=== PATIENT | male | born 1945 | race Caucasian/White ===

== ENCOUNTER → 2020-06-13 16:12 | Outpatient (BNVA) | payer OTHER, SELFPAY | PROVIDERS: PCP Family Medicine; Visit Provider Surgery | DX: Z20.828 Contact with and (suspected) exposure to other viral communicable diseases (principal) | CPT/HCPCS: 87635 ==

== ENCOUNTER 2020-06-19 07:41 | Day surgery (SDC) | payer OTHER, SELFPAY ==
[2020-06-13 14:05] VITALS: BMI 35.4
[2020-06-19 08:08] VITALS: BP 141/72; PULSE 69; RESP 18; TEMP 36.4; O2SAT 97
[2020-06-19] MEDS: sodium chloride 0.9% 1,000 ML 30 ML IV (08:15)
[2020-06-19 08:19] LABS: Glucose Point of Care 187 mg/dL (70-110)
--- NOTE | 2020-06-19 08:26 | ANES.PREANE2 ---
Pre-Anesthetic Assessment Pre-Anesthetic Assessment: Height/Weight: Height 1.75 m Weight 108.862 kg Temp Pulse Resp BP Pulse Ox 97.6 F 69 18 141/72 97 06/19/20 08:08 06/19/20 08:08 06/19/20 08:08 06/19/20 08:08 06/19/20 08:08 Proposed Procedure: Operation Date: 06/19/20 08:30 Proposed Procedures p Colonoscopy 45911 k92.1(Not Applicable) - Bossman Wilkins MD Familial anesthetic complications: None Was Beta Fredis taken within 24 hours: N/A Last intake: Intake Last Liquid Date 06/18/20 Last Liquid Time 12:00 Last Solid Date 06/17/20 Social: Social History: No alcohol and No tobacco Exam: Pre-Anes Outpt Exam: alert, oriented x 3, clear to auscultation bilaterally and regular rate & rhythm Airway: Cervical ROM: WNL MP: 2 Dentition: Other (missing teeth) CV/HEM: CV/HEM: HTN Comments: EKG w/ first degree AV block and RBBB Saw Dr. Campuzano in April for syncopal episodes, has not had any recent episodes- Holter monitor showed NSR w/ a 4 beat run of V tach Achieves > 4 METS, walks a mile a day, denies chest pain or dyspnea on exertion Metabolic: Metabolic: DM Anesthetic Plan: ASA status: 3 Anesthesia: MAC Risk of > 500 ml blood loss (7ml/kg in children): No Meds/Allergies Current Medications: Current Medications Generic Name Dose Route Start Last Admin Trade Name Freq PRN Reason Stop Dose Admin Sodium Chloride 1,000 mls @ 30 ml s/hr 06/19/20 08:00 06/19/20 08:15 Sodium Chloride 0.9% IV 06/20/20 07:59 30 mls/hr .Q24H SHEILA Administration PFSH Anesthesia PFSH: Medical History Bifascicular block Diabetes mellitus Hyperlipidemia Surgical History H/O circumcision H/O colonoscopy History of appendectomy Family History Other CAD (coronary artery disease) Diabetes Hyperlipidemia Hypertension Stroke Denies family history of Anesthesia complication Bleeding disorder Social History Smoking and tobacco status: former smoker Alcohol intake: never Lives independently: Yes Marital status: / Current occupational status: retired History of recent travel: No Data Anesthesia Other Labs: Laboratory Results - last 48 hr 06/19/20 08:13 POC Glucose 187 Cardiac Studies: No Data to Display
--- NOTE | 2020-06-19 09:12 | W.PM.OPSUD ---
Surgery/Procedure H&P Update DATE OF PROCEDURE: June 19, 2020 DATE H&P PERFORMED: 05/29/20 H&P UPDATE INFORMATION: I have reviewed H&P completed within last 30 days, I have examined patient prior to procedure and No changes to prior documentation PLANNED PROCEDURE: Operation Date: 06/19/20 08:30 Proposed Procedures p Colonoscopy 44760 k92.1(Not Applicable) - Bossman Wilkins MD
[2020-06-19 09:44] VITALS: BP 141/80; PULSE 58; RESP 16; TEMP 36.3; O2SAT 98
[2020-06-19 09:52] VITALS: BP 135/76; PULSE 60; RESP 16; O2SAT 99
--- NOTE | 2020-06-19 10:33 | ANE.PACU2 ---
Inpatient post-anesthesia follow up: Airway intact: Yes Vital signs: Temperature 97.4 F Pulse Rate 60 Respiratory Rate 16 Blood Pressure 135/76 Pulse Oximetry 99 Oxygen Delivery Me thod Room Air Oxygen Flow Rate 2 Fraction of Inspir ed Oxygen Hydration adequate: Yes Nausea and vomiting: No Pain level: 3 Mental status: Baseline
== END 2020-06-19 10:15 | disposition home or self-care (01) ==
PROVIDERS: PCP Family Medicine; Visit Provider Surgery
PROC: 0DJD8ZZ Inspection of Lower Intestinal Tract, Via Natural or Artificial Opening Endoscopic (ICD-10-PCS; CPT 45378; principal; 2020-06-19 08:30)
DX: K92.1 Melena (principal); D12.4 Benign neoplasm of descending colon; K57.30 Diverticulosis of large intestine without perforation or abscess without bleeding; K64.8 Other hemorrhoids; I10 Essential (primary) hypertension; I44.0 Atrioventricular block, first degree; E11.9 Type 2 diabetes mellitus without complications; E78.5 Hyperlipidemia, unspecified
CPT/HCPCS: 12345; 36416; 45378; 82962; 88305; J7030

== ENCOUNTER 2020-09-12 16:59 | Emergency (ER) | payer OTHER, SELFPAY ==
[2020-09-12 17:09] VITALS: BP 160/89; PULSE 74; RESP 16; TEMP 36.8; O2SAT 95; BMI 31.4
--- NOTE | 2020-09-12 18:20 | ECG_ITS ---
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1945 Requested By: Abhilash Hall Order Number: [id number] Reading MD: FANI GARCIA Measurements Intervals [place] Rate: 74 P: 67 PA: 226 QRS: -53 QRSD: 154 T: 56 QT: 448 QTc: 499 Interpretive Statements SINUS RHYTHM WITH FIRST DEGREE AV BLOCK RIGHT BUNDLE BRANCH BLOCK [120+ ms QRS DURATION, UPRIGHT V1, 40+ ms S IN I/aVL/V4/V5/V6] LEFT ANTERIOR FASCICULAR BLOCK [QRS AXIS <= -45, QR IN I, RS IN II] LEFT VENTRICULAR HYPERTROPHY AND ST-T CHANGE [VOLTAGE CRITERIA PLUS ST/T ABNORMALITY] No previous ECG available for comparison Electronically Signed On 09-12-2020 20:07:15 SCREEN PRINT OPERATOR by FANI GARCIA [id number]
--- NOTE | 2020-09-12 18:20 | XR_ITS ---
WS: [id number] Exam: XR chest 1V portable [id number] Date/Time of Exam: 09/12/2020 7:10 PM Reason For Exam: cp No priors. The lungs are clear and fully expanded. Unremarkable cardiomediastinal structures for technique. No p leural effusions. Calcified granulomas noted bilaterally. XR/XR chest 1V portable [id number] IMPRESSION: 1. No acute cardiopulmonary finding.
--- NOTE | 2020-09-12 19:11 | ED_ITS ---
HPI - Syncope General: Chief Complaint: Syncope Stated Complaint: Passing Out/Shakes, Sent from [place] Time Seen by Provider: 09/12/20 18:46 Source: patient Mode of arrival: ambulatory Limitations: no limitations History of Present Illness: HPI narrative: 75-year-old male states he had 2 syncopal events today of the last 1 being at 5 PM. He denies any chest pain or shortness of breath before or after the event. He states that this has been going on for months and almost a year. He states he has been seeing his tax advisor. He denies any differences today. Associated symptoms: Deny abdominal pain, fever(s), headache(s) or nausea Review of Systems Const: Denies: fever(s), chills, body aches or change in appetite Eyes: Denies: blurry vision or eye discomfort ENMT: Denies: throat pain or dental pain Card: Reports: syncope Resp: Denies: dyspnea GI: Denies: abdominal pain, nausea, vomiting or diarrhea : Denies: dysuria Musc: Denies: neck pain or back pain Skin/Breast: Denies: rash Neuro: Denies: headache(s) Psych: Denies: depression Ken/Lymph: Denies: easy bruising All/Imm: Denies: urticaria PFSH ED PFSH: Medical History Bifascicular block Diabetes mellitus Hyperlipidemia Surgical History H/O circumcision H/O colonoscopy History of appendectomy Status post colonoscopy with polypectomy (06/19/20) Family History Other CAD (coronary artery disease) Diabetes Hyperlipidemia Hypertension Stroke Denies family history of Anesthesia complication Bleeding disorder Social History Smoking and tobacco status: former smoker Alcohol intake: never Lives independently: Yes Marital status: / Current occupational status: retired History of recent travel: No Physical Exam Const: COMMON NORMALS: no acute distress, patient oriented x3 and healthy appearing HENMT: COMMON NORMALS: normocephalic and atraumatic HEAD & SCALP: normocephalic and atraumatic Eye: COMMON NORMALS: Equal, round and reactive pupils present and EOMs intact bilaterally PUPIL: Yes Equal, round and reactive pupils present Neck/C-Spine: COMMON NORMALS: full ROM and supple Chest: COMMONS NORMALS: normal inspection of the chest and normal palpation of entire chest wall Resp: COMMON NORMALS: normal respiratory effort, No retractions, No use of accessory muscles and clear to auscultation bilaterally AUSCULTATION: clear to auscultation bilaterally Cardio: COMMON NORMALS: regular rate, regular rhythm and No murmurs present (Cardio) RATE: regular rate RHYTHM: regular rhythm GI: COMMON NORMALS: Normal to inspection, nondistended, normoactive bowel sounds present, Soft to palpation, non-tender and no masses PALPATION: Yes Soft to palpation Extremity: COMMON NORMALS: normal to inspection and full ROM Neuro: COMMON NORMALS: patient oriented x3, moves all extremities and no focal motor deficits Psych: COMMON NORMALS: mental status grossly normal, Normal thought process present and cooperative THOUGHT PROCESS: Normal thought process present Skin: COMMON NORMALS: no rashes or lesions noted and no wounds GENERAL SKIN EXAM: no rashes or lesions noted Course Vital Signs: Vital signs: Vital Signs Temperature 98.2 F 09/12/20 17:09 Pulse Rate 62 09/12/20 21:00 Respiratory Rate 16 09/12/20 17:09 Blood Pressure 153/87 09/12/20 21:00 Pulse Oximetry 96 09/12/20 21:00 MDM - Syncope MDM Narrative: Medical decision making narrative: Patient presents here with syncopal events that have been going on for months. Patient's been well- appearing here and has had no syncope. Patient's EKG and troponins here are negative. We will get him appoint with his tax advisor. He is to follow-up in 3 to 5 days and return to ER if worsening. Lab Data: Labs: Lab Results 09/12/20 09/12/20 09/12/20 Range/Units 19:20 19:20 19:20 WBC 8.7 (4.0-10.0) 10^3/ uL RBC 4.22 (4.1-5.3) 10^6/u L Hgb 14.5 (11.7-16.6) g/dL Hct 42.3 (42.0-52.0) % MCV 100.2 H (80-94) fL MCH 34.4 H (28.0-34.0) pg MCHC 34.3 (30.0-36.0) g/dL RDW 13.0 (12.1-15.1) % Plt Count 188 (130-400) 10^3/c mm MPV 9.9 (7.4-10.4) fL Neut % (Auto) 55.8 % Lymph % (Auto) 34.6 % Thayer % (Auto) 7.5 % Eos % (Auto) 1.2 % Baso % (Auto) 0.3 % Neut # (Auto) 4.84 (1.8-7.7) 10^3/u L Lymph # (Auto) 3.0 (0.8-4.8) 10^3/u L Thayer # (Auto) 0.7 (0.2-0.9) 10^3/u L Eos # (Auto) 0.1 (0.0-0.8) 10^3/u L Baso # (Auto) 0.0 (0.0-0.1) 10^3/u L Nucleated RBC % (a uto) 0 % Nucleated RBCs # 0.0 /100WBC Sodium 137 (136-145) mmol/L Potassium 4.4 (3.5-5.1) mmol/L Chloride 104 (98-107) mmol/L Carbon Dioxide 22 (22-29) mmol/L Anion Gap 15.4 (5-19) BUN 19 (8-23) mg/dL Creatinine 1.1 (0.7-1.2) mg/dL GFR Calculation Not Reportable Glucose 228 H (65-115) mg/dL Calculated Osmolal ity 293 (285-295) mOsm/k g Calcium 9.0 (8.5-10.5) mg/dL Total Bilirubin 0.2 (0.15-1.2) mg/dL AST 52 H (0-40) U/L ALT 87 H (0-41) U/L Alkaline Phosphata se 77 (40-130) IU/L Troponin T Baselin e 18 H (0-15) ng/L Troponin T 120 Min [place] (0-15) ng/L Delta Troponin T (0-10) ABS# Total Protein 7.1 (6.6-8.7) g/dL Albumin 4.2 (3.5-5.2) g/dL Globulin 2.9 (1.3-4.6) g/dL 09/12/20 Range/Units 20:22 WBC (4.0-10.0) 10^3/ uL RBC (4.1-5.3) 10^6/u L Hgb (11.7-16.6) g/dL Hct (42.0-52.0) % MCV (80-94) fL MCH (28.0-34.0) pg MCHC (30.0-36.0) g/dL RDW (12.1-15.1) % Plt Count (130-400) 10^3/c mm MPV (7.4-10.4) fL Neut % (Auto) % Lymph % (Auto) % Thayer % (Auto) % Eos % (Auto) % Baso % (Auto) % Neut # (Auto) (1.8-7.7) 10^3/u L Lymph # (Auto) (0.8-4.8) 10^3/u L Thayer # (Auto) (0.2-0.9) 10^3/u L Eos # (Auto) (0.0-0.8) 10^3/u L Baso # (Auto) (0.0-0.1) 10^3/u L Nucleated RBC % (a uto) % Nucleated RBCs # /100WBC Sodium (136-145) mmol/L Potassium (3.5-5.1) mmol/L Chloride (98-107) mmol/L Carbon Dioxide (22-29) mmol/L Anion Gap (5-19) BUN (8-23) mg/dL Creatinine (0.7-1.2) mg/dL GFR Calculation Glucose (65-115) mg/dL Calculated Osmolal ity (285-295) mOsm/k g Calcium (8.5-10.5) mg/dL Total Bilirubin (0.15-1.2) mg/dL AST (0-40) U/L ALT (0-41) U/L Alkaline Phosphata se (40-130) IU/L Troponin T Baselin e (0-15) ng/L Troponin T 120 Min [place] 17.58 H (0-15) ng/L Delta Troponin T -0.42 L (0-10) ABS# Total Protein (6.6-8.7) g/dL Albumin (3.5-5.2) g/dL Globulin (1.3-4.6) g/dL EKG Data^: EKG 1: Attestation: I personally reviewed and interpreted this EKG as follows: EKG interpretation date: 09/12/20 EKG interpretation time: 17:08 Interpretation: nsr hr [address] or t wave abnormalities qrs 154 qtc 475 Discharge Plan Discharge Patient Disposition: Home Clinical Impression: Syncope Qualifiers: Syncope type: unspecified Qualified Code(s): R55 - Syncope and collapse Condition: Stable Prescriptions: No Action amlodipine 5 mg tablet 5 mg PO DAILY RF: 0 atorvastatin 20 mg tablet 10 mg PO DAILY RF: 0 glipizide 5 mg tablet 2.5 mg PO DAILY RF: 0 lisinopril 40 mg tablet 20 mg PO DAILY RF: 0 metformin 1,000 mg tablet 500 mg PO BID RF: 0 omega-3 fatty acids [Fish Oil Concentrate] 1,000 mg capsule 1,000 mg PO DAILY RF: 0 cholecalciferol (vitamin D3) 1 tab PO DAILY RF: 0 aspirin 325 mg tablet 325 mg PO Q6H PRN (Reason: Pain) RF: 0 tamsulosin 0.4 mg Capsule 0.4 mg PO DAILY RF: 0 Discharge Orders: Discharge ED (Routine); Ordered 09/12/20 Ordered By: Abhilash Hall Referrals: Antione López [Primary Care Provider] - 1-3 days Discharge Diet: Advance as tolerated Discharge Activity: Resume usual activity Patient Instructions: Syncope (ED) Coding Level of Care Code ED Cadd Instructor for Chg Fwd Exam Comprehensive
[2020-09-12 19:28] VITALS: BP 163/80; PULSE 59; O2SAT 95
[2020-09-12 19:42] LABS: Basophils % 0.3 %; Eosinophils # 0.1 10^3/uL (0.0-0.8); Eosinophils % 1.2 %; Hematocrit 42.3 % (42.0-52.0); Hemoglobin 14.5 g/dL (11.7-16.6); Lymphocytes % 34.6 %; Mean Corpuscular HGB Conc 34.3 g/dL (30.0-36.0); Mean Corpuscular Hemoglobin 34.4 pg (28.0-34.0); Mean Corpuscular Volume 100.2 fL (80-94); Mean Platelet Volume 9.9 fL (7.4-10.4); Monocytes # 0.7 10^3/uL (0.2-0.9); Monocytes % 7.5 %; Neutrophils # 4.84 10^3/uL (1.8-7.7); Neutrophils % 55.8 %; Nucleated Red Blood Cells % 0 %; Platelet Count 188 10^3/cmm (130-400); Red Blood Count 4.22 10^6/uL (4.1-5.3); White Blood Count 8.7 10^3/uL (4.0-10.0)
[2020-09-12 20:00] VITALS: BP 149/81; PULSE 60; O2SAT 95
[2020-09-12 20:15] LABS: Alanine Aminotransferase 87 U/L (0-41); Albumin Level 4.2 g/dL (3.5-5.2); Alkaline Phosphatase 77 IU/L (40-130); Anion Gap 15.4 (5-19); Aspartate Amino Transferase 52 U/L (0-40); Blood Urea Nitrogen 19 mg/dL (8-23); Carbon Dioxide 22 mmol/L (22-29); Chloride 104 mmol/L (98-107); Globulin 2.9 g/dL (1.3-4.6); Glucose 228 mg/dL (65-115); Osmolality Calculated 293 mOsm/kg (285-295); Potassium 4.4 mmol/L (3.5-5.1); Sodium 137 mmol/L (136-145); Total Bilirubin 0.2 mg/dL (0.15-1.2); Total Protein 7.1 g/dL (6.6-8.7)
[2020-09-12 20:16] LABS: Troponin(5th) Baseline 18 ng/L (0-15)
--- NOTE | 2020-09-12 20:20 | ECG_ITS ---
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 Measurements Intervals [place] Rate: 59 P: 56 MI: 233 QRS: -53 QRSD: 144 T: -14 QT: 424 QTc: 420 Interpretive Statements SINUS BRADYCARDIA WITH FIRST DEGREE AV BLOCK RIGHT BUNDLE BRANCH BLOCK [120+ ms QRS DURATION, UPRIGHT V1, 40+ ms S IN I/aVL/V4/V5/V6] LEFT ANTERIOR FASCICULAR BLOCK [QRS AXIS <= -45, QR IN I, RS IN II] VOLTAGE CRITERIA FOR LVH [MEETS CRITERIA IN ONE OF: R(aVL), S(V1), R(V5), R(V5/V6)+S(V1)] POSSIBLE SEPTAL MYOCARDIAL INFARCTION , PROBABLY OLD [30 ms Q WAVE IN V1/V2] Compared to ECG 09/12/2020 17:08:11 Myocardial infarct finding now present Sinus rhythm no longer present ST (T wave) deviation no longer present Electronically Signed On 09-13-2020 20:09:53 TALENT SOURCER by Malik Alvarez M.D. [id number]
--- NOTE | 2020-09-12 20:34 | PC.NURSE ---
EKG done at 2230 and shown to ER doctor
[2020-09-12 20:55] LABS: Troponin 5 2HR 17.58 ng/L (0-15)
[2020-09-12 21:00] VITALS: BP 153/87; PULSE 62; O2SAT 96
[2020-09-12 21:13] LABS: Troponin 5 2HR Delta -0.42 ABS# (0-10)
[2020-09-12 21:34] VITALS: BP 153/87; PULSE 62; RESP 20; O2SAT 97
--- NOTE | 2020-09-13 14:38 | DCPLANNER ---
implementation project manager had message to schedule a follow up appointment for patient with [facility]. implementation project manager called [facility], spoke with Janee, gave clinic patients information. A follow up appointment was scheduled for Saturday, September 26, 2020 at 2:[address] Campuzano. implementation project manager called patient and gave patient the appointment information. Patient has [employer] insurance, pillowcase folder e mailed patients information to October with [facility], so that the authorization process could be started.
--- NOTE | 2020-10-10 07:57 | DCPLANNER ---
Patient had a follow up appointment scheduled with [facility] - patient did attend appointment with Dr. Campuzano.
== END 2020-09-12 21:34 | disposition home or self-care (01) ==
PROVIDERS: Emergency Provider Emergency Medicine; PCP Family Medicine
DX: R55 Syncope and collapse (principal); Z79.82 Long term (current) use of aspirin; Z79.84 Long term (current) use of oral hypoglycemic drugs; E11.9 Type 2 diabetes mellitus without complications; E78.5 Hyperlipidemia, unspecified; Z87.891 Personal history of nicotine dependence
CPT/HCPCS: 36415; 71045; 80053; 84484; 85025; 93005; 99283

== ENCOUNTER 2020-10-05 11:50 | Outpatient (CLI) | payer OTHER, SELFPAY ==
--- NOTE | 2020-10-05 12:06 | USCV_ITS ---
Jeremiah Lance Age: 75 Gender: M : 1945 Exam Date: 10/05/2020 12:25 Ordering Phys: Yolanda Yi MD Technologist: KOFI [place] [facility] [place]: Recurrent syncope BP: 135 / 70 HR: 61 Rhythm: Sinus Technical Quality: Adequate MEASUREMENTS (Male / Female) Normal Values 2D ECHO LV Diastolic Diameter PLAX 4.8 cm 4.2 - 5.9 / 3.9 - 5.3 cm LV Systolic Diameter PLAX 3.4 cm IVS Diastolic Thickness 1.4 cm 0.6 - 1.0 / 0.6 - 0.9 cm IVS Systolic Thickness 1.7 cm LVPW Diastolic Thickness 1.1 cm 0.6 - 1.0 / 0.6 - 0.9 cm LVPW Systolic Thickness 2.0 cm LVOT Diameter 2.0 cm LV Ejection Fraction 2D Teich 58.4 % LV Ejection Fraction MOD 2C 67.8 % LV Ejection Fraction 2C AL 70.1 % LA Diameter 3.6 cm LA Width 4.0 cm LA Height 4.8 cm RA Width 3.4 cm RA Height 4.6 cm Aorta at Sinotubular Diameter 2.5 cm M-MODE LV Diastolic Diameter MM 5.1 cm 4.2 - 5.9 / 3.9 - 5.3 cm LV Systolic Diameter MM 3.3 cm LV Ejection Fraction MM Teich 66.3 % IVS Diastolic Thickness MM 1.4 cm 0.6 - 1.0 / 0.6 - 0.9 cm IVS Systolic Thickness MM 1.9 cm LVPW Diastolic Thickness MM 1.1 cm 0.6 - 1.0 / 0.6 - 0.9 cm LVPW Systolic Thickness MM 1.3 cm Aortic Annulus Diameter 3.1 cm LA Ao Ratio MM 1.3 MV E Point Septal Separation 0.6 cm DOPPLER AV Peak Velocity 205.0 cm/s LVOT Peak Velocity 150.0 cm/s AV Area Cont Eq vti 2.3 cm squared AV Area Cont Eq pk 2.4 cm squared MV Area PHT 5.0 cm squared Mitral E to A Ratio 0.9 MV E' Velocity 42.5 cm/s Mitral E to MV E' Ratio 9.3 Mitral E to LV E' Lateral Ratio 8.1 Mitral E to LV E' Septal Ratio 11.1 TR Peak Velocity 316.0 cm/s TR Peak Gradient 39.9 mmHg TV Peak E Velocity 74.0 cm/s Right Atrial Pressure 3.0 mmHg Pulmonary Artery Systolic Pressu 42.9 mmHg PV Peak Velocity 130.0 cm/s RV Acceleration Time 0.1 s RV Ejection Time 0.3 s RV AcT/ET 0.4 FINDINGS Left Ventricle Normal left ventricular size, systolic function and wall thickness, with no diagnostic regional wall motion abnormalities. Left ventricular ejection fraction is estimated at 55 %. Normal diastolic function. Right Ventricle Normal right ventricular size and systolic function. Right Atrium Normal right atrial size. Left Atrium Mildly increased left atrial size. Mitral Valve Moderately thickened mitral valve. No mitral valve stenosis. Trace mitral valve regurgitation. Aortic Valve Thickened trileaflt aortic valve more pronounced in non coronary and left coronary cusps. No aortic valve stenosis. At least moderate aortic valve regurgitation. Tricuspid Valve Structurally normal tricuspid valve. Trace tricuspid valve regurgitation. Pulmonic Valve Structurally normal pulmonic valve. No pulmonary valve stenosis. Trace pulmonary valve regurgitation. Pericardium No pericardial effusion. Aorta Normal size aortic root and proximal ascending aorta. CONCLUSIONS 1. This is a technically difficult study with poor apical windows. 2. Normal left ventricular size, systolic function and wall thickness, with no diagnostic regional wall motion abnormalities. Left ventricular ejection fraction is estimated at 55 %. Normal diastolic function. 3. Thickened trileaflt aortic valve more pronounced in non coronary and left coronary cusps. At least moderate aortic valve regurgitation. 4. Mildly increased left atrial size. 5. SALONI may be considered for better assessment of aortic valve. Monique Campuzano MD (Electronically Signed) Final Date: 06 October 2020 11:05 S
== END 2020-10-05 11:51 | disposition home or self-care (01) ==
LOC: US 11:53
PROVIDERS: PCP Family Medicine; Visit Provider Family Medicine
DX: R55 Syncope and collapse (principal); I35.1 Nonrheumatic aortic (valve) insufficiency
CPT/HCPCS: 93306

== ENCOUNTER 2020-10-16 08:09 | Outpatient (CLI) | payer OTHER, SELFPAY ==
--- NOTE | 2020-10-16 08:17 | USCV_ITS ---
Jeremiah Lance Age: 75 Gender: M : 1945 Exam Date: 10/16/2020 08:34 Ordering Phys: Yolanda Yi MD Technologist: MARKO Exam Location[place] [facility] [place] Indication: SYNCOPE Risk Factors: Previous Vascular Surgery: Right Brachial BP: / Left Brachial BP: / Right Left Velocity (cm/s) Spectral Plaque Velocity (cm/s) Spectral Plaque Syst/Diast Broadening Syst/Diast Broadening 146.60/15.40 Prox CCA 102.80/ 19.20 83.80/ 19.80 Mid CCA 69.50 / 17.60 81.60/ 15.40 Distal CCA 57.30 / 15.40 58.10/ 14.50 Prox ICA 39.20 / 13.10 73.40/ 24.70 Mid ICA 76.70 / 22.20 95.90/ 29.80 Distal ICA 88.30 / 24.00 160.00 ECA 125.90 1.15 ICA/CCA 1.27 Antegrade Vertebral Antegrade 37.60/ 6.00 cm/s 55.90/ 12.50 cm/s Tri Subclavian Tri 109.4 97.10 0 FINDINGS Comparison: none available. No significant elevation of systolic or diastolic velocities. Waveforms are normal. Minimal bilateral, plaque with no elevation of velocity. Antegrade vertebral arteries. CONCLUSIONS Bilateral ICA stenosis less than 50%. Mild carotid atherosclerosis. Dr. Oxana Raza DO (Electronically Signed) Final Date: 16 October 2020 14:18 S
== END 2020-10-16 08:10 | disposition home or self-care (01) ==
LOC: US 08:09
PROVIDERS: PCP Family Medicine; Visit Provider Family Medicine
DX: R55 Syncope and collapse (principal); I65.23 Occlusion and stenosis of bilateral carotid arteries
CPT/HCPCS: 93880

== ENCOUNTER 2020-11-02 08:08 | Outpatient (CLI) | payer OTHER, SELFPAY ==
[2020-11-02 08:29] VITALS: BMI 31.8
--- NOTE | 2020-11-02 08:30 | ECG_ITS ---
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 Interpretive Statements NAME OF STUDY: LEXISCAN SESTAMIBI STRESS TEST INDICATION: Syncope, CAD PROCEDURE: At the baseline, the blood pressure was 140/68 mmHg with a heart rate of 64 beats per minute. The electrocardiogram showed normal sinus rhythm, left anterior fascicular block. Right bundle branch block. Voltage criteria for LVH. The Lexiscan was infused over a period of 20 seconds. A total of 0.4 milligrams of Lexiscan was infused. The stress phase was continued for a total of 5 minutes. Heart rate at the end of the stress phase was 79 bpm with a blood pressure of 120/67 mmHg. The EKG at the peak infusion revealed sinus rhythm with no significant ST-T wave changes. Sestamibi was injected 20 seconds after the Lexiscan infusion. Blood pressure at the end of the recovery phase was 114/63 mmHg with a heart rate of 76 beats per minute. CONCLUSION: 1. No significant EKG changes with the LexiScan infusion. 2. No LexiScan induced chest pain or cardiac arrhythmia. 3. Normal blood pressure and heart rate response. 4. Sestamibi/sestamibi perfusion scan pending; see separate report. Electronically Signed On 11-07-2020 13:29:05 CDT by Monique Campuzano M.D. [id number]
--- NOTE | 2020-11-02 08:30 | NMCV_ITS ---
NM pascual perf SPECT r/s* [id number] Jeremiah Lance Age: 75 Gender: M : 1945 Exam Date: 11/02/2020 08:30 Ordering Phys: Monique Campuzano MD ([email or web address]) Technologist: MARI Alvarado Exam Location: [facility] Indications: SYNCOPE STRESS TEST Please see [facility] for [facility] IMAGE PROTOCOL Rest/Stress 1 Lexiscan Day Radiopharmaceutical Dose (mCi) Administration Site Administered by Rest: Tc-99m 10.9 IV MARI Shea Sestamibi Stress:Tc-99m 33.0 IV MARI Shea Sestamibi Rest: 02-Nov-2020 60 Discovery 630 Stress: 02-Nov-2020 30 Discovery 630 0.4mg Lexiscan. Images obtained in supine and prone position. SPECT RESULTS Technical Quality: Excellent Raw Data Analysis: Normal Image Corrections: No attenuation or motion correction applied Summed Stress Score: 7 Summed Rest Score: 9 Summed Difference Score: 0 PERFUSION FINDINGS Small size perfusion abnormality of moderate severity of mid inferolateral, mid to apical inferior, apical lateral and apical marroquin on rest images with improved tracer uptake in inferior wall on stress images. FUNCTIONAL RESULTS (calculated via Gated SPECT) Stress Image LV EF (%): 62 Stress EDV (mL):155 TID: 0.95 Stress ESV (mL):59 FUNCTIONAL FINDINGS: The left ventricle is normal in size. Transient Ischemia Dilatation of 0.95. There is normal left ventricular systolic function. The left ventricular ejection fraction is normal with a value of 62%. There is normal left ventricular wall thickening with no regional wall motion abnormality. IMPRESSIONS 1. Small size fixed perfusion abnormality of moderate severity of mid inferolateral and apical lateral marroquin may represent attenuation artifact or old myocardial infarction in circumflex/left anterior descending artery territory. 2. Small paradoxical perfusion abnormality in mid to apical inferior marroquin likely represents attenuation artifact. 3. Overall left ventricular systolic function is normal without regional wall motion abnormalities. 4. The left ventricular ejection fraction is normal with a value of 62%. 5. No coronary ischemia based on the study. Monique Campuzano MD (Electronically Signed) Final Date: 08 November 2020 17:12 S
[2020-11-02] MEDS: regadenoson 0.4 Mg/5 ml Syringe IVP (09:50)
[2020-11-02 10:00] VITALS: BP 139/64; PULSE 77
== END 2020-11-02 08:09 | disposition home or self-care (01) ==
LOC: CDL 08:10
PROVIDERS: PCP Family Medicine; Visit Provider Internal Medicine Cardiovascular Disease
DX: R55 Syncope and collapse (principal)
CPT/HCPCS: 78452; 93017; A9500; J2785

== ENCOUNTER → 2020-12-14 09:25 | Outpatient (BNVA) | payer OTHER, SELFPAY | PROVIDERS: PCP Family Medicine; Visit Provider Internal Medicine Cardiovascular Disease | DX: R94.39 Abnormal result of other cardiovascular function study (principal); Z20.822 Contact with and (suspected) exposure to COVID-19 | CPT/HCPCS: 80048; 85025; 85610; 87635 ==

== ENCOUNTER 2020-12-20 14:58 | Observation (INO) | payer OTHER, SELFPAY ==
[2020-12-20] VITALS (9 sets, daily range): BP systolic 110–169; BP diastolic 63–79; PULSE 49–56; RESP 16–20; TEMP 36.6–36.9; O2SAT 93–98; BMI 31.2
--- NOTE | 2020-12-20 09:00 | XACV_ITS ---
Ht: 180 cm Wt: 102 kg BSA: 2.28 m2 Gender: Male : 1945 Exam Priority: Routine Procedure(s): Procedure Description: Diagnostic procedure Procedure Description: Left Heart Catheterization Diagnostic Cath Status: Elective Diagnostic Findings * Left Main has no disease. * Circumflex has no disease. * Proximal Left Anterior Descending: obstructive 60% stenosis, YESSY: 3 flow. * Proximal Right Coronary Artery to Mid Right Coronary Artery: minimal 30% stenosis, YESSY: 3 flow. * Coronary angiography shows right dominance. Conclusions 1. There is obstructive coronary artery disease with two vessel disease. Recommendations * Continue current medical management and risk factor modification. Clinical Evaluation EBL: 5mL-10mL Procedural Details Procedure Consent Obtained. Admit Source: Out Patient. Pre-Procedure Time Out. Identified patient by full name and date of as verbalized by the patient/guarantor. Does the consent match the physician's order: Yes. Accurate & Complete Informed Consent: Yes. Inpatient/Outpatient History & Physical on Chart: Yes. If H&P is completed, is and addenduem needed: Yes; If yes, is the addendum complete: N/A. Visualize and Verify Site with Patient/Guarantor: N/A. Relevant Radiology Images available: N/A. Pre-op teaching completed and patient verbalized understanding. The risks, benefits, and alternatives of sedation and/or procedure were discussed by physician. The patient agrees to continue. Procedure started. Correct patient, site and procedure confirmed by cath team. PERRLA. Strong, equal hand teacher adult education bilaterally. Lungs clear x 5 lobes. IV Site on Arrival: 20 gauge in the left wrist. Oxygen started at 2liters/min via nasal canula. bilateral groins was prepped with chloroprep then draped in the usual sterile fashion. right radial was prepped with chloroprep then draped in the usual sterile fashion. Physician notified. Baseline sample Acquired. HR: 55 BPM. Physician arrived. Physician scrubbed in. Immediate Pre-Procedure Time Out. Correct Patient: Yes; Correct Procedure: Yes; Correct Site: Yes; Correct Patient Position: Yes; Correct Supplies: Yes; Dried Flammable Prep: Yes; Blood Products Available: NA;. Lidocaine 1% infiltrated to the right radial. Arterial access obtained. A 5 nicaraguan TIG catheter in over wire. Multiple views taken of left coronary artery. Catheter redirected to the RCA. Multiple views taken of right coronary artery. Catheter out. A 5 nicaraguan Angled Pig catheter in over wire. Catheter out. wire out. [facility] Clinical Fraility Score: 4: Vulnerable. Group Therapy Counselor Indications: New Onset Angina/ abnormal stress test. Chest Pain Symptom Assessment: Atypical Angina. Cardiovascular Instability: No,. TR band placed. Hemostasis obtained. Post Procedure: Pulses reassessed and unchanged. PERRLA. Strong, equal hand teacher adult education bilaterally. No VTE prophylaxis required. Medication's Wasted: Lidocaine 1% = 16 mL. Medication's Wasted: Nitro = 49.8 mg. Medication's Wasted: Heparin = 1000 units. Medication's Wasted: Other = fentanyl 50 mg. Total IV fluids: 50 mL. Contrast type used: Omnipaque 300 mgI/mL, 500 mL bottle. Contrast Material : Omnipaque 70 ml. Vital chart was stopped. Post-op diagnosis: non obstructive CAD. Complications: none. Estimated blood loss: 5mL-10mL. A TR Band was successful obtaining hemostatsis at the Right Radial artery insertion site. Procedure completed. Patient transferred by wheelchair to 1st floor. Access Site Site: Right Radial artery Sheath Size: 6 Fr Hemostasis Method: TR Band Hemostasis Success: Successful Procedure Medications Start: 1:06 PM Stop: 1:06 PM Medication: Versed Amount: 1 mg Route: I.V. Start: 1:06 PM Stop: 1:06 PM Medication: Fentanyl Amount: 50 mcg Route: I.V. Start: 1:18 PM Stop: 1:18 PM Medication: Versed Amount: 1 mg Route: I.V. Start: 1:21 PM Stop: 1:21 PM Medication: Nitrogylcerin Amount: 200 mcg Route: I.A. Start: 1:24 PM Stop: 1:24 PM Medication: Heparin Amount: 5000 units Route: I.V. I, the attending physician, have reviewed and verified all procedure medications. Yes, all medications given per verbal order History/Risk Factors Dyslipidemia: Yes Tobacco Use: Former Report Signatures Finalized by Merlyn Linda MD on 12/23/2020 09:43 AM
[2020-12-20] MEDS: diphenhydrAMINE 50 mg Capsule PO (10:27)
--- NOTE | 2020-12-20 11:15 | SUR.PREOP ---
PREOP NOTE THE PATIENT, HIS SPOUSE, AND DAUGHTER WERE NOTIFIED OF THE DELAY IN HIS PROCEDURE D/T STEMI. THEY ALL VERBALIZED THEIR UNDERSTANDING.
--- NOTE | 2020-12-20 13:07 | P.HPUD_ITS ---
Surgery/Procedure H&P Update DATE OF PROCEDURE: December 20, 2020 DATE H&P PERFORMED: 11/26/20 H&P UPDATE INFORMATION: I have reviewed H&P completed within last 30 days, I have examined patient prior to procedure and No changes to prior documentation PREOP DIAGNOSIS: Abnormal stress test, worsening of shortness of breath and anginal-like sym PLANNED PROCEDURE: Operation Date: 12/20/20 10:00 Proposed Procedures p left Cardiac Catheterization 33404 r94.39(Left) - Merlyn Linda MD PATIENT REASSESSED PRIOR TO SEDATION, WITH NO CHANGE NOTED: Yes PHYSICAL EXAM: alert, oriented x 3 and clear to auscultation bilaterally AIRWAY EVAL/ANESTHESIA PLAN: ASA II and Risks, benefits & alternatives of sed ation and/or procedure discussed
--- NOTE | 2020-12-20 14:17 | PC.NURSE ---
Report Called Report called to Maurice SALEEM at this time, all questions answered. Pt to ICU 5 as OF. Family updated.
--- NOTE | 2020-12-20 15:48 | PC.NURSE ---
Removed a total of 13cc from pt TR band. cath site dry clean and intact. Dressing placed over site. pt instructed not to lift with affected arm for 24 hours.
== END 2020-12-20 16:59 | disposition home or self-care (01) ==
LOC: ICU 15:12
PROVIDERS: Admitting Provider Internal Medicine Cardiovascular Disease; PCP Family Medicine; Visit Provider Internal Medicine Cardiovascular Disease
DX: I25.10 Atherosclerotic heart disease of native coronary artery without angina pectoris (principal); R94.39 Abnormal result of other cardiovascular function study; E78.5 Hyperlipidemia, unspecified; Z87.891 Personal history of nicotine dependence; Z82.49 Family history of ischemic heart disease and other diseases of the circulatory system; Z79.82 Long term (current) use of aspirin; E11.9 Type 2 diabetes mellitus without complications; Z79.84 Long term (current) use of oral hypoglycemic drugs
CPT/HCPCS: 36415; 93454; C1769; C1887; C1894; G0378; J1644; J2250; J3010; J3490; J7030; Q0163; Q9967

== ENCOUNTER 2021-06-07 11:24 | Outpatient (CLI) | payer OTHER, SELFPAY ==
--- NOTE | 2021-06-07 | CT_ITS ---
WS: [id number] Exam: CT abdomen pelvis wo/w [id number] Date/Time of Exam: 06/07/2021 11:40 AM Reason For Exam: ELEVATED LIVER ENZYMES DLP: 1181.[address] scans at [facility] use at least one of these dose optimization techniques: automated e xposure control; mA and/or kV adjustment per patient size (includes targeted exams where dose is matc hed to clinical indication); or iterative reconstruction. Lower lung zones are clear. Hepatic steatosis noted. No calcified stones in the gallbladder. The stom ach, spleen and pancreas appear normal. The abdominal aorta is not dilated. The portal vein and IVC a re patent. Normal adrenal glands. The kidneys are unremarkable. No free air. No lymphadenopathy. Smal l bowel loops are normal in caliber. Minimal sigmoid diverticulosis. No sign of acute diverticulitis. Intact urinary bladder. No mass or adenopathy in the pelvis. No sign of acute appendix. No significa nt abdominal wall defect. No destructive bone lesions are seen. Moderate spinal canal stenosis at L3- 4. CT/CT abdomen pelvis wo/w [id number] IMPRESSION: 1. No mass, lymphadenopathy or acute finding. 2. Hepatic steatosis. Minimal sigmoid diverticulosis.
[2021-06-07] MEDS: iohexol 350 mg/mL 100 mL Btl IV (15:42)
[2021-06-07] MEDS: iohexol 300 mg/mL 50 mL Btl PO (15:43)
== END 2021-06-07 11:25 | disposition home or self-care (01) ==
PROVIDERS: PCP Family Medicine; Visit Provider Family Medicine
DX: R74.8 Abnormal levels of other serum enzymes (principal); K76.0 Fatty (change of) liver, not elsewhere classified; K57.30 Diverticulosis of large intestine without perforation or abscess without bleeding
CPT/HCPCS: 74178; Q9967

== ENCOUNTER 2021-08-07 09:53 | Outpatient (CLI) | payer OTHER, SELFPAY ==
--- NOTE | 2021-08-07 | CT_ITS ---
WS: [id number] CT HEAD TECHNIQUE: Noncontrast and contrast-enhanced CT of the head. CLINICAL INFORMATION: SYNCOPE COMPARISON: None. DLP: 2524.[address] scans at [facility] use at least one of these dose optimization techniques: automated e xposure control; mA and/or kV adjustment per patient size (includes targeted exams where dose is matc hed to clinical indication); or iterative reconstruction. FINDINGS: No evidence of intracranial hemorrhage or mass effect. Ventricular system and basal cisterns are kessler nt. Mild small vessel changes. Mild parenchymal volume loss. Normal hay-white differentiation. Normal posterior fossa. No abnormal intracranial enhancement. Mastoid air cells well aerated. Mild mu cosal thickening in the paranasal sinuses. IMPRESSION 1. No evidence of intracranial hemorrhage or mass effect. 2. Mild small vessel changes with mild parenchymal volume loss. 3. No abnormal intracranial enhancement.
[2021-08-07 11:02] LABS: Blood Urea Nitrogen 17 mg/dL (8-23)
[2021-08-07] MEDS: iohexol 300 mg/mL 100 mL Btl IV (13:56)
== END 2021-08-07 09:54 | disposition home or self-care (01) ==
PROVIDERS: PCP Family Medicine; Visit Provider Family Medicine
DX: R55 Syncope and collapse (principal)
CPT/HCPCS: 70470; 82565; 84520; Q9967

== ENCOUNTER 2021-09-19 03:06 | Inpatient (IN) | payer OTHER, MEDICARE, SELFPAY ==
[2021-09-19] VITALS (15 sets, daily range): BP systolic 94–166; BP diastolic 53–78; PULSE 78–116; RESP 17–24; TEMP 36.5–36.7; O2SAT 87–97
--- NOTE | 2021-09-19 03:07 | XRR_ITS ---
PROCEDURE INFORMATION: Exam: XR Chest Exam date and time: 09/19/2021 3:07 AM Age: 76 years old Clinical indication: Cough and fever; Patient HX: Cough with fever. Tested positive for covid two weeks ago. TECHNIQUE: Imaging protocol: XR of the chest. Views: 1 view. COMPARISON: CR XR chest 1V portable [id number] 09/12/2020 7:04 PM FINDINGS: Lungs: No definite CHF/pulmonary edema. Moderate scattered opacities throughout much of the right lung, with relative sparing of the upper lung. Mild left lung opacities, mainly in the lower lungs. The appearance is suspicious for pneumonia, please correlate clinically. Several calcified granulomata again seen in the right mid and lower lung. Pleural spaces: No visible pneumothorax. No definite pleural fluid. Heart/Mediastinum: Heart size is within normal limits. Bones/joints: No significant acute finding. XR/XR chest 1V portable [id number] IMPRESSION: 1. Bilateral lung opacities, greater on the right, suspicious for pneumonia. See additional details above. 2. Other findings discussed above.
--- NOTE | 2021-09-19 03:19 | ECG_ITS ---
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 Measurements Intervals [place] Rate: 98 P: 68 VT: 198 QRS: -62 QRSD: 149 T: 90 QT: 400 QTc: 511 Interpretive Statements SINUS RHYTHM RIGHT BUNDLE BRANCH BLOCK [120+ ms QRS DURATION, UPRIGHT V1, 40+ ms S IN I/aVL/V4/V5/V6] LEFT ANTERIOR FASCICULAR BLOCK [QRS AXIS <= -45, QR IN I, RS IN II] LEFT VENTRICULAR HYPERTROPHY AND ST-T CHANGE [VOLTAGE CRITERIA PLUS ST/T ABNORMALITY] POSSIBLE SEPTAL MYOCARDIAL INFARCTION , OF INDETERMINATE AGE [30 ms Q WAVE IN V1/V2] Compared to ECG 09/12/2020 20:29:04 ST (T wave) deviation now present Sinus bradycardia no longer present First degree AV block no longer present Myocardial infarct finding still present Electronically Signed On 09-19-2021 17:44:40 [employer]ODU[employer] TEACH[employer] by Malik Alvarez M.D. [email or web address]
--- NOTE | 2021-09-19 03:23 | ED_ITS ---
HPI - URI/Sore Throat General: Chief Complaint: COVID symptoms Stated Complaint: Covid Symptoms Time Seen by Provider: 09/19/21 03:10 Source: patient Mode of arrival: ambulatory Limitations: no limitations History of Present Illness: 76-year-old male states that he tested positive for Covid at the [place] last week he states has been having cough congestion some weakness over the last 7 days he states he had much worsening cough shortness of breath overnight his pulse ox here is in the 80s on room air he has to be on 3 L here he has a significant cough with wheezing he is a former smoker no history of lung disease denies any chest pain. Associated symptoms: Reports chills; Deny abdominal pain, chest pain, diarrhea, headache(s), nausea or vomiting Review of Systems Const: Reports: chills Eyes: Denies: blurry vision or eye discomfort ENMT: Denies: throat pain or dental pain Card: Denies: chest pain Resp: Reports: dyspnea, non-productive cough and wheezing GI: Denies: abdominal pain, nausea, vomiting or diarrhea : Denies: dysuria Musc: Denies: neck pain or back pain Skin/Breast: Denies: rash Neuro: Denies: headache(s) Psych: Denies: depression Ken/Lymph: Denies: easy bruising All/Imm: Denies: urticaria PFSH ED PFSH: Medical History Bifascicular block Diabetes mellitus Hyperlipidemia Surgical History H/O circumcision H/O colonoscopy History of appendectomy Status post colonoscopy with polypectomy (06/19/20) Family History Mother CAD (coronary artery disease) [place] 89 Stroke Brother CAD (coronary artery disease), Onset Age: 60 Cancer Diabetes Lung disease Sister Diabetes Other Hyperlipidemia Hypertension Denies family history of Clotting disorder Dementia Chronic kidney disease (CKD) Suicide Anesthesia complication Bleeding disorder Social History Smoking and tobacco status: former smoker Alcohol intake: never Lives independently: Yes Marital status: / Current occupational status: retired History of recent travel: No Physical Exam Const: COMMON NORMALS: patient oriented x3 and healthy appearing GENERAL APPEARANCE: in distress HENMT: COMMON NORMALS: normocephalic and atraumatic HEAD & SCALP: normocephalic and atraumatic Eye: COMMON NORMALS: Equal, round and reactive pupils present and EOMs intact bilaterally PUPIL: Yes Equal, round and reactive pupils present Neck/C-Spine: COMMON NORMALS: full ROM and supple Chest: COMMONS NORMALS: normal inspection of the chest and normal palpation of entire chest wall Resp: COMMON NORMALS: No retractions and No use of accessory muscles EFFORT & INSPECTION: Yes tachypneic AUSCULTATION: wheezes Cardio: COMMON NORMALS: regular rate, regular rhythm and No murmurs present (Cardio) RATE: regular rate RHYTHM: regular rhythm GI: COMMON NORMALS: Normal to inspection, nondistended, normoactive bowel sounds present, Soft to palpation, non-tender and no masses PALPATION: Yes Soft to palpation Extremity: COMMON NORMALS: normal to inspection and full ROM Neuro: COMMON NORMALS: patient oriented x3, moves all extremities and no focal motor deficits Psych: COMMON NORMALS: mental status grossly normal, Normal thought process present and cooperative THOUGHT PROCESS: Normal thought process present Skin: COMMON NORMALS: no rashes or lesions noted and no wounds GENERAL SKIN EXAM: no rashes or lesions noted Course Vital Signs: Vital signs: Vital Signs Temperature 98.1 F 09/19/21 03:17 Pulse Rate 89 09/19/21 04:20 Respiratory Rate 18 09/19/21 04:20 Blood Pressure 114/69 09/19/21 03:17 Pulse Oximetry 94 09/19/21 04:20 MDM - URI/Sore Throat Medical Decision Making Patient presents here with Covid pneumonia he is requiring 3 L of oxygen with increasing dyspnea with exertion spoke to hospitalist and will admit at this time. Lab Data : 09/19/21 03:55 09/19/21 03:55 Radiology Impressions Chest X-Ray 09/19/21 03:07 IMPRESSION: 1. Bilateral lung opacities, greater on the right, suspicious for pneumonia. See additional details above. 2. Other findings discussed above. Laboratory Results WBC 10.0 10^3/uL (4.0-10.0) 09/19/21 03:55 RBC 4.14 10^6/uL (4.1-5.3) 09/19/21 03:55 Hgb 13.8 g/dL (11.7-16.6) 09/19/21 03:55 Hct 41.4 % (42.0-52.0) L 09/19/21 03:55 MCV 100.0 fl (80-94) H 09/19/21 03:55 MCH 33.3 pg (28.0-34.0) 09/19/21 03:55 MCHC 33.3 g/dL (30.0-36.0) 09/19/21 03:55 RDW 12.7 % (12.1-15.1) 09/19/21 03:55 Plt Count 204 10^3/cmm (130-400) 09/19/21 03:55 MPV 9.9 fL (7.4-10.4) 09/19/21 03:55 Neut % (Auto) 71.3 % 09/19/21 03:55 Lymph % (Auto) 18.5 % 09/19/21 03:55 [place] % (Auto) 8.1 % 09/19/21 03:55 Eos % (Auto) 1.0 % 09/19/21 03:55 Baso % (Auto) 0.2 % 09/19/21 03:55 Neut # (Auto) 7.11 10^3/uL (1.8-7.7) 09/19/21 03:55 Lymph # (Auto) 1.8 10^3/uL (0.8-4.8) 09/19/21 03:55 [place] # (Auto) 0.8 10^3/uL (0.2-0.9) 09/19/21 03:55 Eos # (Auto) 0.1 10^3/uL (0.0-0.8) 09/19/21 03:55 Baso # (Auto) 0.0 10^3/uL (0.0-0.1) 09/19/21 03:55 Nucleated RBC % (auto) 0 % 09/19/21 03:55 Nucleated RBCs # 0.0 /100WBC 09/19/21 03:55 Specimen Type Arterial 09/19/21 03:27 Sample Site Radial, right 09/19/21 03:27 ABG pH 7.41 (7.35-7.45) 09/19/21 03:27 ABG pCO2 33.6 mmHg (35-45) L 09/19/21 03:27 ABG pO2 75.3 mmHg (80.0-100.0) L 09/19/21 03:27 ABG HCO3 21.3 mmol/L (22-26) L 09/19/21 03:27 ABG Base Excess -2.5 mmol/L (-2.0-2.0) L 09/19/21 03:27 Sacha Test Pos 09/19/21 03:27 Hematocrit 44.6 % (42-52) 09/19/21 03:27 O2 Delivery Device Nc 09/19/21 03:27 O2 Liters/Min 3.0 % 09/19/21 03:27 Analytics Lead ID [place] 09/19/21 03:27 Sodium 138 mmol/L (136-145) 09/19/21 03:55 Potassium 3.6 mmol/L (3.5-5.1) 09/19/21 03:55 Chloride 102 mmol/L (98-107) 09/19/21 03:55 Carbon Dioxide 20 mmol/L (22-29) L 09/19/21 03:55 Anion Gap 19.6 (5-19) H 09/19/21 03:55 BUN 16 mg/dL (8-23) 09/19/21 03:55 Creatinine 1.0 mg/dL (0.7-1.2) 09/19/21 03:55 GFR Calculation Not Reportable 09/19/21 03:55 Glucose 202 mg/dL (65-115) H 09/19/21 03:55 Calculated Osmolality 293 mOsm/kg (285-295) 09/19/21 03:55 Calcium 8.6 mg/dL (8.5-10.5) 09/19/21 03:55 Total Bilirubin 0.3 mg/dL (0.15-1.2) 09/19/21 03:55 AST 32 U/L (0-40) 09/19/21 03:55 ALT 40 U/L (0-41) 09/19/21 03:55 Alkaline Phosphatase 71 IU/L (40-130) 09/19/21 03:55 C-Reactive Protein 10.3 mg/L (0.0-4.9) H 09/19/21 03:55 NT-Pro-B Natriuret Pep 682 pg/mL (0-450) H 09/19/21 03:55 Total Protein 6.7 g/dL (6.6-8.7) 09/19/21 03:55 Albumin 3.7 g/dL (3.5-5.2) 09/19/21 03:55 Globulin 3.0 g/dL (1.3-4.6) 09/19/21 03:55 EKG Data EKG 1: I personally reviewed and interpreted this EKG as follows: EKG interpretation date: 09/19/21 EKG interpretation time: 03:30 Interpretation: nsr hr [address] or t wave abnormalities qrs 149 qtc 455 Discharge Plan Discharge Patient Disposition: Admitted As Inpatient Clinical Impression: Acute respiratory failure with hypoxemia, COVID-19 Condition: Stable Coding Level of Care Code ED Retirement Sales Consultant for Chg Fwd Exam Comprehensive
[2021-09-19 03:41] LABS: ABG PCO2 33.6 mmHg (35-45); ABG PH Result 7.41 (7.35-7.45); Arterial Blood Gas Hematocrit 44.6 % (42-52); Base Excess ABG -2.5 mmol/L (-2.0-2.0); Blood Gas Allen Test Pos; Blood Gas Operator Identificat JB; Blood Gas Sample Site Radial, right; Blood Gas Sample Type Arterial; HCO3 ABG 21.3 mmol/L (22-26); Oxygen Device NC; PO2 ABG 75.3 mmHg (80.0-100.0)
[2021-09-19] MEDS: dexamethasone 4 mg/mL INJ 6 MG IVP (03:42)
[2021-09-19 04:01] LABS: Basophils % 0.2 %; Eosinophils # 0.1 10^3/uL (0.0-0.8); Hematocrit 41.4 % (42.0-52.0); Hemoglobin 13.8 g/dL (11.7-16.6); Lymphocytes # 1.8 10^3/uL (0.8-4.8); Lymphocytes % 18.5 %; Mean Corpuscular HGB Conc 33.3 g/dL (30.0-36.0); Mean Corpuscular Hemoglobin 33.3 pg (28.0-34.0); Mean Platelet Volume 9.9 fL (7.4-10.4); Monocytes # 0.8 10^3/uL (0.2-0.9); Monocytes % 8.1 %; Neutrophils # 7.11 10^3/uL (1.8-7.7); Neutrophils % 71.3 %; Nucleated Red Blood Cells % 0 %; Platelet Count 204 10^3/cmm (130-400); Red Blood Count 4.14 10^6/uL (4.1-5.3); Red Cell Distribution Width 12.7 % (12.1-15.1)
[2021-09-19] MEDS: ipratropium-albuterol 3 mL Neb INHALATION (04:10)
[2021-09-19 04:32] LABS: Alanine Aminotransferase 40 U/L (0-41); Albumin Level 3.7 g/dL (3.5-5.2); Alkaline Phosphatase 71 IU/L (40-130); Anion Gap 19.6 (5-19); Aspartate Amino Transferase 32 U/L (0-40); Blood Urea Nitrogen 16 mg/dL (8-23); C Reactive Protein 10.3 mg/L (0.0-4.9); Calcium 8.6 mg/dL (8.5-10.5); Carbon Dioxide 20 mmol/L (22-29); Chloride 102 mmol/L (98-107); Glucose 202 mg/dL (65-115); NT Pro B Type Natriuretic Pept 682 pg/mL (0-450); Osmolality Calculated 293 mOsm/kg (285-295); Potassium 3.6 mmol/L (3.5-5.1); Sodium 138 mmol/L (136-145); Total Bilirubin 0.3 mg/dL (0.15-1.2); Total Protein 6.7 g/dL (6.6-8.7)
[2021-09-19 04:54] LABS: Influenza A by IFA Negative (Negative); Influenza B by IFA Negative (Negative)
--- NOTE | 2021-09-19 05:06 | P.HP_ITS ---
Providers/Chief Complaint Primary Care Provider: Yolanda Yi MD Chief Complaint: Covid Symptoms History of Present Illness The patient is a 76-year-old male who present to [facility] 3 day history of dyspnea. He states that this only occurs at night however he denies this only occurring at night when in a lying position, i.e. he denies orthopnea. The patient must opt to onset of fever, nausea, vomiting, cough which is nonproductive, wheeze. He denies rigors, abdominal pain, diarrhea, myalgia, chest pain, light headedness, dizziness. He denies peripheral edema, dysgeusia, a no dyspnea, headache. Patient tested positive for covert 19 2 weeks prior to hospitalization. He presents for further evaluation Review of Systems General: Reports: 10 or more systems reviewed and unremarkable except in HPI and below Medications/Allergies Home Medications Medication Instructions Recorded Confirmed Last Taken Type amlodipine 5 mg tablet 5 mg PO DAILY 05/14/20 01/03/21 12/18/20 08:00 History aspirin 325 mg tablet 325 mg PO Q6H PRN tab 05/14/20 01/03/21 12/18/20 08:00 History cholecalciferol (vitamin D3) 1 tab PO DAILY 05/14/20 01/03/21 12/18/20 08:00 History glipizide 5 mg tablet 2.5 mg PO DAILY 05/14/20 01/03/21 12/18/20 08:00 History lisinopril 40 mg tablet 20 mg PO DAILY tab 05/14/20 01/03/21 12/18/20 08:00 History metformin 1,000 mg tablet 500 mg PO BID tab 05/14/20 01/03/21 12/18/20 08:00 History omega-3 fatty acids 1,000 mg 1,000 mg PO DAILY 05/14/20 01/03/21 12/18/20 08:00 History capsule (Fish Oil Concentrate) Allergies Allergy/AdvReac Type Severity Reaction Status Date / Time No Known Allergies Allergy Verified 07/17/21 09:18 PFSH Acute PFSH: Medical History Bifascicular block Diabetes mellitus Hyperlipidemia Surgical History H/O circumcision H/O colonoscopy History of appendectomy Status post colonoscopy with polypectomy (06/19/20) Family History Mother CAD (coronary artery disease) [place] 89 Stroke Brother CAD (coronary artery disease), Onset Age: 60 Cancer Diabetes Lung disease Sister Diabetes Other Hyperlipidemia Hypertension Denies family history of Clotting disorder Dementia Chronic kidney disease (CKD) Suicide Anesthesia complication Bleeding disorder Social History Smoking and tobacco status: former smoker Alcohol intake: never Lives independently: Yes Marital status: / Current occupational status: retired History of recent travel: No Vitals/I&O/Wt Last Vital Signs Temp 98.1 F 09/19/21 03:17 Pulse 89 09/19/21 04:20 Resp 18 09/19/21 04:20 BP 114/69 09/19/21 03:17 Pulse Ox 94 09/19/21 04:20 Physical Exam Const: COMMON NORMALS: no acute distress, average body habitus, patient oriented x3, no limitations, healthy appearing, alert and well nourished HENMT: COMMON NORMALS: normocephalic, atraumatic, hearing grossly normal bilaterally, external ears normal, EAC's normal, TM's normal bilaterally, Normal external nose present, Normal nasal mucous membranes and turbinates present, moist oral mucous membranes, oropharynx normal, dentition normal and gingiva normal FACE & SINUS: normal facial exam NOSE: Normal external nose present EXTERNAL EAR: Yes external ears normal Eye: COMMON NORMALS: Equal, round and reactive pupils present GENERAL EYE: appearance normal, both eyes and all related structures Neck/C-Spine: COMMON NORMALS: full ROM Chest: COMMONS NORMALS: normal inspection of the chest, normal palpation of entire chest wall, normal inspection of the breasts and normal palpation of the breasts Resp: COMMON NORMALS: normal respiratory effort, No retractions, No use of accessory muscles, clear to auscultation bilaterally and percussion normal Cardio: COMMON NORMALS: no JVD, regular rate, regular rhythm, S1 normal heart sound present, S2 normal heart sound present, No gallops present (Cardio), No clicks present (Cardio), No murmurs present (Cardio), No rub (Cardio) and Peripheral pulses 2+ throughout GI: COMMON NORMALS: Normal to inspection, nondistended, normoactive bowel sounds present, Soft to palpation, non-tender, No hepatosplenomegaly present, no masses and no bruits INSPECTION: Yes normal to inspection AUSCULTATION: Yes normoactive bowel sounds : COMMON NORMALS: Yes no CVA tenderness, Yes normal external exam, Yes Testes normal, Yes scrotum normal, Yes no scrotal swelling and Yes No hernias present Back/Pelvis: THORACIC SPINE/UPPER BACK: Yes normal to inspection LUMBAR SPINE/LOWER BACK: Yes normal to inspection Extremity: COMMON NORMALS: normal to inspection, full ROM, capillary refill normal, no joint enlargement, no clubbing, cyanosis or edema, no calf tenderness and no pedal edema Neuro: COMMON NORMALS: patient oriented x3, CN's II-XII intact bilaterally, moves all extremities, no focal motor deficits, no sensory deficits noted, deep tendon reflexes 2+ bilaterally and gait normal CRANIAL NERVES: Yes CN normal except as noted SPEECH: speech normal MOTOR EXAM: 5/5 motor strength present throughout DEEP TENDON REFLEXES: Right triceps reflex intensity grade: 2+, Left triceps reflex intensity grade: 2+, Rt Biceps (C5, C6): 2+, Left biceps reflex intensity grade: 2+, Right brachioradialis reflex intensity grade: 2+, Left brachioradialis reflex intensity grade: 2+, Right patellar reflex intensity grade: 2+, Left patellar reflex intensity grade: 2+, Right ankle reflex intensity grade: 2+ and Left ankle reflex intensity grade: 2+ PUPIL EXAM: Normal pupillary reactivity/response: bilateral, Dilated: bilateral, Pinpoint: bilateral, Mid position: bilateral, Sluggish: bilateral and Fixed/non- reactive: bilateral Psych: COMMON NORMALS: mental status grossly normal, Normal thought process present, cooperative, normal affect, speech normal, activity/motor behavior normal, denies hallucinations, denies homicidal ideation and denies suicidal ideation Skin: COMMON NORMALS: no rashes or lesions noted, no wounds, turgor normal, no jaundice, no petechiae and no mottling GENERAL SKIN EXAM: no rashes or lesions noted Data : 09/19/21 03:55 09/19/21 03:55 A&P Assessment and plan (1) Acute respiratory failure with hypoxemia: Status: Acute Plan Pneumonia. Query of bacterial versus covert 19. Report of radiographic study does not appear to be consistent with covert 19. Blood culture ?2 pending. Influenza pending. Covert 19 testing pending. Azithromycin 500 mg IV daily plus Rocephin 1 g IV daily plus DEXA Methasone 6 Mill grams by mouth daily plus Proventil HFA: 90 my grams per spray: 2 puffs every 4 hours while awake. If we see no improvement within 24-40 hours we may consider initiation of REM Dem severe however I do not believe it is clinically indicated at this time. Coven isolation precautions Moderate aortic regurgitation Diverticulosis Hepatic steatosis Macrocytosis. Currently pending: TSH, free T4, B12, folate Coronary artery disease Diabetes. Will check fasting glucose every before meals and at bedtime and provide insulin sliding scale plus glipizide 2.5 Mill grams by mouth daily plus Metformin 500 Mill grams by mouth twice a day Hyperlipidemia Hypertension. Norvasc 5 Mill grams by mouth daily plus lisinopril 20 Mill grams by mouth daily GI Proflex is. Protonix 40 Mill grams by mouth daily DVT Proflex is. Lovenox 40 mg subcutaneous leak twice a day Attestations Medical Necessity Statement*: The patient's hospitalization is necessary as documented by this H&P. Anticipated hospital stay greater than 40 hours Coding Level of Care Code Acute Pesticide Control Inspector for Velma Villegas Diagnoses Acute respiratory failure with hypoxemia J96.01
[2021-09-19 05:56] LABS: Folate Level 15.4 ng/mL (4.5-32.2); Thyroid Stimulating Hormone 2.38 uIU/mL (0.27-4.20); Vitamin B12 456 pg/mL (232-1245)
[2021-09-19 06:18] LABS: Glucose Point of Care 188 mg/dL (70-110)
[2021-09-19] MEDS: enoxaparin 40 mg/0.4 mL Syringe SUBCUT ×2 (06:20→17:26)
[2021-09-19 06:21] LABS: Free T4 Free Thyroxine 0.95 ng/dL (0.82-1.77)
[2021-09-19] MEDS: insulin lispro 100 unit/1 mL SUBCUT ×4 (06:21→21:41)
[2021-09-19 06:23] LABS: Lactic Sepsis W/Reflex 2.3 mmol/L (0.5-2.2)
[2021-09-19] MEDS: albuterol 8 gm MDI 2 PUFF INHALATION ×4 (07:45→19:30)
[2021-09-19 07:50] LABS: Reflex Lactate Order REFLEX LACTIC ORDERD
[2021-09-19] MEDS: cefTRIAXone 1,000 MG in sodium chloride 0.9% (plus) 50 ML 100 MG IV (10:00)
[2021-09-19] MEDS: metformin 500 mg Tablet PO (10:01)
[2021-09-19] MEDS: pantoprazole DR 40 mg Tablet PO (10:01)
[2021-09-19] MEDS: amlodipine 5 mg Tablet PO (10:01)
--- NOTE | 2021-09-19 10:33 | PC.NURSE ---
Pt on continuous cardiac, BP, and SpO2 monitoring.
[2021-09-19 12:08] LABS: Adenovirus Not Detected (NOT DETECT); Chlamydia Pneumoniae Not Detected (NOT DETECT); Coronavirus 229E,HKU1,NL63,OC4 Not Detected (NOT DETECT); Human Metapneumovirus Not Detected (NOT DETECT); Human Rhinovirus/Enterovirus Not Detected (NOT DETECT); Influenza A Not Detected (NOT DETECT); Influenza A H1 Not Detected (NOT DETECT); Influenza A H1-2009 Not Detected (NOT DETECT); Influenza A H3 Not Detected (NOT DETECT); Influenza B Not Detected (NOT DETECT); Mycoplasma Pneumoniae Not Detected (NOT DETECT); Parainfluenza Virus Type 1 Not Detected (NOT DETECT); Parainfluenza Virus Type 2 Not Detected (NOT DETECT); Parainfluenza Virus Type 3 Not Detected (NOT DETECT); Parainfluenza Virus Type 4 Not Detected (NOT DETECT); Respiratory Syncytial Virus A Not Detected (NOT DETECT); Respiratory Syncytial Virus B Not Detected (NOT DETECT); SARS-COV-2 Detected (NOT DETECT)
[2021-09-19] MEDS: azithromycin 500 MG in sodium chloride 0.9% 250 ML 250 MG IV (12:20)
[2021-09-19 12:24] LABS: Glucose Point of Care 234 mg/dL (70-110)
--- NOTE | 2021-09-19 17:15 | P.PN_ITS ---
Subjective Subjective: Coughing quite a bit this morning. Headache. No nausea vomiting or diarrhea. Vitals/I&O/Wt Last Vital Signs Temp 97.8 F 09/19/21 14:56 Pulse 88 09/19/21 15:16 Resp 18 09/19/21 15:16 BP 133/69 09/19/21 14:56 Pulse Ox 96 09/19/21 15:16 09/19/21 09/19/21 09/19/21 06:59 14:59 22:59 Intake Total 300 / 300 Output Total 200 / 200 Balance -200 / -200 300 / 300 Physical Exam Const: COMMON NORMALS: no acute distress and patient oriented x3 HENMT: COMMON NORMALS: oropharynx normal Neck/C-Spine: COMMON NORMALS: no JVD Resp: COMMON NORMALS: normal respiratory effort and clear to auscultation bilaterally AUSCULTATION: clear to auscultation bilaterally OTHER: Coughing spells Cardio: COMMON NORMALS: no JVD, regular rhythm, S1 normal heart sound present, S2 normal heart sound present and No murmurs present (Cardio) RHYTHM: regular rhythm HEART SOUNDS: S1 normal heart sound present and S2 normal heart sound present GI: COMMON NORMALS: Normal to inspection, nondistended, normoactive bowel sounds present, Soft to palpation and non-tender PALPATION: Yes Soft to palpation Extremity: COMMON NORMALS: no joint enlargement and no pedal edema Neuro: COMMON NORMALS: patient oriented x3 and moves all extremities Skin: COMMON NORMALS: no rashes or lesions noted GENERAL SKIN EXAM: no rashes or lesions noted Data : 09/19/21 03:55 09/19/21 03:55 Micro: Microbiology 09/19/21 05:54 Blood Culture - Preliminary Blood SPECIMEN COLLECTED 09/19/21 05:54 Blood Culture - Preliminary Blood SPECIMEN COLLECTED A&P Assessment and plan (1) Acute respiratory failure with hypoxemia: Requiring up to 5 L oxygen by nasal cannula today, coughing. COVID-19 requested, positive. Continue Decadron. Add remdesivir. Added antitussives. Inhaler changed to as needed due to lactic acidosis. Oxygen support, wean down as tolerating. Lovenox VT prophylaxis. Severe COVID-19. Status: Acute (2) Lactic acidosis: Stop Metformin. Change albuterol to as needed. History of hepatic steatosis although no known cirrhosis. Status: Acute Plan Moderate aortic regurgitation Diverticulosis Hepatic steatosis Macrocytosis. Normal TSH, free T4, B12, folate Coronary artery disease Diabetes. Will check fasting glucose every before meals and at bedtime and provide insulin sliding scale plus glipizide 2.5 Metformin stopped. Depending on how reliable oral intake is may need to stop glipizide. Hyperlipidemia Hypertension. Norvasc 5 Mill grams by mouth daily plus lisinopril 20 Mill grams by mouth daily GI Proflex is. Protonix 40 Mill grams by mouth daily DVT Proflex is. Lovenox 40 mg subcutaneous leak twice a day Attestations Medical Necessity Statement*: Continue admission for assessment of management of hypoxic respite failure secondary to severe COVID-19. Coding Level of Care Code Acute Right Of Way Cutter for Velma Villegas Diagnoses Acute respiratory failure with hypoxemia J96.01 Lactic acidosis E87.2
[2021-09-19 17:20] LABS: Glucose Point of Care 185 mg/dL (70-110)
[2021-09-19] MEDS: guaiFENesin-codeine UDC 10 mL PO (17:26)
[2021-09-19] MEDS: remdesivir 200 MG in sodium chloride 0.9% (100 ml) 60 ML 100 MG IV (17:57)
--- NOTE | 2021-09-19 18:52 | PC.NURSE ---
report to Janice Trivedi LPN
[2021-09-19 20:59] LABS: Glucose Point of Care 204 mg/dL (70-110)
[2021-09-20] VITALS (32 sets, daily range): BP systolic 96–156; BP diastolic 57–89; PULSE 67–114; RESP 12–42; TEMP 36.6–36.9; O2SAT 88–98
--- NOTE | 2021-09-20 | USCV_ITS ---
Transthoracic Echo Jeremiah Lance Age: 76 Gender: M : 1945 Exam Date: 09/20/2021 02:50 Ordering Phys: Monique Campuzano MD ([email or web address]) Technologist: [email or web address] Exam Location: [facility] [place] Indication: Chest Pain BP: 136 / 75 HR: 89 Rhythm: Sinus Technical Quality: Adequate MEASUREMENTS (Male / Female) Normal Values 2D ECHO LV Diastolic Diameter PLAX 5.3 cm 4.2 - 5.9 / 3.9 - 5.3 cm LV Systolic Diameter PLAX 3.6 cm IVS Diastolic Thickness 0.9 cm 0.6 - 1.0 / 0.6 - 0.9 cm IVS Systolic Thickness 1.4 cm LVPW Diastolic Thickness 1.4 cm 0.6 - 1.0 / 0.6 - 0.9 cm LVPW Systolic Thickness 1.5 cm LVOT Diameter 1.8 cm LV Ejection Fraction 2D Teich 61.0 % LA Diameter 3.5 cm LA Width 4.9 cm LA Height 5.0 cm RA Width 3.9 cm RA Height 3.9 cm Aorta at Sinotubular Diameter 2.1 cm M-MODE Aortic Annulus Diameter 2.0 cm LA Ao Ratio MM 1.9 DOPPLER AV Peak Velocity 192.5 cm/s LVOT Peak Velocity 125.0 cm/s AV Area Cont Eq vti 1.8 cm squared AV Area Cont Eq pk 1.7 cm squared MV Peak Velocity 102.0 cm/s MV Area PHT 4.3 cm squared Mitral E to A Ratio 0.9 MV E' Velocity 47.0 cm/s Mitral E to MV E' Ratio 11.8 Mitral E to LV E' Lateral Ratio 11.2 Mitral E to LV E' Septal Ratio 12.7 TR Peak Velocity 87.0 cm/s TR Peak Gradient 3.0 mmHg TR Mean Velocity 63.4 cm/s TR Mean Gradient 2.5 mmHg TR Velocity Time Integral 17.9 cm Right Atrial Pressure 8.0 mmHg Pulmonary Artery Systolic Pressu 11.0 mmHg PV Peak Velocity 129.0 cm/s RV Acceleration Time 0.1 s RV Ejection Time 0.3 s RV AcT/ET 0.4 FINDINGS Left Ventricle Normal left ventricular size, systolic function and wall thickness. Left ventricular ejection fraction is estimated at 55 %. Although no diagnostic regional wall motion abnormality could be identified, this possibility cannot be completely excluded based on the study. Right Ventricle Normal right ventricular size and systolic function. Right ventricular systolic pressure 11 mmHg. Right Atrium Normal right atrial size. Left Atrium Mildly increased left atrial size. Mitral Valve Mildly thickened mitral valve. No mitral valve stenosis. No mitral valve regurgitation. Aortic Valve Aortic valve not well visualized. Mildly thickened and calcified probably trileaflet aortic valve. No aortic valve stenosis. At least moderate aortic valve regurgitation. Tricuspid Valve Structurally normal tricuspid valve. No tricuspid valve stenosis. Trace tricuspid valve regurgitation. Pulmonic Valve Pulmonic valve not well visualized. Pericardium No pericardial effusion. Echo free space anterior to the right ventricle likely represents a fat pad. Aorta Normal size aortic root and proximal ascending aorta. CONCLUSIONS 1. This is a technically difficult study. 2. Normal left ventricular size, systolic function and wall thickness. Left ventricular ejection fraction is estimated at 55 %. Although no diagnostic regional wall motion abnormality could be identified, this possibility cannot be completely excluded based on the study. 2. Normal right ventricular size and systolic function. 4. At least moderate aortic valve regurgitation. 5. When compared to previous echocardiogram dated 10/05/2020, there may not have been any significant change. Monique Campuzano MD (Electronically Signed) Final Date: 20 September 2021 12:24 S
[2021-09-20 01:35] LABS: Glucose Point of Care 200 mg/dL (70-110)
[2021-09-20] MEDS: aspirin 81 mg Chew Tablet 324 MG PO (01:40)
[2021-09-20] MEDS: atorvastatin 40 mg Tablet 80 MG PO (01:41)
[2021-09-20] MEDS: enoxaparin 100 mg/mL Syringe 90 MG SUBCUT (01:44)
[2021-09-20 01:47] LABS: Basophils # 0.1 10^3/uL (0.0-0.1); Basophils % 0.2 %; Hematocrit 45.2 % (42.0-52.0); Hemoglobin 14.5 g/dL (11.7-16.6); Lymphocytes # 9.3 10^3/uL (0.8-4.8); Lymphocytes % 32.7 %; Mean Corpuscular HGB Conc 32.1 g/dL (30.0-36.0); Mean Corpuscular Hemoglobin 33.7 pg (28.0-34.0); Mean Corpuscular Volume 105.1 fl (80-94); Mean Platelet Volume 10.4 fL (7.4-10.4); Monocytes # 2.1 10^3/uL (0.2-0.9); Monocytes % 7.5 %; Neutrophils % 58.9 %; Nucleated Red Blood Cells % 0 %; Platelet Count 246 10^3/cmm (130-400); Red Cell Distribution Width 13.2 % (12.1-15.1); White Blood Count 28.5 10^3/uL (4.0-10.0)
--- NOTE | 2021-09-20 01:48 | XRR_ITS ---
PROCEDURE INFORMATION: Exam: XR Chest Exam date and time: 09/20/2021 1:48 AM Age: 76 years old Clinical indication: Shortness of breath and tachypnea; Patient HX: Resp distress. Covid + TECHNIQUE: Imaging protocol: XR of the chest. Views: 1 view. COMPARISON: CR (CHEST, ) 09/19/2021 3:33 AM FINDINGS: Lungs: Compared with yesterday's examination, there is slightly improved aeration in the right upper hemithorax but worsening infiltrates within the left mid and lower hemithorax. Pleural spaces: Unremarkable. No pleural effusion. No pneumothorax. Heart/Mediastinum: Unremarkable. No cardiomegaly. Bones/joints: Unremarkable. XR/XR chest 1V portable [id number] IMPRESSION: There are patchy bilateral interstitial opacities present, slightly improved in the right upper lobe but worsening in the left lower lobe, findings compatible with a bilateral interstitial pneumonia.
[2021-09-20] MEDS: nitroglycerin 1 gm/inch oint Pkt 1 INCH TOPICAL ×4 (01:55→20:43)
[2021-09-20 02:12] LABS: C Reactive Protein 26.6 mg/L (0.0-4.9); D Dimer 1.56 ug/mIFEU (0-0.59)
[2021-09-20 02:12] LABS: ABG PCO2 38.8 mmHg (35-45); ABG PH Result 7.27 (7.35-7.45); Alveolar-Arterial Oxygen Gradi 0.5 mmHg (5-10); Arterial Blood Gas Hematocrit 42.4 % (42-52); Base Excess ABG -8.5 mmol/L (-2.0-2.0); Blood Gas Allen Test Pos; Blood Gas Operator Identificat JB; Blood Gas Sample Site Brachial, right; Blood Gas Sample Type Arterial; Carboxyhemoglobin 0.5 %THgb (0.4-20.1); HCO3 ABG 17.8 mmol/L (22-26); HGB O2 Sat 95.1 % (95-100); Ionized Calcium Level - ABG 1.2 mmol/L (1.1-1.4); Methemoglobin 1.1 % (0.4-1.5); Oxygen Device NRB; Oxygen Saturation ABG 96.7; PO2 ABG 97.6 mmHg (80.0-100.0); Potassium Level - ABG 3.6 mmol/L (3.5-5.0); Total Hemoglobin 13.8 g/dL (14-18)
[2021-09-20 02:13] LABS: Alanine Aminotransferase 61 U/L (0-41); Albumin Level 4.1 g/dL (3.5-5.2); Alkaline Phosphatase 72 IU/L (40-130); Anion Gap 24.3 (5-19); Aspartate Amino Transferase 58 U/L (0-40); Blood Urea Nitrogen 23 mg/dL (8-23); Calcium 8.6 mg/dL (8.5-10.5); Carbon Dioxide 16 mmol/L (22-29); Chloride 102 mmol/L (98-107); Globulin 2.8 g/dL (1.3-4.6); Glucose 223 mg/dL (65-115); Magnesium 2.2 mg/dL (1.7-2.3); Osmolality Calculated 297 mOsm/kg (285-295); Potassium 4.3 mmol/L (3.5-5.1); Sodium 138 mmol/L (136-145); Total Bilirubin 0.3 mg/dL (0.15-1.2); Total Protein 6.9 g/dL (6.6-8.7)
[2021-09-20 02:23] LABS: Lactate (Lactic Acid level) 7.3 mmol/L (0.5-2.2); Troponin T (5th) Once 126 ng/L (0-15)
[2021-09-20 02:26] LABS: Slide Review Slide Review Perform
--- NOTE | 2021-09-20 02:30 | PC.NURSE ---
Cardiac Event This nurse responded to patient call light at 0105, patient was resting in bed clutching his chest and stated he was having chest and jaw pain /. Patient stated to nurse he felt like his gums were going to explode. Nurse took vitals BP 133/82, HR 95, O2 93% on 3L NC. Nurse did EKG and sent pictures of EKG to Dr. Garcia the night time hospitalist at 0110. While nurses were in the room patient briefly lost consciousness for about 7 seconds and would not respond to nurses. Patient woke back up and stated he passes out at home like this often after chest pain. Patient complained of nausea and vomited. Patient was put on telemetry. Immediately after placing patient on telemetry patient began agonal breathing and then went asystole on the monitor for several seconds. Patient was placed on 15L Non rebreather. Doctor was called again and asked to come assess patient. Dr. Garcia responded to the room and gave verbal orders for STAT CXR, head CT w/o contrast, Troponin series, 324 mg ASA PO NOW, 40mg of lipitor PO, and 95mg of Lovenox, and transfer to ICU room 5. Report given to Ananya ICU charge at the bedside during transport. This nurse called and gave a patient update to Mr. Lance's daughter Kassie Boyd.
[2021-09-20] MEDS: guaiFENesin-codeine UDC 10 mL PO (02:35)
--- NOTE | 2021-09-20 02:44 | ECG_ITS ---
[facility] Test Date: 2021-09-20 Pat Name: Jeremiah Lance Department: Room: [facility]05 Gender: Male Bilingual Spanish Inbound Sales: : 1945 Requested By: Raad Garcia Order Number: [id number] Vania MD: Monique Campuzano M.D. Measurements Intervals [place] Rate: 89 P: [place]: QRS: -64 QRSD: 126 T: 241 QT: 368 QTc: 449 Interpretive Statements SINUS RHYTHM WITH FIRST DEGREE AV BLOCK LEFT AXIS DEVIATION [QRS AXIS < -30] RIGHT BUNDLE BRANCH BLOCK LEFT VENTRICULAR HYPERTROPHY AND ST-T CHANGE MARKED ST DEPRESSION, CONSIDER SUBENDOCARDIAL INJURY Compared to ECG 09/19/2021 03:30:25 Left-axis deviation now present Sinus rhythm no longer present Left anterior fascicular block no longer present Myocardial infarct finding no longer present ST (T wave) deviation still present Electronically Signed On 09-21-2021 8:37:05 WATER SUPERVISOR by Monique Campuzano M.D. [email or web address]/store/[id number] f
--- NOTE | 2021-09-20 02:47 | CTR_ITS ---
PROCEDURE INFORMATION: Exam: CT Chest With Contrast; Diagnostic Exam date and time: 09/20/2021 2:47 AM Age: 76 years old Clinical indication: Abnormal findings; Abnormal lab test; Elevated wbc; Fever; Abnormal diagnostic tests; Abnormal ekg; Shortness of breath; Prior surgery; Surgery type: Appy; Patient HX: SOB with hypoxia. Covid +. Leukocytosis with sepsis. ; Additional info: Leukocytsosi, CT c/a/p c iv contrast: Stat TECHNIQUE: Imaging protocol: Diagnostic computed tomography of the chest with contrast. Radiation optimization: All CT scans at this facility use at least one of these dose optimization techniques: automated exposure control; mA and/or kV adjustment per patient size (includes targeted exams where dose is matched to clinical indication); or iterative reconstruction. Contrast material: OMNI 300; Contrast volume: 95 ml; Contrast route: INTRAVENOUS (IV); COMPARISON: CR XR chest 1V portable [id number] 09/20/2021 1:41 AM RADIATION DOSE METRICS: Total DLP (mGy-cm): 1634.08 FINDINGS: Lungs: Prominent calcifications are seen in the right upper lobe anteriorly adjacent to the minor fissure, the largest measuring 13.5 x 18.5 mm. There patchy irregular ground-glass opacity seen within the hemithoraces bilaterally, findings suggesting a patchy bilateral interstitial pneumonia. Pleural spaces: There are small bilateral pleural effusions. Heart: Calcifications are seen in the coronary arteries. Aorta: Unremarkable. No aortic aneurysm. Lymph nodes: There are bilateral calcified hilar lymph nodes. Bones/joints: Unremarkable. No acute fracture. Soft tissues: Unremarkable. pattern. (Reference: Ari) 2. Evidence of prior granulomatous exposure 3. Small bilateral pleural effusions REFERENCES: Ari Trivedi et al., Radiological Society of [place] Expert Consensus Statement on Reporting Chest CT Findings Related to COVID-19. Endorsed by the Society of Thoracic Radiology, the [place] [employer], and RSNA. Published October 12, 2019. PROCEDURE INFORMATION: Exam: CT Abdomen And Pelvis With Contrast Exam date and time: 09/20/2021 2:47 AM Age: 76 years old Clinical indication: Abnormal findings; Abnormal lab test; Elevated wbc; Fever; Abnormal diagnostic tests; Abnormal ekg; Shortness of breath; Prior surgery; Surgery type: Appy; Patient HX: SOB with hypoxia. Covid +. Leukocytosis with sepsis. ; Additional info: Leukocytsosi, CT c/a/p c iv contrast: Stat TECHNIQUE: Imaging protocol: Computed tomography of the abdomen and pelvis with contrast. Radiation optimization: All CT scans at this facility use at least one of these dose optimization techniques: automated exposure control; mA and/or kV adjustment per patient size (includes targeted exams where dose is matched to clinical indication); or iterative reconstruction. Contrast material: OMNI 300; Contrast volume: 95 ml; Contrast route: INTRAVENOUS (IV); COMPARISON: CR XR chest 1V portable [id number] 09/20/2021 1:41 AM RADIATION DOSE METRICS: Total DLP (mGy-cm): 1634.08 FINDINGS: Tubes, catheters and devices: Tucker catheter is present. Liver: There is hypoattenuation of the hepatic parenchyma compatible with fatty infiltration. Gallbladder and bile ducts: Normal. No calcified stones. No ductal dilation. Pancreas: Normal. No ductal dilation. Spleen: Calcifications are seen in the spleen compatible with calcified granulomas. Adrenal glands: Normal. No mass. Kidneys and ureters: Normal. No hydronephrosis. Stomach and bowel: Diverticula are seen on the descending and sigmoid colon. There are no inflammatory changes seen to suggest diverticulitis. Appendix: Status post appendectomy. Intraperitoneal space: Unremarkable. No free air. No significant fluid collection. Vasculature: Unremarkable. No abdominal aortic aneurysm. Lymph nodes: Unremarkable. No enlarged lymph nodes. Urinary bladder: The bladder appears decompressed. Reproductive: Unremarkable as visualized. Bones/joints: Unremarkable. No acute fracture. Soft tissues: Unremarkable. CT/CT chest abd pel w con* IMPRESSION: 1. Patchy irregular ground-glass opacity seen in the hemithoraces bilaterally compatible with a bilateral interstitial pneumonia. Commonly reported imaging features of COVID-19 pneumonia are present. Other processes such as influenza pneumonia and organizing pneumonia, as can be seen with drug toxicity and connective tissue disease, can cause a similar imaging IMPRESSION: 1. Fatty infiltration of the liver 2. Diverticulosis of the descending and sigmoid colon
[2021-09-20 03:02] LABS: Ketone (Acetest) Serum Negative (Negative)
[2021-09-20] MEDS: FUROsemide 10 mg/mL SDV 2mL 20 MG IVP (03:08)
[2021-09-20 03:27] LABS: INR 0.95 (0.8-1.2)
[2021-09-20 03:36] LABS: Add Urine Culture? No; Bacteria Urine TRACE /hpf; Bilirubin Urine Neg (Negative); Blood Urine Neg (Negative); Glucose Urine UA Trace (Normal); Hyaline Casts Urine 0-4 /lpf; Ketones Urine 1+ (Negative); Leukocyte Esterase Urine Negative (Negative); Mucus Urine 1+ /hpf; Nitrate Urine Negative (Negative); Protein Urine Neg (Negative); RBC Urine 0-4 /hpf (0-2); Specific Gravity, Urine 1.025 (1.005-1.030); Squamous Epithelial Cell Urine 0-4 /hpf (0-5); Urine Appearance Clear (CLEAR); Urine Color Yellow (Yellow); Urobilinogen Urine Norm (Negative); WBC Urine 0-4 /hpf (0-5); pH Urine 5 (5-7)
--- NOTE | 2021-09-20 03:53 | ECG_ITS ---
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 Measurements Intervals [place] Rate: 76 P: 54 IA: 202 QRS: -55 QRSD: 162 T: 57 QT: 453 QTc: 512 Interpretive Statements SINUS RHYTHM RIGHT BUNDLE BRANCH BLOCK LEFT ANTERIOR FASCICULAR BLOCK LEFT VENTRICULAR HYPERTROPHY AND ST-T CHANGE POSSIBLE SEPTAL MYOCARDIAL INFARCTION , PROBABLY OLD Compared to ECG 09/20/2021 01:10:56 Left anterior fascicular block now present Myocardial infarct finding now present Left-axis deviation no longer present ST (T wave) deviation still present Electronically Signed On 09-21-2021 9:04:21 DECKHAND CRAB BOAT by Monique Campuzano M.D. [id number]
[2021-09-20] MEDS: iohexol 300 mg/mL 100 mL Btl IV (05:03)
--- NOTE | 2021-09-20 07:16 | PC.NURSE ---
0130 Arrhythmia seen on monitor, went to patient's bedside on med/surg. Vital signs and blood sugar obtained. Dr. Garcia at bedside. Orders received. Plan to transfer patient to ICU. 0420 Clarified orders for Lovenox and CT scan with Dr. Garcia. Orders for Lovenox 1mg/kg SQ Q12H. Orders to take patient to CT with IV contrast. 0505 Reported patient's c/o pain in his gums to Dr. Garcia. Patient states that this is the sensation he has before he passes out. Vitals stable. Orders to continue to monitor.
--- NOTE | 2021-09-20 07:33 | P.CONIM_ITS ---
Providers/Reason For Consult Consulting Physician/Specialty*: Dr. Campuzano, cardiology Reason for Consult*: Syncopal episodes, asystole, dyspnea on exertion with elevated troponin Attending Physician: Tj Sherwood Primary Care Provider: Yolanda Yi MD History of Present Illness History of Present Illness Jeremiah Lance Jr is a 76 year old male with PMHx of nonobstructive coronary artery disease (proximal LAD 60% stenosis, proximal to mid RCA 30% stenosis: [facility] 12/2020 ), DM-2, hyperlipidemia, bifascicular block and complains of exertional dizziness and episodes of syncope. He presented to the hospital with 3 days history of dyspnea, cough and intermittent jaw pain. He was found to be COVID- 19 PCR positive after admission. EKG on admission showed sinus rhythm with right bundle branch block. Left anterior fascicular block. Left ventricular hypertrophy. Overnight patient states he started coughing that made him short of breath followed by some chest discomfort and pain in his gums. After that he had a syncopal episodes for several seconds. After, he regained consciousness he appeared diaphoretic and complained of shortness of breath. Telemetry was reviewed that showed ~9 second pause followed by another pause approximately 15 seconds long followed by another extremely long pause that lasted ~ 1 minute 50 seconds. EKG after that showed sinus rhythm with first-degree AV block with left anterior fascicular block. Right bundle branch block. Left ventricle hypertrophy. Diffuse ST depression in lead II, 3, aVF V3 to V6. And ST elevation in aVR. Diffuse ST depression improve an EKG performed 3 hours later. Baseline troponin T 01 26 that increased to 570 and 1400 today. Patient currently is in sinus rhythm with no pauses. Patient tells me he had 2 episodes of chest discomfort last night after having a bout of cough and shortness of breath. No episode of chest discomfort today. He is currently on 8 L of high flow nasal cannula. , Review of Systems General: Reports: 10 or more systems reviewed and unremarkable except in HPI and below Medications/Allergies Home Medications Medication Instructions Recorded Confirmed Last Taken Type aspirin 325 mg tablet 325 mg PO Q6H PRN tab 05/14/20 09/19/21 12/18/20 08:00 History cholecalciferol (vitamin D3) 2 cap PO BID 05/14/20 09/19/21 12/18/20 08:00 History lisinopril 40 mg tablet 40 mg PO DAILY tab 05/14/20 09/19/21 08/20/21 History not taken for month metformin 1,000 mg tablet 1,000 mg PO BID tab 05/14/20 09/19/21 12/18/20 08:00 History omega-3 fatty acids 1,000 mg 2,000 mg PO BID 05/14/20 09/19/21 12/18/20 08:00 History capsule (Fish Oil Concentrate) Orthomune Capsules 1 cap PO BID 09/19/21 09/19/21 Unknown History amlodipine 10 mg tablet 10 mg PO DAILY 09/19/21 09/19/21 Unknown History ascorbic acid (vitamin C) 500 mg 500 mg PO BID 09/19/21 09/19/21 Unknown History tablet (Vitamin C) atorvastatin 80 mg tablet 80 mg PO QPM 09/19/21 09/19/21 Unknown History citalopram 40 mg tablet (Celexa) 20 mg PO QAM 09/19/21 09/19/21 08/20/21 History not taken a month finasteride 5 mg tablet 5 mg PO BEDTIME 09/19/21 09/19/21 08/20/21 History not taken for month glipizide 10 mg tablet 20 mg PO BID 09/19/21 09/19/21 Unknown History tamsulosin 0.4 mg capsule (Flomax) 0.4 mg PO BEDTIME 09/19/21 09/19/21 08/20/21 History not taken for month zinc 50 mg tablet 50 mg PO BID 09/19/21 09/19/21 Unknown History Allergies Allergy/AdvReac Type Severity Reaction Status Date / Time procaine [From Novocain] Allergy Unknown Verified 09/19/21 09:29 Current Medications Generic Name Dose Route Start Last Admin Trade Name Freq PRN Reason Stop Dose Admin Albuterol Sulfate 2 puff 09/19/21 17:17 09/19/21 19:30 Albuterol 8 Gm Mdi INHALATION 2 puff Q4H.RESPIRATORY PRN Administration SHORTNESS OF BREATH Amlodipine Besylate 5 mg 09/19/21 09:00 09/19/21 10:01 Amlodipine 5 Mg Tablet PO 5 mg DAILY SHEILA Administration Dexamethasone 6 mg 09/19/21 13:15 09/19/21 17:17 Dexamethasone 10 Mg/Ml Inj PO Not Given Q24H SHEILA Guaifenesin/Codeine Phosphate 10 ml 09/19/21 11:05 09/20/21 02:35 Guaifenesin-Codeine Udc 10 Ml PO 10 ml Q4H PRN Administration COUGH Azithromycin 500 mg/ Sodium 250 mls @ 250 mls/hr 09/19/21 09:00 09/19/21 14:14 Chloride IV Infused DAILY SHEILA Infusion Protocol Ceftriaxone Sodium 1,000 mg/ 50 mls @ 100 mls/hr 09/19/21 09:00 09/19/21 14:14 Sodium Chloride IV Infused DAILY SHEILA Infusion Protocol Insulin Human Lispro 0 unit 09/19/21 07:00 09/19/21 21:41 Insulin Lispro 100 Unit/1 Ml SUBCUT 4 unit AC&BEDTIME SHEILA Administration Protocol Lisinopril 20 mg 09/19/21 09:00 09/19/21 10:13 Lisinopril 20 Mg Tablet PO Not Given DAILY SHEILA Non-Formulary Medication 2.5 mg 09/19/21 09:00 09/19/21 14:14 Glipizide PO Not Given DAILY SHEILA Pantoprazole Sodium 40 mg 09/19/21 09:00 09/19/21 10:[address] 40 Mg Tablet PO 40 mg DAILY SHEILA Administration PFSH Acute PFSH: Medical History Bifascicular block Diabetes mellitus Hyperlipidemia Surgical History H/O circumcision H/O colonoscopy History of appendectomy Status post colonoscopy with polypectomy (06/19/20) Family History Mother CAD (coronary artery disease) [place] 89 Stroke Brother CAD (coronary artery disease), Onset Age: 60 Cancer Diabetes Lung disease Sister Diabetes Other Hyperlipidemia Hypertension Denies family history of Clotting disorder Dementia Chronic kidney disease (CKD) Suicide Anesthesia complication Bleeding disorder Social History Smoking and tobacco status: former smoker Alcohol intake: never Lives independently: Yes Marital status: / Current occupational status: retired History of recent travel: No Vitals/I&O/Wt Last Vital Signs Temp 97.9 F 03/04/22 02:00 Pulse 103 H 09/20/21 05:15 Resp 25 H 09/20/21 05:15 BP 132/80 09/20/21 05:15 Pulse Ox 95 09/20/21 05:15 09/19/21 09/20/21 09/20/21 22:59 06:59 14:59 Output Total 200 / 200 1250 / 1450 Balance -200 / 100 -1250 / -1150 Weight last 48 hrs Weight 208 lb Physical Exam Narrative: GENERAL: Sitting propped up in bed in no acute distress HEENT: No pallor or icterus. NECK: No JVD, appreciated CARDIOVASCULAR SYSTEM: S1-S2 regular. No murmur or gallops. RESPIRATORY SYSTEM: Coarse bilateral breath sounds EXTREMITIES: No cyanosis or No edema]. No signs of chronic venous insufficiency. 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 No focal neurological deficits. Urinary Catheter Management: Tucker: Cath Placed During This Visit: yes Urinary Catheter Date of Insertion: 09/20/21 Urinary Catheter Time of Insertion: 02:00 Data : 09/20/21 01:34 09/20/21 13:46 Micro: Microbiology 09/19/21 05:54 Blood Culture - Preliminary Blood NEGATIVE TO DATE 09/19/21 05:54 Blood Culture - Preliminary Blood NEGATIVE TO DATE 09/20/21 05:06 Blood Culture - Preliminary Blood SPECIMEN COLLECTED 09/20/21 05:06 Blood Culture - Preliminary Blood SPECIMEN COLLECTED Other data: Event monitor 30-day event monitor 18 July 2021 CONCLUSIONS: 1) Baseline heart rhythm was normal sinus rhythm 2) No atrial fibrillation noted. No significant pauses 3) Supraventricular ectopic beats were <1% of total beats and ventricular ectopic beats were <1% of total beats 4)Patient triggered events were not associated with any arrythmias 12/20/20 [facility] ? * Left Main has no disease. ? * Circumflex has no disease. ? * Proximal Left Anterior Descending: obstructive? 60% stenosis, YESSY: 3 flow. ? * Proximal Right Coronary Artery to Mid Right Coronary Artery: minimal? 30% stenosis, YESSY: 3 flow. ? * Coronary angiography shows right dominance. Conclusions ? 1. There is obstructive? coronary artery disease with two vessel disease. Recommendations ? * Continue current medical management and risk factor modification. 11/02/20 LEXISCAN ?1. Small size fixed perfusion abnormality of moderate severity of mid ?inferolateral and apical lateral marroquin may represent attenuation artifact or ?old myocardial infarction in circumflex/left anterior descending artery ?territory. ?2. Small paradoxical perfusion abnormality in mid to apical inferior marroquin ?likely represents attenuation artifact. ?3. Overall left ventricular systolic function is normal without regional wall ?motion abnormalities. ?4. The left ventricular ejection fraction is normal with a value of 62%. ?5.? No coronary ischemia based on the study. 1. No significant EKG changes with the LexiScan infusion. 2. No LexiScan induced chest pain or cardiac arrhythmia. 3. Normal blood pressure and heart rate response. 10/16/20 CAROTID US ?Bilateral ICA stenosis less than 50%. ?Mild carotid atherosclerosis. ECHO 10/05/20 ? 1. This is a technically difficult study with poor apical ?windows. ?2. Normal left ventricular size, systolic function and wall ?thickness, with no diagnostic regional wall motion ?abnormalities. Left ventricular ejection fraction is estimated ?at 55 %. Normal diastolic function. ?3. Thickened trileaflt aortic valve more pronounced in non ?coronary and left coronary cusps.? At least moderate aortic ?valve regurgitation. ?4. Mildly increased left atrial size. ?5. SALONI may be considered for better assessment of aortic valve. A&P Assessment and plan (1) Sinus pause: On reviewing the telemetry strips it seems like third-degree AV block initially with no escape beats, followed by sinus pause and intermittent wide escape beats (? Junctional versus ventricular). -No recurrent episodes. At this point patient has severe COVID-19 pneumonia. I had a long discussion with patient and his daughter. Patient's CODE STATUS was reversed from DNR/DNI to full code. I think at this moment it is prudent to place a temporary venous pacemaker and based on his clinical progression decision for permanent pacemaker can be made. -Case was discussed with Dr. Sheikh as well. Status: Acute (2) NSTEMI (non-ST elevated myocardial infarction): NSTEMI type I versus type II -Likely type II as patient's oxygen demand increased drastically at that time. -Patient remains chest pain-free today. -EKG changes noted after patient had a long pause which have since resolved. Status: Acute (3) Acute respiratory failure with hypoxemia: Status: Acute (4) COVID-19: Status: Acute Plan Nonobstructive coronary artery disease Moderate aortic valve regurgitation Diabetes Hyperlipidemia Hypertension History of bifascicular block History of recurrent syncope and dizzy spells Thank you for allowing me to participate in patient's care. Please feel free to call with questions or concerns Consult Attestations Time Spent in Patient Care: 45 Coding Level of Care Code New Pt Acute Technical Service Engineer for Chg Fwd Patient Type New History Comprehensive Exam Comprehensive Medical Decision Making High Complexity Diagnoses Sinus pause I45.5 NSTEMI (non-ST elevated myocardial infarction) I21.4 Acute respiratory failure with hypoxemia J96.01 COVID-19 U07.1
[2021-09-20] MEDS: albuterol 8 gm MDI 2 PUFF INHALATION ×3 (07:45→20:42)
[2021-09-20] MEDS: pantoprazole DR 40 mg Tablet PO (08:08)
[2021-09-20] MEDS: amlodipine 5 mg Tablet PO (08:08)
[2021-09-20] MEDS: azithromycin 500 MG in sodium chloride 0.9% 250 ML 250 MG IV (08:09)
[2021-09-20] MEDS: aspirin 325 mg Tablet PO (08:12)
[2021-09-20 08:38] LABS: Glucose Point of Care 177 mg/dL (70-110)
[2021-09-20 08:58] LABS: Troponin T (5th) Once 570 ng/L (0-15)
[2021-09-20] MEDS: cefTRIAXone 1,000 MG in sodium chloride 0.9% (plus) 50 ML 100 MG IV (09:09)
[2021-09-20] MEDS: insulin lispro 100 unit/1 mL SUBCUT ×4 (09:10→20:45)
--- NOTE | 2021-09-20 10:03 | PC.CHAP ---
Pastoral Care Encounter/Spiritual Assessment Type of Contact [] Declined bench assembler battery visit [] Patient/Family/Request visit [] Outpatient visit [] Follow-up visit [] Physician referral [] Code/Alert [x] Routine visit [] Staff referral [] Actively dying [] Patient sleeping [] Family support [] [] Out of room [] Palliative care [] [] Receiving care in room [] Pre-surgical visit [] Trauma [] Long length of stay [x] ICU visit [] Other: Relational/Emotional Strength [] Patient feels connected with others/family/visitors/staff [] Distress [] Loneliness/isolation [] Abandonment Spirituality of Patient [] Person of Vera [] Attends Catholic of their Vera [] Believes in Prayer [] Reads Bible or Mormonism materials [] There are Spiritual issues to be addressed Filament Maker Interventions [x] Prayer [] Active listening [] Non-anxious presence [] Spiritual/emotional support [] Crisis/trauma care [] Spiritual counseling [] Bereavement support [] Provided bereavement packet [] Provided Bible/devotional materials [] Provided toy/stuffed animal, coloring book to patient or family member [] Provided Communion [] Anointing/[place] [] Salvation [x] Completed spiritual assessment [] Other: Impact on Illness or Injury [] Angry [] Fearful [] Anxious [] Often cries [] Exhaustion [] Unable to work [] Unable to attend protestant [] Unable to walk/stand [] Unable to read [] Unable to drive [] Unable to eat/drink [] Unable to sleep [] Unable to be with family [] Patient intubated [] Other: Summary Time spent with patient
--- NOTE | 2021-09-20 10:44 | PC.NURSE ---
Family (Kassie and Adelaida) called and given update on patient. Daughter, Kassie, asked to visit and asked about potential transfer to [facility] if patient needed a pacemaker. Dr. Sherwood notified of request. No visitation at this time. Will ask social media director about transfer and if family will have to pay for transport. Kassie called and notified. Nurse offered to set up Face Time video with patient. Daughter to call back after taking a shower. No further questions.
[2021-09-20 11:46] LABS: Glucose Point of Care 190 mg/dL (70-110)
--- NOTE | 2021-09-20 12:14 | PC.NURSE ---
Dr. Campuzano called and gave t.o. to draw Troponin at 1400
--- NOTE | 2021-09-20 13:03 | P.PN_ITS ---
Subjective Subjective: Episode of unresponsiveness overnight, with episodes of pauses, bradycardia/PEA, one of the bradycardia/PEA episodes as long as 2 minutes. He reports history of problems with pauses in the past, however, previously was not found needing a pacemaker. Denies chest pain or pressure. Otherwise bothered some by Tucker catheter, he feels he needs to shift his pelvis around to make the catheter drain. Cough is doing better, still intermittent cough, but not quite as bad as yesterday. Allergy to procaine reports passing out at the dentist office. Vitals/I&O/Wt Last Vital Signs Temp 97.9 F 09/20/21 02:00 Pulse 82 09/20/21 10:00 Resp 26 H 09/20/21 10:00 BP 98/68 09/20/21 10:00 Pulse Ox 90 09/20/21 10:00 09/19/21 09/20/21 09/20/21 22:59 06:59 14:59 Intake Total 320 / 320 Output Total 200 / 200 1250 / 1450 Balance -200 / 100 -1250 / -1150 320 / 320 Weight last 48 hrs Weight 94.347 kg Physical Exam Const: COMMON NORMALS: no acute distress and patient oriented x3 OTHER: Pleasant, conversant. Intermittent cough. HENMT: COMMON NORMALS: oropharynx normal Neck/C-Spine: COMMON NORMALS: no JVD Resp: COMMON NORMALS: normal respiratory effort and clear to auscultation bilaterally AUSCULTATION: clear to auscultation bilaterally Cardio: COMMON NORMALS: no JVD, regular rhythm, S1 normal heart sound present, S2 normal heart sound present and No murmurs present (Cardio) RHYTHM: regular rhythm HEART SOUNDS: S1 normal heart sound present and S2 normal heart sound present GI: COMMON NORMALS: Normal to inspection, nondistended, normoactive bowel sounds present, Soft to palpation and non-tender PALPATION: Yes Soft to palpation Extremity: COMMON NORMALS: no joint enlargement and no pedal edema Neuro: COMMON NORMALS: patient oriented x3 and moves all extremities Skin: COMMON NORMALS: no rashes or lesions noted GENERAL SKIN EXAM: no rashes or lesions noted Urinary Catheter Management: Tucker: Cath Placed During This Visit: yes Urinary Catheter Date of Insertion: 09/20/21 Urinary Catheter Time of Insertion: 02:00 Data : 09/20/21 01:34 09/20/21 01:34 Micro: Microbiology 09/19/21 05:54 Blood Culture - Preliminary Blood NEGATIVE TO DATE 09/19/21 05:54 Blood Culture - Preliminary Blood NEGATIVE TO DATE 09/20/21 05:06 Blood Culture - Preliminary Blood SPECIMEN COLLECTED 09/20/21 05:06 Blood Culture - Preliminary Blood SPECIMEN COLLECTED A&P Assessment and plan (1) PEA (Pulseless electrical activity): Bradycardia/pauses/PEA with pacemaker change noted on monitor last night. One episode as long as 2 minutes which appears to be PEA with bradycardia, possible ineffectual contractions. Reports some history of issues with pauses in the past, although was not found to need a pacemaker. Patient also have NSTEMI, unclear if this is ischemia triggered. Possibly. Unclear if hypoxemia beneficial trigger as around that time he also transitions from 3 to 15 L. Electrolytes are okay. Check TSH. Has been more hypoxic secondary to COVID-19. Additionally stop amlodipine. Avoid calcium channel blockers. Discussed with him to avoid possible contribution stop remdesivir given rare cases have seen it causing bradycardia, cardiac arrest is listed as a potential adverse effect. He would be okay with temporary and/or permanent pacemaker if needed. TTE pending. Pending cardiology evaluation. Status: Acute (2) NSTEMI (non-ST elevated myocardial infarction): Unclear if type I or type II HI. He is chest pain-free. Appears to also have had a rapid decline oxygenation around the same time. Could be demand ischemia. TTE ordered and pending. He was started on anticoagulation. Continue. Continue aspirin, statin. Avoid rika blockers. Status: Acute (3) Acute respiratory failure with hypoxemia: Worsening hypoxia overnight, currently on 15 L nasal cannula. Saturation 90%. Severe COVID-19. Continue Decadron. Stop remdesivir as a precaution given above. Not a candidate for baricitinib given increased risk of MACE. Consider Actemra, although CRP not particularly elevated at 26.6. Follow-up. Requiring up to 5 L oxygen by nasal cannula today, coughing. COVID-19 requested, positive. Continue Decadron. Add remdesivir. Added antitussives. Inhaler changed to as needed due to lactic acidosis. Oxygen support, wean down as tolerating. Lovenox VT prophylaxis. Severe COVID-19. Status: Acute (4) Lactic acidosis: Possibly secondary to hypoxia. Follow-up chemistry, lactic acid. Contrast CT chest abdomen pelvis with groundglass opacities secondary to COVID- 19 in the chest, for infiltration of the liver, diverticulosis of the descending and sigmoid colon. No evidence of other acute process. Vasculature listed unremarkable, no abdominal aortic aneurysm. Leukocytosis, otherwise does not appear to be in septic shock. UA not suggestive of infection. Empirically on ceftriaxone azithromycin, although no focal infiltrate to suggest superimposed bacterial infection. Dry cough. Stopped Metformin. Changed albuterol to as needed. History of hepatic steatosis although no known cirrhosis. Likely reduced liver clearance of lactate. Status: Acute Plan Moderate aortic regurgitation Diverticulosis Hepatic steatosis Macrocytosis. Normal TSH, free T4, B12, folate Coronary artery disease Diabetes. Will check fasting glucose every before meals and at bedtime and provide insulin sliding scale plus glipizide 2.5 Metformin stopped. Depending on how reliable oral intake is may need to stop glipizide. Hyperlipidemia Hypertension. Stop calcium renal george. GI Proflex is. Protonix 40 Mill grams by mouth daily DVT Proflex is. Currently on therapeutic anticoagulation with NSTEMI Attestations Medical Necessity Statement*: Continue admission for assessment management of hypoxic respite failure with severe COVID-19, NSTEMI, episodes of bradycardia/pause/PEA. Coding Level of Care Code Acute Sales And Marketing Director for Velma Villegas Diagnoses Acute respiratory failure with hypoxemia J96.01 Lactic acidosis E87.2 PEA (Pulseless electrical activity) I46.9 NSTEMI (non-ST elevated myocardial infarction) I21.4
--- NOTE | 2021-09-20 13:16 | ECG_ITS ---
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 Measurements Intervals [place] Rate: 77 P: 47 [place]: 204 QRS: -50 QRSD: 130 T: -18 QT: 409 QTc: 464 Interpretive Statements SINUS RHYTHM RIGHT BUNDLE BRANCH BLOCK LEFT ANTERIOR FASCICULAR BLOCK [QRS AXIS <= -45, QR IN I, RS IN II] POSSIBLE LEFT VENTRICULAR HYPERTROPHY [VOLTAGE CRITERIA PLUS LAE OR QRS WIDENING] POSSIBLE ANTERIOR MYOCARDIAL INFARCTION , OF INDETERMINATE AGE [30 ms Q WAVE IN V3/V4, OR R < 0.2 mV IN V4] Compared to ECG 09/20/2021 04:09:35 ST (T wave) deviation no longer present Myocardial infarct finding still present Electronically Signed On 09-21-2021 8:32:40 RESIDENTIAL AIDE by Monique Campuzano M.D. [id number]
[2021-09-20] MEDS: enoxaparin 100 mg/mL Syringe 95 MG SUBCUT (13:43)
[2021-09-20] MEDS: dexamethasone 10 mg/mL INJ 6 MG PO (13:43)
[2021-09-20 13:55] LABS: Thyroid Stimulating Hormone 1.04 uIU/mL (0.27-4.20)
[2021-09-20 14:27] LABS: Lactate (Lactic Acid level) 1.5 mmol/L (0.5-2.2)
[2021-09-20 14:28] LABS: Troponin T (5th) Once 1400 ng/L (0-15)
[2021-09-20 14:29] LABS: Alanine Aminotransferase 96 U/L (0-41); Albumin Level 3.5 g/dL (3.5-5.2); Alkaline Phosphatase 62 IU/L (40-130); Anion Gap 15.9 (5-19); Aspartate Amino Transferase 165 U/L (0-40); Blood Urea Nitrogen 22 mg/dL (8-23); Carbon Dioxide 22 mmol/L (22-29); Chloride 104 mmol/L (98-107); Globulin 3.1 g/dL (1.3-4.6); Glucose 191 mg/dL (65-115); Osmolality Calculated 294 mOsm/kg (285-295); Potassium 3.9 mmol/L (3.5-5.1); Sodium 138 mmol/L (136-145); Total Bilirubin 0.5 mg/dL (0.15-1.2); Total Protein 6.6 g/dL (6.6-8.7)
--- NOTE | 2021-09-20 14:54 | PC.NURSE ---
Full Code Patient agrees to be Full code for temporary pacemaker, witnessed by myself and Dr. Campuzano. Family (Kassie) outside room on phone.
--- NOTE | 2021-09-20 15:41 | W.PM.OPSUD ---
Surgery/Procedure H&P Update DATE OF PROCEDURE: September 20, 2021 DATE H&P PERFORMED: 09/20/21 H&P UPDATE INFORMATION: I have reviewed H&P completed within last 30 days, I have examined patient prior to procedure and No changes to prior documentation PREOP DIAGNOSIS: Syncope/ sinus pause with no escape rhythm PRIMARY INDICATION FOR PROCEDURE: Syncope/ sinus pause with no escape rhythm PLANNED PROCEDURE: Temporary transvenous pacemaker placement PATIENT REASSESSED PRIOR TO SEDATION, WITH NO CHANGE NOTED: Yes PHYSICAL EXAM: alert, oriented x 3, clear to auscultation bilaterally and regular rate & rhythm AIRWAY EVAL/ANESTHESIA PLAN: normal airway, ASA III, Monitored Anesthesia, Local Anesthesia, Risks, benefits & alternatives of sedation and/or procedure discussed and Patient agrees to continue as planned
--- NOTE | 2021-09-20 15:45 | PC.NURSE ---
Patient to medical laboratory assistant via bed accompanied by medical laboratory assistant team at 1540. Family, Kassie, at bedside. Patient AAOX4 VSS.
--- NOTE | 2021-09-20 15:49 | USCV_ITS ---
Jeremiah Lance Age: 76 Gender: M : 1945 Exam Date: 09/20/2021 16:30 Ordering Phys: Monique Campuzano MD ([email or web address]) Technologist: Annmarie Henley Exam Location: [facility] Indication: SYNCOPE BP: 110 / 62 HR: 73 Rhythm: Sinus Technical Quality: Technically difficult study MEASUREMENTS (Male / Female) Normal Values 2D ECHO LV Diastolic Diameter PLAX 5.3 cm 4.2 - 5.9 / 3.9 - 5.3 cm LV Systolic Diameter PLAX 3.6 cm LV Chamber Size 4.0 cm IVS Diastolic Thickness 1.1 cm 0.6 - 1.0 / 0.6 - 0.9 cm IVS Systolic Thickness 1.5 cm LVPW Diastolic Thickness 1.2 cm 0.6 - 1.0 / 0.6 - 0.9 cm LVPW Systolic Thickness 1.3 cm RV Chamber Size 2.1 cm LVOT Diameter 2.0 cm LV Ejection Fraction 2D Teich 57.9 % LV Ejection Fraction MOD 2C 70.8 % LV Ejection Fraction 2C AL 70.1 % LA Diameter 4.0 cm LA Width 3.4 cm LA Height 4.2 cm RA Width 3.6 cm RA Height 4.5 cm Aorta at Sinotubular Diameter 3.4 cm M-MODE Aortic Annulus Diameter 3.4 cm LA Ao Ratio MM 1.3 MV E Point Septal Separation 1.1 cm FINDINGS Left Ventricle Normal left ventricular cavity size. Moderately decreased left ventricular systolic function. Left ventricular ejection fraction is estimated at 40 %. There seems to be hypokinesis of mid anteroseptal, mid anterior, apical septal, apical lateral and apical marroquin. Right Ventricle Normal right ventricular size and systolic function. Right Atrium Normal right atrial size. Left Atrium Mildly increased left atrial size. Mitral Valve Mitral valve not well visualized. Aortic Valve Mildly thickened trileaflet aortic valve. Tricuspid Valve Structurally normal tricuspid valve. Pulmonic Valve Structurally normal pulmonic valve. Pericardium No pericardial effusion. Aorta Normal-sized aortic root. CONCLUSIONS 1. This is a limited echocardiogram. Optison was used per protocol. 2. Normal left ventricular cavity size. Moderately decreased left ventricular systolic function. Left ventricular ejection fraction is estimated at 40 %. There seems to be hypokinesis of mid anteroseptal, mid anterior, apical septal, apical lateral and apical marroquin. Monique Campuzano MD (Electronically Signed) Final Date: 21 September 2021 15:33 S
--- NOTE | 2021-09-20 16:15 | PM.MISC ---
Miscellaneous Note Purpose of Documentation: Brief interventional cardiology procedure note Note: Successful placement of temporary pacemaker. Demand pacing with heart rate of 50bpm
[2021-09-20] MEDS: perflutren protein-a microsphr 0.22 mg/mL SDV 3 mL IV (17:02)
--- NOTE | 2021-09-20 17:07 | PC.NURSE ---
Back to room at 1622, VSS, AAOx4, temporary pacemaker to right groin with dressing c/d/i,
[2021-09-20 17:34] LABS: Glucose Point of Care 210 mg/dL (70-110)
[2021-09-20] MEDS: atorvastatin 40 mg Tablet PO (20:43)
[2021-09-20 20:47] LABS: Glucose Point of Care 340 mg/dL (70-110)
[2021-09-20 20:59] LABS: Troponin T (5th) Once 1412 ng/L (0-15)
[2021-09-21] VITALS (23 sets, daily range): BP systolic 91–133; BP diastolic 54–83; PULSE 58–87; RESP 12–26; TEMP 36.6–37; O2SAT 91–96
[2021-09-21] MEDS: enoxaparin 100 mg/mL Syringe 95 MG SUBCUT ×2 (02:06→14:00)
[2021-09-21] MEDS: nitroglycerin 1 gm/inch oint Pkt 1 INCH TOPICAL ×2 (02:06→08:46)
[2021-09-21 03:04] LABS: Basophils % 0.1 %; Hematocrit 35.9 % (42.0-52.0); Hemoglobin 11.8 g/dL (11.7-16.6); Lymphocytes # 1.5 10^3/uL (0.8-4.8); Mean Corpuscular HGB Conc 32.9 g/dL (30.0-36.0); Mean Corpuscular Hemoglobin 33.4 pg (28.0-34.0); Mean Corpuscular Volume 101.7 fl (80-94); Mean Platelet Volume 10.5 fL (7.4-10.4); Monocytes # 0.7 10^3/uL (0.2-0.9); Monocytes % 5.9 %; Neutrophils # 8.98 10^3/uL (1.8-7.7); Neutrophils % 80.5 %; Nucleated Red Blood Cells % 0 %; Platelet Count 186 10^3/cmm (130-400); Red Blood Count 3.53 10^6/uL (4.1-5.3); Red Cell Distribution Width 13.5 % (12.1-15.1); White Blood Count 11.2 10^3/uL (4.0-10.0)
[2021-09-21 03:26] LABS: Alanine Aminotransferase 77 U/L (0-41); Albumin Level 3.6 g/dL (3.5-5.2); Alkaline Phosphatase 58 IU/L (40-130); Anion Gap 13.1 (5-19); Aspartate Amino Transferase 97 U/L (0-40); Blood Urea Nitrogen 27 mg/dL (8-23); C Reactive Protein 99.5 mg/L (0.0-4.9); Carbon Dioxide 25 mmol/L (22-29); Chloride 103 mmol/L (98-107); Globulin 2.8 g/dL (1.3-4.6); Glucose 220 mg/dL (65-115); Osmolality Calculated 296 mOsm/kg (285-295); Potassium 4.1 mmol/L (3.5-5.1); Sodium 137 mmol/L (136-145); Total Bilirubin 0.5 mg/dL (0.15-1.2); Total Protein 6.4 g/dL (6.6-8.7)
[2021-09-21 03:49] LABS: D Dimer 0.69 ug/mIFEU (0-0.59)
--- NOTE | 2021-09-21 06:55 | PC.NURSE ---
Report received. Pace maker set at 50 bpm, mV 3 and sensitivity at 1. Pacemaker site clean, dry and intact. Pt reminded to keep leg straight. Pt stayed i his own intrinsic rate throughout pm shift, PM did not 'fire'.
[2021-09-21 08:20] LABS: Glucose Point of Care 187 mg/dL (70-110)
[2021-09-21] MEDS: aspirin 325 mg Tablet PO (08:45)
[2021-09-21] MEDS: pantoprazole DR 40 mg Tablet PO (08:45)
[2021-09-21] MEDS: insulin lispro 100 unit/1 mL SUBCUT ×4 (08:45→20:00)
[2021-09-21] MEDS: azithromycin 500 MG in sodium chloride 0.9% 250 ML 250 MG IV (08:46)
[2021-09-21] MEDS: albuterol 8 gm MDI 2 PUFF INHALATION ×3 (09:16→19:57)
[2021-09-21] MEDS: guaiFENesin-codeine UDC 10 mL PO (09:54)
[2021-09-21] MEDS: cefTRIAXone 1,000 MG in sodium chloride 0.9% (plus) 50 ML 100 MG IV (09:54)
--- NOTE | 2021-09-21 11:37 | PC.NURSE ---
IS and flutter valve use. Pt is an active participant in his care, he has been observed several times this am using the IS and flutter valve on his own accord.
--- NOTE | 2021-09-21 11:40 | PC.NURSE ---
Nitro paste removed from left chest as directed from Dr Campuzano.
[2021-09-21 12:19] LABS: Glucose Point of Care 172 mg/dL (70-110)
[2021-09-21] MEDS: dexamethasone 10 mg/mL INJ 6 MG PO (12:33)
[2021-09-21] MEDS: ALPRAZolam 0.5 mg Tablet 0.25 MG PO (14:01)
[2021-09-21] MEDS: isosorbide mononitrate ER 30 mg Tablet 15 MG PO (14:48)
--- NOTE | 2021-09-21 15:37 | PM.PN ---
Subjective Subjective: No episodes overnight. -He had TVP implanted yesterday. One episodes of jaw/gum pain today with SOB. Medications: Reviewed: Yes Medication Review Details: Current Medications Acetaminophen (Acetaminophen 325 Mg Tablet) 650 mg PO Q6H PRN PRN Reason: Mild/Mod Pain Or Temp >/= 101 Albuterol Sulfate (Albuterol 8 Gm Mdi) 2 puff INHALATION Q4H.RESPIRATORY PRN PRN Reason: SHORTNESS OF BREATH Last Admin: 09/21/21 14:12 Dose: 2 puff Documented by: Alprazolam (Alprazolam 0.5 Mg Tablet) 0.25 mg PO TID PRN PRN Reason: ANXIETY Last Admin: 09/21/21 14:01 Dose: 0.25 mg Documented by: Aspirin (Aspirin 325 Mg Tablet) 325 mg PO DAILY SHEILA Last Admin: 09/21/21 08:45 Dose: 325 mg Documented by: Atorvastatin Calcium (Atorvastatin 40 Mg Tablet) 40 mg PO BEDTIME SHEILA Last Admin: 09/20/21 20:43 Dose: 40 mg Documented by: Atropine Sulfate (Atropine 1 Mg/Ml Sdv 1 Ml) 0.5 mg IVP PRN PRN PRN Reason: Symptomatic bradycardia Dexamethasone (Dexamethasone 10 Mg/Ml Inj) 6 mg PO Q24H SHEILA Last Admin: 09/21/21 12:33 Dose: 6 mg Documented by: Dextrose (Dextrose 50% Syringe 50 Ml) 25 ml IVP ONCE PRN; Protocol PRN Reason: hypoglycemia protocol Dextrose (Dextrose 50% Syringe 50 Ml) 50 ml IVP PRN PRN; Protocol PRN Reason: hypoglycemia protocol Enoxaparin Sodium (Enoxaparin 100 Mg/Ml Syringe) 95 mg SUBCUT Q12H SHEILA Last Admin: 09/21/21 14:00 Dose: 95 mg Documented by: Glucagon (Glucagon 1 Mg/Ml Inj 1 Ml) 1 mg IM ONCE PRN; Protocol PRN Reason: Adult Acute Hypoglycemia Prot. Guaifenesin/Codeine Phosphate (Guaifenesin-Codeine Udc 10 Ml) 10 ml PO Q4H PRN PRN Reason: COUGH Last Admin: 09/21/21 09:54 Dose: 10 ml Documented by: Azithromycin 500 mg/ Sodium (Chloride) 250 mls @ 250 mls/hr IV DAILY SHEILA; Protocol Last Infusion: 09/21/21 10:35 Dose: Infused Documented by: Ceftriaxone Sodium 1,000 mg/ (Sodium Chloride) 50 mls @ 100 mls/hr IV DAILY [facility]; Protocol Last Infusion: 09/21/21 10:54 Dose: Infused Documented by: Dextrose (D5w) 500 mls @ 100 mls/hr IV ONCE PRN; Protocol PRN Reason: Adult Acute Hypoglycemia Prot Insulin Human Lispro (Insulin Lispro 100 Unit/1 Ml) 0 unit SUBCUT AC&BEDTIME [facility]; Protocol Last Admin: 09/21/21 12:32 Dose: 3 unit Documented by: Isosorbide Mononitrate (Isosorbide Mononitrate Er 30 Mg Tablet) 15 mg PO DAILY [facility] Last Admin: 09/21/21 14:48 Dose: 15 mg Documented by: Lisinopril (Lisinopril 20 Mg Tablet) 20 mg PO DAILY [facility] Last Admin: 09/20/21 08:38 Dose: Not Given Documented by: Nitroglycerin (Nitroglycerin 0.4 Mg Sublingual Tablet) 0.4 mg SUBLINGUAL Q5M PRN PRN Reason: CHEST PAIN Ondansetron HCl (Ondansetron 2 Mg/Ml Sdv 2 Ml) 4 mg IVP Q8H PRN PRN Reason: vomiting, or N/V if npo Pantoprazole Sodium (Pantoprazole Dr 40 Mg Tablet) 40 mg PO DAILY [facility] Last Admin: 09/21/21 08:45 Dose: 40 mg Documented by: Temazepam (Temazepam 15 Mg Capsule) 15 mg PO BEDTIME PRN PRN Reason: INSOMNIA Vitals/I&O/Wt Last Vital Signs Temp 98.4 F 09/21/21 04:00 Pulse 81 09/21/21 14:20 Resp 21 H 09/21/21 14:13 BP 98/54 09/21/21 04:00 Pulse Ox 96 09/21/21 14:13 09/21/21 09/21/21 09/21/21 06:59 14:59 22:59 Intake Total 300 / 300 Output Total 300 / 1325 Balance -300 / -565 300 / 300 Weight last 48 hrs Weight 220 lb 11.2 oz Weight 208 lb Physical Exam Narrative: GENERAL: Sitting propped up in bed in no acute distress HEENT: ? No pallor or icterus. NECK: No JVD, appreciated CARDIOVASCULAR SYSTEM: S1-S2 regular.? No murmur or gallops. RESPIRATORY SYSTEM: Coarse bilateral breath sounds EXTREMITIES: No cyanosis or No edema.? No signs of chronic venous insufficiency. CHIEF OF STAFF DOCTOR: Patient is alert oriented ?3.? No focal neurological deficits.? Urinary Catheter Management: Tucker: Cath Placed During This Visit: yes, but has since been removed by the nurse Reason for Continuing Indwelling Catheter: Decision to DC Catheter Urinary Catheter Date of Insertion: 09/20/21 Urinary Catheter Time of Insertion: 02:00 Date Urinary Catheter Removed: 09/20/21 Time Urinary Catheter Discontinued: 14:15 Data : 09/21/21 02:30 09/21/21 02:30 Micro: Microbiology 09/20/21 05:06 Blood Culture - Preliminary Blood NEGATIVE TO DATE 09/20/21 05:06 Blood Culture - Preliminary Blood NEGATIVE TO DATE A&P Assessment and plan (1) Sinus pause: On reviewing the telemetry strips it seems like third-degree AV block initially with no escape beats, followed by sinus pause and intermittent wide escape beats (? Junctional versus ventricular). -No recurrent episodes. At this point patient has severe COVID-19 pneumonia. I had a long discussion with patient and his daughter. Patient's CODE STATUS was reversed from DNR/DNI to full code. I think at this moment it is prudent to place a temporary venous pacemaker and based on his clinical progression decision for permanent pacemaker can be made. -Case was discussed with Dr. Sheikh as well. Status: Acute (2) NSTEMI (non-ST elevated myocardial infarction): NSTEMI -EKG changes noted after patient had a long pause which have since resolved. -Troponin >1400 and EKG with LVEF~40%. There seems to be hypokinesis of??mid anteroseptal, mid anterior, apical septal, apical lateral and apical marroquin. -Given prior 60% lesion in px LAD, will recommend [facility]. -This was discussed with patient, his daughter and they are agreeable with plan. -I also realized his COVID-19 PNA diagnosis was made on 09/02/21. [facility] as [facility] had [facility] at that time. Status: Acute (3) Acute respiratory failure with hypoxemia: Status: Acute (4) COVID-19: Status: Acute Plan h/o Nonobstructive coronary artery disease Moderate aortic valve regurgitation Diabetes Hyperlipidemia Hypertension History of bifascicular block History of recurrent syncope and dizzy spells Thank you for allowing me to participate in patient's care. Please feel free to call with questions or concerns Attestations Medical Necessity Statement*: needs hospital stay for COVID-19 PNA and NSTEMI. 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
--- NOTE | 2021-09-21 16:09 | ECG_ITS ---
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 Measurements Intervals [place] Rate: 70 P: 43 ID: [id number] QRS: -57 QRSD: 122 T: -35 QT: 413 QTc: 447 Interpretive Statements SINUS RHYTHM LEFT AXIS DEVIATION [QRS AXIS < -30] RIGHT BUNDLE BRANCH BLOCK [120+ ms QRS DURATION, UPRIGHT V1, 40+ ms S IN I/aVL/V4/V5/V6] VOLTAGE CRITERIA FOR LVH [MEETS CRITERIA IN ONE OF: R(aVL), S(V1), R(V5), R(V5/V6)+S(V1)] ST DEPRESSION, CONSIDER SUBENDOCARDIAL INJURY [0.1+ mV ST DEPRESSION] Compared to ECG 09/20/2021 13:43:15 Left-axis deviation now present ST (T wave) deviation now present Left anterior fascicular block no longer present Myocardial infarct finding no longer present Electronically Signed On 09-22-2021 12:19:29 CUT OFF SAW TENDER METAL by Monique Campuzano M.D. [email or web address]
[2021-09-21 18:04] LABS: Glucose Point of Care 399 mg/dL (70-110)
--- NOTE | 2021-09-21 19:00 | P.PN_ITS ---
Vitals/I&O/Wt Last Vital Signs Temp 98 F 09/21/21 14:00 Pulse 66 09/21/21 16:00 Resp 19 H 09/21/21 16:00 BP 133/83 09/21/21 16:00 Pulse Ox 93 09/21/21 16:00 09/21/21 09/21/21 09/21/21 06:59 14:59 22:59 Intake Total 600 / 600 Output Total 300 / 1325 350 / 350 Balance -300 / -565 250 / 250 Weight last 48 hrs Weight 100.108 kg Weight 94.347 kg Physical Exam Const: COMMON NORMALS: no acute distress and patient oriented x3 OTHER: Pleasant, conversant. Intermittent cough. HENMT: COMMON NORMALS: oropharynx normal Neck/C-Spine: COMMON NORMALS: no JVD Resp: COMMON NORMALS: normal respiratory effort and clear to auscultation bilaterally AUSCULTATION: clear to auscultation bilaterally Cardio: COMMON NORMALS: no JVD, regular rhythm, S1 normal heart sound present, S2 normal heart sound present and No murmurs present (Cardio) RHYTHM: regular rhythm HEART SOUNDS: S1 normal heart sound present and S2 normal heart sound present GI: COMMON NORMALS: Normal to inspection, nondistended, normoactive bowel sounds present, Soft to palpation and non-tender PALPATION: Yes Soft to palpation Extremity: COMMON NORMALS: no joint enlargement and no pedal edema Neuro: COMMON NORMALS: patient oriented x3 and moves all extremities Skin: COMMON NORMALS: no rashes or lesions noted GENERAL SKIN EXAM: no rashes or lesions noted Urinary Catheter Management: Tucker: Cath Placed During This Visit: yes, but has since been removed by the nurse Reason for Continuing Indwelling Catheter: Decision to DC Catheter Urinary Catheter Date of Insertion: 09/20/21 Urinary Catheter Time of Insertion: 02:00 Date Urinary Catheter Removed: 09/20/21 Time Urinary Catheter Discontinued: 14:15 Data : 09/21/21 02:30 09/21/21 02:30 Micro: Microbiology 09/20/21 05:06 Blood Culture - Preliminary Blood NEGATIVE TO DATE 09/20/21 05:06 Blood Culture - Preliminary Blood NEGATIVE TO DATE A&P Assessment and plan (1) Third degree atrioventricular block: Status post temporary pacemaker after third-degree AV block episodes on muskrat trapper of 09/20. Appreciate cardiology recommendations. Optimize underlying conditions pending additional assessment/decision regarding need for permanent pacemaker. Status: Acute (2) NSTEMI (non-ST elevated myocardial infarction): Continue treatment for possible type I NSTEMI. Limited echo with moderately decreased left ventricular systolic function. Ejection fraction estimated 40%. Appears to have hypokinesis of mid anteroseptal, mid anterior, apical septal, apical lateral and apical marroquin. Continue anticoagulation. Continue aspirin, statin. Imdur. Avoid rika blockers. Status: Acute (3) Acute respiratory failure with hypoxemia: Gradually improving. Weaning down on oxygen. Currently down to 5 L nasal cannula. Continue Decadron for COVID-19. Empiric ceftriaxone and azithromycin. Antitussives. He is on Lovenox as above. Severe COVID-19. Status: Acute (4) Lactic acidosis: Possibly secondary to hypoxia. Metabolic acidosis appears resolved. Bicarb up to 25, anion gap closed. Contrast CT chest abdomen pelvis with groundglass opacities secondary to COVID- 19 in the chest, for infiltration of the liver, diverticulosis of the descending and sigmoid colon. No evidence of other acute process. Vasculature listed unremarkable, no abdominal aortic aneurysm. Leukocytosis, otherwise does not appear to be in septic shock. UA not suggestive of infection. Empirically on ceftriaxone azithromycin, although no focal infiltrate to suggest superimposed bacterial infection. Dry cough. Stopped Metformin. Changed albuterol to as needed. History of hepatic steatosis although no known cirrhosis. Likely reduced liver clearance of lactate. Status: Acute Plan Moderate aortic regurgitation Diverticulosis Hepatic steatosis Macrocytosis. Normal TSH, free T4, B12, folate Coronary artery disease Diabetes. Will check fasting glucose every before meals and at bedtime and provide insulin sliding scale plus glipizide 2.5 Metformin stopped. Depending on how reliable oral intake is may need to stop glipizide. Hyperlipidemia Hypertension. Stop calcium channel george. GI Proflex is. Protonix 40 Mill grams by mouth daily DVT Proflex is. Currently on therapeutic anticoagulation with NSTEMI Attestations Medical Necessity Statement*: Continue admission for assessment management of hypoxic respiratory failure, severe COVID-19, NSTEMI, third-degree heart block. Coding Level of Care Code Acute Porcelain Technician for [facility] Diagnoses NSTEMI (non-ST elevated myocardial infarction) I21.4 Acute respiratory failure with hypoxemia J96.01 Lactic acidosis E87.2 Third degree atrioventricular block I44.2
--- NOTE | 2021-09-21 19:15 | PC.NURSE ---
Shift Note Pt pleasant and A & O x 4 throughout shift. He remains on bed rest. He has needed an occasional reminder to not bend right leg and keep it straight. He remained in sinus rhythm. The pacemaker did not fire through out the shift. No changes in settings. Site intact, no hematoma and no bleeding. Dressing intact. Pt has been observed throughout this shift frequently using his IS and flutter valve without prompting from staff. Medication changes: Nitro paste stopped and Imdur started. He has had adequate urine output and a Bm this shift , See I & O flowsheet. Frequent safety and comfort rounds continue. Orders and/or nursing care completed as indicated. Patient monitored for response to intervention and treatment(s). Education provided includes Pacemaker, Xanax, Imdur and plan of care. Patient and/or warehouse representative verbalizes understanding of medications, plan of care and progress. Will continue to monitor.
[2021-09-21] MEDS: atorvastatin 40 mg Tablet PO (20:00)
[2021-09-22] VITALS (28 sets, daily range): BP systolic 100–148; BP diastolic 52–94; PULSE 54–108; RESP 13–23; TEMP 36.3–37.2; O2SAT 91–100
[2021-09-22] MEDS: enoxaparin 100 mg/mL Syringe 95 MG SUBCUT (01:54)
[2021-09-22] MEDS: guaiFENesin-codeine UDC 10 mL PO (01:54)
[2021-09-22 06:12] LABS: Hemoglobin 11.3 g/dL (11.7-16.6); Lymphocytes # 1.3 10^3/uL (0.8-4.8); Lymphocytes % 12.8 %; Mean Corpuscular HGB Conc 33.2 g/dL (30.0-36.0); Mean Corpuscular Hemoglobin 33.8 pg (28.0-34.0); Mean Corpuscular Volume 101.8 fl (80-94); Mean Platelet Volume 11.1 fL (7.4-10.4); Monocytes # 0.7 10^3/uL (0.2-0.9); Monocytes % 6.5 %; Neutrophils # 8.22 10^3/uL (1.8-7.7); Nucleated Red Blood Cells % 0 %; Platelet Count 181 10^3/cmm (130-400); Red Blood Count 3.34 10^6/uL (4.1-5.3); Red Cell Distribution Width 13.3 % (12.1-15.1); White Blood Count 10.3 10^3/uL (4.0-10.0)
[2021-09-22 06:41] LABS: Glucose Point of Care 331 mg/dL (70-110)
[2021-09-22 06:47] LABS: Alanine Aminotransferase 52 U/L (0-41); Albumin Level 3.5 g/dL (3.5-5.2); Alkaline Phosphatase 63 IU/L (40-130); Aspartate Amino Transferase 37 U/L (0-40); Blood Urea Nitrogen 26 mg/dL (8-23); Calcium 7.9 mg/dL (8.5-10.5); Carbon Dioxide 24 mmol/L (22-29); Chloride 103 mmol/L (98-107); Globulin 2.7 g/dL (1.3-4.6); Glucose 191 mg/dL (65-115); Osmolality Calculated 294 mOsm/kg (285-295); Sodium 137 mmol/L (136-145); Total Bilirubin 0.4 mg/dL (0.15-1.2); Total Protein 6.2 g/dL (6.6-8.7)
--- NOTE | 2021-09-22 06:50 | PC.NURSE ---
Report received. Pacemaker intact, dressing intact. Rate set at 52, mA 3 and sensitivity 1. Pacemaker fired off and on for at least 2 hours on Pm shift. Pt is now in sinus rhythm. He is only on 2lpm/NC. Plan is to go to production laborer this am.
[2021-09-22] MEDS: sodium chloride 0.9% 1,000 ML 50 ML IV (07:17)
--- NOTE | 2021-09-22 07:41 | XACV_ITS ---
Exam Room: 1 Ht: 185 cm Wt: 94 kg BSA: 2.22 m2 Gender: Male : 1945 Any Known Allergies: Other Exam Priority: Routine Procedure(s): Procedure Description: Diagnostic procedure Procedure Description: Miscellaneous Procedure Description: IABP Insertion Procedure Description: Coronary Angiography Diagnostic Cath Status: Urgent Diagnostic Findings * 76-year-old gentleman admitted with cough, jaw pain, progressively worsening shortness of breath and recent diagnosis of COVID-19 pneumonia. During hospitalization, he had syncopal episode with CHB and long sinus pauses and underwent temporary pacemaker placement. EKG showed sinus rhythm with first-degree AV block with left anterior fascicular block. Right bundle branch block. Left ventricular hypertrophy. ST elevation in aVR and diffuse ST depression in inferior and anterolateral leads were noted after the pause. Fifth generation troponin T peaked at >1400. Left heart catheterization was performed. * Angiography shows a right coronary dominant system. * Coronary angiography shows severe 99% proximal stenosis in the left main artery, severe 80% proximal stenosis in the left anterior descending artery, mild to moderate disease in the proximal circumflex artery and mild 20% stenosis in mid RCA and mild 40% stenosis in the distal right coronary artery. * Case was just discussed and images were reviewed with Dr. Sheikh and Dr. Torres. After discussion with patient and family, decision was made to proceed with urgent CABG after intra-aortic balloon pump placement. Recommendations * Continue IABP for 24-72 hours. Interventional RX Recommendation: CABG Diagnostic RX Recommendation: CABG Pressures Phase:Rest AO : 85 / 64 ( 70 ) @ 9:29:00 AM Clinical Evaluation EBL: 5mL-10mL Procedural Details Pre-Procedure Time Out. Identified patient by full name and date of as verbalized by the patient/guarantor. Does the consent match the physician's order: Yes. Accurate & Complete Informed Consent: Yes. Inpatient/Outpatient History & Physical on Chart: Yes. If H&P is completed, is and addenduem needed: No. Visualize and Verify Site with Patient/Guarantor: N/A. Relevant Radiology Images available: Yes. Pre-op teaching completed and patient verbalized understanding. Procedure started. [facility] Clinical Fraility Score: 4: Vulnerable. Sleep Manager Indications: ACS > 24 hours. Chest Pain Symptom Assessment: Atypical Angina. Cardiovascular Instability: No. Correct patient, site and procedure confirmed by cath team. Current diagnosis: NSTEMI. PERRLA. Strong, equal hand curriculum assistant bilaterally. Lungs clear x 5 lobes. IV Site on Arrival: 20 gauge in the left anticubital. IV Site on Arrival: 18 gauge in the left wrist. IV Fluids: 0.9% NaCl at KVO. 250 mL infused prior to cork slabs sawyer. Pre Procedural Pulses: bilateral radial was 3+. Oxygen started at 2liters/min via nasal canula. left groin was prepped with chloroprep then draped in the usual sterile fashion. right radial was prepped with chloroprep then draped in the usual sterile fashion. Physician notified. Baseline sample Acquired. HR: 85 BPM. Patient's family unavailable. Equipment: 6F - Radial. Cardiac Cath Pack. ACIST Manifold Kit Model BT 2000. Heparinized Saline (2 units/mL), [address] Campuzano performing procedure with Dr. Sheikh in room. Physician arrived. Physician scrubbed in. Immediate Pre-Procedure Time Out. Correct Patient: Yes; Correct Procedure: Yes; Correct Site: Yes; Correct Patient Position: Yes; Correct Supplies: Yes; Dried Flammable Prep: Yes Blood Products Available: N/A;. Lidocaine 1% infiltrated to the right radial. Arterial access obtained. A 5 greenlandic TIG catheter in over wire. Current Diagnosis : NSTEMI. Cine of the left main performed. Catheter redirected to the RCA. Multiple views taken of right coronary artery. Dr. Sheikh scrubbed in to assist. Clarified with the cut press operator that Dr. Torres is survey questionnaire designer today. Catheter removed over the standard wire. A 5 greenlandic JL3.5 catheter in over wire. Hemodynamic formulas in Rest were re-calculated based on hemoglobin value from 09/21/2021 5:20:00 AM. Multiple views taken of left coronary artery. Catheter removed over the standard wire. Dr. Campuzano and Dr. Sheikh Scrubbed out. Dr. Campuzano called to inform Dr. Torres of CABG consult. Dr. Torres here. Structurer called to notify the CVOR team. Dr. Campuzano updated the daughter, Opal, in the Radiology waiting chasidy. She and the patient wish to procede with IABP insertion and emergent CABG. Dr. Sheikh scrubbed in. Lidocaine 1% infiltrated to the left groin. Arterial access obtained with micropuncture set. Sheath upsized to a 7 Fr. Blood drawn from the right radial sheath and sent to lab for pre-op CABG per Dr. Torres orders. T & C bracelet placed on the patient. Daughter, Opal in to speak with the patient. 7fr, 34cc IABP inserted. Frequency 1:1. Dr. Sheikh scrubbed out. Awaiting CVOR team. Left femoral and right radial Sheath(s) sutured into position with 2-0 silk and sterile 4x4's and Op-site applied over the site. No oozing or signs and symptoms of hematoma noted. Arterial sheath flushed and connected to tranducer and pressure bag with heparinized saline. Post Procedure: Pulses reassessed and unchanged. PERRLA. Strong, equal hand curriculum assistant bilaterally. No VTE prophylaxis required. Post-op diagnosis: Severe left main stenosis, S/P IABP insertion with CABG consult. Complications: none. Estimated blood loss: 5mL-10mL. Responsiveness - Normal response to verbal stimuli; alert and oriented, PERRLA. Airway - Unaffected, no intervention required; spontaneous ventilation. Circulation: W/N/L, pulses unchanged. Nausea/Vomiting: No. A Suture was successful obtaining hemostatsis at the Left Femoral artery insertion site. A Suture was successful obtaining hemostatsis at the Right Radial artery insertion site. Total IV fluids: 100 mL. Medication's Wasted: Nitro = 49.8 mg. Medication's Wasted: Heparin = 3000 units. Patient transferred by bed to OR with CVOR team. Procedure completed. Vital chart was stopped. Access Site Site: Right Radial artery Sheath Size: 6 Fr Hemostasis Method: Suture Hemostasis Success: Successful Site: Left Femoral artery Sheath Size: 6 Fr Hemostasis Method: Suture Hemostasis Success: Successful Procedure Medications Start: 9:13 AM Stop: 9:13 AM Medication: Versed Amount: 1 mg Route: I.V. Start: 9:13 AM Stop: 9:13 AM Medication: Fentanyl Amount: 25 mcg Route: I.V. Start: 9:13 AM Stop: 9:13 AM Medication: Nitrogylcerin Amount: 200 mcg Route: I.A. Start: 9:23 AM Stop: 9:23 AM Medication: Versed Amount: 1 mg Route: I.V. Start: 9:23 AM Stop: 9:23 AM Medication: Fentanyl Amount: 25 mcg Route: I.V. Start: 9:49 AM Stop: 9:49 AM Medication: Lasix (furosemide) Amount: 20 mg Route: I.V. Start: 9:53 AM Stop: 9:53 AM Medication: Nitrogylcerin Amount: 10 mcg/min Route: I.VLinn lyn I, the attending physician, have reviewed and verified all procedure medications. Yes, all medications given per verbal order History/Risk Factors Hypertension: No Dyslipidemia: Yes Peripheral Arterial Disease (PAD): No Myocardial Infarction (UT): No Obesity: Yes Renal Disease: No Tobacco Use: Former Prior Interventions PCI: No CABG: No Valve Surgery: No Report Signatures Finalized by Monique Campuzano MD on 09/25/2021 07:01 PM
[2021-09-22 07:46] LABS: Glucose Point of Care 172 mg/dL (70-110)
--- NOTE | 2021-09-22 08:18 | W.PM.OPSUD ---
Surgery/Procedure H&P Update DATE OF PROCEDURE: September 22, 2021 DATE H&P PERFORMED: 09/20/21 PREOP DIAGNOSIS: NSTEMI PLANNED PROCEDURE: Operation Date: 09/22/21 10:00 Proposed Procedures p Cardiac Catheterization(Right) - Monique Campuzano MD PATIENT REASSESSED PRIOR TO SEDATION, WITH NO CHANGE NOTED: Yes PHYSICAL EXAM: alert, oriented x 3, clear to auscultation bilaterally and regular rate & rhythm AIRWAY EVAL/ANESTHESIA PLAN: see other exam findings (Airway 3), ASA III, Risks, benefits & alternatives of sedation and/or procedure discussed and Patient agrees to continue as planned
[2021-09-22] MEDS: insulin lispro 100 unit/1 mL SUBCUT (08:33)
[2021-09-22] MEDS: cefTRIAXone 1,000 MG in sodium chloride 0.9% (plus) 50 ML 100 MG IV (08:34)
[2021-09-22] MEDS: azithromycin 500 MG in sodium chloride 0.9% 250 ML 250 MG IV (08:37)
[2021-09-22] MEDS: diphenhydrAMINE 50 mg Capsule PO (08:42)
[2021-09-22] MEDS: aspirin 325 mg Tablet PO (08:42)
[2021-09-22] MEDS: isosorbide mononitrate ER 30 mg Tablet 15 MG PO (08:42)
[2021-09-22] MEDS: pantoprazole DR 40 mg Tablet PO (08:43)
--- NOTE | 2021-09-22 09:00 | PC.NURSE ---
Pt to collaborative teacher.
[2021-09-22 09:31] LABS: Troponin T (5th) Once 679 ng/L (0-15)
--- NOTE | 2021-09-22 10:41 | PM.CONSULT ---
Providers/Reason For Consult Consulting Physician/Specialty*: Dr. Torres/cardiothoracic surgery Reason for Consult*: Critical left main stenosis Requesting Physician: Dr. Campuzano Attending Physician: Tj Sherwood Primary Care Provider: Yolanda Yi MD History of Present Illness History of Present Illness Jeremiah Lance Jr is a 76 year old male whom I have been consulted urgently by Dr. Campuzano. Patient is currently on the catheterization table after undergoing left heart catheterization this morning which reveals critical left main stenosis of 90 to 95% as well as a 90% proximal LAD stenosis. He has reduced ejection fraction of 35 to 40% and has active Covid pneumonia. He is on supplemental oxygen though he is not intubated. He presented on September 19 with complaints of dyspnea, cough, and intermittent jaw pain. He had an episode of dizziness and syncope following a coughing episode. He was found upon admission to have substantial elevated enzymes consistent with non-ST elevated myocardial infarction. He had bifascicular block on EKG. He has a documented pauses of up to 9 seconds on EKG and therefore underwent placement of a temporary pacemaker the right femoral vein approach on September [address] Sheikh. He is currently on the catheterization table with sinus rhythm with a pacemaker in position with occasional capture. I have reviewed the left heart catheterization with Dr. Campuzano and Dr. Sheikh. Family has been made aware of this critical situation. Both Casi and his family wish to proceed with considerations for urgent CABG. This will be a high risk procedure related to numerous comorbidities. His most recent chest x-ray reveals bilateral peripheral infiltrates consistent with classic radiographic findings of Covid pneumonia which has been determined to be positive by testing. I have recommended an introverted balloon pump be placed preoperatively related to his critical left main coronary artery stenosis. Review of Systems Narrative: Review of systems is related to what is described in the H&P as this cannot be obtained preoperatively due to the critical nature of the situation and the expeditious attempt to proceed with urgent coronary artery bypass grafting. Medications/Allergies Home Medications Medication Instructions Recorded Confirmed Last Taken Type aspirin 325 mg tablet 325 mg PO Q6H PRN tab 05/14/20 09/19/21 12/18/20 08:00 History cholecalciferol (vitamin D3) 2 cap PO BID 05/14/20 09/19/21 12/18/20 08:00 History lisinopril 40 mg tablet 40 mg PO DAILY tab 05/14/20 09/19/21 08/20/21 History not taken for month metformin 1,000 mg tablet 1,000 mg PO BID tab 05/14/20 09/19/21 12/18/20 08:00 History omega-3 fatty acids 1,000 mg 2,000 mg PO BID 05/14/20 09/19/21 12/18/20 08:00 History capsule (Fish Oil Concentrate) Orthomune Capsules 1 cap PO BID 09/19/21 09/19/21 Unknown History amlodipine 10 mg tablet 10 mg PO DAILY 09/19/21 09/19/21 Unknown History ascorbic acid (vitamin C) 500 mg 500 mg PO BID 09/19/21 09/19/21 Unknown History tablet (Vitamin C) atorvastatin 80 mg tablet 80 mg PO QPM 09/19/21 09/19/21 Unknown History citalopram 40 mg tablet (Celexa) 20 mg PO QAM 09/19/21 09/19/21 08/20/21 History not taken a month finasteride 5 mg tablet 5 mg PO BEDTIME 09/19/21 09/19/21 08/20/21 History not taken for month glipizide 10 mg tablet 20 mg PO BID 09/19/21 09/19/21 Unknown History tamsulosin 0.4 mg capsule (Flomax) 0.4 mg PO BEDTIME 09/19/21 09/19/21 08/20/21 History not taken for month zinc 50 mg tablet 50 mg PO BID 09/19/21 09/19/21 Unknown History Allergies Allergy/AdvReac Type Severity Reaction Status Date / Time procaine [From Novocain] Allergy Unknown Verified 09/19/21 09:29 Current Medications Generic Name Dose Route Start Last Admin Trade Name Freq PRN Reason Stop Dose Admin Albuterol Sulfate 2 puff 09/19/21 17:17 09/21/21 19:57 Albuterol 8 Gm Mdi INHALATION 2 puff Q4H.RESPIRATORY PRN Administration SHORTNESS OF BREATH Alprazolam 0.25 mg 09/20/21 16:13 09/21/21 14:01 Alprazolam 0.5 Mg Tablet PO 0.25 mg TID PRN Administration ANXIETY Aspirin 325 mg 09/20/21 09:00 09/22/21 08:42 Aspirin 325 Mg Tablet PO 325 mg DAILY SHEILA Administration Atorvastatin Calcium 40 mg 09/20/21 21:00 09/21/21 20:00 Atorvastatin 40 Mg Tablet PO 40 mg BEDTIME SHEILA Administration Dexamethasone 6 mg 09/19/21 13:15 09/21/21 12:33 Dexamethasone 10 Mg/Ml Inj PO 6 mg Q24H SHEILA Administration Enoxaparin Sodium 95 mg 09/20/21 14:00 09/22/21 01:54 Enoxaparin 100 Mg/Ml Syringe SUBCUT 95 mg Q12H SHEILA Administration Guaifenesin/Codeine Phosphate 10 ml 09/19/21 11:05 09/22/21 01:54 Guaifenesin-Codeine Udc 10 Ml PO 10 ml Q4H PRN Administration COUGH Azithromycin 500 mg/ Sodium 250 mls @ 250 mls/hr 09/19/21 09:00 09/22/21 08:37 Chloride IV 250 mls/hr DAILY SHEILA Administration Protocol Ceftriaxone Sodium 1,000 mg/ 50 mls @ 100 mls/hr 09/19/21 09:00 09/22/21 08:34 Sodium Chloride IV 100 mls/hr DAILY SHEILA Administration Protocol Sodium Chloride 1,000 mls @ 50 mls/hr 09/22/21 08:00 09/22/21 07:17 Sodium Chloride 0.9% IV 09/23/21 03:59 50 mls/hr .Q20H ONE Administration Insulin Human Lispro 0 unit 09/19/21 07:00 09/22/21 08:33 Insulin Lispro 100 Unit/1 Ml SUBCUT 3 unit AC&BEDTIME SHEILA Administration Protocol Isosorbide Mononitrate 15 mg 09/21/21 14:31 09/22/21 08:42 Isosorbide Mononitrate Er 30 Mg Tablet PO 15 mg DAILY SHEILA Administration Lisinopril 20 mg 09/19/21 09:00 09/20/21 08:38 Lisinopril 20 Mg Tablet PO Not Given DAILY SHEILA Pantoprazole Sodium 40 mg 09/19/21 09:00 09/22/21 08:[address] 40 Mg Tablet PO 40 mg DAILY SHEILA Administration PFSH Acute PFSH: Medical History Bifascicular block Diabetes mellitus Hyperlipidemia Surgical History H/O circumcision H/O colonoscopy History of appendectomy Status post colonoscopy with polypectomy (06/19/20) Family History Mother CAD (coronary artery disease) [place] [id number] Stroke Brother CAD (coronary artery disease), Onset Age: 60 Cancer Diabetes Lung disease Sister Diabetes Other Hyperlipidemia Hypertension Denies family history of Clotting disorder Dementia Chronic kidney disease (CKD) Suicide Anesthesia complication Bleeding disorder Social History Smoking and tobacco status: former smoker Alcohol intake: never Lives independently: Yes Marital status: / Current occupational status: retired History of recent travel: No Vitals/I&O/Wt Last Vital Signs Temp 97.6 F 09/22/21 07:00 Pulse 54 L 09/22/21 07:00 Resp 18 09/22/21 07:00 BP 124/68 09/22/21 07:00 Pulse Ox 91 09/22/21 07:00 09/21/21 09/22/21 09/22/21 22:59 06:59 14:59 Intake Total 400 / 1000 Output Total 850 / 1200 450 / 1650 Balance -450 / -200 -450 / -650 Weight last 48 hrs Weight 217 lb Weight 220 lb 11.2 oz Physical Exam Chest: COMMONS NORMALS: normal inspection of the chest and normal palpation of entire chest wall Resp: AUSCULTATION: crackles (Bases bilaterally) and wheezes Cardio: HEART SOUNDS: Murmur heart sound present diastolic Location: base GI: COMMON NORMALS: Soft to palpation AUSCULTATION: Yes Hypoactive bowel sounds present PALPATION: Yes Soft to palpation Extremity: OTHER: 1+ pretibial edema Urinary Catheter Management: Tucker: Cath Placed During This Visit: yes, but has since been removed by the nurse Reason for Continuing Indwelling Catheter: Decision to DC Catheter Urinary Catheter Date of Insertion: 09/20/21 Urinary Catheter Time of Insertion: 02:00 Date Urinary Catheter Removed: 09/20/21 Time Urinary Catheter Discontinued: 14:15 Data : 09/22/21 05:20 09/22/21 05:20 Micro: Microbiology 09/20/21 05:06 Blood Culture - Preliminary Blood NEGATIVE TO DATE 09/20/21 05:06 Blood Culture - Preliminary Blood NEGATIVE TO DATE A&P Assessment and plan (1) Left main coronary artery disease: This is a very difficult situation given this elderly gentleman with critical left main stenosis and high-grade proximal LAD stenosis, recent myocardial infarction, active Covid pneumonia, heart block requiring temporary pacing. I have counseled with his family very frankly. I have also spoken with Mr. Lance. Details and risks of CABG were carefully and frankly reviewed with family. Risks discussed include the possibility of , stroke, heart attack, major bleeding possibly requiring the need to reopen chest, infection, pneumonia, organ failure, failure to benefit, early closure of the bypass grafts, inability to complete the procedure, prolonged hospitalization, blood clots to lungs or other organs, need for further interventions, continued pain after surgery, need for future surgery, and possible long-term bleeding risk secondary to medication requirements. All questions were answered. Patient and family stated understanding. I recommended intra-aortic balloon pump be placed preoperatively. I performed preoperative calculations related to his comorbidities. Acute perioperative mortality risk is 11%. Renal failure risk is 3%. Stroke risk is 3%. Prolonged ventilation risk is greater than 40%. Deep sternal wound infection risk is 0.2%. Preoperative risk is 8%. Morbidity/mortality risk is 52%. Increase length of stay risk is 21%. All will need to go exceedingly well for successful eventual outcome. I have been very claudio with the family as to the high risk nature of our situation. Status: Acute Consult Attestations Medical Necessity Statement: Critical left main coronary artery stenosis Time Spent in Patient Care: Greater than 35 minutes Coding Level of Care Code New Pt Acute Office Auditor for Velma Villegas Patient Type New History Detailed Exam Detailed Medical Decision Making High Complexity Diagnoses Left main coronary artery disease I25.10 Time Spent (min) 40
--- NOTE | 2021-09-22 10:52 | ANES.PREANE2 ---
Pre-Anesthetic Assessment Height/Weight: Height 1.8 m Weight 98.43 kg Temp Pulse Resp BP Pulse Ox 97.6 F 54 L 18 124/68 91 09/22/21 07:00 09/22/21 07:00 09/22/21 07:00 09/22/21 07:00 09/22/21 07:00 Preop Diagnosis: NSTEMI Operation Date: 09/22/21 10:00 Proposed Procedures p Cardiac Catheterization(Right) - Jerome Sheikh M.D Operation Date: 09/22/21 11:00 Proposed Procedures p CABG(Not Applicable) - Antione Torres MD Familial anesthetic complications: None Was Beta Fredis taken within 24 hours: N/A Was Clonidine taken within 24 hours: N/A Social No alcohol and No tobacco Exam clear to auscultation bilaterally 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 in 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 golf 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 Airway Submandibular: within normal limits Cervical ROM: within normal limits Mallampati: Class II Pulmonary Acute respiratory failure CV/HEM Anemia, Arrythmia, Coronary Artery Disease, Hypertension and Myocardial Infarction IABP, temp pacer, L main CAD Metabolic Diabetes Mellitus and Hyperlipidemia Anesthetic Plan ASA status: 4E Anesthesia: General (Discussed with daughter) Other: A.line, CVL/PAC, SALONI Risk of > 500 ml blood loss (7ml/kg in children): Yes, adequate IV access and fluids planned Medications/Allergies Home Medications Medication Instructions Recorded Confirmed Last Taken Type aspirin 325 mg tablet 325 mg PO Q6H PRN tab 05/14/20 09/19/21 12/18/20 08:00 History cholecalciferol (vitamin D3) 2 cap PO BID 05/14/20 09/19/21 12/18/20 08:00 History lisinopril 40 mg tablet 40 mg PO DAILY tab 05/14/20 09/19/21 08/20/21 History not taken for month metformin 1,000 mg tablet 1,000 mg PO BID tab 05/14/20 09/19/21 12/18/20 08:00 History omega-3 fatty acids 1,000 mg 2,000 mg PO BID 05/14/20 09/19/21 12/18/20 08:00 History capsule (Fish Oil Concentrate) Orthomune Capsules 1 cap PO BID 09/19/21 09/19/21 Unknown History amlodipine 10 mg tablet 10 mg PO DAILY 09/19/21 09/19/21 Unknown History ascorbic acid (vitamin C) 500 mg 500 mg PO BID 09/19/21 09/19/21 Unknown History tablet (Vitamin C) atorvastatin 80 mg tablet 80 mg PO QPM 09/19/21 09/19/21 Unknown History citalopram 40 mg tablet (Celexa) 20 mg PO QAM 09/19/21 09/19/21 08/20/21 History not taken a month finasteride 5 mg tablet 5 mg PO BEDTIME 09/19/21 09/19/21 08/20/21 History not taken for month glipizide 10 mg tablet 20 mg PO BID 09/19/21 09/19/21 Unknown History tamsulosin 0.4 mg capsule (Flomax) 0.4 mg PO BEDTIME 09/19/21 09/19/21 08/20/21 History not taken for month zinc 50 mg tablet 50 mg PO BID 09/19/21 09/19/21 Unknown History Allergies Allergy/AdvReac Type Severity Reaction Status Date / Time procaine [From Novocain] Allergy Unknown Verified 09/19/21 09:29 Current Medications Generic Name Dose Route Start Last Admin Trade Name Freq PRN Reason Stop Dose Admin Albuterol Sulfate 2 puff 09/19/21 17:17 09/21/21 19:57 Albuterol 8 Gm Mdi INHALATION 2 puff Q4H.RESPIRATORY PRN Administration SHORTNESS OF BREATH Alprazolam 0.25 mg 09/20/21 16:13 09/21/21 14:01 Alprazolam 0.5 Mg Tablet PO 0.25 mg TID PRN Administration ANXIETY Aspirin 325 mg 09/20/21 09:00 09/22/21 08:42 Aspirin 325 Mg Tablet PO 325 mg DAILY SHEILA Administration Atorvastatin Calcium 40 mg 09/20/21 21:00 09/21/21 20:00 Atorvastatin 40 Mg Tablet PO 40 mg BEDTIME SHEILA Administration Dexamethasone 6 mg 09/19/21 13:15 09/21/21 12:33 Dexamethasone 10 Mg/Ml Inj PO 6 mg Q24H SHEILA Administration Enoxaparin Sodium 95 mg 09/20/21 14:00 09/22/21 01:54 Enoxaparin 100 Mg/Ml Syringe SUBCUT 95 mg Q12H SHEILA Administration Guaifenesin/Codeine Phosphate 10 ml 09/19/21 11:05 09/22/21 01:54 Guaifenesin-Codeine Udc 10 Ml PO 10 ml Q4H PRN Administration COUGH Azithromycin 500 mg/ Sodium 250 mls @ 250 mls/hr 09/19/21 09:00 09/22/21 08:37 Chloride IV 250 mls/hr DAILY SHEILA Administration Protocol Ceftriaxone Sodium 1,000 mg/ 50 mls @ 100 mls/hr 09/19/21 09:00 09/22/21 08:34 Sodium Chloride IV 100 mls/hr DAILY SHEILA Administration Protocol Sodium Chloride 1,000 mls @ 50 mls/hr 09/22/21 08:00 09/22/21 07:17 Sodium Chloride 0.9% IV 09/23/21 03:59 50 mls/hr .Q20H ONE Administration Insulin Human Lispro 0 unit 09/19/21 07:00 09/22/21 08:33 Insulin Lispro 100 Unit/1 Ml SUBCUT 3 unit AC&BEDTIME SHEILA Administration Protocol Isosorbide Mononitrate 15 mg 09/21/21 14:31 09/22/21 08:42 Isosorbide Mononitrate Er 30 Mg Tablet PO 15 mg DAILY SHEILA Administration Lisinopril 20 mg 09/19/21 09:00 09/20/21 08:38 Lisinopril 20 Mg Tablet PO Not Given DAILY SHEILA Pantoprazole Sodium 40 mg 09/19/21 09:00 09/22/21 08:[address] 40 Mg Tablet PO 40 mg DAILY SHEILA Administration PFSH Anesthesia Medical History Bifascicular block Diabetes mellitus Hyperlipidemia Surgical History H/O circumcision H/O colonoscopy History of appendectomy Status post colonoscopy with polypectomy (06/19/20) Family History Mother CAD (coronary artery disease) [place] 89 Stroke Brother CAD (coronary artery disease), Onset Age: 60 Cancer Diabetes Lung disease Sister Diabetes Other Hyperlipidemia Hypertension Denies family history of Clotting disorder Dementia Chronic kidney disease (CKD) Suicide Anesthesia complication Bleeding disorder Social History Smoking and tobacco status: former smoker Alcohol intake: never Lives independently: Yes Marital status: / Current occupational status: retired History of recent travel: No Data Anesthesia : 09/22/21 05:20 09/22/21 05:20 Short CBC 09/21/21 09/22/21 Range/Units 02:30 05:20 WBC 11.2 H 10.3 H (4.0-10.0) 10^3/uL Hgb 11.8 11.3 L (11.7-16.6) g/dL Hct 35.9 L 34.0 L (42.0-52.0) % MCV 101.7 H 101.8 H (80-94) fl Plt Count 186 181 (130-400) 10^3/cmm Neut % (Auto) 80.5 80.0 % Neut # (Auto) 8.98 H 8.22 H (1.8-7.7) 10^3/uL BMP 09/20/21 09/21/21 09/22/21 13:46 02:30 05:20 Sodium 138 137 137 Potassium 3.9 4.1 4.0 Chloride 104 103 103 Carbon Dioxide 22 25 24 BUN 22 27 H 26 H Creatinine 0.8 0.9 0.8 Glucose 191 H 220 H 191 H Calcium 8.0 L 8.0 L 7.9 L Cardiac Enzymes 09/20/21 09/20/21 09/22/21 Range/Units 13:46 19:59 05:20 Troponin T Gen 5 ng/L 1400 H* 1412 H* 679 H* (0-15) ng/L Liver Function 09/20/21 09/21/21 09/22/21 Range/Units 13:46 02:30 05:20 Total Bilirubin 0.5 0.5 0.4 (0.15-1.2) mg/dL AST 165 H 97 H 37 (0-40) U/L ALT 96 H 77 H 52 H (0-41) U/L Alkaline Phosphatase 62 58 63 (40-130) IU/L Albumin 3.5 3.6 3.5 (3.5-5.2) g/dL Blood Bank 09/22/21 10:05 Blood Type A Positive Rho(D) Type Positive Coags 09/21/21 09/21/21 02:30 02:30 D-Dimer 0.69 H C-Reactive Protein 99.5 H Microbiology 09/20/21 05:06 Blood Culture - Preliminary Blood NEGATIVE TO DATE 09/20/21 05:06 Blood Culture - Preliminary Blood NEGATIVE TO DATE Cardiac Studies: Echocardiogram 09/20/21 Echocardiogram Ultrasound 10/05/20 Sestamibi Stress Test (Cardiology) 11/02/20 Cardiac Event Monitor 07/18/21
[2021-09-22] MEDS: cefUROXime 1,500 MG in sodium chloride 0.9% (plus) 50 ML 100 MG IV (11:30)
[2021-09-22] MEDS: heparin, porcine 1,000 unit/mL INJ 10 mL 1750 UNIT IRRIGATION (12:48)
[2021-09-22] MEDS: sodium bicarbonate 1 mEq/mL SDV 50mL 0.7 MEQ IRRIGATION (14:46)
--- NOTE | 2021-09-22 16:23 | PC.SOCIAL ---
IMM UPDATED IMM dated and initialed and copy given to family
--- NOTE | 2021-09-22 18:34 | P.PN_ITS ---
Subjective Subjective: I did not get to see him today as he went from coronary angiogram early this morning directly into urgent CABG. Vitals/I&O/Wt Last Vital Signs Temp 97.4 F L 09/22/21 08:00 Pulse 68 09/22/21 09:00 Resp 14 09/22/21 09:00 BP 128/70 09/22/21 09:00 Pulse Ox 94 09/22/21 09:00 09/22/21 09/22/21 09/22/21 06:59 14:59 22:59 Intake Total 350 / 350 0 / 350 Output Total 450 / 1650 200 / 200 Balance -450 / -650 150 / 150 0 / 150 Weight last 48 hrs Weight 98.43 kg Weight 100.108 kg Physical Exam Urinary Catheter Management: Tucker: Cath Placed During This Visit: no Data : 09/22/21 05:20 09/22/21 05:20 A&P Assessment and plan (1) Left main coronary artery disease: Underwent coronary angiography earlier this morning as part of work-up of NSTEMI, with noted critical left main and high-grade proximal LAD stenosis. IABP was placed. Cardiothoracic surgery was urgently consulted. After discussion with family with regards to precarious nests of the situation, complicated by the COVID-19 pneumonia he has been recovering from as well, the family after discussion were agreeable to proceed with urgent CABG where he went directly from [employer]. He is due to be returning back to ICU a little bit later this evening. I did not get a chance to see him. Status: Acute (2) Third degree atrioventricular block: Status post temporary pacemaker after third-degree AV block episodes on corrosion control fitter of 09/20. With occasional pacing. Appreciate cardiology recommendations. Optimize underlying conditions pending additional assessment/decision regarding need for permanent pacemaker. Status: Acute (3) NSTEMI (non-ST elevated myocardial infarction): Critical stenosis of left main and high-grade proximal LAD stenosis noted on coronary angiogram 09/22. IABP placed. Urgent cardiothoracic consultation, proceeded to CABG. Limited echo with moderately decreased left ventricular systolic function. Ejection fraction estimated 40%. Appears to have hypokinesis of mid anteroseptal, mid anterior, apical septal, apical lateral and apical marroquin. Status: Acute (4) Acute respiratory failure with hypoxemia: Gradually improving. Decreasing oxygen requirement. Was down to 2 L by nasal cannula. Currently down to 5 L nasal cannula. So far has been treated with Decadron. 5 days will be tomorrow, discontinue if continues to do well. Empiric ceftriaxone and azithromycin. Antitussives. He is on Lovenox as above. Severe COVID-19. Status: Acute (5) Lactic acidosis: Possibly secondary to hypoxia. Metabolic acidosis appears resolved. Bicarb up to 25, anion gap closed. Contrast CT chest abdomen pelvis with groundglass opacities secondary to COVID- 19 in the chest, for infiltration of the liver, diverticulosis of the descending and sigmoid colon. No evidence of other acute process. Vasculature listed unremarkable, no abdominal aortic aneurysm. Leukocytosis, otherwise does not appear to be in septic shock. UA not suggestive of infection. Empirically on ceftriaxone azithromycin, although no focal infiltrate to suggest superimposed bacterial infection. Dry cough. Stopped Metformin. Changed albuterol to as needed. History of hepatic steatosis although no known cirrhosis. Likely reduced liver clearance of lactate. Status: Acute Plan Moderate aortic regurgitation Diverticulosis Hepatic steatosis Macrocytosis. Normal TSH, free T4, B12, folate Coronary artery disease Diabetes. Will check fasting glucose every before meals and at bedtime and provide insulin sliding scale plus glipizide 2.5 Metformin stopped. Depending on how reliable oral intake is may need to stop glipizide. Hyperlipidemia Hypertension. Stopped calcium channel george. GI Proflex is. Protonix 40 Mill grams by mouth daily DVT Proflex is. Currently on therapeutic anticoagulation with NSTEMI Attestations Medical Necessity Statement*: Continue admission for management following CABG with critical left main and high-grade LAD stenosis. Third-degree AV block. CO VID-19. Coding Level of Care Code Acute Cfo Controller for [facility] Diagnoses Third degree atrioventricular block I44.2 NSTEMI (non-ST elevated myocardial infarction) I21.4 Acute respiratory failure with hypoxemia J96.01 Lactic acidosis E87.2 Left main coronary artery disease I25.10
--- NOTE | 2021-09-22 19:00 | P.OP_ITS ---
Operative Report Date of procedure: September 22, 2021 Pre-op diagnosis: Preop Diagnosis NSTEMI, focal left main coronary artery stenosis Post-op diagnosis: same Procedure done: 1. Coronary artery bypass grafting x2 (1 artery and 1 vein) utilizing in situ left internal mammary artery to left anterior descending artery and reverse saphenous vein graft from the aorta to the obtuse marginal branch of the circumflex artery. 2. Endoscopic saphenous vein harvesting of the right greater saphenous vein Surgeon: Antione Torres Estimated blood loss (mL): 720 Estimated blood loss: 720 cc of cell salvage blood which was processed and retransfused Complications: None Brief History: Patient is a 76-year-old gentleman admitted on September 19 presenting with chest pain, jaw pain, shortness of breath and progressive dyspnea. Patient ruled in for non-STEMI but had documented sinus pauses up to 9 seconds so therefore temporary pacemaker was placed to the right femoral vein. Left heart catheterization was performed earlier today by Dr. Campuzano. The study revealed critical left main coronary artery stenosis of 90 to 95% along with high-grade lesion of the LAD of at least 80 to 90%. Previous echocardiogram and also revealed moderate aortic insufficiency. Due to the critical nature of the lesions, he was referred to consider for urgent surgical revascularization. Family was carefully counseled as to the acuity of the situation and the high risk for complications related to his presentation also including Covid pneumonia with bilateral infiltrates. Patient and family stated understanding and wished to proceed for surgery. Procedure: Details and risks of the surgery were carefully and frankly explained to the patient and the family. Particular risks of this surgery carefully reviewed with them included the possibility of , stroke, heart attack, major bleeding, infection, pneumonia, pain, organ failure, failure to benefit, early closure of the bypass grafts, prolonged hospital stay and subsequent need for further procedures. Increased risks for complications secondary to Covid pneumonia, critical left main stenosis, depressed ejection fraction, diabetes mellitus, and third-degree heart block requiring temporary pacing were carefully reviewed. Patient and family understand these increased risks. All questions were answered and appropriate consents were reviewed and signed. Preoperative education for the patient and the family included both written and video materials. The patient and the family wished to proceed with plans for attempted surgical revascularization for severe coronary artery disease including critical left main stenosis. PROCEDURE: Preoperative evaluation was obtained from our Anesthesia colleagues and adequate IVs were confirmed. The patient was then taken to the Operating Room Suite where general anesthesia was induced. Appropriate invasive monitoring lines were placed, including large bore peripheral IVs, central line, [place]-Porfirio catheter, Tucker catheter and associated monitoring leads. After careful positioning on the Operating Room table, the patient was subsequently sterilely prepped and draped. The patient then received low-dose Heparin prior to vein harvest. Saphenous vein was harvested by endoscopic technique from the right. Branches were secured with ligature and clips and the vein was extracted from the tunnel without tension. It was then flushed with a Heparin and albumin solution and prepared for grafting. Vein harvest sites were irrigated, platelet poor plasma infused into the tunnel and port sites closed with 3-0 and 4-0 Vicryl Plus suture. Simultaneously with vein harvesting, a median sternotomy was created utilizing a #10 scalpel blade with hemostasis controlled with cautery. After reaching the sternal table, the sternum was divided with a reciprocating saw. Bleeding was controlled with cautery and judicious use of bone wax. Following this, the left chest wall was elevated with a Rultract retractor. The left internal mammary artery was dissected free with branches being secured with clips and cautery. The distal end was left intact. After harvesting of the mammary artery, a left pleural chest tube was then placed. With a moderate effusion recovered, I then elected to place a chest tube on the right side, and also recovered a moderate amount of pleural fluid. The left chest wall was then lowered and moistened antibiotic-soaked laparotomy pads were placed in the wound, followed by an Ankeney retractor. The sternum was then and the pericardium opened and secured with stay sutures. After inspection, 2-0 pledgeted Ethibond sutures were placed at cannulation sites, at which time the patient was fully heparinized. Following this, the left internal mammary artery was taken down from its distal attachment, flushed with Papaverine solution, prepared for grafting and brisk flow confirmed. A soft bulldog was applied distally. Next, the heart was ca nnulated with a 22-Barbadian aortic cannula, two-stage venous cannula and aortic root vent. The patient was subsequently placed on cardiopulmonary bypass and cooled systemically to 34 degrees. We also placed an LV vent through the right superior pulmonary vein. Aortic cross-clamp was then carefully placed and 4 degree Celsius cold blood cardioplegia was administered through the aortic root in antegrade fashion. Prompt diastolic arrest was obtained. Left ventricular decompression was confirmed. The heart was cooled systemically with iced saline with an insulation pad in place to protect the phrenic nerve. Throughout the cross-clamp period, at 20-30 minute intervals, antegrade blood cardioplegia was administered to maintain asystole. We then inspected the cardiac surface and coronary anatomy. Distal portion of the prominent OMB branch of the circumflex artery was isolated along the lateral posterior wall. This vessel was opened up in 1.5 mm in size. Vein was anastomosed distally with running 7-0 Prolene suture approximately 2 a 4 mm aortotomy with 5-0 Prolene suture. With the rewarming phase of bypass continuing, the left internal mammary artery was brought through a left anterior pericardial window into the field. The LAD was opened up in its mid one-third and was approximately 2 mm in size. The LAZCANO was then anastomosed to the LAD with a running 7-0 Prolene suture. It should be noted that all distal coronary anastomoses were performed over the appropriate size coronary shunt which was removed prior to securing the distal suture line. Following this, aortic cross-clamp was released and de-airing maneuvers were performed through the aortic root vent, as well as being confirmed by transesophageal echocardiography. Dobutamine at 3 mcg per kilogram per minute was administered with good chronotropic and inotropic affect. The heart did not return to spontaneous sinus rhythm and and did not require cardioversion though AV pacing was required. After adequate recovery from the cross-clamp period and confirmation of cardiac stability, the patient was weaned from bypass without difficulty with balloon pump being reinstituted at 1-1 full augmentation. Venous cannula was removed. Heparin was reversed with Protamine and confirmed by measurement of activated clotting time. The heart was then decannulated and cannulation sites were oversewn as required. Pacing wires were placed and brought through the skin and secured. Radiopaque marker was placed on the vein graft at the level of aorta. Two mediastinal drains were placed and connected to Pleur-evac suction. The wound was carefully irrigated and hemostasis was confirmed. Ankeney retractor was removed and sponge and needle count was correct. The sternum was then reapproximated very carefully with interrupted #7 stainless steel wire with Surgicel strips used beneath the sternal table. Fascia was closed with #1 Vicryl suture with the next layers being closed with 2-0 and 3-0 suture. The skin was reapproximated carefully in a subcuticular manner. Sterile dressings were applied, followed by a vacuum-assisted dressing. The patient was carefully removed from the operating room table and transferred to the Intensive Care Unit. The family was then counseled as to the details of the procedure. Dr. Campuzano was notified of our operative findings and procedure details.
--- NOTE | 2021-09-22 19:25 | ANE.PACU2 ---
Inpatient post-anesthesia follow up: Airway intact: Yes Vital signs: Temperature 97.4 F Pulse Rate 68 Respiratory Rate 14 Blood Pressure 128/70 Pulse Oximetry 94 Oxygen Delivery Me thod Nasal Cannula Oxygen Flow Rate 2 Fraction of Inspir ed Oxygen Hydration adequate: Yes Nausea and vomiting: No Pain level: 3 Mental status: Altered Additional Comments: Sedated and intubated to ICU, stable on abraham, levo, --prop
--- NOTE | 2021-09-22 19:27 | ECG_ITS ---
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 Measurements Intervals [place] Rate: 104 P: 55 NV: 176 QRS: -60 QRSD: 127 T: 104 QT: 388 QTc: 511 Interpretive Statements SINUS TACHYCARDIA RIGHT BUNDLE BRANCH BLOCK [120+ ms QRS DURATION, UPRIGHT V1, 40+ ms S IN I/aVL/V4/V5/V6] LEFT ANTERIOR FASCICULAR BLOCK [QRS AXIS <= -45, QR IN I, RS IN II] LEFT VENTRICULAR HYPERTROPHY AND ST-T CHANGE [VOLTAGE CRITERIA PLUS ST/T ABNORMALITY] POSSIBLE SEPTAL MYOCARDIAL INFARCTION , OF INDETERMINATE AGE [30 ms Q WAVE IN V1/V2] Compared to ECG 09/21/2021 17:16:02 Left anterior fascicular block now present Myocardial infarct finding now present Sinus rhythm no longer present Left-axis deviation no longer present ST (T wave) deviation still present Electronically Signed On 09-23-2021 16:21:59 UNIVERSAL GRINDER SET UP OPERATOR by Monique Campuzano M.D. [id number]
--- NOTE | 2021-09-22 19:30 | PC.NURSE ---
Received patient from [facility] via bed with OR team, anesthesia, and senior software engineer analytics at bedside. Received report and accepted care of patient. V/S stable at current a time. Placed on Vent per RT. Levophed infusing at 4mcg/min, dobutamine infusing at 3mcg/kg/min and neosynephrine infusing at 30mcg/min upon arrival. Propofol infusing at 25mcg/kg/min for sedation. IABP to left groin at 1:1 and 100% augmentation with EKG trigger. Left groin IABP insertion site unremarkable. Chest tubes x 4 place to suction, no air leaks noted.
[2021-09-22 19:39] LABS: Basophils % 0.1 %; Hematocrit 32.5 % (42.0-52.0); Hemoglobin 10.9 g/dL (11.7-16.6); Lymphocytes % 4.6 %; Mean Corpuscular HGB Conc 33.5 g/dL (30.0-36.0); Mean Corpuscular Hemoglobin 34.1 pg (28.0-34.0); Mean Corpuscular Volume 101.6 fl (80-94); Mean Platelet Volume 10.8 fL (7.4-10.4); Monocytes # 2.2 10^3/uL (0.2-0.9); Monocytes % 9.8 %; Neutrophils # 18.53 10^3/uL (1.8-7.7); Nucleated Red Blood Cells % 0 %; Platelet Count 124 10^3/cmm (130-400); Red Cell Distribution Width 14.7 % (12.1-15.1); White Blood Count 22.1 10^3/uL (4.0-10.0)
[2021-09-22] MEDS: albumin 12.5 GM/250 ML VIAL IV (19:39)
[2021-09-22] MEDS: sodium chloride 0.9% 1,000 ML 75 ML IV (19:40)
[2021-09-22] MEDS: insulin regular-human 250 UNIT in sodium chloride 0.9% 250 ML IV (19:44)
[2021-09-22 19:55] LABS: INR 1.27 (0.8-1.2)
[2021-09-22 20:05] LABS: Blood Urea Nitrogen 19 mg/dL (8-23); Carbon Dioxide 21 mmol/L (22-29); Chloride 107 mmol/L (98-107); Glucose 248 mg/dL (65-115); Magnesium 2.5 mg/dL (1.7-2.3); Osmolality Calculated 299 mOsm/kg (285-295); Sodium 139 mmol/L (136-145)
[2021-09-22 20:07] LABS: Anion Gap 15.8 (5-19); Potassium 4.8 mmol/L (3.5-5.1)
[2021-09-22] MEDS: aspirin 81 mg Chew Tablet PO (20:37)
[2021-09-22] MEDS: fentaNYL 50 mcg/mL INJ 2mL IVP (20:38)
--- NOTE | 2021-09-22 20:40 | PC.NURSE ---
Amiodarone IV not given per Dr. Shea order, states should be prn.
--- NOTE | 2021-09-22 22:30 | PC.NURSE ---
2145 - Weaned IABP to 1:[address] Torres request. Augmentation remains at 60%.
[2021-09-22 22:45] LABS: Basophils % 0.1 %; Hematocrit 30.7 % (42.0-52.0); Lymphocytes # 0.8 10^3/uL (0.8-4.8); Lymphocytes % 4.7 %; Mean Corpuscular HGB Conc 32.6 g/dL (30.0-36.0); Mean Corpuscular Hemoglobin 33.2 pg (28.0-34.0); Mean Platelet Volume 11.3 fL (7.4-10.4); Monocytes # 1.2 10^3/uL (0.2-0.9); Monocytes % 6.9 %; Neutrophils # 14.78 10^3/uL (1.8-7.7); Neutrophils % 86.9 %; Nucleated Red Blood Cells % 0 %; Platelet Count 115 10^3/cmm (130-400); Red Blood Count 3.01 10^6/uL (4.1-5.3)
[2021-09-22 23:03] LABS: Anion Gap 14.4 (5-19); Blood Urea Nitrogen 20 mg/dL (8-23); Calcium 8.3 mg/dL (8.5-10.5); Carbon Dioxide 21 mmol/L (22-29); Chloride 108 mmol/L (98-107); Glucose 241 mg/dL (65-115); Magnesium 2.3 mg/dL (1.7-2.3); Osmolality Calculated 299 mOsm/kg (285-295); Potassium 4.4 mmol/L (3.5-5.1); Sodium 139 mmol/L (136-145)
[2021-09-23] VITALS (89 sets, daily range): BP systolic 84–134; BP diastolic 48–70; PULSE 66–89; RESP 14–28; TEMP 36.7–37.8; O2SAT 90–100
--- NOTE | 2021-09-23 00:03 | XRR_ITS ---
PROCEDURE INFORMATION: Exam: XR Chest Exam date and time: 09/23/2021 12:03 AM Age: 76 years old Clinical indication: Other: Post op cabg; Prior surgery; Surgery date: Post-operative (0-2 days); Additional info: Done in or post op TECHNIQUE: Imaging protocol: XR of the chest. Views: 1 view. COMPARISON: CT chest abd pel w con* 09/20/2021 4:54 AM FINDINGS: Tubes, catheters and devices: A [place]-Porfirio catheter is placed via the right internal jugular vein with its tip at the level of the right main pulmonary artery. A nasogastric tube is present with its tip at least in the proximal stomach. A left thoracostomy tube is placed with its tip in the left upper hemithorax medially. A right thoracostomy tube is placed with its tip in the right pericardiac phrenic angle posteriorly. There are 2 mediastinal drain tubes present. An endotracheal tube is placed with its tip 6.6 cm from the karena. Lungs: There is a partially calcified granuloma seen in the right mid hemithorax. There is prominence and indistinctness of the pulmonary vasculature and patchy opacities present bilaterally, findings suggesting pulmonary edema. Pleural spaces: Unremarkable. No pleural effusion. No pneumothorax. Heart/Mediastinum: Unremarkable. No cardiomegaly. Bones/joints: Unremarkable. XR/XR chest 1V portable [id number] IMPRESSION: 1. There is stable position of life support tubing. 2. Prominence and indistinctness of the pulmonary vasculature with bilateral patchy opacities in the hemithoraces, findings suggesting pulmonary edema.
[2021-09-23] MEDS: propofol 1,000 MG/100 ML INJ 14.77 MG IV ×2 (00:33→07:20)
[2021-09-23] MEDS: fentaNYL 50 mcg/mL INJ 2mL IVP ×4 (00:58→16:17)
[2021-09-23] MEDS: albumin 12.5 GM/250 ML VIAL IV (01:19)
[2021-09-23 03:31] LABS: Basophils % 0.1 %; Hematocrit 25.8 % (42.0-52.0); Hemoglobin 8.5 g/dL (11.7-16.6); Lymphocytes # 1.2 10^3/uL (0.8-4.8); Lymphocytes % 12.3 %; Mean Corpuscular HGB Conc 32.9 g/dL (30.0-36.0); Mean Corpuscular Hemoglobin 33.5 pg (28.0-34.0); Mean Corpuscular Volume 101.6 fl (80-94); Mean Platelet Volume 11.7 fL (7.4-10.4); Monocytes # 0.7 10^3/uL (0.2-0.9); Monocytes % 7.5 %; Neutrophils # 7.75 10^3/uL (1.8-7.7); Neutrophils % 79.4 %; Nucleated Red Blood Cells % 0 %; Platelet Count 94 10^3/cmm (130-400); Red Blood Count 2.54 10^6/uL (4.1-5.3); Red Cell Distribution Width 15.2 % (12.1-15.1); White Blood Count 9.8 10^3/uL (4.0-10.0)
[2021-09-23 04:02] LABS: Anion Gap 14.1 (5-19); Blood Urea Nitrogen 18 mg/dL (8-23); Calcium 7.1 mg/dL (8.5-10.5); Carbon Dioxide 22 mmol/L (22-29); Chloride 110 mmol/L (98-107); Glucose 151 mg/dL (65-115); Glucose Fasting 151 mg/dL (74-106); Magnesium 2.1 mg/dL (1.7-2.3); Osmolality Calculated 299 mOsm/kg (285-295); Potassium 4.1 mmol/L (3.5-5.1); Sodium 142 mmol/L (136-145)
[2021-09-23 04:04] LABS: ABG PCO2 28.6 mmHg (35-45); ABG PH Result 7.55 (7.35-7.45); Arterial Blood Gas Hematocrit 28.3 % (42-52); Base Excess ABG 3.1 mmol/L (-2.0-2.0); Blood Gas Allen Test Pos; Blood Gas Operator Identificat JB; Blood Gas Sample Site Not specified; Blood Gas Sample Type Arterial; Carboxyhemoglobin 0.7 %THgb (0.4-20.1); HCO3 ABG 25.1 mmol/L (22-26); HGB O2 Sat 98.2 % (95-100); Ionized Calcium Level - ABG 1.2 mmol/L (1.1-1.4); Oxygen Device VENT; Potassium Level - ABG 3.8 mmol/L (3.5-5.0); Total Hemoglobin 9.2 g/dL (14-18)
[2021-09-23 04:26] LABS: Glucose Point of Care 115 mg/dL (70-110)
[2021-09-23 04:26] LABS: Glucose Point of Care 164 mg/dL (70-110)
[2021-09-23 04:26] LABS: Glucose Point of Care 216 mg/dL (70-110)
[2021-09-23 04:26] LABS: Glucose Point of Care 201 mg/dL (70-110)
[2021-09-23 04:26] LABS: Glucose Point of Care 201 mg/dL (70-110)
[2021-09-23 04:26] LABS: Glucose Point of Care 223 mg/dL (70-110)
[2021-09-23 04:26] LABS: Glucose Point of Care 235 mg/dL (70-110)
[2021-09-23 04:26] LABS: Glucose Point of Care 241 mg/dL (70-110)
[2021-09-23 04:26] LABS: Glucose Point of Care 247 mg/dL (70-110)
[2021-09-23 04:26] LABS: Glucose Point of Care 139 mg/dL (70-110)
--- NOTE | 2021-09-23 06:00 | XRR_ITS ---
PROCEDURE INFORMATION: Exam: XR Chest Exam date and time: 09/23/2021 6:00 AM Age: 76 years old Clinical indication: Dyspnea; Prior surgery; Surgery date: Post-operative (0-2 days); Additional info: Postop day #1 status post emergency cabg TECHNIQUE: Imaging protocol: XR of the chest. Views: 1 view. COMPARISON: CR XR chest 1V portable [id number] 09/22/2021 6:37 PM FINDINGS: Tubes, catheters and devices: There is stable position of life support tubing. Lungs: There is mild indistinctness of the pulmonary vasculature and bilateral predominately perihilar hazy linear opacities present, findings suggesting pulmonary edema. There is improvement in aeration in the right upper hemithorax however compared with yesterday's examination. Pleural spaces: Left hemidiaphragm is partially obscured possibly secondary to a small left pleural effusion. Heart/Mediastinum: Unremarkable. No cardiomegaly. Bones/joints: Unremarkable. XR/XR chest 1V portable [id number] IMPRESSION: 1. Stable position of life support tubing. 2. There may be a small left pleural effusion present. 3. Indistinctness of the pulmonary vasculature and predominately perihilar hazy linear opacities present, findings suggesting pulmonary edema. There is improvement in aeration in the right upper hemithorax compared with yesterday's examination.
--- NOTE | 2021-09-23 06:00 | ECG_ITS ---
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 Measurements Intervals [place] Rate: 67 P: 52 PA: 198 QRS: -55 QRSD: 131 T: -46 QT: 473 QTc: 500 Interpretive Statements SINUS RHYTHM RIGHT BUNDLE BRANCH BLOCK LEFT ANTERIOR FASCICULAR BLOCK VOLTAGE CRITERIA FOR LVH POSSIBLE SEPTAL MYOCARDIAL INFARCTION , PROBABLY OLD MODERATE T-WAVE ABNORMALITY, CONSIDER LATERAL ISCHEMIA MODERATE T-WAVE ABNORMALITY, CONSIDER INFERIOR ISCHEMIA Compared to ECG 09/22/2021 20:26:56 T-wave abnormality now present Possible ischemia now present Sinus tachycardia no longer present Myocardial infarct finding still present Electronically Signed On 09-23-2021 16:19:26 ELASTIC ATTACHER CHAINSTITCH by Monique Campuzano M.D. [email or web address] [email or web address]/store/[id number]
[2021-09-23 06:17] LABS: Glucose Point of Care 103 mg/dL (70-110)
--- NOTE | 2021-09-23 07:04 | PC.NURSE ---
Right femoral transvenous pacemaker discontinued per Dr. Torres. Right femoral introducer discontinued and pressure held x 10 minutes, dressing applied, no bleeding or hematoma noted. Left femoral IABP discontinued per Dr. Torres, pressure currently being held per Dr. Torres.
--- NOTE | 2021-09-23 07:15 | PM.PN ---
Subjective Subjective: Postop day #1 status post urgent CABG x2. Hemodynamically stable overnight. Did receive 1 unit packed RBCs as his hematocrit drifted toward 25. Intake and output is just over 1 L. Hemodynamics appear to be a bit more stable when his PA systolic pressure is around 40. Chest tube output 469 cc. No arrhythmias. He has not required pacing. Augmentation of balloon pump has been decreased. Only requiring 35% FiO2 at present. Remains sedated. Received aspirin 3 hours postop. X-ray continues to reveal patchy infiltrates though there is some clearing on the right hemithorax. Vitals/I&O/Wt Last Vital Signs Temp 98.2 F 09/23/21 06:03 Pulse 79 09/23/21 07:00 Resp 14 09/23/21 06:15 BP 113/54 09/23/21 07:00 Pulse Ox 94 09/23/21 07:00 09/22/21 09/23/21 09/23/21 22:59 06:59 14:59 Intake Total 3270.349 / 3620.349 772.812 / 4393.161 Output Total 2239 / 2439 775 / 3214 Balance 1031.349 / 1181.349 -2.188 / 1179.161 Weight last 48 hrs Weight 218 lb 3.2 oz Weight 217 lb Physical Exam Chest: OTHER: Chest wall is stable. Support drains are in position. Resp: OTHER: Basilar crackles. Cardio: OTHER: Regular rate and rhythm with some mediastinal tube noise. GI: OTHER: Abdomen is soft with hypoactive bowel sounds. Orogastric tube is in position. Extremity: NARRATIVE EXTREMITY EXAM: 1+ edema. Urinary Catheter Management: Tucker: Cath Placed During This Visit: yes, but has since been removed by the nurse Reason for Continuing Indwelling Catheter: Decision to DC Catheter Urinary Catheter Date of Insertion: 09/20/21 Urinary Catheter Time of Insertion: 02:00 Date Urinary Catheter Removed: 09/20/21 Time Urinary Catheter Discontinued: 14:15 Data : 09/23/21 02:30 09/23/21 02:30 A&P Assessment and plan (1) Status post aorto-coronary artery bypass graft: Status: Acute Plan Plan: Right femoral vein transvenous pacemaker and sheath have been removed. Left femoral arterial balloon pump has been removed. Plan: I would leave supine for the next 4 hours then may raise head of bed, emerged from sedation, and continue ventilator weaning protocols. Aspirin today. Lipitor today. CBC, BMP, chest x-ray in a.m. Attestations Medical Necessity Statement*: Postop day #1 status post urgent CABG due to critical left main stenosis. Coding Level of Care Code Acute Superintendent Production for Radhag Fwd Diagnoses Status post aorto-coronary artery bypass graft Z95.1
[2021-09-23 07:29] LABS: Glucose Point of Care 87 mg/dL (70-110)
[2021-09-23 07:29] LABS: Glucose Point of Care 98 mg/dL (70-110)
[2021-09-23 07:50] LABS: Hemoglobin 10.2 g/dL (11.7-16.6); Lymphocytes # 1.5 10^3/uL (0.8-4.8); Lymphocytes % 15.7 %; Mean Corpuscular Hemoglobin 33.1 pg (28.0-34.0); Mean Corpuscular Volume 97.4 fl (80-94); Mean Platelet Volume 11.4 fL (7.4-10.4); Monocytes # 1.1 10^3/uL (0.2-0.9); Monocytes % 11.2 %; Neutrophils # 6.74 10^3/uL (1.8-7.7); Neutrophils % 72.1 %; Nucleated Red Blood Cells % 0 %; Platelet Count 88 10^3/cmm (130-400); Red Blood Count 3.08 10^6/uL (4.1-5.3); White Blood Count 9.4 10^3/uL (4.0-10.0)
[2021-09-23 08:07] LABS: INR 1.23 (0.8-1.2)
[2021-09-23 08:08] LABS: Partial Thromboplastin Time 33.6 SECONDS (23.9-36.7)
[2021-09-23 08:12] LABS: Alanine Aminotransferase 31 U/L (0-41); Alkaline Phosphatase 37 IU/L (40-130); Anion Gap 13.1 (5-19); Aspartate Amino Transferase 46 U/L (0-40); Blood Urea Nitrogen 18 mg/dL (8-23); Calcium 7.8 mg/dL (8.5-10.5); Carbon Dioxide 22 mmol/L (22-29); Chloride 110 mmol/L (98-107); Globulin 1.7 g/dL (1.3-4.6); Glucose 96 mg/dL (65-115); Osmolality Calculated 294 mOsm/kg (285-295); Potassium 4.1 mmol/L (3.5-5.1); Sodium 141 mmol/L (136-145); Total Bilirubin 0.6 mg/dL (0.15-1.2); Total Protein 4.7 g/dL (6.6-8.7)
[2021-09-23] MEDS: sodium chloride 0.9% 1,000 ML 75 ML IV ×2 (08:20→23:16)
[2021-09-23] MEDS: midazolam 1 mg/mL INJ 2 mL IVP (08:37)
--- NOTE | 2021-09-23 09:23 | PM.PROC ---
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 We then advanced a transvenous pacemaker under fluoroscopy guidance to the RV. We confirmed appropriate placement with asynchronous pacing initially and constant capture was obtained. Demand pacing was set up with backup rate of 50 bpm, sensitivity of 1 mV and output of 3 mA. Sheath and pacemaker were sutured in place. Patient left the Electronic Die Maker in stable condition Coding Level of Care Code Acute Testing Coordinator for Velma Villegas
--- NOTE | 2021-09-23 09:52 | PM.OP ---
Operative Report Date of procedure: September 23, 2021 Pre-op diagnosis: Preop Diagnosis NSTEMI Preop Diagnosis NSTEMI, focal left main coronary artery stenosis Procedure done: Intra-aortic balloon pump removal Specimens removed/disposition: Intra-aortic balloon pump removed intact along with arterial sheath Surgeon: Antione Torres Estimated blood loss (mL): 50 Estimated blood loss: 50 cc Brief History: Patient is a 76-year-old gentleman who underwent left heart catheterization yesterday was determined to have a critical left main coronary artery stenosis of greater than 90% along with high-grade lesion of the LAD. He originally presented with Covid pneumonia as well as a non-STEMI. In preparation for urgent CABG, intra-aortic balloon pump was placed yesterday by Dr. Sheikh. Patient underwent CABG x2 yesterday. He has had uneventful and hemodynamically stable parameters overnight. Balloon pump has been placed to 1 to 3, 50% augmentation with no change in hemodynamics. I therefore have recommended balloon pump be removed. Procedure: Retention sutures were removed from the left femoral region. Entire area was prepped and draped utilizing Betadine and dressings. Wound pump was turned off. Pressure line was cut and active suction with syringe was placed on the pressure line. Wound pump and sheath were removed as 1 unit, intact, with direct pressure being held distally in an attempt to prevent distal embolization. Active bleeding was allowed from the balloon pump insertion site and then direct pressure was held for 30 minutes with a pressure dressing then applied. Mr. Lance tolerated procedure well and remained hemodynamically stable after removal. He will remain in the supine position for the next 5 hours prior to elevation of the head of the bed as ventilator weaning continues.
[2021-09-23] MEDS: aspirin 81 mg EC Tablet PO (10:02)
[2021-09-23] MEDS: pantoprazole 40 mg SDV IVP (10:02)
[2021-09-23] MEDS: chlorhexidine gluconate 0.12% Btl 473 mL 15 ML MUCOUS MEM ×2 (10:02→18:28)
--- NOTE | 2021-09-23 11:03 | PC.OT ---
OT NOTE: OT EVALUATION HELD THIS A.M. DUE TO PATIENT CURRENTLY INTUBATED
--- NOTE | 2021-09-23 11:13 | PC.CHAP ---
Pastoral Care Encounter/Spiritual Assessment Type of Contact [] Declined cattle trader visit [] Patient/Family/Request visit [] Outpatient visit [] Follow-up visit [] Physician referral [] Code/Alert [x] Routine visit [] Staff referral [] Actively dying [] Patient sleeping [] Family support [] [] Out of room [] Palliative care [] [x] Receiving care in room [] Pre-surgical visit [] Trauma [] Long length of stay [x] ICU visit [x] Other: vent Relational/Emotional Strength [] Patient feels connected with others/family/visitors/staff [] Distress [] Loneliness/isolation [] Abandonment Spirituality of Patient [] Person of Vera [] Attends Mormonism of their Vera [] Believes in Prayer [] Reads Bible or Episcopalian materials [] There are Spiritual issues to be addressed Marble Polisher Hand Interventions [x] Prayer [] Active listening [] Non-anxious presence [] Spiritual/emotional support [] Crisis/trauma care [] Spiritual counseling [] Bereavement support [] Provided bereavement packet [] Provided Bible/devotional materials [] Provided toy/stuffed animal, coloring book to patient or family member [] Provided Communion [] Anointing/[place] [] Salvation [x] Completed spiritual assessment [] Other: Impact on Illness or Injury [] Angry [] Fearful [] Anxious [] Often cries [] Exhaustion [] Unable to work [] Unable to attend mosque [] Unable to walk/stand [] Unable to read [] Unable to drive [] Unable to eat/drink [] Unable to sleep [] Unable to be with family [] Patient intubated [] Other: Summary Time spent with patient
[2021-09-23] MEDS: oxyCODONE-APAP 5-325 mg Tablet PO ×3 (11:20→23:16)
--- NOTE | 2021-09-23 11:25 | P.PN_ITS ---
Subjective Subjective: Intra-aortic balloon pump this morning Pacemaker was placed yesterday This morning I am not seeing any paced rhythm Hemodynamically stable Off vasopressors Mediastinum pleural output noted Minimal vent settings Plan to extubate later today as per Dr. Torres's recommendation Vitals/I&O/Wt Last Vital Signs Temp 98.2 F 09/23/21 06:03 Pulse 80 09/23/21 09:00 Resp 14 09/23/21 11:20 BP 104/60 09/23/21 09:00 Pulse Ox 96 09/23/21 11:20 09/22/21 09/23/21 09/23/21 22:59 06:59 14:59 Intake Total 3270.349 / 3620.349 772.812 / 4393.161 1207.619 / 1207.619 Output Total 2239 / 2439 775 / 3214 215 / 215 Balance 1031.349 / 1181.349 -2.188 / 1179.161 992.619 / 992.619 Weight last 48 hrs Weight 98.974 kg Weight 98.43 kg Physical Exam Narrative: Patient is intubated and sedated Intra-aortic balloon pump removed No signs of vascular compromise of lower extremities Patient looks euvolemic For chest tube in place Wound VAC in place Output noted No signs of air leak Bilateral assisted breath sounds Neuro exam limited Abdomen soft, does not look distended Urinary Catheter Management: Tucker: Cath Placed During This Visit: yes, but has since been removed by the nurse Reason for Continuing Indwelling Catheter: Decision to DC Catheter Urinary Catheter Date of Insertion: 09/20/21 Urinary Catheter Time of Insertion: 02:00 Date Urinary Catheter Removed: 09/20/21 Time Urinary Catheter Discontinued: 14:15 Data : 09/23/21 07:12 09/23/21 07:12 A&P Assessment and plan (1) Status post aorto-coronary artery bypass graft: Status: Acute (2) Left main coronary artery disease: Status: Acute (3) Third degree atrioventricular block: Status: Acute (4) PEA (Pulseless electrical activity): Status: Acute (5) Acute respiratory failure with hypoxemia: Status: Acute Plan NSTEMI: Left main coronary artery disease angiogram 09/22 Status post CABG x2, urgent, critical stenosis of left main coronary and severe stenosis of LAD, Postop day 1 Postoperative anemia status post 1 unit PRBC, albumin Intra-aortic balloon pump removed on 09/23 Hemodynamically stable Output from wound VAC, mediastinal pleural chest tube noted Plan for extubation today, minimal vent settings, sedation vacation, We will touch base with cardiology and cardiothoracic surgery before addition of medication or any significant intervention Third-degree heart block status post temporary pacemaker 09/20 currently heart rate is in 80s We will touch base with cardiology Respiratory failure: Patient is intubated & sedated COVID-19: Patient was on 2 L before intubation for the CABG Currently empiric antibiotic coverage with ceftriaxone and azithromycin Finished 5 days of Decadron Positive fluid balance will give Lasix secondary to pulmonary edema evident on the chest x-ray Diabetes related fatty liver Moderate aortic regurgitation GI prophylaxis DVT prophylaxis on board Diverticulosis Secondary to lactic acidosis avoid Metformin Attestations Medical Necessity Statement*: Continue ICU management Time Spent in Patient Care: 20min Coding Level of Care Code Acute Process Supervisor for Velma Villegas Diagnoses Status post aorto-coronary artery bypass graft Z95.1 Left main coronary artery disease I25.10 Third degree atrioventricular block I44.2 PEA (Pulseless electrical activity) I46.9 Acute respiratory failure with hypoxemia J96.01
[2021-09-23 11:32] LABS: ABG PCO2 43.2 mmHg (35-45); ABG PH Result 7.35 (7.35-7.45); Arterial Blood Gas Hematocrit 35.2 % (42-52); Base Excess ABG -1.8 mmol/L (-2.0-2.0); Blood Gas Sample Type Arterial; Carboxyhemoglobin 0.6 %THgb (0.4-20.1); HCO3 ABG 23.8 mmol/L (22-26); HGB O2 Sat 98.8 % (95-100); Ionized Calcium Level - ABG 1.2 mmol/L (1.1-1.4); Methemoglobin 0.6 % (0.4-1.5); Oxygen Saturation ABG > 100.0; Total Hemoglobin 11.5 g/dL (14-18)
[2021-09-23 11:33] LABS: ABG PCO2 51.1 mmHg (35-45); ABG PH Result 7.25 (7.35-7.45); Arterial Blood Gas Hematocrit 34.2 % (42-52); Blood Gas Sample Site Not specified; Blood Gas Sample Type Arterial; Carboxyhemoglobin 0.8 %THgb (0.4-20.1); HCO3 ABG 22.4 mmol/L (22-26); HGB O2 Sat 97.8 % (95-100); Ionized Calcium Level - ABG 1.2 mmol/L (1.1-1.4); Methemoglobin 0.9 % (0.4-1.5); Oxygen Saturation ABG 99.5; Potassium Level - ABG 4.3 mmol/L (3.5-5.0); Total Hemoglobin 11.2 g/dL (14-18)
[2021-09-23 11:33] LABS: Blood Gas Sample Site Not specified
[2021-09-23 11:34] LABS: ABG PCO2 44.9 mmHg (35-45); ABG PH Result 7.35 (7.35-7.45); Arterial Blood Gas Hematocrit 23.6 % (42-52); Base Excess ABG -1.2 mmol/L (-2.0-2.0); Blood Gas Sample Site Not specified; Blood Gas Sample Type Arterial; Carboxyhemoglobin 0.9 %THgb (0.4-20.1); HCO3 ABG 24.5 mmol/L (22-26); HGB O2 Sat 98.3 % (95-100); Methemoglobin 1.1 % (0.4-1.5); Oxygen Saturation ABG > 100.0; Potassium Level - ABG 5.6 mmol/L (3.5-5.0); Total Hemoglobin 7.7 g/dL (14-18)
[2021-09-23 11:35] LABS: ABG PH Result 7.31 (7.35-7.45); Alveolar-Arterial Oxygen Gradi 5.6 mmHg (5-10); Base Excess ABG -1.9 mmol/L (-2.0-2.0); Blood Gas Sample Site Not specified; Blood Gas Sample Type Venous; Carboxyhemoglobin 1.2 %THgb (0.4-20.1); HCO3 ABG 24.3 mmol/L (22-26); Methemoglobin 0.7 % (0.4-1.5); Oxygen Saturation ABG 78.4; PO2 ABG 47.4 mmHg (80.0-100.0); Potassium Level - ABG 5.1 mmol/L (3.5-5.0); Total Hemoglobin 7.5 g/dL (14-18)
[2021-09-23 11:36] LABS: ABG PCO2 41.1 mmHg (35-45); ABG PH Result 7.41 (7.35-7.45); Arterial Blood Gas Hematocrit 23.6 % (42-52); Base Excess ABG 1.3 mmol/L (-2.0-2.0); Blood Gas Sample Site Not specified; Blood Gas Sample Type Arterial; Carboxyhemoglobin 0.9 %THgb (0.4-20.1); HCO3 ABG 26.1 mmol/L (22-26); HGB O2 Sat 98.2 % (95-100); Methemoglobin 1.2 % (0.4-1.5); Oxygen Saturation ABG > 100.0; Potassium Level - ABG 5.3 mmol/L (3.5-5.0); Total Hemoglobin 7.7 g/dL (14-18)
[2021-09-23 11:36] LABS: ABG PH Result 7.41 (7.35-7.45); Arterial Blood Gas Hematocrit 21.3 % (42-52); Base Excess ABG -1.3 mmol/L (-2.0-2.0); Blood Gas Sample Site Not specified; Blood Gas Sample Type Arterial; HCO3 ABG 23.2 mmol/L (22-26); Ionized Calcium Level - ABG 0.9 mmol/L (1.1-1.4); Methemoglobin 1.2 % (0.4-1.5); Oxygen Saturation ABG > 100.0; Potassium Level - ABG 5.5 mmol/L (3.5-5.0)
[2021-09-23 11:40] LABS: ABG PCO2 52.7 mmHg (35-45); ABG PH Result 7.26 (7.35-7.45); Arterial Blood Gas Hematocrit 26.7 % (42-52); Base Excess ABG -3.6 mmol/L (-2.0-2.0); Blood Gas Sample Site Not specified; Blood Gas Sample Type Arterial; HCO3 ABG 23.6 mmol/L (22-26); HGB O2 Sat 97.9 % (95-100); Ionized Calcium Level - ABG 1.3 mmol/L (1.1-1.4); Oxygen Saturation ABG 99.8; Potassium Level - ABG 4.3 mmol/L (3.5-5.0); Total Hemoglobin 8.7 g/dL (14-18)
[2021-09-23] MEDS: FUROsemide 10 mg/mL SDV 2mL 20 MG IVP (12:57)
[2021-09-23] MEDS: propofol 1,000 MG/100 ML INJ 20.67 MG IV (13:08)
--- NOTE | 2021-09-23 14:40 | PC.NURSE ---
Bed rest for Balloon and transvenous temporary pacemaker done. Right and left groin sites unremarkable: No hematomas or bleeding noted. Both soft to palpation. HOB elevated. Pt tolerating well. No ectopy noted on monitor.
--- NOTE | 2021-09-23 15:30 | PC.NURSE ---
Art line does not have appropriate waveform. Flushing, calibrations and cable and line extensions changed no improvement to waveform. Blood does not draw back from art line at this time. Dr Torres notified.
--- NOTE | 2021-09-23 16:30 | PM.MISC ---
Miscellaneous Note Purpose of Documentation: Uneventful day. He is beginning to awaken and the weaning process on the ventilator is continuing. He is a bit tachycardic at 107 though he did receive a dose of Lasix and I suspect is slightly intravascularly dry as a note his PA systolic pressure is in the mid 20s. I would hold on the evening dose of Lasix as I do not think he has equilibrated to third space fluid yet. May continue ventilator weaning as tolerated though it may take a bit of time given his Cob[place] 19 pneumonia. Chest tube output continues to decrease. Appreciate the expertise and oversight of our hospitalist and cardiology colleagues.
--- NOTE | 2021-09-23 16:37 | PM.PN ---
Subjective Subjective: Patient underwent urgent CABG x2 yesterday -No events on telemetry. Received Lasix 20 mg IV x1 earlier today. Medications: Reviewed: Yes Vitals/I&O/Wt Last Vital Signs Temp 98.2 F 09/23/21 06:03 Pulse 84 09/23/21 16:00 Resp 20 H 09/23/21 16:23 BP 91/60 09/23/21 16:00 Pulse Ox 93 09/23/21 16:23 09/23/21 09/23/21 09/23/21 06:59 14:59 22:59 Intake Total 772.812 / 4393.161 1311.432 / 1311.432 21.406 / 1332.838 Output Total 775 / 3214 762 / 762 255 / 1017 Balance -2.188 / 1179.161 549.432 / 549.432 -233.594 / 315.838 Weight last 48 hrs Weight 218 lb 3.2 oz Weight 217 lb Physical Exam Narrative: General: Patient remains intubated and sedated Neck: [place]-Porfirio catheter in place chest: Midline sternotomy incision dressed. Chest tubes in place RS: Decreased breath sound at bases, no wheezes or rales CVS: S1, S2, grade 3/6 left sternal border murmur present, no rubs. Ext: RLE dressed. 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 Urinary Catheter Management: Tucker: Cath Placed During This Visit: yes, but has since been removed by the nurse Reason for Continuing Indwelling Catheter: Decision to DC Catheter Urinary Catheter Date of Insertion: 09/20/21 Urinary Catheter Time of Insertion: 02:00 Date Urinary Catheter Removed: 09/20/21 Time Urinary Catheter Discontinued: 14:15 Data : 09/23/21 07:12 09/23/21 07:12 A&P Assessment and plan (1) Status post aorto-coronary artery bypass graft: ?#Postop day 1 -s/p coronary artery bypass grafting x2 (1 artery and 1 vein) utilizing in situ left internal mammary artery to left anterior descending artery and reverse saphenous vein graft from the aorta to the obtuse marginal branch of the circumflex artery. -Aspirin and statin was restarted -Levophed has been turned off. No events on telemetry. Remains on low-dose dobutamine. -Intra-aortic balloon pump and transvenous pacemaker were removed by Dr. Torres earlier this morning. -Remains intubated Postop care as per Dr. Torres. Status: Acute (2) Left main coronary artery disease: Status: Acute (3) Third degree atrioventricular block: Third-degree AV block with history of bifascicular block -We will need to ascertain if any pacing is required during hospitalization. -Decision for permanent pacemaker based on that. Status: Acute (4) NSTEMI (non-ST elevated myocardial infarction): Status: Acute Plan Postop blood loss anemia s/p 1 unit of packed red blood cells Recent COVID-19 pneumonia Diabetes mellitus Hyperlipidemia Moderate AI Attestations Medical Necessity Statement*: Remains in ICU post CABG Coding Level of Care Code Established Pt Acute Clinical Nursing Instructor for Chg Fwd Patient Type Established History Comprehensive Exam Comprehensive Medical Decision Making Moderate Complexity Diagnoses Left main coronary artery disease I25.10 Status post aorto-coronary artery bypass graft Z95.1 Third degree atrioventricular block I44.2 NSTEMI (non-ST elevated myocardial infarction) I21.4
--- NOTE | 2021-09-23 19:13 | PC.NURSE ---
Shift Note: Pt remains intubated. Sedation off. Pt following commands and squinting his eyes. He remains drowsy and would take small tidal volumes in, so unable to extubate on day shift. He is becoming more alert. FIO2 at 35%. SWANZ at 50, and patent. right CVL patent with good blood return. He also has two peripheral IV sites. OG drainage clear and green. Pacemaker remains on. His heart rate remained in the 80's and his rhythym was stable sinus with no ectopy. He does have a heart murmur. Chest tubes, all 4, patent with serous to serosangiouness fluid draining. No air leaks. Chest tubes remain on suctin. Wound vac patent with compressed sponge. Peripheral pulses strong and steady. RIght leg: Stephen wrap still on , bandages intact, no drainage noted. No pressure injuries noted on his bottom. See I & Os for chest tube amounts and urine output. Patient's family called frequently for updates, his progress and plan of care discussed Some visited him today. Frequent safety and comfort rounds continue. Orders and/or nursing care completed as indicated. Patient monitored for response to intervention and treatment(s). Education provided includes Propofol, chest tubes, intubation, pacemaker, Dobutamine, insulin gtt and sternal precautions. Patient's client representative verbalized understanding of plan of care, medications, pt's progress and sternal precautions . Will continue to monitor.
[2021-09-23 19:29] LABS: Glucose Point of Care 94 mg/dL (70-110)
[2021-09-23 19:29] LABS: Glucose Point of Care 96 mg/dL (70-110)
[2021-09-23 19:29] LABS: Glucose Point of Care 92 mg/dL (70-110)
[2021-09-23 19:29] LABS: Glucose Point of Care 91 mg/dL (70-110)
[2021-09-23 19:29] LABS: Glucose Point of Care 96 mg/dL (70-110)
[2021-09-23 19:29] LABS: Glucose Point of Care 100 mg/dL (70-110)
[2021-09-23 19:29] LABS: Glucose Point of Care 94 mg/dL (70-110)
[2021-09-23 19:29] LABS: Glucose Point of Care 86 mg/dL (70-110)
[2021-09-23 19:29] LABS: Glucose Point of Care 92 mg/dL (70-110)
[2021-09-23 19:29] LABS: Glucose Point of Care 92 mg/dL (70-110)
[2021-09-23 19:29] LABS: Glucose Point of Care 94 mg/dL (70-110)
[2021-09-23 19:29] LABS: Glucose Point of Care 110 mg/dL (70-110)
[2021-09-23] MEDS: atorvastatin 40 mg Tablet 80 MG PO (20:01)
[2021-09-23 20:20] LABS: Glucose Point of Care 88 mg/dL (70-110)
[2021-09-23 21:13] LABS: Glucose Point of Care 86 mg/dL (70-110)
[2021-09-23 22:22] LABS: Glucose Point of Care 98 mg/dL (70-110)
[2021-09-23] MEDS: DOBUTamine drip 500 MG/250 ML PREMIX 5.91 MG IV (23:18)
[2021-09-23 23:27] LABS: Glucose Point of Care 93 mg/dL (70-110)
[2021-09-24] VITALS (33 sets, daily range): BP systolic 98–135; BP diastolic 57–92; PULSE 69–99; RESP 14–39; TEMP 36.8–37.4; O2SAT 91–99
[2021-09-24 00:22] LABS: Glucose Point of Care 96 mg/dL (70-110)
[2021-09-24 01:10] LABS: Glucose Point of Care 90 mg/dL (70-110)
[2021-09-24 02:12] LABS: Glucose Point of Care 82 mg/dL (70-110)
[2021-09-24] MEDS: morphine 4 mg/mL SDV 1 mL 2 MG IVP ×5 (02:47→15:59)
[2021-09-24 03:34] LABS: Glucose Point of Care 98 mg/dL (70-110)
[2021-09-24 04:34] LABS: Glucose Point of Care 86 mg/dL (70-110)
[2021-09-24] MEDS: fentaNYL 50 mcg/mL INJ 2mL IVP ×4 (04:40→13:35)
[2021-09-24 04:44] LABS: Basophils % 0.1 %; Hematocrit 30.4 % (42.0-52.0); Hemoglobin 9.9 g/dL (11.7-16.6); Lymphocytes # 1.2 10^3/uL (0.8-4.8); Lymphocytes % 10.6 %; Mean Corpuscular HGB Conc 32.6 g/dL (30.0-36.0); Mean Corpuscular Hemoglobin 32.8 pg (28.0-34.0); Mean Corpuscular Volume 100.7 fl (80-94); Mean Platelet Volume 11.3 fL (7.4-10.4); Monocytes # 0.9 10^3/uL (0.2-0.9); Neutrophils # 8.87 10^3/uL (1.8-7.7); Neutrophils % 80.8 %; Nucleated Red Blood Cells % 0.2 %; Platelet Count 71 10^3/cmm (130-400); Red Blood Count 3.02 10^6/uL (4.1-5.3); Red Cell Distribution Width 17.6 % (12.1-15.1)
[2021-09-24] MEDS: oxyCODONE-APAP 5-325 mg Tablet PO ×3 (05:10→21:15)
[2021-09-24 05:15] LABS: Procalcitonin 0.18 ng/mL (0-0.5)
[2021-09-24 05:27] LABS: Alanine Aminotransferase 26 U/L (0-41); Albumin Level 3.1 g/dL (3.5-5.2); Alkaline Phosphatase 41 IU/L (40-130); Anion Gap 12.8 (5-19); Aspartate Amino Transferase 27 U/L (0-40); Blood Urea Nitrogen 18 mg/dL (8-23); Calcium 7.3 mg/dL (8.5-10.5); Carbon Dioxide 23 mmol/L (22-29); Chloride 109 mmol/L (98-107); Globulin 1.5 g/dL (1.3-4.6); Glucose 84 mg/dL (65-115); Magnesium 2.1 mg/dL (1.7-2.3); Osmolality Calculated 293 mOsm/kg (285-295); Potassium 3.8 mmol/L (3.5-5.1); Sodium 141 mmol/L (136-145); Total Bilirubin 0.6 mg/dL (0.15-1.2); Total Protein 4.6 g/dL (6.6-8.7)
[2021-09-24 05:31] LABS: Glucose Point of Care 84 mg/dL (70-110)
--- NOTE | 2021-09-24 06:00 | XRR_ITS ---
PROCEDURE INFORMATION: Exam: XR Chest Exam date and time: 09/24/2021 6:00 AM Age: 76 years old Clinical indication: Device placement. Follow-up post op day 2 status post coronary artery bypass grafting. TECHNIQUE: Imaging protocol: XR of the chest. Views: 1 view. COMPARISON: CR (CHEST, ) 09/23/2021 5:22 AM FINDINGS: Tubes, catheters and devices: A left chest tube is again noted. A right internal jugular central venous access device is present with tip in the SVC. A right internal jugular [place]-Porfirio catheter is present with tip in the distal right main pulmonary artery. Lungs: Patchy opacities in the mid and lower left chest are similar to prior. Calcified granulomata are again noted on the right. Pleural spaces: No pleural effusion. No pneumothorax. Heart/Mediastinum: The cardiac silhouette is approximately unchanged. There are a couple probable mediastinal drains. Bones/joints: Median sternotomy wires are noted. No gross fracture. XR/XR chest 1V portable [id number] IMPRESSION: 1. A right internal jugular [place]-Porfirio catheter is present with tip in the distal right main pulmonary artery. 2. A right internal jugular central venous access device is present with tip in the SVC. 3. Patchy opacities in the mid and lower left chest are similar to prior.
[2021-09-24 06:25] LABS: Glucose Point of Care 94 mg/dL (70-110)
--- NOTE | 2021-09-24 06:47 | PM.PN ---
Subjective Subjective: Postop day #2 status post urgent CABG x2. Sitting up in bed. He has been extubated. He is alert and oriented. Neurologically intact. Groins are clean and dry status post removal of right femoral vein transvenous pacemaker and left femoral arterial intra-aortic balloon pump. Chest tube output 255 cc overnight. 645 cc past 24 hours. Intake and output is up 1 L. Cardiac index 2.5. Heart rate 86. No arrhythmias reported by nursing service. No need for pacing required. Platelet count is continued to drift down to 71,000. H&H is stable. Moderate peripheral edema. [place] continue to clear by chest x-ray. Writes midlung field platelike infiltrate versus atelectasis, slowly improving. Minimal pleural effusion on chest x-ray. Vitals/I&O/Wt Last Vital Signs Temp 98.2 F 09/23/21 06:03 Pulse 80 09/24/21 06:00 Resp 17 09/24/21 06:00 BP 113/62 09/24/21 06:00 Pulse Ox 95 09/24/21 06:00 09/23/21 09/23/21 09/24/21 14:59 22:59 06:59 Intake Total 1311.432 / 6038.614 0160.865 / 2555.297 1165.290 / 3720.587 Output Total 762 / 762 1072 / 1834 775 / 2609 Balance 549.432 / 549.432 171.865 / 721.297 390.290 / 1111.587 Weight last 48 hrs Weight 220 lb 4 oz Weight 218 lb 3.2 oz Physical Exam Chest: OTHER: Chest wall is stable. No crepitance. Resp: OTHER: Bibasilar crackles. Will need to begin aggressive pulmonary toilet Cardio: OTHER: Regular rate and rhythm. There is some chest tube rubbing noted. Modest murmur related to known AI. Extremity: OTHER: 1-2+ peripheral edema, mostly in the upper extremities. Urinary Catheter Management: Tucker: Cath Placed During This Visit: yes, but has since been removed by the nurse Reason for Continuing Indwelling Catheter: Accurate Measurement of Urinary Output in Critically Ill Patients Urinary Catheter Date of Insertion: 09/22/21 Urinary Catheter Time of Insertion: 11:30 Date Urinary Catheter Removed: 09/20/21 Time Urinary Catheter Discontinued: 14:15 Data : 09/24/21 04:20 09/24/21 04:20 Micro: Microbiology 09/19/21 05:54 Blood Culture - Final Blood NO GROWTH AFTER 5 DAYS 09/19/21 05:54 Blood Culture - Final Blood NO GROWTH AFTER 5 DAYS A&P Assessment and plan (1) Status post aorto-coronary artery bypass graft: Status: Acute Plan Postop day #2 status post CABG Plan: We will discontinue arterial line. Discontinue IV insulin and initiate sliding scale Slow weaning of dobutamine over the next 4 hours Lasix 20 mg IV Repeat CBC at 2 PM to assess for platelet count CBC, BMP, chest x-ray in a.m. Will reassess indices at noon and plan to remove [place] and Cordis. Greatly appreciate expertise and oversight of our hospitalist and cardiology colleagues. Attestations Medical Necessity Statement*: Postop day #2 status post urgent CABG secondary to critical left main stenosis. Coding Level of Care Code Acute Agent Telegrapher for Velma Villegas Diagnoses Status post aorto-coronary artery bypass graft Z95.1
--- NOTE | 2021-09-24 06:54 | PC.NURSE ---
[address] Torres. Orders to DC artline and titrate dobutamine gtt by 0.5 mcg/kg/min once an hour until off. Reported outputs. Reviewed vitals signs and hydrodynamics.
[2021-09-24] MEDS: potassium chloride premix 100 ML 25 MEQ IV (08:34)
--- NOTE | 2021-09-24 08:43 | PC.SOCIAL ---
IMM update IMM updated with patient. Copy Pg 2 provided. Verbalized an understanding. Initialled, dated, timed, and placed in chart.
[2021-09-24] MEDS: chlorhexidine gluconate 0.12% Btl 473 mL 15 ML MUCOUS MEM (08:48)
[2021-09-24] MEDS: aspirin 81 mg EC Tablet PO (08:48)
[2021-09-24 11:14] LABS: Glucose Point of Care 140 mg/dL (70-110)
--- NOTE | 2021-09-24 11:28 | P.PN_ITS ---
Subjective Subjective: Patient was extubated yesterday; good urine output. No events on telemetry. Medications: Reviewed: Yes Vitals/I&O/Wt Last Vital Signs Temp 98.2 F 09/23/21 06:03 Pulse 75 09/24/21 09:30 Resp 22 H 09/24/21 09:30 BP 105/63 09/24/21 09:30 Pulse Ox 96 09/24/21 09:30 09/23/21 09/24/21 09/24/21 22:59 06:59 14:59 Intake Total 1243.865 / 2555.297 1165.290 / 3720.587 3150 / 3150 Output Total 1072 / 1834 775 / 2609 120 / 120 Balance 171.865 / 721.297 390.290 / 3094.490 6840 / 3030 Weight last 48 hrs Weight 220 lb 4 oz Weight 218 lb 3.2 oz Physical Exam Narrative: General: Patient remains intubated and sedated Neck: [place]-Porfirio catheter in place chest: Midline sternotomy incision dressed.? Chest tubes in place RS: Decreased breath sound at bases, no wheezes or rales CVS: S1, S2, grade 3/6 left sternal border murmur present, no rubs. 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 Urinary Catheter Management: Tucker: Cath Placed During This Visit: yes, but has since been removed by the nurse Reason for Continuing Indwelling Catheter: Accurate Measurement of Urinary Output in Critically Ill Patients Urinary Catheter Date of Insertion: 09/22/21 Urinary Catheter Time of Insertion: 11:30 Date Urinary Catheter Removed: 09/20/21 Time Urinary Catheter Discontinued: 14:15 Data : 09/24/21 04:20 09/24/21 04:20 Micro: Microbiology 09/19/21 05:54 Blood Culture - Final Blood NO GROWTH AFTER 5 DAYS 09/19/21 05:54 Blood Culture - Final Blood NO GROWTH AFTER 5 DAYS A&P Assessment and plan (1) Status post aorto-coronary artery bypass graft: ?#Postop day 2 -s/p coronary artery bypass grafting x2 (1 artery and 1 vein) utilizing in situ left internal mammary artery to left anterior descending artery and reverse saphenous vein graft from the aorta to the obtuse marginal branch of the circ umflex artery. -Aspirin and statin was restarted Remains on minimal dose of dobutamine. -Intra-aortic balloon pump and transvenous pacemaker were removed by Dr. Torres yesterday. Plan to remove art line and [place] today. -Patient was successfully extubated yesterday evening. Postop care as per Dr. Torres. Status: Acute (2) Left main coronary artery disease: Status: Acute (3) Third degree atrioventricular block: Third-degree AV block with history of bifascicular block -Patient has not needed any pacing. -Remains in sinus rhythm. Status: Acute (4) NSTEMI (non-ST elevated myocardial infarction): Recommend starting on Plavix 75 mg once patient is cleared from surgical standpoint Status: Acute Plan Ischemic cardiomyopathy: LVEF 35 to 40%, will add metoprolol and NITIN inhibitor in a day or 2 Postop blood loss anemia s/p 1 unit of packed red blood cells Recent COVID-19 pneumonia Diabetes mellitus Hyperlipidemia Moderate AI Attestations Medical Necessity Statement*: In ICU post CABG. Coding Level of Care Code Established Pt Acute Immunopathologist for Velma Villegas Patient Type Established History Comprehensive Exam Comprehensive Medical Decision Making Moderate Complexity Diagnoses Status post aorto-coronary artery bypass graft Z95.1 Left main coronary artery disease I25.10 Third degree atrioventricular block I44.2 NSTEMI (non-ST elevated myocardial infarction) I21.4
[2021-09-24] MEDS: FUROsemide 10 mg/mL SDV 2mL 20 MG IVP (11:52)
--- NOTE | 2021-09-24 11:59 | PM.PN ---
Subjective Subjective: Patient extubated on 10 PM last night Currently doing well on 5 L nasal cannula He was given Lasix this morning, positive fluid balance Second dose of Lasix was not given yesterday secondary to low PA pressure Patient clinically does not look fluid overloaded Blood pressure is stable Known paced rhythm Heart rate is in 80s Vitals/I&O/Wt Last Vital Signs Temp 98.2 F 09/23/21 06:03 Pulse 99 09/24/21 11:30 Resp 16 09/24/21 11:30 BP 125/92 09/24/21 11:30 Pulse Ox 91 09/24/21 11:30 09/23/21 09/24/21 09/24/21 22:59 06:59 14:59 Intake Total 1243.865 / 2555.297 1165.290 / 3720.587 3150 / 3150 Output Total 1072 / 1834 775 / 2609 300 / 300 Balance 171.865 / 721.297 390.290 / 1890.037 0656 / 2850 Weight last 48 hrs Weight 99.904 kg Weight 98.974 kg Physical Exam Narrative: Patient is awake and alert Nonfocal neuro exam [place]-Porfirio catheter Midline sternotomy incision with dressing chest tubes in place Decreased breath sound at the base of the lungs Clinical signs of fluid overload S1, S2 systolic murmur Nonfocal neuro exam Tucker catheter draining yellow-colored urine Appropriate mood and affect Very pleasant and cooperative during my evaluation Urinary Catheter Management: Tucker: Cath Placed During This Visit: yes, but has since been removed by the nurse Reason for Continuing Indwelling Catheter: Accurate Measurement of Urinary Output in Critically Ill Patients Urinary Catheter Date of Insertion: 09/22/21 Urinary Catheter Time of Insertion: 11:30 Date Urinary Catheter Removed: 09/20/21 Time Urinary Catheter Discontinued: 14:15 Data : 09/24/21 04:20 09/24/21 04:20 Micro: Microbiology 09/19/21 05:54 Blood Culture - Final Blood NO GROWTH AFTER 5 DAYS 09/19/21 05:54 Blood Culture - Final Blood NO GROWTH AFTER 5 DAYS A&P Assessment and plan (1) Status post aorto-coronary artery bypass graft: Status: Acute (2) Left main coronary artery disease: Status: Acute (3) Third degree atrioventricular block: Status: Acute (4) Sinus pause: Status: Acute (5) NSTEMI (non-ST elevated myocardial infarction): Status: Acute (6) Lactic acidosis: Status: Acute (7) Acute respiratory failure with hypoxemia: Status: Acute (8) COVID-19: Status: Acute (9) Recurrent syncope: Status: Acute (10) Bifascicular block: Status: Acute (11) Diabetes mellitus: Status: Acute Qualifiers: Diabetes mellitus type: type 2 Diabetes mellitus halfway insulin use: without halfway use Diabetes mellitus complication status: without complication Qualified Code(s): E11.9 - Type 2 diabetes mellitus without complications (12) Borderline hyperlipidemia: Status: Acute (13) Hyperlipidemia: Status: Acute Qualifiers: Hyperlipidemia type: mixed hyperlipidemia Qualified Code(s): E78.2 - Mixed hyperlipidemia Plan CABG Postop day 2 Clinical signs of fluid overload Has received diuretics Currently on aspirin and statin, will start Plavix once drainage from the chest tube decreases, hemoglobin stable Dobutamine to be slowly weaned off today Intra-aortic balloon pump removed yesterday Postop care as per Dr. Torres Bifascicular block, sinus pauses, will need to reevaluate if he would need pacemaker before we discharge him from the hospital Currently patient is in sinus rhythm heart rate in 80s Patient complaining of pain around incision Getting morphine Ischemic cardiomyopathy we will add NITIN inhibitor and Toprol in next 48 hours Postop blood loss anemia status post 1 unit PRBC and albumin COVID-19 related pneumonia Currently doing well on 5 L nasal cannula extubated on 09/23 Diabetes Full code Attestations Medical Necessity Statement*: Continue ICU management Time Spent in Patient Care: 20mins Coding Level of Care Code 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 [facility] Fwd Diagnoses Status post aorto-coronary artery bypass graft Z95.1 Left main coronary artery disease I25.10 Third degree atrioventricular block I44.2 Sinus pause I45.5 NSTEMI (non-ST elevated myocardial infarction) I21.4 Lactic acidosis E87.2 Acute respiratory failure with hypoxemia J96.01 COVID-19 U07.1 Recurrent syncope R55 Bifascicular block I45.2 Diabetes mellitus E11.9 Diabetes mellitus type: type 2 Diabetes mellitus halfway insulin use: without halfway use Diabetes mellitus complication status: without complication Borderline hyperlipidemia E78.5 Hyperlipidemia E78.2 Hyperlipidemia type: mixed hyperlipidemia
--- NOTE | 2021-09-24 12:30 | PC.NURSE ---
Cordis/[place] Cordis and berna pulled per Dr Shea's order. Pt had a breif episode of nausea which was relieved with zofran. No ectopy.
--- NOTE | 2021-09-24 13:00 | PC.NURSE ---
Afib Pt went into Afib with HR in the 160's. Dr Shea was on the unit and ordered 0.25mg lopressor IV with amiodorone IV if lopressor is not effective. Lopressor given After 10 min pt went back into sinus rhythm. BP maintained MAP above 65.
[2021-09-24] MEDS: ondansetron 2 mg/ML SDV 2 mL 4 MG IVP (13:09)
[2021-09-24] MEDS: metoprolol tartrate 1 mg/1 mL SDV 5 mL 2.5 MG IVP (13:09)
[2021-09-24 14:09] LABS: Basophils % 0.1 %; Hematocrit 33.2 % (42.0-52.0); Hemoglobin 10.6 g/dL (11.7-16.6); Lymphocytes # 1.1 10^3/uL (0.8-4.8); Mean Corpuscular HGB Conc 31.9 g/dL (30.0-36.0); Mean Corpuscular Hemoglobin 32.9 pg (28.0-34.0); Mean Corpuscular Volume 103.1 fl (80-94); Mean Platelet Volume 11.3 fL (7.4-10.4); Monocytes # 1.4 10^3/uL (0.2-0.9); Monocytes % 8.7 %; Neutrophils # 12.96 10^3/uL (1.8-7.7); Neutrophils % 82.9 %; Nucleated Red Blood Cells % 0.1 %; Platelet Count 86 10^3/cmm (130-400); Red Blood Count 3.22 10^6/uL (4.1-5.3); Red Cell Distribution Width 17.4 % (12.1-15.1); White Blood Count 15.6 10^3/uL (4.0-10.0)
[2021-09-24 14:44] LABS: Anion Gap 19.1 (5-19); Blood Urea Nitrogen 19 mg/dL (8-23); Calcium 7.7 mg/dL (8.5-10.5); Carbon Dioxide 18 mmol/L (22-29); Chloride 104 mmol/L (98-107); Glucose 187 mg/dL (65-115); Osmolality Calculated 289 mOsm/kg (285-295); Potassium 5.1 mmol/L (3.5-5.1); Sodium 136 mmol/L (136-145)
[2021-09-24 17:50] LABS: Glucose Point of Care 202 mg/dL (70-110)
[2021-09-24 21:13] LABS: Glucose Point of Care 285 mg/dL (70-110)
[2021-09-24] MEDS: atorvastatin 40 mg Tablet 80 MG PO (21:15)
[2021-09-24] MEDS: insulin lispro 100 unit/1 mL SUBCUT (21:16)
[2021-09-25] VITALS (16 sets, daily range): BP systolic 122–139; BP diastolic 67–79; PULSE 57–79; RESP 15–26; O2SAT 92–99
[2021-09-25] MEDS: oxyCODONE-APAP 5-325 mg Tablet PO ×4 (03:36→22:06)
[2021-09-25 03:50] LABS: Basophils % 0.1 %; Eosinophils # 0.1 10^3/uL (0.0-0.8); Eosinophils % 0.5 %; Hematocrit 30.8 % (42.0-52.0); Hemoglobin 10.1 g/dL (11.7-16.6); Lymphocytes # 1.4 10^3/uL (0.8-4.8); Lymphocytes % 11.7 %; Mean Corpuscular HGB Conc 32.8 g/dL (30.0-36.0); Mean Corpuscular Hemoglobin 33.1 pg (28.0-34.0); Mean Platelet Volume 11.4 fL (7.4-10.4); Monocytes % 7.9 %; Neutrophils # 9.59 10^3/uL (1.8-7.7); Neutrophils % 78.7 %; Nucleated Red Blood Cells % 0.2 %; Platelet Count 91 10^3/cmm (130-400); Red Blood Count 3.05 10^6/uL (4.1-5.3); Red Cell Distribution Width 16.5 % (12.1-15.1); White Blood Count 12.2 10^3/uL (4.0-10.0)
[2021-09-25 04:19] LABS: Alanine Aminotransferase 40 U/L (0-41); Alkaline Phosphatase 107 IU/L (40-130); Anion Gap 13.6 (5-19); Aspartate Amino Transferase 37 U/L (0-40); Blood Urea Nitrogen 21 mg/dL (8-23); Calcium 7.9 mg/dL (8.5-10.5); Carbon Dioxide 23 mmol/L (22-29); Chloride 104 mmol/L (98-107); Globulin 2.3 g/dL (1.3-4.6); Glucose 150 mg/dL (65-115); Osmolality Calculated 288 mOsm/kg (285-295); Potassium 4.6 mmol/L (3.5-5.1); Sodium 136 mmol/L (136-145); Total Bilirubin 0.6 mg/dL (0.15-1.2); Total Protein 5.3 g/dL (6.6-8.7)
[2021-09-25] MEDS: metoprolol tartrate 1 mg/1 mL SDV 5 mL 2.5 MG IVP ×2 (05:27→05:28)
--- NOTE | 2021-09-25 06:00 | XRR_ITS ---
PROCEDURE INFORMATION: Exam: XR Chest Exam date and time: 09/25/2021 6:00 AM Age: 76 years old Clinical indication: Device placement; Other: Cabg; Prior surgery; Surgery date: 3-7 days post-operative; Additional info: Pod #3 status post cabg TECHNIQUE: Imaging protocol: XR of the chest. Views: 1 view. COMPARISON: CR XR chest 1V portable [id number] 09/24/2021 4:33 AM FINDINGS: Tubes, catheters and devices: A right jugular venous catheter, tube mediastinal and 1 left chest tube are present in satisfactory position Lungs: There is stable bibasilar atelectasis. Pleural spaces: Unremarkable. No pleural effusion. No pneumothorax. Heart/Mediastinum: Unremarkable. No cardiomegaly. Bones/joints: Unremarkable. XR/XR chest 1V portable [id number] IMPRESSION: Stable bibasilar atelectasis. No pneumothorax.
--- NOTE | 2021-09-25 06:14 | PM.PN ---
Subjective Subjective: Postop day #3 status post CABG. Uneventful night though developed A. fib with RVR earlier this morning. Converted after receiving IV Lopressor. Currently in sinus rhythm with a heart rate of 65. Intake and output is up another 2 L. Chest tube output 465 cc past 24 hours. Chest x-ray revealed some increased pulmonary vasculature and mild cardiomegaly which is probably positional. No claudio infiltrates or effusions other than what was noted previously preoperatively which appears to be clearing slightly. Neurologically intact. Inotropes are off. Vitals/I&O/Wt Last Vital Signs Temp 98.2 F 09/23/21 06:03 Pulse 69 09/24/21 22:00 Resp 24 H 09/25/21 03:36 BP 131/91 09/24/21 12:30 Pulse Ox 97 09/25/21 03:36 09/24/21 09/24/21 09/25/21 14:59 22:59 06:59 Intake Total 3269.344 / 3269.344 370 / 3639.344 100 / 3739.344 Output Total 300 / 300 1365 / 1665 985 / 2650 Balance 2969.344 / 2969.344 -995 / 1974.344 -885 / 1089.344 Weight last 48 hrs Weight 219 lb Weight 220 lb 4 oz Physical Exam Chest: OTHER: Chest wall is stable. Support lines are in position. PA catheter and Cordis was removed yesterday. Resp: OTHER: Bibasilar crackles. Only modest inspiratory effort. Will need more aggressive pulmonary toilet. Cardio: OTHER: Regular rate and rhythm. Extremity: NARRATIVE EXTREMITY EXAM: Still maintaining peripheral edema consistent with overall volume overload. Urinary Catheter Management: Tucker: Cath Placed During This Visit: yes, but has since been removed by the nurse Reason for Continuing Indwelling Catheter: Accurate Measurement of Urinary Output in Critically Ill Patients Urinary Catheter Date of Insertion: 09/22/21 Urinary Catheter Time of Insertion: 11:30 Date Urinary Catheter Removed: 09/20/21 Time Urinary Catheter Discontinued: 14:15 Data : 09/25/21 03:25 09/25/21 03:25 Micro: Microbiology 09/20/21 05:06 Blood Culture - Final Blood NO GROWTH AFTER 5 DAYS 09/20/21 05:06 Blood Culture - Final Blood NO GROWTH AFTER 5 DAYS 09/19/21 05:54 Blood Culture - Final Blood NO GROWTH AFTER 5 DAYS 09/19/21 05:54 Blood Culture - Final Blood NO GROWTH AFTER 5 DAYS A&P Assessment and plan (1) Status post aorto-coronary artery bypass graft: Postop day #3 status post CABG. Will need a more directed diuresis today as he begins to equilibrate his third space fluid. Plan: Lasix 20 mg IV now Metoprolol 12.5 mg p.o. twice daily Out of bed in chair Plan for Lasix again this afternoon CBC, BMP, chest x-ray in a.m. Appreciate oversight expertise of our hospitalist and cardiology colleagues. Status: Acute Attestations Medical Necessity Statement*: Postop day #3 status post CABG Coding Level of Care Code Acute Cutting Room Supervisor for Velma Villegas Diagnoses Status post aorto-coronary artery bypass graft Z95.1
[2021-09-25] MEDS: FUROsemide 10 mg/mL SDV 2mL 20 MG IVP ×2 (06:17→16:08)
[2021-09-25 07:25] LABS: Glucose Point of Care 186 mg/dL (70-110)
[2021-09-25] MEDS: metoprolol tartrate 25 mg Tablet 12.5 MG PO ×2 (07:35→22:08)
[2021-09-25] MEDS: aspirin 81 mg EC Tablet PO (07:35)
[2021-09-25] MEDS: dexamethasone 4 mg Tablet 6 MG PO (07:39)
[2021-09-25] MEDS: morphine 4 mg/mL SDV 1 mL 2 MG IVP (07:41)
[2021-09-25] MEDS: insulin lispro 100 unit/1 mL SUBCUT ×4 (07:41→22:11)
[2021-09-25] MEDS: ondansetron 2 mg/ML SDV 2 mL 4 MG IVP (07:59)
[2021-09-25] MEDS: ipratropium-albuterol 3 mL Neb INHALATION (08:06)
--- NOTE | 2021-09-25 09:29 | P.PN_ITS ---
Subjective Subjective: This morning patient is stating that he still hurting around his sternal area however intensity is less as compared to yesterday He still not eating very well because of poor appetite Is on clear liquid diet Tolerating his pills Lasix given by Dr. Torres today as well Positive fluid balance A. fib RVR noted today which improved with IV AV rika blocking agent, neutrophils on standby if needed For short-term RVR not adding anticoagulating agent at this point Chest x-ray reviewed Vitals/I&O/Wt Last Vital Signs Temp 98.2 F 09/23/21 06:03 Pulse 76 09/25/21 08:17 Resp 20 H 09/25/21 08:01 BP 131/91 09/24/21 12:30 Pulse Ox 95 09/25/21 08:01 09/24/21 09/25/21 09/25/21 22:59 06:59 14:59 Intake Total 370 / 3639.344 100 / 3739.344 Output Total 1365 / 1665 985 / 2650 150 / 150 Balance -995 / 1974.344 -885 / 1089.344 -150 / -150 Weight last 48 hrs Weight 99.337 kg Weight 99.904 kg Physical Exam Narrative: Patient in semi-Gamble position Saturating well on 5 L nasal cannula Complaining of pain around sternal area Soft abdomen Clinical signs of fluid overload Chest tube drainage noted No audible stridor or wheezing Very pleasant cooperative during my evaluation S1, S2, sinus rhythm Nonfocal neuro exam Urinary Catheter Management: Tucker: Cath Placed During This Visit: yes, but has since been removed by the nurse Reason for Continuing Indwelling Catheter: Accurate Measurement of Urinary Out put in Critically Ill Patients Urinary Catheter Date of Insertion: 09/22/21 Urinary Catheter Time of Insertion: 11:30 Date Urinary Catheter Removed: 09/20/21 Time Urinary Catheter Discontinued: 14:15 Data : 09/25/21 03:25 09/25/21 03:25 Micro: Microbiology 09/20/21 05:06 Blood Culture - Final Blood NO GROWTH AFTER 5 DAYS 09/20/21 05:06 Blood Culture - Final Blood NO GROWTH AFTER 5 DAYS 09/19/21 05:54 Blood Culture - Final Blood NO GROWTH AFTER 5 DAYS 09/19/21 05:54 Blood Culture - Final Blood NO GROWTH AFTER 5 DAYS A&P Assessment and plan (1) Status post aorto-coronary artery bypass graft: Status: Acute (2) Left main coronary artery disease: Status: Acute (3) Third degree atrioventricular block: Status: Acute (4) Sinus pause: Status: Acute (5) NSTEMI (non-ST elevated myocardial infarction): Status: Acute (6) PEA (Pulseless electrical activity): Status: Acute (7) Lactic acidosis: Status: Acute (8) Acute respiratory failure with hypoxemia: Status: Acute (9) COVID-19: Status: Acute (10) Bifascicular block: Status: Acute (11) Diabetes mellitus: Status: Acute Qualifiers: Diabetes mellitus type: type 2 Diabetes mellitus termite technician insulin use: without longterm use Diabetes mellitus complication status: without complication Qualified Code(s): E11.9 - Type 2 diabetes mellitus without complications Plan Postop day 3 A. fib RVR noted which improved with IV Lopressor Currently in sinus rhythm No need of anticoagulating agent for short duration A. fib noted this morning Added metoprolol p.o. regimen Positive fluid balance, fluid overload, vascular congestion noted on chest x- ray, Lasix twice a day as per Dr. Torres's plan Advance diet as tolerated currently on clear liquids Postoperative anemia status post 1 unit PRBC Hemoglobin stable, hemodynamically stable Inotropes are off Out of bed to chair COVID-19 related acute hypoxia Currently on 5 L nasal cannula Received remdesivir, continue Decadron Tested +3/3 Full code Advance diet as tolerated Out of bed to chair Analgesia with bowel regimen Attestations Medical Necessity Statement*: We might be able to transfer out of ICU by tomorrow Time Spent in Patient Care: 20min Coding Level of Care Code Acute Grounds Restoration Specialist for Chg Fwd Diagnoses Status post aorto-coronary artery bypass graft Z95.1 Left main coronary artery disease I25.10 Third degree atrioventricular block I44.2 Sinus pause I45.5 NSTEMI (non-ST elevated myocardial infarction) I21.4 PEA (Pulseless electrical activity) I46.9 Lactic acidosis E87.2 Acute respiratory failure with hypoxemia J96.01 COVID-19 U07.1 Bifascicular block I45.2 Diabetes mellitus E11.9 Diabetes mellitus type: type 2 Diabetes mellitus termite technician insulin use: without termite technician use Diabetes mellitus complication status: without complication
--- NOTE | 2021-09-25 10:04 | PC.CHAP ---
Pastoral Care Encounter/Spiritual Assessment Type of Contact [] Declined case aide visit [] Patient/Family/Request visit [] Outpatient visit [] Follow-up visit [] Physician referral [] Code/Alert [x] Routine visit [] Staff referral [] Actively dying [] Patient sleeping [] Family support [] [] Out of room [] Palliative care [] [] Receiving care in room [] Pre-surgical visit [] Trauma [] Long length of stay [x] ICU visit [] Other: Relational/Emotional Strength [] Patient feels connected with others/family/visitors/staff [] Distress [] Loneliness/isolation [] Abandonment Spirituality of Patient [] Person of Vera [] Attends Hinduism of their Vera [] Believes in Prayer [] Reads Bible or Religion materials [] There are Spiritual issues to be addressed Plant Puller Interventions [x] Prayer [x] Active listening [x] Non-anxious presence [x] Spiritual/emotional support [] Crisis/trauma care [] Spiritual counseling [] Bereavement support [] Provided bereavement packet [] Provided Bible/devotional materials [] Provided toy/stuffed animal, coloring book to patient or family member [] Provided Communion [] Anointing/[place] [] Salvation [x] Completed spiritual assessment [] Other: Impact on Illness or Injury [] Angry [] Fearful [] Anxious [] Often cries [] Exhaustion [] Unable to work [] Unable to attend restorationism [] Unable to walk/stand [] Unable to read [] Unable to drive [] Unable to eat/drink [] Unable to sleep [] Unable to be with family [] Patient intubated [] Other: Summary patient setting in chair... holding heart pillow... after surgery... prayed for strength and healing Time spent with patient 10 min
[2021-09-25] MEDS: docusate sodium 100 mg Capsule PO (10:44)
[2021-09-25 11:33] LABS: Glucose Point of Care 262 mg/dL (70-110)
--- NOTE | 2021-09-25 16:56 | P.PN_ITS ---
Subjective Subjective: Run of atrial fibrillation this morning that converted to SR with lopressor and he received lasix 20 mg IV x1 -Feels good. walked around in ICU. Medications: Reviewed: Yes Vitals/I&O/Wt Last Vital Signs Temp 98.2 F 09/23/21 06:03 Pulse 79 09/25/21 16:27 Resp 16 09/25/21 16:27 BP 131/91 09/24/21 12:30 Pulse Ox 92 09/25/21 16:27 09/25/21 09/25/21 09/25/21 06:59 14:59 22:59 Intake Total 100 / 3739.344 360 / 360 Output Total 985 / 2650 150 / 150 1305 / 1455 Balance -885 / 1089.344 210 / 210 -1305 / -1095 Weight last 48 hrs Weight 219 lb Weight 220 lb 4 oz Physical Exam Narrative: General: Patient complains of some pleuritic chest pain Neck: Mild JVD chest: Midline sternotomy incision dressed.? Chest tubes in place RS: Bibasilar crales+, no wheezes or rales CVS: S1, S2, grade 2/6 left sternal border murmur present, no rubs. Ext:? 1+ b/l? 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: Awake alert oriented x3 Urinary Catheter Management: Tucker: Cath Placed During This Visit: yes, but has since been removed by the nurse Reason for Continuing Indwelling Catheter: Accurate Measurement of Urinary Output in Critically Ill Patients Urinary Catheter Date of Insertion: 09/22/21 Urinary Catheter Time of Insertion: 11:30 Date Urinary Catheter Removed: 09/20/21 Time Urinary Catheter Discontinued: 14:15 Data : 09/25/21 03:25 09/25/21 03:25 Micro: Microbiology 09/20/21 05:06 Blood Culture - Final Blood NO GROWTH AFTER 5 DAYS 09/20/21 05:06 Blood Culture - Final Blood NO GROWTH AFTER 5 DAYS A&P Assessment and plan (1) Status post aorto-coronary artery bypass graft: ?#Postop day 3 -s/p coronary artery bypass grafting x2 (1 artery and 1 vein) utilizing in situ left internal mammary artery to left anterior descending artery and reverse saphenous vein graft from the aorta to the obtuse marginal branch of the circumflex artery. -Aspirin and statin restarted -low dose metoprolol added. Has not needed pacing so far. Recommend starting on Plavix 75 mg once patient is cleared from surgical s tandpoint -In case or recurrence of atrial fibrillation, may need to do start on PO amiodarone. Postop care as per Dr. Torres. Status: Acute (2) Left main coronary artery disease: Status: Acute (3) Third degree atrioventricular block: Third-degree AV block with history of bifascicular block -Patient has not needed any pacing. Status: Acute (4) NSTEMI (non-ST elevated myocardial infarction): Status: Acute Plan Ischemic cardiomyopathy: LVEF 35 to 40%, will add NITIN inhibitor in a day or 2. Post op atrial fibrillation Postop blood loss anemia s/p 1 unit of packed red blood cells Recent COVID-19 pneumonia Diabetes mellitus Hyperlipidemia Moderate AI Attestations Medical Necessity Statement*: Needs ICU care post CABG Coding Level of Care Code Established Pt Acute Hand Trimmer for Chg Fwd Patient Type Established History Comprehensive Exam Comprehensive Medical Decision Making Moderate Complexity Diagnoses Status post aorto-coronary artery bypass graft Z95.1 Left main coronary artery disease I25.10 Third degree atrioventricular block I44.2 NSTEMI (non-ST elevated myocardial infarction) I21.4
[2021-09-25 18:01] LABS: Glucose Point of Care 218 mg/dL (70-110)
[2021-09-25 21:48] LABS: Glucose Point of Care 169 mg/dL (70-110)
[2021-09-25] MEDS: atorvastatin 40 mg Tablet 80 MG PO (22:08)
[2021-09-26] VITALS (29 sets, daily range): BP systolic 101–166; BP diastolic 58–88; PULSE 54–84; RESP 11–42; TEMP 36.5–37; O2SAT 91–100
[2021-09-26] MEDS: morphine 4 mg/mL SDV 1 mL 2 MG IVP (00:47)
[2021-09-26] MEDS: oxyCODONE-APAP 5-325 mg Tablet PO (03:23)
[2021-09-26 03:52] LABS: Basophils % 0.1 %; Hematocrit 27.4 % (42.0-52.0); Lymphocytes # 1.3 10^3/uL (0.8-4.8); Lymphocytes % 10.6 %; Mean Corpuscular HGB Conc 32.8 g/dL (30.0-36.0); Mean Corpuscular Hemoglobin 32.8 pg (28.0-34.0); Mean Platelet Volume 11.5 fL (7.4-10.4); Monocytes # 0.9 10^3/uL (0.2-0.9); Monocytes % 6.8 %; Neutrophils # 10.13 10^3/uL (1.8-7.7); Nucleated Red Blood Cells % 0 %; Platelet Count 91 10^3/cmm (130-400); Red Blood Count 2.74 10^6/uL (4.1-5.3); Red Cell Distribution Width 15.8 % (12.1-15.1); White Blood Count 12.5 10^3/uL (4.0-10.0)
[2021-09-26 04:07] LABS: Anion Gap 13.5 (5-19); Blood Urea Nitrogen 22 mg/dL (8-23); Carbon Dioxide 25 mmol/L (22-29); Chloride 101 mmol/L (98-107); Glucose 150 mg/dL (65-115); Osmolality Calculated 286 mOsm/kg (285-295); Potassium 4.5 mmol/L (3.5-5.1); Sodium 135 mmol/L (136-145)
--- NOTE | 2021-09-26 06:00 | XR_ITS ---
WS: [id number] Portable AP upright chest, 09/26/2021 Clinical Data: Status post CABG/diuresing Comparison: Portable chest, 09/25/2021 Findings: The right internal jugular venous catheter, left chest tube, and mediastinal tubes remain i n position. There is a small tube with the tip curled at the right cardiophrenic junction. The heart size remains the same. Midline sternotomy sutures are noted. There is improvement in the bilateral at electatic changes. Monitor leads are on the chest wall. XR/XR chest 1V portable [id number] Impression: Postoperative changes which remain stable.
--- NOTE | 2021-09-26 07:53 | PC.NURSE ---
Dr. Bryant at bedside, gave v.o. to increase diet to GI soft
[2021-09-26 08:40] LABS: Glucose Point of Care 177 mg/dL (70-110)
[2021-09-26] MEDS: metoprolol tartrate 25 mg Tablet 12.5 MG PO (08:53)
[2021-09-26] MEDS: aspirin 81 mg EC Tablet PO (08:53)
[2021-09-26] MEDS: chlorhexidine gluconate 0.12% Btl 473 mL 15 ML MUCOUS MEM ×2 (08:53→17:38)
[2021-09-26] MEDS: insulin lispro 100 unit/1 mL SUBCUT ×4 (08:53→21:42)
[2021-09-26] MEDS: dexamethasone 4 mg Tablet 6 MG PO (08:53)
[2021-09-26] MEDS: sennosides-docusate Tablet 1 TAB PO (08:53)
--- NOTE | 2021-09-26 09:26 | PC.SOCIAL ---
IMM Update pg 2 of IMM updated and reviewed w/ patient. Copy provided and copy in chart updated.
--- NOTE | 2021-09-26 09:31 | PM.PN ---
Subjective Subjective: Patient is stating that his pain today is 4/10 He is feeling hungry and would like to try solid food, diet advanced to GI soft Passing flatus, no bowel movement yet Negative fluid balance Afebrile Hemodynamically stable Chest x-ray shows improvement in bilateral infiltrates Clinically does show signs of fluid overload We will keep him on low-dose Lasix Currently on 2 L nasal cannula Bradycardia noted heart rate below 60 No change in MAP overnight Chest tube drainage noted Vitals/I&O/Wt Last Vital Signs Temp 97.9 F 09/26/21 04:00 Pulse 84 09/26/21 09:00 Resp 21 H 09/26/21 09:00 BP 155/78 09/26/21 09:00 Pulse Ox 96 09/26/21 09:00 09/25/21 09/26/21 09/26/21 22:59 06:59 14:59 Intake Total 250 / 250 Output Total 2155 / 2305 555 / 2860 Balance -2155 / -1945 -555 / -2500 250 / 250 Weight last 48 hrs Weight 98.475 kg Weight 99.337 kg Physical Exam Narrative: Patient resting comfortably in his bed Currently on 2 L nasal cannula Bilateral breath sounds without adventitious rhonchi, diminished left greater than right He is in sinus rhythm, S1, S2 Clinically does show signs of fluid overload especially in his extremities 1+ pitting edema of legs Abdomen soft Chest tube with minimal drainage Abdomen is soft Not complain of tenderness on palpation Appropriate mood and affect Able, PERRLA Nonfocal neuro exam Urinary Catheter Management: Tucker: Cath Placed During This Visit: yes, but has since been removed by the nurse Reason for Continuing Indwelling Catheter: Accurate Measurement of Urinary Output in Critically Ill Patients Urinary Catheter Date of Insertion: 09/22/21 Urinary Catheter Time of Insertion: 11:30 Date Urinary Catheter Removed: 09/20/21 Time Urinary Catheter Discontinued: 14:15 Data : 09/27/21 04:51 09/27/21 04:51 Micro: Microbiology 09/20/21 05:06 Blood Culture - Final Blood NO GROWTH AFTER 5 DAYS 09/20/21 05:06 Blood Culture - Final Blood NO GROWTH AFTER 5 DAYS A&P Assessment and plan (1) Status post aorto-coronary artery bypass graft: Status: Acute (2) Left main coronary artery disease: Status: Acute (3) Third degree atrioventricular block: Status: Acute (4) Sinus pause: Status: Acute (5) NSTEMI (non-ST elevated myocardial infarction): Status: Acute (6) Lactic acidosis: Status: Acute (7) Acute respiratory failure with hypoxemia: Status: Acute (8) COVID-19: Status: Acute (9) Bifascicular block: Status: Acute (10) Diabetes mellitus: Status: Acute Qualifiers: Diabetes mellitus complication status: without complication 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 fib, check magnesium level Pacemaker evaluation before discharge, sick sinus syndrome? Hemodynamically stable Patient is passing flatus No bowel movement yet Hypoxia related to COVID-19, continue low-dose Lasix, Currently on 2 L nasal cannula Patient symptoms started around 09/02, does not need isolation Continue Decadron Lisinopril and Plavix to be added once cleared by cardiothoracic after removal of chest tube Full code GI soft diet DVT prophylaxis: SCDs Hemoglobin stable status post 1 unit PRBC Attestations Medical Necessity Statement*: Continue ICU management, Time Spent in Patient Care: 35min Coding Level of Care Code Acute Refractory Repairer for g Fwd Diagnoses Status post aorto-coronary artery bypass graft Z95.1 Left main coronary artery disease I25.10 Third degree atrioventricular block I44.2 Sinus pause I45.5 NSTEMI (non-ST elevated myocardial infarction) I21.4 Lactic acidosis E87.2 Acute respiratory failure with hypoxemia J96.01 COVID-19 U07.1 Bifascicular block I45.2 Diabetes mellitus E11.9 Diabetes mellitus complication status: without complication Diabetes mellitus senior care insulin use: without clothing trades workers use Diabetes mellitus type: type 2
[2021-09-26] MEDS: FUROsemide 20 mg Tablet PO (10:18)
[2021-09-26 10:41] LABS: Magnesium 2.7 mg/dL (1.7-2.3)
[2021-09-26 11:35] LABS: Glucose Point of Care 305 mg/dL (70-110)
[2021-09-26 11:35] LABS: Glucose Point of Care 309 mg/dL (70-110)
--- NOTE | 2021-09-26 11:41 | PC.CHAP ---
x Pastoral Care Encounter/Spiritual Assessment Type of Contact [] Declined fire sprinkler inspector visit [] Patient/Family/Request visit [] Outpatient visit [] Follow-up visit [] Physician referral [] Code/Alert [x] Routine visit [] Staff referral [] Actively dying [] Patient sleeping [] Family support [] [] Out of room [] Palliative care [] [] Receiving care in room [] Pre-surgical visit [] Trauma [] Long length of stay [x] ICU visit [] Other: Relational/Emotional Strength [] Patient feels connected with others/family/visitors/staff [] Distress [] Loneliness/isolation [] Abandonment Spirituality of Patient [] Person of Vera [] Attends Christian of their Vera [] Believes in Prayer [] Reads Bible or Restorationist materials [] There are Spiritual issues to be addressed Manager Electrical Interventions [x] Prayer [x Active listening [x] Non-anxious presence [x] Spiritual/emotional support [] Crisis/trauma care [] Spiritual counseling [] Bereavement support [] Provided bereavement packet [] Provided Bible/devotional materials [] Provided toy/stuffed animal, coloring book to patient or family member [] Provided Communion [] Anointing/[place] [] Salvation [x] Completed spiritual assessment [] Other: Impact on Illness or Injury [] Angry [] Fearful [] Anxious [] Often cries [] Exhaustion [] Unable to work [] Unable to attend scientologist [] Unable to walk/stand [] Unable to read [] Unable to drive [] Unable to eat/drink [] Unable to sleep [] Unable to be with family [] Patient intubated [] Other: Summary heart patient.. setting up in chair.. in some pain but feeling stronger... signed his pillow... Time spent with patient 10 min
--- NOTE | 2021-09-26 11:59 | PC.NURSE ---
Dr. Shea at bedside, gave v.o. to d/c central line. L IJ central line removed, patient tolerated well
--- NOTE | 2021-09-26 12:12 | PM.PN ---
Subjective Subjective: UO 2.8 L and -2.5 L; chest tube output 565 ml.; weight 217 lb -some episodes of bradycardia at night. Medications: Reviewed: Yes Vitals/I&O/Wt Last Vital Signs Temp 97.9 F 09/26/21 04:00 Pulse 57 L 09/26/21 12:00 Resp 19 H 09/26/21 12:00 BP 114/69 09/26/21 12:00 Pulse Ox 93 09/26/21 12:00 09/25/21 09/26/21 09/26/21 22:59 06:59 14:59 Intake Total 250 / 250 Output Total 2155 / 2305 555 / 2860 Balance -2155 / -1945 -555 / -2500 250 / 250 Weight last 48 hrs Weight 217 lb 1.6 oz Weight 219 lb Physical Exam Narrative: General: Patient? complains of some pleuritic chest pain Neck: No JVD chest: Midline sternotomy incision dressed.? Chest tubes in place RS: Bibasilar crales+, no wheezes or rales CVS: S1, S2, grade 2/6 left sternal border murmur present, no rubs. Ext:? 1+ b/l? 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: Awake alert oriented x3 Urinary Catheter Management: Tucker: Cath Placed During This Visit: yes, but has since been removed by the nurse Reason for Continuing Indwelling Catheter: Accurate Measurement of Urinary Output in Critically Ill Patients Urinary Catheter Date of Insertion: 09/22/21 Urinary Catheter Time of Insertion: 11:30 Date Urinary Catheter Removed: 09/20/21 Time Urinary Catheter Discontinued: 14:15 Data : 09/26/21 03:45 09/26/21 03:45 A&P Assessment and plan (1) Status post aorto-coronary artery bypass graft: ?#Postop day 4 -s/p coronary artery bypass grafting x2 (1 artery and 1 vein) utilizing in situ left internal mammary artery to left anterior descending artery and reverse saphenous vein graft from the aorta to the obtuse marginal branch of the circumflex artery. -Aspirin and statin restarted -low dose metoprolol added. Has not needed pacing so far. Recommend starting on Plavix 75 mg once patient is cleared from surgical standpoint -In case or recurrence of atrial fibrillation, may need to do start on PO amiodarone. Postop care as per Dr. Torres. Status: Acute (2) NSTEMI (non-ST elevated myocardial infarction): Status: Acute (3) Left main coronary artery disease: Status: Acute (4) Third degree atrioventricular block: Third-degree AV block with history of bifascicular block -Patient has not needed any pacing. -continue to monitor. Status: Acute Plan Ischemic cardiomyopathy: LVEF 35 to 40%, will add NITIN inhibitor in a day or 2. Post op atrial fibrillation Fluid overaload : recieved lasix 20 mg IV x 1 this morning Postop blood loss anemia s/p 1 unit of packed red blood cells Recent COVID-19 pneumonia Diabetes mellitus Hyperlipidemia Moderate AI Attestations Medical Necessity Statement*: Needs ICU care post CABG Coding Level of Care Code Acute Government Gauger for Velma Villegas Diagnoses Status post aorto-coronary artery bypass graft Z95.1 Left main coronary artery disease I25.10 Third degree atrioventricular block I44.2 NSTEMI (non-ST elevated myocardial infarction) I21.4 Time Spent (min) 25
--- NOTE | 2021-09-26 12:17 | ECG_ITS ---
[facility] Test Date: 2021-09-26 Pat Name: Jeremiah Lance Department: Room: ICU10 Gender: Male 89 Directory Assistance Operator: : [id number] Requested By: Monique Campuzano Order Number: [id number] Vania MD: Monique Campuzano M.D. Measurements Intervals [place] Rate: 58 P: 74 MT: 185 QRS: -49 QRSD: 118 T: -16 QT: 455 QTc: 450 Interpretive Statements SINUS BRADYCARDIA LEFT AXIS DEVIATION [QRS AXIS < -30] INCOMPLETE RIGHT BUNDLE BRANCH BLOCK VOLTAGE CRITERIA FOR LVH ST DEVIATION AND MODERATE T-WAVE ABNORMALITY, CONSIDER ANTERIOR ISCHEMIA Compared to ECG 09/23/2021 06:09:46 Left-axis deviation now present Incomplete right bundle-branch block now present Left anterior fascicular block no longer present Myocardial infarct finding no longer present T-wave abnormality still present Possible ischemia still present Electronically Signed On 09-27-2021 6:07:10 MEDICAL RECORD LIBRARIAN by Monique Campuzano M.D. [id number]
[2021-09-26] MEDS: guaiFENesin 100 mg/5 mL UDC 10 mL 200 MG PO ×2 (14:49→18:49)
[2021-09-26 17:54] LABS: Glucose Point of Care 224 mg/dL (70-110)
[2021-09-26] MEDS: fentaNYL 50 mcg/mL INJ 2mL IVP (19:27)
[2021-09-26 21:31] LABS: Glucose Point of Care 209 mg/dL (70-110)
[2021-09-26] MEDS: atorvastatin 40 mg Tablet 80 MG PO (21:42)
[2021-09-27] VITALS (29 sets, daily range): BP systolic 125–182; BP diastolic 59–105; PULSE 55–92; RESP 13–35; TEMP 35.9–37.2; O2SAT 90–96
[2021-09-27] MEDS: guaiFENesin 100 mg/5 mL UDC 10 mL 200 MG PO ×4 (00:06→17:22)
--- NOTE | 2021-09-27 00:25 | XRR_ITS ---
PROCEDURE INFORMATION: Exam: XR Chest Exam date and time: 09/27/2021 12:25 AM Age: 76 years old Clinical indication: Prior surgery; Surgery date: 3-7 days post-operative; Surgery type: Cabg; Patient HX: Patient having persistent cough with sputum. ; Additional info: Patient sob/coughing TECHNIQUE: Imaging protocol: XR of the chest. Views: 1 view. COMPARISON: CR XR chest 1V portable [id number] 09/26/2021 5:31 AM FINDINGS: Tubes, catheters and devices: Left-sided chest tube present. Lungs: Coarse reticular interstitial lung changes. Patchy parenchymal airspace opacity lateral right upper lobe mildly increased from prior. Pre-existing patchy parenchymal opacities left lateral lung base stable from prior. Pleural spaces: Unremarkable. No pleural effusion. No pneumothorax. Heart/Mediastinum: Cardiomegaly. CABG. Mediastinal drains are present. Bones/joints: Unremarkable. XR/XR chest 1V portable [id number] IMPRESSION: Developing airspace disease in right upper lobe not excluded.
--- NOTE | 2021-09-27 02:30 | PC.NURSE ---
Patient SOB Patient reported being short of breath, chest tube output increased and coughing continuously. Chest x-ray ordered and provider notified about findings. Orders received to administer Lasix 20 mg IVP one time dose.
[2021-09-27] MEDS: FUROsemide 10 mg/mL SDV 2mL 20 MG IVP (02:43)
[2021-09-27] MEDS: morphine 4 mg/mL SDV 1 mL 2 MG IVP (02:44)
[2021-09-27 05:09] LABS: Basophils % 0.1 %; Hematocrit 30.3 % (42.0-52.0); Lymphocytes # 1.3 10^3/uL (0.8-4.8); Lymphocytes % 9.3 %; Mean Corpuscular Hemoglobin 33.1 pg (28.0-34.0); Mean Corpuscular Volume 100.3 fl (80-94); Mean Platelet Volume 11.3 fL (7.4-10.4); Monocytes % 7.2 %; Neutrophils # 11.23 10^3/uL (1.8-7.7); Neutrophils % 80.6 %; Nucleated Red Blood Cells % 0.2 %; Platelet Count 140 10^3/cmm (130-400); Red Blood Count 3.02 10^6/uL (4.1-5.3); Red Cell Distribution Width 15.8 % (12.1-15.1); White Blood Count 13.9 10^3/uL (4.0-10.0)
[2021-09-27 05:21] LABS: Anion Gap 15.3 (5-19); Blood Urea Nitrogen 31 mg/dL (8-23); Calcium 8.5 mg/dL (8.5-10.5); Carbon Dioxide 25 mmol/L (22-29); Chloride 101 mmol/L (98-107); Glucose 146 mg/dL (65-115); Magnesium 2.1 mg/dL (1.7-2.3); Osmolality Calculated 293 mOsm/kg (285-295); Potassium 4.3 mmol/L (3.5-5.1); Sodium 137 mmol/L (136-145)
--- NOTE | 2021-09-27 07:17 | P.PN_ITS ---
Subjective Subjective: Postop day #5 status post CABG x2. Intake and output is -1400 cc past 24 hours and negative approximately 4 L past 2 days. Chest x-ray obtained around 1 AM this morning looks quite good with the mild cardiomegaly but improved aeration to both lung bowling and no effusions. Infiltrates are cleari ng. Chest tube output is serous. Good use of incentive spirometry. No arrhythmias reported. Heart rate in the upper 60s. Sinus rhythm. Chest tube output approximate 400 cc in past 24 hours. Vitals/I&O/Wt Last Vital Signs Temp 98.9 F 09/27/21 04:00 Pulse 65 09/27/21 06:00 Resp 13 09/27/21 05:00 BP 152/67 09/27/21 05:00 Pulse Ox 93 09/27/21 05:00 09/26/21 09/27/21 09/27/21 22:59 06:59 14:59 Intake Total 250 / 750 500 / 1250 Output Total 700 / 700 1945 / 2645 Balance -450 / 50 -1445 / -1395 Weight last 48 hrs Weight 217 lb 1.6 oz Physical Exam Chest: COMMONS NORMALS: normal inspection of the chest OTHER: Chest tube in good position. A ground wire from the pacing wires has come loose. He has not required pacing in 3 days. Resp: COMMON NORMALS: normal respiratory effort, No use of accessory muscles and clear to auscultation bilaterally AUSCULTATION: clear to auscultation bilaterally OTHER: Good use of incentive spirometry. Cardio: COMMON NORMALS: regular rate, S1 normal heart sound present and No murmurs present (Cardio) RATE: regular rate HEART SOUNDS: S1 normal heart sound present Extremity: OTHER: Peripheral edema has resolved. Urinary Catheter Management: Tucker: Cath Placed During This Visit: yes, but has since been removed by the nurse Reason for Continuing Indwelling Catheter: Accurate Measurement of Urinary Out put in Critically Ill Patients Urinary Catheter Date of Insertion: 09/22/21 Urinary Catheter Time of Insertion: 11:30 Date Urinary Catheter Removed: 09/20/21 Time Urinary Catheter Discontinued: 14:15 Data : 09/27/21 04:51 09/27/21 04:51 A&P Assessment and plan (1) Status post aorto-coronary artery bypass graft: Postop day #5 status post CABG. He appears to be euvolemic. Plan: I will plan to remove chest tubes and mediastinal drains midday. He may then be transferred to [facility]. Discharge planning may continue. Appreciate the expertise and oversight of our hospitalist and cardiology colleagues. Status: Acute Attestations 2 Medical Necessity Statement*: Postop day #5 status post CABG Coding Level of Care Code Acute Aboriginal Home School Liaison Officer for Chg Fwd Diagnoses Status post aorto-coronary artery bypass graft Z95.1
[2021-09-27 08:05] LABS: Glucose Point of Care 134 mg/dL (70-110)
[2021-09-27] MEDS: sennosides-docusate Tablet 1 TAB PO (09:19)
[2021-09-27] MEDS: aspirin 81 mg EC Tablet PO (09:19)
[2021-09-27] MEDS: dexamethasone 4 mg Tablet 6 MG PO (09:19)
--- NOTE | 2021-09-27 11:15 | P.PN_ITS ---
Subjective Subjective: Patient in good spirits Currently on room air Minimal drainage via chest tube There is plan to remove chest tube later today We will follow up with Dr. Melissa Lackey, lisinopril currently on hold Sinus bradycardia noted overnight Pacemaker has been turned off Hemodynamically stable Negative fluid balance Leukocytosis consistent with use of Decadron Magnesium 2.1 Potassium 4.3 TSH normal Chest x-ray reviewed, right upper lobe infiltrate? Passing flatus, no bowel movement Vitals/I&O/Wt Last Vital Signs Temp 98.9 F 09/27/21 04:00 Pulse 78 09/27/21 09:30 Resp 28 H 09/27/21 09:30 BP 153/80 09/27/21 09:30 Pulse Ox 95 09/27/21 09:30 09/26/21 09/27/21 09/27/21 22:59 06:59 14:59 Intake Total 250 / 750 500 / 1250 250 / 250 Output Total 700 / 700 1945 / 2645 Balance -450 / 50 -1445 / -1395 250 / 250 Weight last 48 hrs Weight 98.475 kg Physical Exam Narrative: Clinically patient is euvolemic Currently doing well on room air No active chest pain S1, S2 Bilateral breath sounds No active rhonchi or crackles Abdomen soft, bowel sound present Passing flatus Nonfocal neuro exam EOMI, PERRLA Surgical scar without any signs of cellulitis Chest tube serosanguineous drainage noted Urinary Catheter Management: Tucker: Cath Placed During This Visit: yes, but has since been removed by the nurse Reason for Continuing Indwelling Catheter: Accurate Measurement of Urinary Output in Critically Ill Patients Urinary Catheter Date of Insertion: 09/22/21 Urinary Catheter Time of Insertion: 11:30 Date Urinary Catheter Removed: 09/20/21 Time Urinary Catheter Discontinued: 14:15 Data : 09/27/21 04:51 09/27/21 04:51 A&P Assessment and plan (1) Status post aorto-coronary artery bypass graft: Status: Acute (2) Left main coronary artery disease: Status: Acute (3) Third degree atrioventricular block: Status: Acute (4) NSTEMI (non-ST elevated myocardial infarction): Status: Acute (5) Lactic acidosis: Status: Acute (6) Acute respiratory failure with hypoxemia: Status: Acute (7) COVID-19: Status: Acute (8) Bifascicular block: Status: Acute (9) Diabetes mellitus: Status: Acute Qualifiers: Diabetes mellitus type: type 2 Diabetes mellitus veterinary practitioner insulin use: without veterinary practitioner use Diabetes mellitus complication status: without complication Qualified Code(s): E11.9 - Type 2 diabetes mellitus without complications (10) Borderline hyperlipidemia: Status: Acute Plan CABG postop day 5 Plan for removal of chest tube today as per Dr. Torres Low-dose Lasix today given 09/27 2 AM Negative fluid balance Clinically patient looks euvolemic Currently he is on room air No active chest pain Pain around surgical scar Hemodynamically stable Afebrile Leukocytosis most likely secondary to use of Decadron Continue aspirin, metoprolol, atorvastatin, Plavix, lisinopril has not been initiated Follow-up with cardiology COVID-19 related hypoxia, resolved Currently on room air Continue Decadron Patient lives alone, he stating that his 2 daughters are planning to assist him now, he does not want to go to any skilled nursing, plan to transfer him out of ICU to [facility], PT evaluation afterwards Constipation: Passing flatus, no bowel movement, currently on Doc senna Full code GI soft diet Attestations Medical Necessity Statement*: Continue ICU management, plan to transfer him out after removal of chest tube by Dr. Torres Time Spent in Patient Care: 20min Coding Level of Care Code Acute Datastage Architect for g Fwd Diagnoses Status post aorto-coronary artery bypass graft Z95.1 Left main coronary artery disease I25.10 Third degree atrioventricular block I44.2 NSTEMI (non-ST elevated myocardial infarction) I21.4 Lactic acidosis E87.2 Acute respiratory failure with hypoxemia J96.01 COVID-19 U07.1 Bifascicular block I45.2 Diabetes mellitus E11.9 Diabetes mellitus type: type 2 Diabetes mellitus veterinary practitioner insulin use: without veterinary practitioner use Diabetes mellitus complication status: without complication Borderline hyperlipidemia E78.5
[2021-09-27 11:42] LABS: Glucose Point of Care 206 mg/dL (70-110)
[2021-09-27] MEDS: insulin lispro 100 unit/1 mL SUBCUT ×3 (11:43→22:26)
--- NOTE | 2021-09-27 14:40 | PC.NURSE ---
Dr. Shea at bedside, removed Chest tubes, Foly and pacer wires
--- NOTE | 2021-09-27 15:51 | PC.NURSE ---
patient tolerated ambulating with PT well
[2021-09-27 17:27] LABS: Glucose Point of Care 231 mg/dL (70-110)
[2021-09-27] MEDS: chlorhexidine gluconate 0.12% Btl 473 mL 15 ML MUCOUS MEM (18:09)
--- NOTE | 2021-09-27 18:52 | PM.PN ---
Subjective Subjective: No event on telemetry. Chest tubes to be removed today. Vitals/I&O/Wt Last Vital Signs Temp 98.9 F 09/27/21 04:00 Pulse 63 09/27/21 14:30 Resp 20 H 09/27/21 14:30 BP 169/76 09/27/21 14:30 Pulse Ox 96 09/27/21 14:30 09/27/21 09/27/21 09/27/21 06:59 14:59 22:59 Intake Total 500 / 1250 250 / 250 Output Total 1945 / 2645 Balance -1445 / -1395 250 / 250 Weight last 48 hrs Weight 217 lb 1.6 oz Physical Exam Narrative: General: Patient? complains of some pleuritic chest pain Neck: No JVD chest: Midline sternotomy incision dressed.? Chest tubes in place RS: Bibasilar crales+, no wheezes or rales CVS: S1, S2, grade 2/6 left sternal border murmur present, no rubs. Ext:?trace b/l? edema TOY TRAINS AND ACCESSORIES SALESPERSON: Awake alert oriented x3 Urinary Catheter Management: Tucker: Cath Placed During This Visit: yes, but has since been removed by the nurse Reason for Continuing Indwelling Catheter: Accurate Measurement of Urinary Output in Critically Ill Patients Urinary Catheter Date of Insertion: 09/22/21 Urinary Catheter Time of Insertion: 11:30 Date Urinary Catheter Removed: 09/20/21 Time Urinary Catheter Discontinued: 14:15 Data : 09/27/21 04:51 09/27/21 04:51 A&P Assessment and plan (1) Status post aorto-coronary artery bypass graft: ?#Postop day 5 -s/p coronary artery bypass grafting x2 (1 artery and 1 vein) utilizing in situ left internal mammary artery to left anterior descending artery and reverse saphenous vein graft from the aorta to the obtuse marginal branch of the circumflex artery. -Aspirin and statin restarted -low dose metoprolol added. Has not needed pacing so far. Recommend starting on Plavix 75 mg once patient is cleared from surgical standpoint -In case or recurrence of atrial fibrillation, may need to do start on PO amiodarone. Postop care as per Dr. Torres. Status: Acute (2) NSTEMI (non-ST elevated myocardial infarction): Status: Acute (3) Left main coronary artery disease: Status: Acute (4) Third degree atrioventricular block: Third-degree AV block with history of bifascicular block -Patient has not needed any pacing. -continue to monitor. Status: Acute Plan Ischemic cardiomyopathy: LVEF 35 to 40%, will add NITIN inhibitor in a day or 2. Post op atrial fibrillation Fluid overaload : recieved lasix 20 mg IV x 1 this morning Postop blood loss anemia s/p 1 unit of packed red blood cells Recent COVID-19 pneumonia Diabetes mellitus Hyperlipidemia Moderate AI Attestations Medical Necessity Statement*: Needs hospital stay post CABG Coding Level of Care Code Acute Wine Cellar Stock Clerk for g Fwd Diagnoses Status post aorto-coronary artery bypass graft Z95.1 NSTEMI (non-ST elevated myocardial infarction) I21.4 Left main coronary artery disease I25.10 Third degree atrioventricular block I44.2
--- NOTE | 2021-09-27 19:07 | PC.NURSE ---
REceived patient juliano Damon RN in the ICU. Transferred to room 267 via wheel chair. VItals within normal limits. Transfer was uneventful.
--- NOTE | 2021-09-27 19:28 | PC.NURSE ---
Shift SUmmary: Uneventful shift. Patient was transferred to [facility] department at approximately 1700.Patient has rested in bed since. No complaints. Received medications as ordered.
--- NOTE | 2021-09-27 22:09 | PC.NURSE ---
Pt has swelling and firm bruising the length of his medial right thigh.
[2021-09-27] MEDS: atorvastatin 40 mg Tablet 80 MG PO (22:26)
[2021-09-28] VITALS (11 sets, daily range): BP systolic 130–161; BP diastolic 67–80; PULSE 49–75; RESP 16–20; TEMP 36.3–37; O2SAT 94–96
--- NOTE | 2021-09-28 00:49 | PC.NURSE ---
During 2200 rounding, large firm bruise noted on pt's right abdomen. Large bruise on right upper, medial arm.
[2021-09-28 03:24] LABS: Basophils % 0.2 %; Hematocrit 28.5 % (42.0-52.0); Hemoglobin 9.6 g/dL (11.7-16.6); Lymphocytes # 1.4 10^3/uL (0.8-4.8); Lymphocytes % 10.6 %; Mean Corpuscular HGB Conc 33.7 g/dL (30.0-36.0); Mean Corpuscular Hemoglobin 32.8 pg (28.0-34.0); Mean Corpuscular Volume 97.3 fl (80-94); Mean Platelet Volume 11.6 fL (7.4-10.4); Monocytes % 7.6 %; Neutrophils # 9.76 10^3/uL (1.8-7.7); Neutrophils % 75.8 %; Nucleated Red Blood Cells # 0.1 /100WBC; Nucleated Red Blood Cells % 0.7 %; Platelet Count 164 10^3/cmm (130-400); Red Blood Count 2.93 10^6/uL (4.1-5.3); Red Cell Distribution Width 15.4 % (12.1-15.1); White Blood Count 12.9 10^3/uL (4.0-10.0)
[2021-09-28 03:45] LABS: Anion Gap 13.3 (5-19); Blood Urea Nitrogen 28 mg/dL (8-23); Calcium 7.5 mg/dL (8.5-10.5); Carbon Dioxide 24 mmol/L (22-29); Chloride 104 mmol/L (98-107); Glucose 132 mg/dL (65-115); Osmolality Calculated 291 mOsm/kg (285-295); Potassium 4.3 mmol/L (3.5-5.1); Slide Review Slide Review Perform; Sodium 137 mmol/L (136-145)
--- NOTE | 2021-09-28 06:00 | XRR_ITS ---
PROCEDURE INFORMATION: Exam: XR Chest Exam date and time: 09/28/2021 6:00 AM Age: 76 years old Clinical indication: Prior surgery; Surgery date: 3-7 days post-operative; Patient HX: F/u post op cabg; Additional info: Covid-19, hypoxia, TECHNIQUE: Imaging protocol: XR of the chest. Views: 1 view. COMPARISON: CR (CHEST, ) 09/27/2021 12:56 AM FINDINGS: Tubes, catheters and devices: Interval disappearance of the left chest tube and the mediastinal drains. Lungs: Continued atelectasis/scar in the lateral left lung base and slightly increased markings in both lungs. Interval decrease in the slight stranding in the lateral right mid lung. Small focus of fluid in the minor fissure still not differentiated from atelectasis/scar along it. No interval consolidation. Pleural spaces: Probable interval decrease in the left pneumothorax to less than 1%. Less than 1% pneumothorax in the right apex also possible suggesting interval improvement. No interval large pleural effusion. Heart/Mediastinum: Continued cardiomegaly and evidence of CABG. Vasculature: Continued aortic elongation. Bones/joints: Median sternotomy again evident. No suggestion of acute bony disease. XR/XR chest 1V portable [id number] IMPRESSION: 1. Interval disappearance of the left chest tube and mediastinal drains. Tiny bilateral apical pneumothoraces likely representing interval improvement. 2. No change in the cardiomegaly or most of the lung densities, but interval decrease in the stranding in the lateral right mid lung.
[2021-09-28 07:50] LABS: Glucose Point of Care 227 mg/dL (70-110)
--- NOTE | 2021-09-28 08:35 | PC.SOCIAL ---
IMM Update Pg. 2 of IMM updated and reviewed with patient, who verbalized understanding. Copy provided.
[2021-09-28] MEDS: oxyCODONE-APAP 5-325 mg Tablet PO (08:43)
[2021-09-28] MEDS: aspirin 81 mg EC Tablet PO (08:43)
[2021-09-28] MEDS: metoprolol succinate ER (24 HR) 25 mg Tablet 12.5 MG PO (08:43)
[2021-09-28] MEDS: sennosides-docusate Tablet 1 TAB PO (08:43)
[2021-09-28] MEDS: dexamethasone 4 mg Tablet 6 MG PO (08:44)
--- NOTE | 2021-09-28 09:05 | P.PN_ITS ---
Subjective Subjective: Patient is doing well. Denies any complaints of chest pain, shortness of breath or palpitations. Was working with physical therapy. Vitals/I&O/Wt Last Vital Signs Temp 97.5 F L 09/28/21 08:00 Pulse 67 09/28/21 08:00 Resp 20 H 09/28/21 08:43 BP 161/74 09/28/21 08:00 Pulse Ox 96 09/28/21 08:43 09/27/21 09/28/21 09/28/21 22:59 06:59 14:59 Intake Total 300 / 550 480 / 480 Output Total 725 / 725 Balance 300 / 550 -725 / -175 480 / 480 Weight last 48 hrs Weight 203 lb 14.4 oz Physical Exam Narrative: General: Patient is alert and oriented x3 Neck: No JVD chest: Midline sternotomy incision dressed.? Chest tubes in place RS: Mild rales CVS: S1, S2, grade 2/6 left sternal border murmur present Ext:?1+ bilateral edema C WEB DEVELOPER: Awake alert oriented x3 Urinary Catheter Management: Tucker: Cath Placed During This Visit: yes, but has since been removed by the nurse Reason for Continuing Indwelling Catheter: Accurate Measurement of Urinary Output in Critically Ill Patients Urinary Catheter Date of Insertion: 09/22/21 Urinary Catheter Time of Insertion: 11:30 Date Urinary Catheter Removed: 09/20/21 Time Urinary Catheter Discontinued: 14:15 Data : 09/29/21 05:13 09/29/21 05:13 A&P Assessment and plan (1) Status post aorto-coronary artery bypass graft: ?#Postop day 6 -s/p coronary artery bypass grafting x2 (1 artery and 1 vein) utilizing in situ left internal mammary artery to left anterior descending artery and reverse saphenous vein graft from the aorta to the obtuse marginal branch of the circumflex artery. -Aspirin and Plavix Continue metoprolol Postop care as per Dr. Torres. Status: Acute (2) NSTEMI (non-ST elevated myocardial infarction): Status: Acute (3) Left main coronary artery disease: Status: Acute (4) Third degree atrioventricular block: Third-degree AV block with history of bifascicular block -Patient has not needed any pacing. -continue to monitor. Status: Acute Plan Ischemic cardiomyopathy: LVEF 35 to 40%, can add NITIN inhibitor Post op atrial fibrillation Postop blood loss anemia s/p 1 unit of packed red blood cells Recent COVID-19 pneumonia Diabetes mellitus Hyperlipidemia Moderate AI Attestations Medical Necessity Statement*: Care expected to cross 2 midnights Coding Level of Care Code Acute Environmental Studies Faculty Member for Velma Fwtrista Diagnoses Status post aorto-coronary artery bypass graft Z95.1 NSTEMI (non-ST elevated myocardial infarction) I21.4 Left main coronary artery disease I25.10 Third degree atrioventricular block I44.2
[2021-09-28 11:18] LABS: Glucose Point of Care 248 mg/dL (70-110)
--- NOTE | 2021-09-28 11:34 | PM.PN ---
Subjective Subjective: This morning patient was in good spirits No active complaints of chest discomfort 10/27 which is around surgical site He had 1 bowel movement yesterday No abdominal pain Saturating well on room air Plan to send him home next week with home health services No overnight events Afebrile Good p.o. intake Tolerating his diet Advance to cardiac Vitals/I&O/Wt Last Vital Signs Temp 97.5 F L 09/28/21 08:00 Pulse 67 09/28/21 08:00 Resp 20 H 09/28/21 08:43 BP 161/74 09/28/21 08:00 Pulse Ox 96 09/28/21 08:43 09/27/21 09/28/21 09/28/21 22:59 06:59 14:59 Intake Total 300 / 550 960 / 960 Output Total 725 / 725 300 / 300 Balance 300 / 550 -725 / -175 660 / 660 Weight last 48 hrs Weight 92.487 kg Physical Exam Narrative: Patient laying supine without any active discomfort Saturating well on room air Surgical site without any signs of infection Chest tubes have been removed Pacemaker removed Soft abdomen Bilateral breast without adventitious rhonchi or crackles Does not look fluid overloaded Looks euvolemic In good spirits Nonfocal neuro exam Urinary Catheter Management: Tucker: Cath Placed During This Visit: yes, but has since been removed by the nurse Reason for Continuing Indwelling Catheter: Accurate Measurement of Urinary Output in Critically Ill Patients Urinary Catheter Date of Insertion: 09/22/21 Urinary Catheter Time of Insertion: 11:30 Date Urinary Catheter Removed: 09/20/21 Time Urinary Catheter Discontinued: 14:15 Data : 09/28/21 02:32 09/28/21 02:32 A&P Assessment and plan (1) Status post aorto-coronary artery bypass graft: Status: Acute (2) Left main coronary artery disease: Status: Acute (3) NSTEMI (non-ST elevated myocardial infarction): Status: Acute (4) Lactic acidosis: Status: Acute (5) Acute respiratory failure with hypoxemia: Status: Acute (6) COVID-19: Status: Acute (7) Bifascicular block: Status: Acute (8) Diabetes mellitus: Status: Acute Qualifiers: Diabetes mellitus type: type 2 Diabetes mellitus snf insulin use: without exterminator helper termite use Diabetes mellitus complication status: without complication Qualified Code(s): E11.9 - Type 2 diabetes mellitus without complications (9) Borderline hyperlipidemia: Status: Acute Plan Postop day 6 CABG Chest tubes, pacemaker removed Hemodynamically stable Heart rate around 60s Currently on metoprolol once daily regimen I will go ahead and start Plavix and low-dose lisinopril along aspirin, statin We will follow up with Dr. Sheikh's recommendation Constipation: Resolved COVID-19: Currently on room air, off isolation, Hypertensive urgency: Optimize antihypertensive regimen Plan to send him home with home health services likely in next 48 hours To work with PT today Attestations Medical Necessity Statement*: =discharge home in next 48 hours Time Spent in Patient Care: 20min Coding Level of Care Code Acute Mine Exploration Engineer for Chg Fwd Diagnoses Status post aorto-coronary artery bypass graft Z95.1 Left main coronary artery disease I25.10 NSTEMI (non-ST elevated myocardial infarction) I21.4 Lactic acidosis E87.2 Acute respiratory failure with hypoxemia J96.01 COVID-19 U07.1 Bifascicular block I45.2 Diabetes mellitus E11.9 Diabetes mellitus type: type 2 Diabetes mellitus snf insulin use: without exterminator helper termite use Diabetes mellitus complication status: without complication Borderline hyperlipidemia E78.5
[2021-09-28 12:08] LABS: Estmated Average Glucose 134; Hemoglobin A1C 6.3 % (4.0-6.0)
[2021-09-28] MEDS: insulin lispro 100 unit/1 mL SUBCUT ×3 (13:15→20:36)
[2021-09-28 18:16] LABS: Glucose Point of Care 230 mg/dL (70-110)
[2021-09-28 20:19] LABS: Glucose Point of Care 286 mg/dL (70-110)
[2021-09-28] MEDS: atorvastatin 40 mg Tablet 80 MG PO (20:36)
--- NOTE | 2021-09-28 23:09 | PC.NURSE ---
Addendum entered by Courtney Morrow RN 09/29/21 06:25: Patients HR continues to remain marquita and gradually lowering. Remains asymptomatic. See Chart for HR Addendum entered by Courtney Morrow RN 09/29/21 04:09: Physician notified of bradycardia at onset and ordered to monitor patient throughout night. Patient remains asymptomatic. Original Note: Patient HR bradycardic, assessed patient he was deep asleep and HR recovered WNL once awake.
[2021-09-29] VITALS (14 sets, daily range): BP systolic 112–144; BP diastolic 62–76; PULSE 47–80; RESP 16–22; TEMP 36.6–36.9; O2SAT 94–96
[2021-09-29] MEDS: oxyCODONE-APAP 5-325 mg Tablet PO ×3 (03:07→18:04)
[2021-09-29 05:51] LABS: Basophils % 0.2 %; Hematocrit 29.2 % (42.0-52.0); Hemoglobin 9.7 g/dL (11.7-16.6); Lymphocytes # 1.8 10^3/uL (0.8-4.8); Lymphocytes % 14.4 %; Mean Corpuscular HGB Conc 33.2 g/dL (30.0-36.0); Mean Corpuscular Hemoglobin 33.4 pg (28.0-34.0); Mean Corpuscular Volume 100.7 fl (80-94); Mean Platelet Volume 11.5 fL (7.4-10.4); Monocytes # 0.9 10^3/uL (0.2-0.9); Monocytes % 7.5 %; Neutrophils # 8.86 10^3/uL (1.8-7.7); Neutrophils % 71.9 %; Nucleated Red Blood Cells # 0.2 /100WBC; Nucleated Red Blood Cells % 1.3 %; Platelet Count 192 10^3/cmm (130-400); Red Cell Distribution Width 15.7 % (12.1-15.1); White Blood Count 12.3 10^3/uL (4.0-10.0)
[2021-09-29 06:11] LABS: Anion Gap 13.3 (5-19); Blood Urea Nitrogen 24 mg/dL (8-23); Calcium 8.2 mg/dL (8.5-10.5); Carbon Dioxide 23 mmol/L (22-29); Chloride 103 mmol/L (98-107); Glucose 156 mg/dL (65-115); Osmolality Calculated 287 mOsm/kg (285-295); Potassium 4.3 mmol/L (3.5-5.1); Sodium 135 mmol/L (136-145)
[2021-09-29 06:17] LABS: Slide Review Slide Review Perform
[2021-09-29 07:51] LABS: Glucose Point of Care 156 mg/dL (70-110)
[2021-09-29] MEDS: clopidogrel 75 mg Tablet PO (08:14)
[2021-09-29] MEDS: aspirin 81 mg EC Tablet PO (08:14)
[2021-09-29] MEDS: insulin lispro 100 unit/1 mL SUBCUT ×4 (08:14→21:00)
[2021-09-29] MEDS: sennosides-docusate Tablet 1 TAB PO (08:14)
--- NOTE | 2021-09-29 08:22 | ECG_ITS ---
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 Measurements Intervals [place] Rate: 53 P: -82 TX: 115 QRS: -52 QRSD: 108 T: -35 QT: 482 QTc: 453 Interpretive Statements SINUS BRADYCARDIA LEFT AXIS DEVIATION [QRS AXIS < -30] INCOMPLETE RIGHT BUNDLE BRANCH BLOCK [90+ ms QRS DURATION, TERMINAL R IN V1/V2, 40+ ms S IN I/aVL/V4/V5/V6] VOLTAGE CRITERIA FOR LVH [MEETS CRITERIA IN ONE OF: R(aVL), S(V1), R(V5), R(V5/V6)+S(V1)] POSSIBLE ANTERIOR MYOCARDIAL INFARCTION , OF INDETERMINATE AGE [30 ms Q WAVE IN V3/V4, OR R < 0.2 mV IN V4] ST DEVIATION AND MODERATE T-WAVE ABNORMALITY, CONSIDER LATERAL ISCHEMIA [-0.1+ mV T WAVE IN I/aVL/V5/V6] Compared to ECG 09/26/2021 13:21:28 Myocardial infarct finding now present Sinus bradycardia no longer present T-wave abnormality still present Possible ischemia still present Electronically Signed On 09-29-2021 15:41:52 CDT by Jerome Sheikh M.D. [id number]
[2021-09-29] MEDS: morphine 4 mg/mL SDV 1 mL 2 MG IVP ×3 (09:09→23:04)
--- NOTE | 2021-09-29 09:10 | PM.PN ---
Subjective Subjective: Patient has been having chest pain symptoms that are reproducible. Vitals/I&O/Wt Last Vital Signs Temp 97.9 F 09/29/21 07:21 Pulse 47 L 09/29/21 07:21 Resp 18 09/29/21 07:21 BP 134/72 09/29/21 07:21 Pulse Ox 94 09/29/21 07:21 09/28/21 09/29/21 09/29/21 21:59 06:59 14:59 Intake Total 360 / 360 Balance 360 / 360 Weight last 48 hrs Weight 204 lb 9.6 oz Weight 203 lb 14.4 oz Physical Exam Narrative: General: Patient is alert and oriented x3 Neck: No JVD chest: Midline sternotomy incision dressed.? Chest tubes in place RS: Mild rales CVS: S1, S2, grade 2/6 left sternal border murmur present Ext:?1+ bilateral edema MANAGER MATERIALS MANAGEMENT: Awake alert oriented x3 Urinary Catheter Management: Tucker: Cath Placed During This Visit: yes, but has since been removed by the nurse Reason for Continuing Indwelling Catheter: Accurate Measurement of Urinary Output in Critically Ill Patients Urinary Catheter Date of Insertion: 09/22/21 Urinary Catheter Time of Insertion: 11:30 Date Urinary Catheter Removed: 09/20/21 Time Urinary Catheter Discontinued: 14:15 Data : 09/30/21 02:10 09/30/21 02:10 A&P Assessment and plan (1) Status post aorto-coronary artery bypass graft: ?#Postop day 6 -s/p coronary artery bypass grafting x2 (1 artery and 1 vein) utilizing in situ left internal mammary artery to left anterior descending artery and reverse saphenous vein graft from the aorta to the obtuse marginal branch of the circumflex artery. -Aspirin and Plavix Has chest pain. Metoprolol was held secondary to bradycardia. Patient will be started on NITIN inhibitors. Had chest pain symptoms that are atypical. Will recommend trending troponins. Morphine as needed Postop care as per Dr. Torres. Status: Acute (2) NSTEMI (non-ST elevated myocardial infarction): Status: Acute (3) Left main coronary artery disease: Status: Acute (4) Third degree atrioventricular block: Third-degree AV block with history of bifascicular block -Patient has not needed any pacing. -continue to monitor. Status: Acute Plan Ischemic cardiomyopathy: LVEF 35 to 40%, can add NITIN inhibitor Post op atrial fibrillation Postop blood loss anemia s/p 1 unit of packed red blood cells Recent COVID-19 pneumonia Diabetes mellitus Hyperlipidemia Moderate AI Attestations Medical Necessity Statement*: Care expected to cross 2 midnights. Coding Level of Care Code Acute Weaving Instructor for Chg Fwd Diagnoses Status post aorto-coronary artery bypass graft Z95.1 NSTEMI (non-ST elevated myocardial infarction) I21.4 Left main coronary artery disease I25.10 Third degree atrioventricular block I44.2
[2021-09-29 10:02] LABS: Troponin T (5th) Once 435 ng/L (0-15)
--- NOTE | 2021-09-29 10:43 | ECG_ITS ---
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 Measurements Intervals [place] Rate: 57 P: 32 W[place]: 185 QRS: -48 QRSD: 142 T: 56 QT: 499 QTc: 488 Interpretive Statements SINUS BRADYCARDIA INTRAVENTRICULAR CONDUCTION DELAY [130+ ms QRS DURATION] POSSIBLE LATERAL MYOCARDIAL INFARCTION , OF INDETERMINATE AGE [30 ms Q WAVE IN I/aVL/V5/V6] Compared to ECG 09/29/2021 08:28:53 Intraventricular conduction delay now present Left-axis deviation no longer present Incomplete right bundle-branch block no longer present Left ventricular hypertrophy no longer present T-wave abnormality no longer present Possible ischemia no longer present Myocardial infarct finding still present Electronically Signed On 09-29-2021 15:52:22 CDT by Jerome Sheikh M.D. [id number]
[2021-09-29 11:00] LABS: Glucose Point of Care 196 mg/dL (70-110)
[2021-09-29 11:36] LABS: Troponin 5 2HR Delta -2.8 ABS# (0-10)
[2021-09-29 11:37] LABS: Troponin 5 2HR 432.2 ng/L (0-15)
--- NOTE | 2021-09-29 11:38 | P.PN_ITS ---
Subjective Subjective: This morning patient was complaining of chest pain which she described as a pressure-like sensation in midepigastric region, 10/27, he was given morphine, stat troponin was requested, EKG showed T wave inversion anterolateral leads, sinus bradycardia I do not agree with junctional bradycardia computer read Vitals/I&O/Wt Last Vital Signs Temp 98.5 F 09/29/21 11:37 Pulse 55 L 09/29/21 11:37 Resp 18 09/29/21 11:37 BP 112/62 09/29/21 11:37 Pulse Ox 96 09/29/21 11:37 09/28/21 09/29/21 09/29/21 21:59 06:59 14:59 Intake Total 360 / 360 Balance 360 / 360 Weight last 48 hrs Weight 92.805 kg Weight 92.487 kg Physical Exam Narrative: Patient was laying comfortably in his bed Daughter at the bedside S1, S2 sinus bradycardia Hemodynamically stable Appropriate mood and affect Nonfocal neuro exam Saturating well on room air Abdomen is soft No signs of hyper ventilation No signs of fluid overload Urinary Catheter Management: Tucker: Cath Placed During This Visit: yes, but has since been removed by the nurse Reason for Continuing Indwelling Catheter: Accurate Measurement of Urinary Output in Critically Ill Patients Urinary Catheter Date of Insertion: 09/22/21 Urinary Catheter Time of Insertion: 11:30 Date Urinary Catheter Removed: 09/20/21 Time Urinary Catheter Discontinued: 14:15 Data : 09/29/21 05:13 09/29/21 05:13 A&P Assessment and plan (1) Status post aorto-coronary artery bypass graft: Status: Acute (2) Left main coronary artery disease: Status: Acute (3) NSTEMI (non-ST elevated myocardial infarction): Status: Acute (4) Acute respiratory failure with hypoxemia: Status: Acute (5) COVID-19: Status: Acute (6) Bifascicular block: Status: Acute (7) Sinus bradycardia: Status: Acute Plan Status post CABG postop Pressure-like chest discomfort, serial troponin and EKG Given morphine Pain is also reproducible Monitor for post infarction syndrome? Dr. Sheikh notified No active signs of fluid overload Constipation relieved Patient is euvolemic now COVID-19: Continue Decadron, currently on room air Plan is to discharge him tomorrow with home health services Daughter at the bedside All questions were answered to their satisfaction Patient is able to walk down the [place] without any complaints Sinus bradycardia: Discontinue metoprolol No active need/indication for pacemaker Might need outpatient evaluation, cardiology is aware Attestations Medical Necessity Statement*: lucy gonzalez Time Spent in Patient Care: 20mins Coding Level of Care Code Acute Nutrition Program Instructor for Chg Fwd Diagnoses Status post aorto-coronary artery bypass graft Z95.1 Left main coronary artery disease I25.10 NSTEMI (non-ST elevated myocardial infarction) I21.4 Acute respiratory failure with hypoxemia J96.01 COVID-19 U07.1 Bifascicular block I45.2 Sinus bradycardia R00.1
--- NOTE | 2021-09-29 12:33 | PC.OT ---
OT tx attempted at 8:19AM. RN reported he was fixing to get EEG and to hold this AM. Attempted at 12:30, but pt declined due to weakness/fatigue.
[2021-09-29 12:34] LABS: Thyroid Stimulating Hormone 2.41 uIU/mL (0.27-4.20)
--- NOTE | 2021-09-29 12:43 | PC.OT ---
OT tx attempted at 11:54 and 12:35 but pt unavailable at these times. Will attempt tx tomorrow.
--- NOTE | 2021-09-29 14:43 | ECG_ITS ---
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 Measurements Intervals [place] Rate: 57 P: -72 [place]: 172 QRS: -52 QRSD: 109 T: -35 QT: 455 QTc: 445 Interpretive Statements SINUS BRADYCARDIA LEFT AXIS DEVIATION [QRS AXIS < -30] RIGHT BUNDLE BRANCH BLOCK [120+ ms QRS DURATION, UPRIGHT V1, 40+ ms S IN I/aVL/V4/V5/V6] VOLTAGE CRITERIA FOR LVH [MEETS CRITERIA IN ONE OF: R(aVL), S(V1), R(V5), R(V5/V6)+S(V1)] POSSIBLE ANTERIOR MYOCARDIAL INFARCTION , OF INDETERMINATE AGE [30 ms Q WAVE IN V3/V4, OR R < 0.2 mV IN V4] ST DEPRESSION, CONSIDER SUBENDOCARDIAL INJURY [0.1+ mV ST DEPRESSION] Compared to ECG 09/29/2021 10:15:15 Bradycardia, nonsinus now present Left-axis deviation now present Right bundle-branch block now present Left ventricular hypertrophy now present Electronically Signed On 09-29-2021 15:51:15 CDT by Jerome Sheikh M.D. [id number]
[2021-09-29 15:50] LABS: Troponin 5 6HR 484.2 ng/L (0-15); Troponin 5 6HR Delta 49.2 ng/L (0-12)
[2021-09-29 16:57] LABS: Glucose Point of Care 199 mg/dL (70-110)
[2021-09-29] MEDS: atorvastatin 40 mg Tablet 80 MG PO (20:19)
[2021-09-29 20:48] LABS: Glucose Point of Care 210 mg/dL (70-110)
[2021-09-30] VITALS (9 sets, daily range): BP systolic 116–132; BP diastolic 64–83; PULSE 59–83; RESP 16–18; TEMP 36.4–36.8; O2SAT 92–98; BMI 28.5
[2021-09-30] MEDS: oxyCODONE-APAP 5-325 mg Tablet PO ×2 (00:20→06:38)
[2021-09-30 03:08] LABS: Basophils # 0.1 10^3/uL (0.0-0.1); Basophils % 0.6 %; Eosinophils # 0.1 10^3/uL (0.0-0.8); Eosinophils % 0.5 %; Hematocrit 33.5 % (42.0-52.0); Hemoglobin 11.1 g/dL (11.7-16.6); Lymphocytes # 2.8 10^3/uL (0.8-4.8); Lymphocytes % 20.7 %; Mean Corpuscular HGB Conc 33.1 g/dL (30.0-36.0); Mean Corpuscular Hemoglobin 33.3 pg (28.0-34.0); Mean Corpuscular Volume 100.6 fl (80-94); Mean Platelet Volume 11.7 fL (7.4-10.4); Monocytes # 0.9 10^3/uL (0.2-0.9); Monocytes % 6.4 %; Neutrophils # 8.99 10^3/uL (1.8-7.7); Neutrophils % 65.9 %; Nucleated Red Blood Cells # 0.1 /100WBC; Nucleated Red Blood Cells % 0.7 %; Platelet Count 212 10^3/cmm (130-400); Red Blood Count 3.33 10^6/uL (4.1-5.3); White Blood Count 13.7 10^3/uL (4.0-10.0)
[2021-09-30 03:35] LABS: Anion Gap 15.2 (5-19); Blood Urea Nitrogen 23 mg/dL (8-23); Calcium 8.3 mg/dL (8.5-10.5); Carbon Dioxide 23 mmol/L (22-29); Chloride 103 mmol/L (98-107); Glucose 163 mg/dL (65-115); Osmolality Calculated 291 mOsm/kg (285-295); Potassium 4.2 mmol/L (3.5-5.1); Sodium 137 mmol/L (136-145)
[2021-09-30 03:44] LABS: Slide Review Slide Review Perform
[2021-09-30 07:02] LABS: Glucose Point of Care 129 mg/dL (70-110)
--- NOTE | 2021-09-30 07:23 | P.PN_ITS ---
Subjective Subjective: POD #8 status post CABG x2. Denies chest pain this morning. Stated to me that he felt that his discomfort was related to the sternotomy and from activity yesterday. Lab data noted. Vitals/I&O/Wt Last Vital Signs Temp 97.6 F 09/30/21 04:00 Pulse 60 09/30/21 04:00 Resp 18 09/30/21 06:38 BP 130/74 09/30/21 04:00 Pulse Ox 98 09/30/21 04:00 09/29/21 09/30/21 09/30/21 22:59 06:59 14:59 Intake Total 480 / 1080 120 / 1200 Output Total 0 / 0 Balance 480 / 1080 120 / 1200 Weight last 48 hrs Weight 204 lb 9.6 oz Weight 204 lb 9.6 oz Physical Exam Chest: COMMONS NORMALS: normal inspection of the chest and normal palpation of entire chest wall OTHER: Chest wall is stable to palpation. Resp: COMMON NORMALS: normal respiratory effort, No retractions, No use of accessory muscles and clear to auscultation bilaterally AUSCULTATION: clear to auscultation bilaterally Cardio: COMMON NORMALS: regular rate, regular rhythm and S1 normal heart sound present RATE: regular rate RHYTHM: regular rhythm HEART SOUNDS: S1 normal heart sound present GI: COMMON NORMALS: Normal to inspection, nondistended, normoactive bowel sounds present Extremity: COMMON NORMALS: normal to inspection and no clubbing, cyanosis or edema OTHER: Peripheral edema has resolved. Urinary Catheter Management: Tucker: Cath Placed During This Visit: yes, but has since been removed by the nurse Reason for Continuing Indwelling Catheter: Accurate Measurement of Urinary Output in Critically Ill Patients Urinary Catheter Date of Insertion: 09/22/21 Urinary Catheter Time of Insertion: 11:30 Date Urinary Catheter Removed: 09/20/21 Time Urinary Catheter Discontinued: 14:15 Data : 09/30/21 02:10 09/30/21 02:10 A&P Assessment and plan (1) Status post aorto-coronary artery bypass graft: POD #8 status post CABG x2 Clear for discharge from cardiac surgical standpoint. They follow-up with [facility] in my clinic in 1 week. Greatly appreciate expertise and oversight of hospitalist colleagues. Status: Acute Attestations Medical Necessity Statement*: POD #8 status post CABG x2/Covid pneumonia Coding Level of Care Code Acute Tow Bar Driver for Velma Fwd Diagnoses Status post aorto-coronary artery bypass graft Z95.1
[2021-09-30] MEDS: chlorhexidine gluconate 0.12% Btl 473 mL 15 ML MUCOUS MEM (08:43)
[2021-09-30] MEDS: aspirin 81 mg EC Tablet PO (08:43)
[2021-09-30] MEDS: clopidogrel 75 mg Tablet PO (08:43)
[2021-09-30] MEDS: lisinopril 10 mg Tablet PO (08:43)
[2021-09-30] MEDS: docusate sodium 100 mg Capsule PO (08:43)
[2021-09-30] MEDS: chlorhexidine gluconate 4% Btl 118 mL 1 APPLIC TOPICAL (09:23)
--- NOTE | 2021-09-30 09:35 | PM.DCS ---
Discharge Providers Date of Admission: 09/19/21 04:36 Date of Discharge: September 30, 2021 Attending Provider at Admission: Raad Garcia DO Attending Provider at Discharge: Mrelyn Bryant MD Primary Care Provider: Yolanda Yi MD Diagnoses at Discharge Discharge Diagnosis (1) Status post aorto-coronary artery bypass graft: Status: Acute Reason for Visit Reason for Visit: Covid Symptoms Hospital Course Hospital Course 76-year-old male who was admitted for management of NSTEMI on 09/19. Sinus pauses up to 9 seconds were noted, temporary pacemaker was placed in right femoral vein, coronary angiogram revealed critical stenosis of LAD 80 to 90%, he was referred for urgent revascularization. Status post CABG 09/22. Coronary artery bypass grafting x2 (1 artery and 1 vein) utilizing in situ left internal mammary artery to left anterior descending artery and reverse saphenous vein graft from the aorta to the obtuse marginal branch of the circumflex artery. 2.? Endoscopic saphenous vein harvesting of the right greater saphenous vein He was extubated & intra-aortic balloon pump was removed on 09/23. Postoperatively he was given 1 unit PRBC and albumin for his hypotension. He was diuresed intermittently with IV Lasix which improved his volume overloaded status and mild from edema. Patient's heart rate was fluctuating between 50 to 60s hence metoprolol was discontinued. Chest tubes and pacemaker removed by Dr. Torres. He remained hemodynamically stable. He went into A. fib RVR for about a few minutes which was treated with IV AV rika blocking agent. After that single episode he remained in sinus rhythm. 09/29 he experienced chest pain, serial troponin and EKG were done, his troponins are most likely post CABG EKG without significant ischemic or infarctive changes. T wave inversions noted in anterolateral leads cardiology recommended to manage medically for now. His pain was secondary to sternotomy scar. At the time of discharge she will get aspirin, Plavix, atorvastatin, metoprolol is on hold until he is evaluated by cardiothoracic and cardiology. Plan has been discussed with Dr. Sheikh. He is not requiring oxygen Able to ambulate on his own, daughter at the bedside All questions were answered Meds to beds arranged We will give him bowel regimen and oxycodone. Physical Exam Narrative: Patient laying supine without any active discomfort Saturating well on room air Surgical site without any signs of infection Chest tubes have been removed Pacemaker removed Soft abdomen Bilateral breast without adventitious rhonchi or crackles Does not look fluid overloaded Looks euvolemic In good spirits Nonfocal neuro exam Urinary Catheter Management: Tucker: Cath Placed During This Visit: yes, but has since been removed by the nurse Reason for Continuing Indwelling Catheter: Accurate Measurement of Urinary Output in Critically Ill Patients Urinary Catheter Date of Insertion: 09/22/21 Urinary Catheter Time of Insertion: 11:30 Date Urinary Catheter Removed: 09/20/21 Time Urinary Catheter Discontinued: 14:15 Discharge Data Studies Completed and Pending Completed Studies During Hospitalization Category Date Time Status CT chest abd pel w con* Routine Cat Scan 09/20/21 02:47 Completed SPEECH CORRECTION ASSISTANT request for service Routine Exams 09/20/21 15:07 Completed SPEECH CORRECTION ASSISTANT request for service Routine Exams 09/22/21 07:41 Completed CXRP [XR chest 1V portable [id number]] Stat Exams 09/19/21 03:07 Completed XR chest 1V portable [id number] Routine Exams 09/23/21 00:03 Completed XR chest 1V portable [id number] Routine Exams 09/23/21 06:00 Completed XR chest 1V portable [id number] Routine Exams 09/24/21 06:00 Completed XR chest 1V portable [id number] Routine Exams 09/25/21 06:00 Completed XR chest 1V portable [id number] Routine Exams 09/26/21 06:00 Completed XR chest 1V portable [id number] Routine Exams 09/27/21 00:25 Completed XR chest 1V portable [id number] Routine Exams 09/28/21 06:00 Completed XR chest 1V portable [id number] Stat Exams 09/20/21 01:48 Completed CV. echo complete* [id number] Routine Ultrasound 09/20/21 Completed CV. echo lmt w/w contras [id number] Routine Ultrasound 09/20/21 15:49 Completed Pending at discharge Category Date Time Status ABO/Rh Type Routine Lab 09/22/21 10:05 Results Complete Crossmatch Routine Lab 09/22/21 10:05 Results Leukocyte Reduced RBC Routine Lab 09/22/21 10:05 Results Platelets Leuko-Reduced Routine Lab 09/22/21 10:05 Results Type and Screen Routine Lab 09/22/21 10:05 Results Radiology Impressions Chest/Abdomen/Pelvis CT 09/20/21 02:47 IMPRESSION: 1. Patchy irregular ground-glass opacity seen in the hemithoraces bilaterally compatible with a bilateral interstitial pneumonia. Commonly reported imaging features of COVID-19 pneumonia are present. Other processes such as influenza pneumonia and organizing pneumonia, as can be seen with drug toxicity and connective tissue disease, can cause a similar imaging IMPRESSION: 1. Fatty infiltration of the liver 2. Diverticulosis of the descending and sigmoid colon Chest X-Ray 09/28/21 06:00 IMPRESSION: 1. Interval disappearance of the left chest tube and mediastinal drains. Tiny bilateral apical pneumothoraces likely representing interval improvement. 2. No change in the cardiomegaly or most of the lung densities, but interval decrease in the stranding in the lateral right mid lung. Laboratory Results WBC 13.7 10^3/uL (4.0-10.0) H 09/30/21 02:10 RBC 3.33 10^6/uL (4.1-5.3) L 09/30/21 02:10 Hgb 11.1 g/dL (11.7-16.6) L 09/30/21 02:10 Hct 33.5 % (42.0-52.0) L 09/30/21 02:10 MCV 100.6 fl (80-94) H 09/30/21 02:10 MCH 33.3 pg (28.0-34.0) 09/30/21 02:10 MCHC 33.1 g/dL (30.0-36.0) 09/30/21 02:10 RDW 16.0 % (12.1-15.1) H 09/30/21 02:10 Plt Count 212 10^3/cmm (130-400) 09/30/21 02:10 MPV 11.7 fL (7.4-10.4) H 09/30/21 02:10 Neut % (Auto) 65.9 % 09/30/21 02:10 Lymph % (Auto) 20.7 % 09/30/21 02:10 [place] % (Auto) 6.4 % 09/30/21 02:10 Eos % (Auto) 0.5 % 09/30/21 02:10 Baso % (Auto) 0.6 % 09/30/21 02:10 Neut # (Auto) 8.99 10^3/uL (1.8-7.7) H 09/30/21 02:10 Lymph # (Auto) 2.8 10^3/uL (0.8-4.8) 09/30/21 02:10 [place] # (Auto) 0.9 10^3/uL (0.2-0.9) 09/30/21 02:10 Eos # (Auto) 0.1 10^3/uL (0.0-0.8) 09/30/21 02:10 Baso # (Auto) 0.1 10^3/uL (0.0-0.1) 09/30/21 02:10 Nucleated RBC % (auto) 0.7 % 09/30/21 02:10 Nucleated RBCs # 0.1 /100WBC 09/30/21 02:10 PT 15.90 SECONDS (12.1-14.9) H 09/23/21 07:12 INR 1.23 (0.8-1.2) H 09/23/21 07:12 APTT 33.6 SECONDS (23.9-36.7) 09/23/21 07:12 D-Dimer 0.69 ug/mIFEU (0-0.59) H 09/21/21 02:30 Specimen Type Arterial 09/23/21 03:50 Sample Site Not specified 09/23/21 03:50 ABG pH 7.55 (7.35-7.45) H 09/23/21 03:50 ABG pCO2 28.6 mmHg (35-45) L 09/23/21 03:50 ABG pO2 162.0 mmHg (80.0-100.0) H 09/23/21 03:50 ABG HCO3 25.1 mmol/L (22-26) 09/23/21 03:50 ABG O2 Saturation 100.0 09/23/21 03:50 ABG Base Excess 3.1 mmol/L (-2.0-2.0) H 09/23/21 03:50 Sacha Test Pos 09/23/21 03:50 A-a O2 Gradient 20.0 mmHg (5-10) H 09/23/21 03:50 Hematocrit 28.3 % (42-52) L 09/23/21 03:50 Hgb O2 Saturation 98.2 % (95-100) 09/23/21 03:50 Carboxyhemoglobin 0.7 %THgb (0.4-20.1) 09/23/21 03:50 Methemoglobin 1.0 % (0.4-1.5) 09/23/21 03:50 Total Hemoglobin 9.2 g/dL (14-18) L 09/23/21 03:50 Sodium 141.0 mmol/L (131-143) 09/23/21 03:50 Potassium 3.8 mmol/L (3.5-5.0) 09/23/21 03:50 Glucose 115.0 mg/dL (70-115) 09/23/21 03:50 Ionized Calcium 1.2 mmol/L (1.1-1.4) 09/23/21 03:50 O2 Delivery Device Vent 09/23/21 03:50 O2 Liters/Min 15.0 % 09/20/21 02:00 FiO2 50.0 % 09/23/21 03:50 Tidal Volume 0.60 09/23/21 03:50 PEEP 8.0 cmH20 09/23/21 03:50 Neon Sign Mechanic ID Lay[place] 09/23/21 03:50 Sodium 137 mmol/L (136-145) 09/30/21 02:10 Potassium 4.2 mmol/L (3.5-5.1) 09/30/21 02:10 Chloride 103 mmol/L (98-107) 09/30/21 02:10 Carbon Dioxide 23 mmol/L (22-29) 09/30/21 02:10 Anion Gap 15.2 (5-19) 09/30/21 02:10 BUN 23 mg/dL (8-23) 09/30/21 02:10 Creatinine 0.6 mg/dL (0.7-1.2) L 09/30/21 02:10 GFR Calculation Not Reportable 09/30/21 02:10 Glucose 163 mg/dL (65-115) H 09/30/21 02:10 POC Glucose 129 mg/dL (70-110) H 09/30/21 06:40 Fasting Glucose 151 mg/dL (74-106) H 09/23/21 02:30 Estimat Average Glucose 134 09/28/21 02:32 Hemoglobin A1c 6.3 % (4.0-6.0) H 09/28/21 02:32 Calculated Osmolality 291 mOsm/kg (285-295) 09/30/21 02:10 Lactic Acid 2.3 mmol/L (0.5-2.2) H 09/19/21 05:54 Lactic Acid (Sepsis) 5.0 mmol/L (0.5-2.2) H* 09/19/21 08:07 Lactate 1.5 mmol/L (0.5-2.2) 09/20/21 13:46 Calcium 8.3 mg/dL (8.5-10.5) L 09/30/21 02:10 Phosphorus 5.0 mg/dL (2.5-4.5) H 09/20/21 01:34 Magnesium 2.1 mg/dL (1.7-2.3) 09/27/21 04:51 Total Bilirubin 0.6 mg/dL (0.15-1.2) 09/25/21 03:25 AST 37 U/L (0-40) 09/25/21 03:25 ALT 40 U/L (0-41) 09/25/21 03:25 Alkaline Phosphatase 107 IU/L (40-130) 09/25/21 03:25 Troponin T Gen 5 ng/L 435 ng/L (0-15) H* 09/29/21 09:10 Troponin T 120 Minute 432.2 ng/L (0-15) H 09/29/21 10:59 Delta Troponin T -2.8 ABS# (0-10) L 09/29/21 10:59 Troponin T Hi Sens 6Hr 484.2 ng/L (0-15) H 09/29/21 15:05 Troponin T Hi Sens 6Hr Delta 49.2 ng/L (0-12) H* 09/29/21 15:05 C-Reactive Protein 99.5 mg/L (0.0-4.9) H 09/21/21 02:30 NT-Pro-B Natriuret Pep 682 pg/mL (0-450) H 09/19/21 03:55 Total Protein 5.3 g/dL (6.6-8.7) L 09/25/21 03:25 Albumin 3.0 g/dL (3.5-5.2) L 09/25/21 03:25 Globulin 2.3 g/dL (1.3-4.6) 09/25/21 03:25 Vitamin B12 456 pg/mL (232-1245) 09/19/21 03:55 Folate 15.4 ng/mL (4.5-32.2) 09/19/21 03:55 Procalcitonin 0.18 ng/mL (0-0.5) 09/24/21 04:20 TSH 2.41 uIU/mL (0.27-4.20) 09/29/21 09:10 Free T4 0.95 ng/dL (0.82-1.77) 09/19/21 03:55 Urine Color Yellow (Yellow) 09/20/21 03:15 Urine Appearance Clear (CLEAR) 09/20/21 03:15 Urine pH 5 (5-7) 09/20/21 03:15 Ur Specific [place] 1.025 (1.005-1.030) 09/20/21 03:15 Urine Protein Neg (Negative) 09/20/21 03:15 Urine Glucose (UA) Trace (Normal) H 09/20/21 03:15 Urine Ketones 1+ (Negative) H 09/20/21 03:15 Urine Blood Neg (Negative) 09/20/21 03:15 Urine Nitrate Negative (Negative) 09/20/21 03:15 Urine Bilirubin Neg (Negative) 09/20/21 03:15 Urine Urobilinogen Norm mg/dL (Negative) 09/20/21 03:15 Ur Leukocyte Esterase Negative (Negative) 09/20/21 03:15 Urine RBC 0-4 /hpf (0-2) H 09/20/21 03:15 Urine WBC 0-4 /hpf (0-5) H 09/20/21 03:15 Ur Squamous Epith Cells 0-4 /hpf (0-5) H 09/20/21 03:15 Amorphous Sediment Not Reportable 09/20/21 03:15 Urine Bacteria Trace /hpf (NONE) 09/20/21 03:15 Hyaline Casts 0-4 /lpf H 09/20/21 03:15 Urine Mucus 1+ /hpf 09/20/21 03:15 Serum Ketones Negative (Negative) 09/20/21 01:34 Coronavirus 229E (PCR) Not detected (NOT DETECT) 09/19/21 10:13 Influenza Type A Ag Negative (Negative) 09/19/21 04:25 Influenza Type B Ag Negative (Negative) 09/19/21 04:25 SARS-CoV-2 (PCR) Detected (NOT DETECT) A 09/19/21 10:13 Blood Type A Positive 09/22/21 10:05 Rho(D) Type Positive 09/22/21 10:05 Antibody Screen Negative 09/22/21 10:05 Crossmatch See Detail 09/22/21 10:05 Vitals Last Vital Signs Temp 98.3 F 09/30/21 08:00 Pulse 75 09/30/21 09:10 Resp 17 09/30/21 09:00 BP 132/83 09/30/21 08:00 Pulse Ox 92 09/30/21 09:10 Discharge Plan Discharge Patient Disposition: Home Condition: Stable Prescriptions: New atorvastatin 40 mg Tablet 80 mg PO BEDTIME Qty: 60 4RF Stool Softener-Laxative 8.6-50 mg Tablet 1 tab PO DAILY Qty: 10 0RF clopidogrel 75 mg Tablet 75 mg PO DAILY Qty: 60 4RF oxycodone-acetaminophen 5-325 mg Tablet 1 - 2 tab PO Q6H PRN (Reason: Mild To Moderate Pain) Qty: 10 0RF lisinopril 10 mg Tablet 20 mg PO DAILY Qty: 60 4RF Aspirin Low Dose 81 mg tablet,delayed release (DR/EC) 81 mg PO DAILY Qty: 60 3RF Plavix 75 mg tablet 75 mg PO DAILY Qty: 60 6RF atorvastatin 80 mg tablet 80 mg PO DAILY Qty: 60 4RF lisinopril 20 mg tablet 20 mg PO DAILY Qty: 60 3RF Senna-S 8.6-50 mg tablet 1 tab-cap PO DAILY Qty: 20 0RF Continued metformin 1,000 mg tablet 1,000 mg PO BID 0RF omega-3 fatty acids [Fish Oil Concentrate] 1,000 mg capsule 2,000 mg PO BID 0RF cholecalciferol (vitamin D3) 2 cap PO BID 0RF Vitamin C 500 mg Tablet 500 mg PO BID 0RF zinc 50 mg Tablet 50 mg PO BID 0RF Orthomune Capsules 1 cap PO BID 0RF glipizide 10 mg Tablet 20 mg PO BID 0RF Flomax 0.4 mg Capsule 0.4 mg PO BEDTIME 0RF finasteride 5 mg Tablet 5 mg PO BEDTIME 0RF Changed aspirin 325 mg tablet 81 mg PO Q6H PRN (Reason: Headache) Qty: 30 10RF Discontinued lisinopril 40 mg tablet 40 mg PO DAILY 0RF atorvastatin 80 mg Tablet 80 mg PO QPM 0RF citalopram [Celexa] 40 mg Tablet 20 mg PO QAM 0RF amlodipine 10 mg Tablet 10 mg PO DAILY 0RF Discharge Orders: Discharge Order (Routine); Ordered 09/30/21 Ordered By: Merlyn Bryant Referrals: [facility] [place] [facility] ([facility]) [Outside] Yolanda Yi MD [Primary Care Provider] - Malik Alvarez MD [Physician] - 10/17/21 1:45 pm Antione Torres MD [Physician] - 10/10/21 2:15 pm Discharge Diet: Usual diet Discharge Activity: Limit activity as instructed Patient Instructions: Lisinopril (By mouth), Oxycodone/Acetaminophen (By mouth), Aspirin (By mouth), Laxative, Stool Softeners (By mouth), Atorvastatin (By mouth), Clopidogrel (By mouth), Opioid Safety Activity Restrictions/Additional Instructions: No lifting greater than 5 pounds for the next 6 weeks May shower without dressings in place. Dry incisions thoroughly afterwards. No swimming or tub baths x4 weeks. Use heart care pillow with coughing or sneezing. Discharge Attestations Time Spent in Discharge Care*: less than 30 min Quality Metrics Clinical Quality Measures [ No reported AMI, CVA or VTE this stay] Coding Level of Care Code Acute Chg FW DC note Diagnoses Status post aorto-coronary artery bypass graft Z95.1
--- NOTE | 2021-09-30 09:41 | PM.PN ---
Subjective Subjective: Patient is doing well. No chest pain symptoms Vitals/I&O/Wt Last Vital Signs Temp 98.3 F 09/30/21 08:00 Pulse 75 09/30/21 09:10 Resp 17 09/30/21 09:00 BP 132/83 09/30/21 08:00 Pulse Ox 92 09/30/21 09:10 09/29/21 09/30/21 09/30/21 22:59 06:59 14:59 Intake Total 480 / 1080 120 / 1200 360 / 360 Output Total 0 / 0 Balance 480 / 1080 120 / 1200 360 / 360 Weight last 48 hrs Weight 204 lb 9.6 oz Weight 204 lb 9.6 oz Physical Exam Narrative: General: Patient is alert and oriented x3 Neck: No JVD chest: Midline sternotomy incision dressed.? RS: Mild rales CVS: S1, S2, grade 2/6 left sternal border murmur present Ext:?1+ bilateral edema TEMPLATE REPRODUCTION TECHNICIAN: Awake alert oriented x3 Urinary Catheter Management: Tucker: Cath Placed During This Visit: yes, but has since been removed by the nurse Reason for Continuing Indwelling Catheter: Accurate Measurement of Urinary Output in Critically Ill Patients Urinary Catheter Date of Insertion: 09/22/21 Urinary Catheter Time of Insertion: 11:30 Date Urinary Catheter Removed: 09/20/21 Time Urinary Catheter Discontinued: 14:15 Data : 09/30/21 02:10 09/30/21 02:10 A&P Assessment and plan (1) Status post aorto-coronary artery bypass graft: ?#Postop day 8 -s/p coronary artery bypass grafting x2 (1 artery and 1 vein) utilizing in situ left internal mammary artery to left anterior descending artery and reverse saphenous vein graft from the aorta to the obtuse marginal branch of the circumflex artery. -Aspirin and Plavix No chest pain now Metoprolol was held secondary to bradycardia. Continue Lisinopril Postop care as per Dr. Torres. (2) NSTEMI (non-ST elevated myocardial infarction): (3) Left main coronary artery disease: (4) Third degree atrioventricular block: Third-degree AV block with history of bifascicular block -Patient has not needed any pacing. -continue to monitor. Plan Ischemic cardiomyopathy: LVEF 35 to 40%, can add NITIN inhibitor Post op atrial fibrillation Postop blood loss anemia s/p 1 unit of packed red blood cells Recent COVID-19 pneumonia Diabetes mellitus Hyperlipidemia Moderate AI Attestations Medical Necessity Statement*: Care expexted to cross 2 midnights. Coding Level of Care Code Acute Administrative Specialist for Velma Villegas Diagnoses Status post aorto-coronary artery bypass graft Z95.1 NSTEMI (non-ST elevated myocardial infarction) I21.4 Left main coronary artery disease I25.10 Third degree atrioventricular block I44.2
--- NOTE | 2021-09-30 10:09 | PC.SOCIAL ---
IMM Update Pg. 2 of IMM updated and reviewed with patient, who verbalized understanding. Copy provided.
[2021-09-30 10:57] LABS: Glucose Point of Care 293 mg/dL (70-110)
[2021-09-30] MEDS: insulin lispro 100 unit/1 mL SUBCUT (12:07)
== END 2021-09-30 13:59 | disposition home health service (06) | DRG 233 ==
LOC: ER 06:09 → ER IP 06:16 → MEDSURG 13:06 → ICU 09-20 02:00 → MEDSURG 09-27 16:49
PROVIDERS: Internal Medicine; Internal Medicine Cardiovascular Disease; Thoracic Surgery (Cardiothoracic Vascular Surgery); Admitting Provider Internal Medicine; Emergency Provider Emergency Medicine; PCP Family Medicine; Visit Provider Internal Medicine
PROC: 5A1221Z Performance of Cardiac Output, Continuous (ICD-10-PCS; principal; 2021-09-20 15:40)
PROC: B211YZZ Fluoroscopy of Multiple Coronary Arteries using Other Contrast (ICD-10-PCS; 2021-09-22 10:00)
PROC: 02100Z9 Bypass Coronary Artery, One Artery from Left Internal Mammary, Open Approach (ICD-10-PCS; principal; 2021-09-22 11:00)
DX: I21.4 Non-ST elevation (NSTEMI) myocardial infarction (principal); U07.1 COVID-19; J12.82 Pneumonia due to coronavirus disease 2019; J96.01 Acute respiratory failure with hypoxia; I44.2 Atrioventricular block, complete; I97.190 Other postprocedural cardiac functional disturbances following cardiac surgery; D62 Acute posthemorrhagic anemia; E11.9 Type 2 diabetes mellitus without complications; E78.2 Mixed hyperlipidemia; Z87.891 Personal history of nicotine dependence; I35.1 Nonrheumatic aortic (valve) insufficiency; K57.90 Diverticulosis of intestine, part unspecified, without perforation or abscess without bleeding; K76.0 Fatty (change of) liver, not elsewhere classified; I25.10 Atherosclerotic heart disease of native coronary artery without angina pectoris; R55 Syncope and collapse; I49.5 Sick sinus syndrome; Z79.84 Long term (current) use of oral hypoglycemic drugs; I25.5 Ischemic cardiomyopathy
CPT/HCPCS: 33210; 33967; 36415; 36416; 36430; 36592; 51702; 71045; 71260; 74177; 80048; 80051; 80053; 81001; 82009; 82330; 82607; 82746; 82803; 82805; 82947; 82962; 83036; 83605; 83735; 83880; 84100; 84145; 84439; 84443; 84484; 85025; 85347; 85378; 85610; 85730; 86140; 86850; 86900; 86920; 87040; 87635; 87804; 93005; 93306; 93454; 94002; 94003; 94640; 94664; 94799; 96372; 96374; 97110; 97116; 97163; 97167; 97530; 97535; 99291; A4570; C1769; C1779; C1887; C1894; C8924; C9113; J0171; J0360; J0456; J0461; J0696; J0697; J1100; J1170; J1250; J1644; J1650; J1815; J1940; J2001; J2150; J2250; J2270; J2370; J2405; J2440; J2704; J3010; J3475; J3480; J3490; J3535; J7030; J7040; J7050; J7611; J8540; P9016; P9041; P9047; Q0163; Q9956; Q9967

== ENCOUNTER → 2021-10-10 14:05 | Outpatient (BNVA) | payer OTHER, SELFPAY | PROVIDERS: PCP Family Medicine; Visit Provider Thoracic Surgery (Cardiothoracic Vascular Surgery) | DX: I25.10 Atherosclerotic heart disease of native coronary artery without angina pectoris (principal); Z95.1 Presence of aortocoronary bypass graft; Z48.812 Encounter for surgical aftercare following surgery on the circulatory system ==

== ENCOUNTER → 2021-10-17 09:49 | Outpatient (BNVA) | payer OTHER, SELFPAY | PROVIDERS: PCP Family Medicine; Visit Provider Thoracic Surgery (Cardiothoracic Vascular Surgery) | DX: R55 Syncope and collapse (principal); Z87.891 Personal history of nicotine dependence; I25.10 Atherosclerotic heart disease of native coronary artery without angina pectoris | CPT/HCPCS: 99214 ==

== ENCOUNTER 2021-10-17 19:58 | Emergency (ER) | payer OTHER, SELFPAY ==
[2021-10-17 20:05] VITALS: BP 91/52; PULSE 76; RESP 16; TEMP 36.4; O2SAT 97; BMI 27.7
[2021-10-17 20:11] LABS: Glucose Point of Care 103 mg/dL (70-110)
[2021-10-17 20:17] VITALS: BP 119/63; PULSE 67; RESP 17; O2SAT 97
[2021-10-17 20:21] LABS: Basophils % 0.3 %; Eosinophils # 0.2 10^3/uL (0.0-0.8); Eosinophils % 3.7 %; Hematocrit 35.6 % (42.0-52.0); Hemoglobin 11.3 g/dL (11.7-16.6); Lymphocytes # 2.1 10^3/uL (0.8-4.8); Lymphocytes % 34.9 %; Mean Corpuscular HGB Conc 31.7 g/dL (30.0-36.0); Mean Corpuscular Hemoglobin 32.5 pg (28.0-34.0); Mean Corpuscular Volume 102.3 fl (80-94); Mean Platelet Volume 9.7 fL (7.4-10.4); Monocytes # 0.5 10^3/uL (0.2-0.9); Monocytes % 8.6 %; Neutrophils # 3.13 10^3/uL (1.8-7.7); Nucleated Red Blood Cells % 0 %; Platelet Count 219 10^3/cmm (130-400); Red Blood Count 3.48 10^6/uL (4.1-5.3); Red Cell Distribution Width 15.6 % (12.1-15.1)
--- NOTE | 2021-10-17 20:33 | ED_ITS ---
Documented by User: CHONG Strong 10/17/21 21:38 HPI - Recheck/Abnormal Lab/Rx General: Chief Complaint: Recheck/Abnormal Lab/Rx Stated Complaint: low blood sugar Time Seen by Provider: 10/17/21 20:21 History of Present Illness: Patient had a low blood sugar reading at home tonight. Patient has been having some fluctuations in blood sugar since his recent surgery because he is made diet changes. Stay on same amount of medication. 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 Patient has had some gastrointestinal symptoms consistent with stomach flu which has been going around the area. It blood sugar earlier today was 237 and dropped into the 40s later. Patient sugar now is 103. Review of Systems Narrative: Hypoglycemic reading at home Const: Denies: fever(s), chills or body aches Eyes: Denies: eye discomfort ENMT: Denies: throat pain Card: Denies: chest pain Resp: Denies: dyspnea GI: Reports: nausea and diarrhea; Denies: abdominal pain or vomiting Skin/Breast: Denies: rash Neuro: Denies: headache(s) Psych: Denies: depression or suicidal ideation PFSH ED PFSH: Medical History Acute respiratory failure with hypoxemia Bifascicular block Borderline hyperlipidemia COVID-19 Diabetes mellitus Hyperlipidemia Lactic acidosis Left main coronary artery disease NSTEMI (non-ST elevated myocardial infarction) PEA (Pulseless electrical activity) Recurrent syncope Sinus pause Third degree atrioventricular block Surgical History H/O circumcision H/O colonoscopy History of appendectomy Hx of CABG Hx of cataract extraction Status post aorto-coronary artery bypass graft Status post colonoscopy with polypectomy (06/19/20) Family History Mother CAD (coronary artery disease) [place] 89 Stroke Brother CAD (coronary artery disease), Onset Age: 60 Cancer Diabetes Lung disease Sister Diabetes Other Hyperlipidemia Hypertension Denies family history of Clotting disorder Dementia Chronic kidney disease (CKD) Suicide Anesthesia complication Bleeding disorder Social History Smoking and tobacco status: former smoker Alcohol intake: never Lives independently: Yes Marital status: / Current occupational status: retired History of recent travel: No Physical Exam Const: COMMON NORMALS: no acute distress, patient oriented x3 and alert HENMT: COMMON NORMALS: normocephalic and external ears normal HEAD & SCALP: normocephalic EXTERNAL EAR: Yes external ears normal Eye: COMMON NORMALS: EOMs intact bilaterally Neck/C-Spine: COMMON NORMALS: no JVD Resp: COMMON NORMALS: normal respiratory effort and No use of accessory muscles Cardio: COMMON NORMALS: no JVD GI: INSPECTION: Yes normal to inspection Extremity: COMMON NORMALS: normal to inspection and full ROM Neuro: COMMON NORMALS: patient oriented x3 SENSORIUM/ORIENTATION: Yes alert Psych: COMMON NORMALS: mental status grossly normal Skin: COMMON NORMALS: no rashes or lesions noted GENERAL SKIN EXAM: no rashes or lesions noted Course Vital Signs: Vital signs: Vital Signs Temperature 97.5 F L 10/17/21 20:05 Pulse Rate 70 10/17/21 21:31 Respiratory Rate 20 H 10/17/21 21:31 Blood Pressure 104/59 10/17/21 21:31 Pulse Oximetry 98 10/17/21 21:31 MDM - Recheck/Abnormal Lab/Rx Medical Decision Making Patient has had episodes of hypoglycemia and hyperglycemia since postsurgical. Patient's diet is changed significantly activity levels increase. Patient had a hypoglycemic reading of around 40-60 this evening. Patient has some juice and low came back up. Laboratory studies here were negative for any concerning findings. Advised patient to cut back on glipizide to 5 mg twice a day check blood sugar readings twice a day and then slowly increase glipizide every 3rd- 5th day if sugar readings are being too high. Patient's follow-up primary care provider in the next week or 2 also help present readings to her. Patient also appear to have a mild case of gastroenteritis last couple days which has i mproved now. Lab Data : 10/17/21 20:15 10/17/21 20:15 Laboratory Results WBC 6.0 10^3/uL (4.0-10.0) 10/17/21 20:15 RBC 3.48 10^6/uL (4.1-5.3) L 10/17/21 20:15 Hgb 11.3 g/dL (11.7-16.6) L 10/17/21 20:15 Hct 35.6 % (42.0-52.0) L 10/17/21 20:15 MCV 102.3 fl (80-94) H 10/17/21 20:15 MCH 32.5 pg (28.0-34.0) 10/17/21 20:15 MCHC 31.7 g/dL (30.0-36.0) 10/17/21 20:15 RDW 15.6 % (12.1-15.1) H 10/17/21 20:15 Plt Count 219 10^3/cmm (130-400) 10/17/21 20:15 MPV 9.7 fL (7.4-10.4) 10/17/21 20:15 Neut % (Auto) 52.0 % 10/17/21 20:15 Lymph % (Auto) 34.9 % 10/17/21 20:15 [place] % (Auto) 8.6 % 10/17/21 20:15 Eos % (Auto) 3.7 % 10/17/21 20:15 Baso % (Auto) 0.3 % 10/17/21 20:15 Neut # (Auto) 3.13 10^3/uL (1.8-7.7) 10/17/21 20:15 Lymph # (Auto) 2.1 10^3/uL (0.8-4.8) 10/17/21 20:15 [place] # (Auto) 0.5 10^3/uL (0.2-0.9) 10/17/21 20:15 Eos # (Auto) 0.2 10^3/uL (0.0-0.8) 10/17/21 20:15 Baso # (Auto) 0.0 10^3/uL (0.0-0.1) 10/17/21 20:15 Nucleated RBC % (auto) 0 % 10/17/21 20:15 Nucleated RBCs # 0.0 /100WBC 10/17/21 20:15 Sodium 140 mmol/L (136-145) 10/17/21 20:15 Potassium 4.1 mmol/L (3.5-5.1) 10/17/21 20:15 Chloride 106 mmol/L (98-107) 10/17/21 20:15 Carbon Dioxide 19 mmol/L (22-29) L 10/17/21 20:15 Anion Gap 19.1 (5-19) H 10/17/21 20:15 BUN 23 mg/dL (8-23) 10/17/21 20:15 Creatinine 0.9 mg/dL (0.7-1.2) 10/17/21 20:15 GFR Calculation Not Reportable 10/17/21 20:15 Glucose 100 mg/dL (65-115) 10/17/21 20:15 POC Glucose 103 mg/dL (70-110) 10/17/21 20:04 Calculated Osmolality 294 mOsm/kg (285-295) 10/17/21 20:15 Calcium 9.1 mg/dL (8.5-10.5) 10/17/21 20:15 Total Bilirubin 0.2 mg/dL (0.15-1.2) 10/17/21 20:15 AST 15 U/L (0-40) 10/17/21 20:15 ALT 19 U/L (0-41) 10/17/21 20:15 Alkaline Phosphatase 98 IU/L (40-130) 10/17/21 20:15 Total Protein 6.8 g/dL (6.6-8.7) 10/17/21 20:15 Albumin 3.8 g/dL (3.5-5.2) 10/17/21 20:15 Globulin 3.0 g/dL (1.3-4.6) 10/17/21 20:15 Discharge Plan Discharge Patient Disposition: Home Clinical Impression: Hypoglycemia Condition: Stable Prescriptions: No Action metformin 1,000 mg tablet 1,000 mg PO BID 0RF omega-3 fatty acids [Fish Oil Concentrate] 1,000 mg capsule 2,000 mg PO BID 0RF cholecalciferol (vitamin D3) 2 cap PO BID 0RF lisinopril 20 mg tablet 10 mg PO DAILY 0RF metoprolol tartrate 25 mg tablet 12.5 mg PO BID 0RF Rx Instructions: 1/2 TAB TWICE DAILY tamsulosin 0.4 mg capsule 0.4 mg PO DAILY 0RF finasteride 5 mg tablet 5 mg PO DAILY 0RF citalopram 20 mg tablet 20 mg PO DAILY 0RF Vitamin C 500 mg Tablet 500 mg PO BID 0RF zinc 50 mg Tablet 50 mg PO BID 0RF Orthomune Capsules 1 cap PO BID 0RF glipizide 10 mg Tablet 20 mg PO BID 0RF atorvastatin 40 mg Tablet 80 mg PO BEDTIME Qty: 60 4RF Stool Softener-Laxative 8.6-50 mg Tablet 1 tab PO DAILY Qty: 10 0RF clopidogrel 75 mg Tablet 75 mg PO DAILY Qty: 60 4RF Aspirin Low Dose 81 mg tablet,delayed release (DR/EC) 81 mg PO DAILY Qty: 60 3RF Discharge Orders: Discharge ED (Routine); Ordered 10/17/21 Ordered By: José Miguel Tavarez Referrals: Yolanda Yi MD [Primary Care Provider] - Discharge Diet: As Directed Discharge Activity: Resume usual activity Patient Instructions: Hypoglycemia in a Person with Diabetes (ED), Diabetes and Nutrition (ED) Activity Restrictions/Additional Instructions: Make sure you stick to a good diabetic diet and I would recommend Mediterranean diet would be beneficial for you. Also recommend that to your glipizide you cut that back to 5 mg twice a day and then slowly increase it every 3 to 5 days to get sugars under control. Coding Level of Care Code ED Project Controls Scheduler for Chg Fwd Exam Comprehensive Documented by User: Ranjan Pinedo MD 10/22/21 22:37 HPI - Recheck/Abnormal Lab/Rx General: Chief Complaint: Recheck/Abnormal Lab/Rx Stated Complaint: low blood sugar Time Seen by Provider: 10/17/21 20:21 PFS ED PFSH: Medical History Acute respiratory failure with hypoxemia Bifascicular block Borderline hyperlipidemia COVID-19 Diabetes mellitus Hyperlipidemia Lactic acidosis Left main coronary artery disease NSTEMI (non-ST elevated myocardial infarction) PEA (Pulseless electrical activity) Recurrent syncope Sinus pause Third degree atrioventricular block Surgical History H/O circumcision H/O colonoscopy History of appendectomy Hx of CABG Hx of cataract extraction Status post aorto-coronary artery bypass graft Status post colonoscopy with polypectomy (06/19/20) Family History Mother CAD (coronary artery disease) [place] 89 Stroke Brother CAD (coronary artery disease), Onset Age: 60 Cancer Diabetes Lung disease Sister Diabetes Other Hyperlipidemia Hypertension Denies family history of Clotting disorder Dementia Chronic kidney disease (CKD) Suicide Anesthesia complication Bleeding disorder Social History Smoking and tobacco status: former smoker Alcohol intake: never Lives independently: Yes Marital status: / Current occupational status: retired History of recent travel: No Course Vital Signs: Vital signs: Vital Signs Temperature 97.5 F L 10/17/21 20:05 Pulse Rate 70 10/17/21 21:31 Respiratory Rate 20 H 10/17/21 21:31 Blood Pressure 104/59 10/17/21 21:31 Pulse Oximetry 98 10/17/21 21:31 MDM - Recheck/Abnormal Lab/Rx Medical Decision Making Patient has had episodes of hypoglycemia and hyperglycemia since postsurgical. Patient's diet is changed significantly activity levels increase. Patient had a hypoglycemic reading of around 40-60 this evening. Patient has some juice and low came back up. Laboratory studies here were negative for any concerning findings. Advised patient to cut back on glipizide to 5 mg twice a day check blood sugar readings twice a day and then slowly increase glipizide every 3rd- 5th day if sugar readings are being too high. Patient's follow-up primary care provider in the next week or 2 also help present readings to her. Patient also appear to have a mild case of gastroenteritis last couple days which has improved now. I have reviewed this documentation by José Miguel Tavarez NP. Ranjan Pinedo MD Emergency Medicine Lab Data : 10/17/21 20:15 10/17/21 20:15 Laboratory Results WBC 6.0 10^3/uL (4.0-10.0) 10/17/21 20:15 RBC 3.48 10^6/uL (4.1-5.3) L 10/17/21 20:15 Hgb 11.3 g/dL (11.7-16.6) L 10/17/21 20:15 Hct 35.6 % (42.0-52.0) L 10/17/21 20:15 MCV 102.3 fl (80-94) H 10/17/21 20:15 MCH 32.5 pg (28.0-34.0) 10/17/21 20:15 MCHC 31.7 g/dL (30.0-36.0) 10/17/21 20:15 RDW 15.6 % (12.1-15.1) H 10/17/21 20:15 Plt Count 219 10^3/cmm (130-400) 10/17/21 20:15 MPV 9.7 fL (7.4-10.4) 10/17/21 20:15 Neut % (Auto) 52.0 % 10/17/21 20:15 Lymph % (Auto) 34.9 % 10/17/21 20:15 [place] % (Auto) 8.6 % 10/17/21 20:15 Eos % (Auto) 3.7 % 10/17/21 20:15 Baso % (Auto) 0.3 % 10/17/21 20:15 Neut # (Auto) 3.13 10^3/uL (1.8-7.7) 10/17/21 20:15 Lymph # (Auto) 2.1 10^3/uL (0.8-4.8) 10/17/21 20:15 [place] # (Auto) 0.5 10^3/uL (0.2-0.9) 10/17/21 20:15 Eos # (Auto) 0.2 10^3/uL (0.0-0.8) 10/17/21 20:15 Baso # (Auto) 0.0 10^3/uL (0.0-0.1) 10/17/21 20:15 Nucleated RBC % (auto) 0 % 10/17/21 20:15 Nucleated RBCs # 0.0 /100WBC 10/17/21 20:15 Sodium 140 mmol/L (136-145) 10/17/21 20:15 Potassium 4.1 mmol/L (3.5-5.1) 10/17/21 20:15 Chloride 106 mmol/L (98-107) 10/17/21 20:15 Carbon Dioxide 19 mmol/L (22-29) L 10/17/21 20:15 Anion Gap 19.1 (5-19) H 10/17/21 20:15 BUN 23 mg/dL (8-23) 10/17/21 20:15 Creatinine 0.9 mg/dL (0.7-1.2) 10/17/21 20:15 GFR Calculation Not Reportable 10/17/21 20:15 Glucose 100 mg/dL (65-115) 10/17/21 20:15 POC Glucose 103 mg/dL (70-110) 10/17/21 20:04 Calculated Osmolality 294 mOsm/kg (285-295) 10/17/21 20:15 Calcium 9.1 mg/dL (8.5-10.5) 10/17/21 20:15 Total Bilirubin 0.2 mg/dL (0.15-1.2) 10/17/21 20:15 AST 15 U/L (0-40) 10/17/21 20:15 ALT 19 U/L (0-41) 10/17/21 20:15 Alkaline Phosphatase 98 IU/L (40-130) 10/17/21 20:15 Total Protein 6.8 g/dL (6.6-8.7) 10/17/21 20:15 Albumin 3.8 g/dL (3.5-5.2) 10/17/21 20:15 Globulin 3.0 g/dL (1.3-4.6) 10/17/21 20:15 Discharge Plan Discharge Patient Disposition: Home Clinical Impression: Hypoglycemia Condition: Stable Prescriptions: No Action metformin 1,000 mg tablet 1,000 mg PO BID 0RF omega-3 fatty acids [Fish Oil Concentrate] 1,000 mg capsule 2,000 mg PO BID 0RF cholecalciferol (vitamin D3) 2 cap PO BID 0RF lisinopril 20 mg tablet 10 mg PO DAILY 0RF metoprolol tartrate 25 mg tablet 12.5 mg PO BID 0RF Rx Instructions: 1/2 TAB TWICE DAILY tamsulosin 0.4 mg capsule 0.4 mg PO DAILY 0RF finasteride 5 mg tablet 5 mg PO DAILY 0RF citalopram 20 mg tablet 20 mg PO DAILY 0RF Vitamin C 500 mg Tablet 500 mg PO BID 0RF zinc 50 mg Tablet 50 mg PO BID 0RF Orthomune Capsules 1 cap PO BID 0RF glipizide 10 mg Tablet 20 mg PO BID 0RF atorvastatin 40 mg Tablet 80 mg PO BEDTIME Qty: 60 4RF Stool Softener-Laxative 8.6-50 mg Tablet 1 tab PO DAILY Qty: 10 0RF clopidogrel 75 mg Tablet 75 mg PO DAILY Qty: 60 4RF Aspirin Low Dose 81 mg tablet,delayed release (DR/EC) 81 mg PO DAILY Qty: 60 3RF Discharge Orders: Discharge ED (Routine); Ordered 10/17/21 Ordered By: José Miguel Tavarez Referrals: Yolanda Yi MD [Primary Care Provider] - Discharge Diet: As Directed Discharge Activity: Resume usual activity Patient Instructions: Hypoglycemia in a Person with Diabetes (ED), Diabetes and Nutrition (ED) Activity Restrictions/Additional Instructions: Make sure you stick to a good diabetic diet and I would recommend Mediterranean diet would be beneficial for you. Also recommend that to your glipizide you cut that back to 5 mg twice a day and then slowly increase it every 3 to 5 days to get sugars under control. Coding Level of Care Code ED Project Controls Scheduler for Radhag Fwd Exam Comprehensive
[2021-10-17 20:44] LABS: Alanine Aminotransferase 19 U/L (0-41); Albumin Level 3.8 g/dL (3.5-5.2); Alkaline Phosphatase 98 IU/L (40-130); Anion Gap 19.1 (5-19); Aspartate Amino Transferase 15 U/L (0-40); Blood Urea Nitrogen 23 mg/dL (8-23); Calcium 9.1 mg/dL (8.5-10.5); Carbon Dioxide 19 mmol/L (22-29); Chloride 106 mmol/L (98-107); Glucose 100 mg/dL (65-115); Osmolality Calculated 294 mOsm/kg (285-295); Potassium 4.1 mmol/L (3.5-5.1); Sodium 140 mmol/L (136-145); Total Bilirubin 0.2 mg/dL (0.15-1.2); Total Protein 6.8 g/dL (6.6-8.7)
[2021-10-17 21:31] VITALS: BP 104/59; PULSE 70; RESP 20; O2SAT 98
== END 2021-10-17 21:34 | disposition home or self-care (01) ==
PROVIDERS: Emergency Medicine; Emergency Provider Nurse Practitioner Family; PCP Family Medicine
DX: E11.649 Type 2 diabetes mellitus with hypoglycemia without coma (principal); Z79.84 Long term (current) use of oral hypoglycemic drugs; Z79.82 Long term (current) use of aspirin; Z79.02 Long term (current) use of antithrombotics/antiplatelets; K52.9 Noninfective gastroenteritis and colitis, unspecified; Z87.891 Personal history of nicotine dependence
CPT/HCPCS: 36416; 80053; 82962; 85025; 99283

== ENCOUNTER → 2021-10-24 14:27 | Outpatient (BNVA) | payer OTHER, SELFPAY | PROVIDERS: PCP Family Medicine; Visit Provider Thoracic Surgery (Cardiothoracic Vascular Surgery) | DX: Z98.890 Other specified postprocedural states (principal) | CPT/HCPCS: 99024 ==

== ENCOUNTER → 2021-11-14 10:58 | Outpatient (BNVA) | payer OTHER, SELFPAY | PROVIDERS: PCP Family Medicine; Visit Provider Thoracic Surgery (Cardiothoracic Vascular Surgery) | DX: Z09 Encounter for follow-up examination after completed treatment for conditions other than malignant neoplasm (principal); Z95.1 Presence of aortocoronary bypass graft; T82.897A Other specified complication of cardiac prosthetic devices, implants and grafts, initial encounter | CPT/HCPCS: 99213 ==

== ENCOUNTER → 2021-12-05 09:47 | Outpatient (BNVA) | payer OTHER, SELFPAY | PROVIDERS: PCP Family Medicine; Visit Provider Thoracic Surgery (Cardiothoracic Vascular Surgery) | DX: Z98.890 Other specified postprocedural states (principal) | CPT/HCPCS: 99024 ==

== ENCOUNTER → 2022-01-13 10:29 | Outpatient (BNVA) | payer OTHER, SELFPAY | PROVIDERS: PCP Family Medicine; Visit Provider Internal Medicine Cardiovascular Disease | DX: I10 Essential (primary) hypertension (principal); Z95.1 Presence of aortocoronary bypass graft; E11.9 Type 2 diabetes mellitus without complications; E78.5 Hyperlipidemia, unspecified; Z79.84 Long term (current) use of oral hypoglycemic drugs; Z87.891 Personal history of nicotine dependence | CPT/HCPCS: 99214 ==

== ENCOUNTER 2022-04-26 19:47 | Observation (INO) | payer OTHER, SELFPAY ==
[2022-04-26 19:50] VITALS: BP 175/75; PULSE 57; RESP 18; TEMP 36.7; O2SAT 97; BMI 24.7
--- NOTE | 2022-04-26 20:00 | ECG_ITS ---
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 Measurements Intervals [place] Rate: 58 P: -72 CT: 62 QRS: -60 QRSD: 121 T: -40 QT: 459 QTc: 454 Interpretive Statements Sinus bradycardia LEFT AXIS DEVIATION [QRS AXIS < -30] RIGHT BUNDLE BRANCH BLOCK [120+ ms QRS DURATION, UPRIGHT V1, 40+ ms S IN I/aVL/V4/V5/V6] VOLTAGE CRITERIA FOR LVH [MEETS CRITERIA IN ONE OF: R(aVL), S(V1), R(V5), R(V5/V6)+S(V1)] POSSIBLE ANTERIOR MYOCARDIAL INFARCTION , PROBABLY OLD [30 ms Q WAVE IN V3/V4, OR R < 0.2 mV IN V4] ST DEPRESSION, CONSIDER SUBENDOCARDIAL INJURY [0.1+ mV ST DEPRESSION] INTERPRETATION BASED ON A DEFAULT AGE OF 40 YEARS Compared to ECG 09/29/2021 14:15:52Sinus bradycardia no longer present Myocardial infarct finding still present.ST (T wave) deviation still present. Electronically Signed On 04-27-2022 18:03:25 CDT by Malik Alvarez M.D. [id number]
--- NOTE | 2022-04-26 20:03 | XRR_ITS ---
PROCEDURE INFORMATION: Exam: XR Chest Exam date and time: 04/26/2022 8:21 PM Age: 77 years old Clinical indication: Pain; Chest pressure; Additional info: Cp TECHNIQUE: Imaging protocol: Radiologic exam of the chest. Views: 1 view. COMPARISON: CR (CHEST, ) 09/28/2021 5:37 AM FINDINGS: Lungs: Mild ill-defined ground-glass opacity in the lower lungs bilaterally, similar to the findings on 09/28/2021. Pleural spaces: irregular high attenuation nodule along the minor fissure on the right is unchanged. This is probably calcified. There is no pleural effusion or pneumothorax. Heart/Mediastinum: There is mild enlargement of the cardiac silhouette. Bones/joints: Sternal wires are present. There is no displacement to suggest sternal dehiscence. No acute fracture. XR/XR chest 1V portable [id number] IMPRESSION: Unchanged mild nonspecific bilateral lower lung opacity since 09/28/2021. Possible mild persistent or recurrent interstitial edema. Atypical infection is not excluded.
--- NOTE | 2022-04-26 20:17 | CTR_ITS ---
PROCEDURE INFORMATION: Exam: CT Abdomen And Pelvis With Contrast Exam date and time: 04/26/2022 9:08 PM Age: 77 years old Clinical indication: Abdominal pain; Epigastric; Prior surgery; Surgery date: 6+ months; Surgery type: Cabg, appendectomy, polypectomy; Additional info: Epigastric pain TECHNIQUE: Imaging protocol: Computed tomography of the abdomen and pelvis with contrast. Radiation optimization: All CT scans at this facility use at least one of these dose optimization techniques: automated exposure control; mA and/or kV adjustment per patient size (includes targeted exams where dose is matched to clinical indication); or iterative reconstruction. Contrast material: OMNI 350; Contrast volume: 100 ml; Contrast route: INTRAVENOUS (IV); COMPARISON: CT chest abd pel w con* 09/20/2021 4:54 AM RADIATION DOSE METRICS: Total DLP (mGy-cm): 577.83 FINDINGS: Lungs: There is subsegmental atelectasis in the lung bases. There is a calcified granuloma in the right lower lobe. Pleural spaces: Small bilateral pleural effusions. Liver: The liver is normal. Gallbladder and bile ducts: The gallbladder is normal. There is no biliary dilation. Pancreas: The pancreas is unremarkable. Spleen: Splenic size is normal. There are scattered calcifications consistent with healed granulomas. Adrenal glands: The adrenal glands are unremarkable. Kidneys and ureters: The kidneys are unremarkable. No hydronephrosis or stones. No ureteral dilation. Stomach and bowel: The stomach is unremarkable. The small bowel is nondilated. There is mild sigmoid colonic diverticulosis without evidence of diverticulitis. Appendix: The appendix is absent. Intraperitoneal space: There is no free air or significant intraperitoneal free fluid. Vasculature: There is mild aortic atherosclerotic disease. The portal, splenic and superior mesenteric veins are patent. Lymph nodes: There is no lymphadenopathy in the retroperitoneum, mesentery, pelvis or inguinal regions. Urinary bladder: The urinary bladder is unremarkable. Reproductive: The prostate and seminal vesicles are unremarkable. Bones/joints: There is moderate degenerative disease in the lumbar spine. The pelvis and hips are unremarkable. Soft tissues: The abdominal wall is intact. CT/CT abdomen pelvis w con* [id number] IMPRESSION: 1. No acute intra-abdominal findings. 2. Small bilateral pleural effusions. 3. Incidental findings above.
[2022-04-26 20:20] LABS: Basophils % 0.3 %; Eosinophils # 0.2 10^3/uL (0.0-0.8); Eosinophils % 2.9 %; Hematocrit 36.5 % (42.0-52.0); Hemoglobin 11.8 g/dL (11.7-16.6); Lymphocytes # 2.7 10^3/uL (0.8-4.8); Mean Corpuscular HGB Conc 32.3 g/dL (30.0-36.0); Mean Corpuscular Hemoglobin 33.2 pg (28.0-34.0); Mean Corpuscular Volume 102.8 fl (80-94); Monocytes # 0.6 10^3/uL (0.2-0.9); Monocytes % 7.9 %; Neutrophils # 3.99 10^3/uL (1.8-7.7); Neutrophils % 52.5 %; Nucleated Red Blood Cells % 0 %; Platelet Count 165 10^3/cmm (130-400); Red Blood Count 3.55 10^6/uL (4.1-5.3); White Blood Count 7.6 10^3/uL (4.0-10.0)
[2022-04-26 20:34] LABS: INR 1.01 (0.8-1.2)
[2022-04-26 20:35] LABS: Partial Thromboplastin Time 32.1 SECONDS (23.9-36.7)
[2022-04-26] MEDS: ondansetron 2 mg/ML SDV 2 mL 4 MG IVP (20:37)
[2022-04-26 20:38] VITALS: RESP 15
[2022-04-26] MEDS: morphine 4 mg/mL SDV 1 mL IVP (20:38)
[2022-04-26 20:39] VITALS: BP 145/69; PULSE 55; RESP 15; O2SAT 95
[2022-04-26 20:39] LABS: Troponin(5th) Baseline 14 ng/L (0-15)
[2022-04-26 20:40] LABS: Lipase 39 U/L (13-60)
[2022-04-26 20:49] LABS: Alanine Aminotransferase 41 U/L (0-41); Alkaline Phosphatase 103 U/L (40-130); Anion Gap 15.3 (5-19); Aspartate Amino Transferase 34 U/L (0-40); Blood Urea Nitrogen 22 mg/dL (8-23); Calcium 9.1 mg/dL (8.5-10.5); Carbon Dioxide 27 mmol/L (22-29); Chloride 102 mmol/L (98-107); Creatine Phosphokinase 61 U/L (39-308); Creatinine Clr Calc Pharmacy 83.3413; Glucose 91 mg/dL (65-115); NT Pro B Type Natriuretic Pept 1270 pg/mL (0-450); Osmolality Calculated 293 mOsm/kg (285-295); Potassium 4.3 mmol/L (3.5-5.1); Sodium 140 mmol/L (136-145); Total Bilirubin 0.4 mg/dL (0.15-1.2)
[2022-04-26 21:00] VITALS: BP 136/65; PULSE 53; RESP 17; O2SAT 93
[2022-04-26] MEDS: iohexol 350 mg/mL 100 mL Btl IV (21:11)
[2022-04-26 21:49] LABS: Add Urine Microscopic? NO; Charge for UA Resulting for Rev
--- NOTE | 2022-04-26 21:50 | ECG_ITS ---
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 Measurements Intervals [place] Rate: 54 P: -68 [place]: 176 QRS: -56 QRSD: 118 T: -39 QT: 479 QTc: 455 Interpretive Statements SINUS BRADYCARDIA LEFT AXIS DEVIATION [QRS AXIS < -30] PATTERN CONSISTENT WITH PULMONARY DISEASE RIGHT BUNDLE BRANCH BLOCK [120+ ms QRS DURATION, UPRIGHT V1, 40+ ms S IN I/aVL/V4/V5/V6] VOLTAGE CRITERIA FOR LVH [MEETS CRITERIA IN ONE OF: R(aVL), S(V1), R(V5), R(V5/V6)+S(V1)] ST DEPRESSION, CONSIDER SUBENDOCARDIAL INJURY [0.1+ mV ST DEPRESSION] Compared to ECG 04/26/2022 19:58:12 Myocardial infarct finding no longer present ST (T wave) deviation still present Electronically Signed On 04-27-2022 18:28:06 CDT by Malik Alvarez M.D. [id number]
[2022-04-26 22:00] VITALS: BP 171/74; PULSE 54; RESP 18; O2SAT 97
[2022-04-26 22:03] LABS: Bilirubin Urine Neg (Negative); Blood Urine Neg (Negative); Glucose Urine UA Norm (Normal); Ketones Urine 1+ (Negative); Leukocyte Esterase Urine Negative (Negative); Nitrate Urine Negative (Negative); Protein Urine Neg (Negative); Specific Gravity, Urine 1.025 (1.005-1.030); Urine Appearance Clear (CLEAR); Urine Color Yellow (Yellow); Urobilinogen Urine 4 mg/dL (Negative); pH Urine 5 (5-7)
[2022-04-26 22:20] LABS: Troponin 5 2HR 14.08 ng/L (0-15)
[2022-04-26 22:23] LABS: Troponin 5 2HR Delta 0.08 ABS# (0-10)
[2022-04-26] MEDS: lidocaine 2% viscous 15 ML, aluminum-mag hydrox-simethicon 30 ML, sucralfate oral liq 1 GM PO (23:20)
[2022-04-27] VITALS (9 sets, daily range): BP systolic 126–174; BP diastolic 54–71; PULSE 47–51; RESP 11–20; TEMP 36.2–36.6; O2SAT 96–99
[2022-04-27] MEDS: ketorolac 30 mg/mL INJ 15 MG IVP (00:32)
--- NOTE | 2022-04-27 00:33 | ED_ITS ---
HPI - Chest Pain General: Chief Complaint: Chest Pain Stated Complaint: CP Time Seen by Provider: 04/26/22 19:49 Source: patient and family History of Present Illness: 77-year-old male with coronary disease history status post coronary bypass graft surgery x2 vessels in September he has done well since that time. He presents with intermittent sharp stabbing pain to the epigastrium and lower chest, worse with deep breathing, cough, laughing, and movement. This seemed to start around 8 PM. He is not overly short of breath otherwise. His and notes that he has been belching more. This seems to worsen the pain as well. No fever, no cough. No swelling of feet or ankles. No nausea. MD complaint: chest pain Pertinent past history: coronary artery disease Onset (ago): hour(s) Timing of current episode: episodic Prior episodes: Yes Onset: during rest Pain location: substernal and epigastric Pain radiation: none Quality: sharp Relieving factors: nothing Exacerbating factors: movement Associated symptoms: Reports abdominal pain (Epigastric); Deny diaphoresis, dyspnea, fever(s), leg edema, nausea, syncope or vomiting Review of Systems Const: Denies: fever(s) or diaphoresis Eyes: Denies: change in vision ENMT: Denies: throat pain Card: Reports: chest pain; Denies: syncope Resp: Denies: dyspnea GI: Reports: abdominal pain (Epigastric); Denies: nausea or vomiting Musc: Reports: back pain; Denies: neck pain Skin/Breast: Denies: rash Neuro: Denies: headache(s), weakness in extremities, dizziness or confusion PFSH ED PFSH: Medical History Acute respiratory failure with hypoxemia Bifascicular block Borderline hyperlipidemia COVID-19 Diabetes mellitus Hyperlipidemia Lactic acidosis Left main coronary artery disease NSTEMI (non-ST elevated myocardial infarction) PEA (Pulseless electrical activity) Recurrent syncope Sinus pause Third degree atrioventricular block Surgical History H/O circumcision H/O colonoscopy History of appendectomy Hx of CABG Hx of cataract extraction Status post aorto-coronary artery bypass graft Status post colonoscopy with polypectomy (06/19/20) Family History Mother CAD (coronary artery disease) [place] 89 Stroke Brother CAD (coronary artery disease), Onset Age: 60 Cancer Diabetes Lung disease Sister Diabetes Other Hyperlipidemia Hypertension Denies family history of Clotting disorder Dementia Chronic kidney disease (CKD) Suicide Anesthesia complication Bleeding disorder Social History Smoking and tobacco status: former smoker Alcohol intake: never Lives independently: Yes Marital status: / Current occupational status: retired History of recent travel: No Physical Exam Const: GENERAL APPEARANCE: cooperative and frail appearing; not ill appearing HENMT: COMMON NORMALS: normocephalic, atraumatic and Normal external nose present HEAD & SCALP: normocephalic and atraumatic FACE & SINUS: normal facial exam and face symmetric NOSE: Normal external nose present Eye: COMMON NORMALS: Equal, round and reactive pupils present and EOMs intact bilaterally PUPIL: Yes Equal, round and reactive pupils present Neck/C-Spine: GENERAL: Yes trachea midline Chest: CHEST: Yes Symmetrical chest wall rise Resp: COMMON NORMALS: normal respiratory effort, No retractions, No use of accessory muscles and clear to auscultation bilaterally AUSCULTATION: clear to auscultation bilaterally Cardio: COMMON NORMALS: regular rate and regular rhythm RATE: regular rate RHYTHM: regular rhythm GI: COMMON NORMALS: Normal to inspection, nondistended, normoactive bowel sounds present Extremity: COMMON NORMALS: no pedal edema Neuro: FAUSTINO COMA SCALE: document GCS findings [place] coma scale eye openin g: Spontaneous Faustino coma scale verbal response: Orientated Faustino coma scale motor response: Obey commands [place] coma scale total score: 15 SENSORY EXAM: Yes extremities (intact) Psych: COMMON NORMALS: speech normal SPEECH: Yes normal speech Skin: COMMON NORMALS: no rashes or lesions noted GENERAL SKIN EXAM: no rashes or lesions noted Course Vital Signs: Vital signs: Vital Signs Temperature 97.2 F L 04/27/22 02:58 Pulse Rate 47 L 04/27/22 03:33 Respiratory Rate 20 H 04/27/22 02:58 Blood Pressure 174/54 04/27/22 02:58 Pulse Oximetry 99 04/27/22 02:58 Oxygen Delivery Me thod 04/27/22 02:58 Oxygen Flow Rate 1 04/27/22 02:58 MDM - Chest Pain Medical Decision Making Symptoms are reproducible by patient movement mainly. They are intermittently reproducible by palpation. His vitals are normal. He is not significantly hypoxic. He does splint to breathe. Chest x-ray is nonacute. Abdominal CT is performed, and shows no acute intra-abdominal findings. There are only small bilateral pleural effusions, present after his surgery. His white blood cell count is normal. Hemoglobin and platelet counts are normal. BMP is normal. No elevation in his liver enzymes. Troponin is normal at baseline and at 2 hours. Urinalysis is negative. His BNP is mildly high. The patient has been given morphine without improvement. GI cocktail without improvement we are trying Toradol and a muscle relaxer. Pain is most likely musculoskeletal. Patient evaluated by hospitalist, who is slightly concerned about the prospect of pericarditis in the differential diagnosis. He will be observed on the monitor. 6-hour troponin will be drawn. Patient will undergo echocardiogram later in the morning. He is stable Lab Data : 04/26/22 20:15 04/26/22 20:15 Radiology Impressions Chest X-Ray 04/26/22 20:03 IMPRESSION: Unchanged mild nonspecific bilateral lower lung opacity since 09/28/2021. Possible mild persistent or recurrent interstitial edema. Atypical infection is not excluded. Abdomen/Pelvis CT 04/26/22 20:17 IMPRESSION: 1. No acute intra-abdominal findings. 2. Small bilateral pleural effusions. 3. Incidental findings above. Laboratory Results WBC 7.6 10^3/uL (4.0-10.0) 04/26/22 20:15 RBC 3.55 10^6/uL (4.1-5.3) L 04/26/22 20:15 Hgb 11.8 g/dL (11.7-16.6) 04/26/22 20:15 Hct 36.5 % (42.0-52.0) L 04/26/22 20:15 MCV 102.8 fl (80-94) H 04/26/22 20:15 MCH 33.2 pg (28.0-34.0) 04/26/22 20:15 MCHC 32.3 g/dL (30.0-36.0) 04/26/22 20:15 RDW 16.0 % (12.1-15.1) H 04/26/22 20:15 Plt Count 165 10^3/cmm (130-400) 04/26/22 20:15 MPV 10.0 fL (7.4-10.4) 04/26/22 20:15 Neut % (Auto) 52.5 % 04/26/22 20:15 Lymph % (Auto) 36.0 % 04/26/22 20:15 [place] % (Auto) 7.9 % 04/26/22 20:15 Eos % (Auto) 2.9 % 04/26/22 20:15 Baso % (Auto) 0.3 % 04/26/22 20:15 Neut # (Auto) 3.99 10^3/uL (1.8-7.7) 04/26/22 20:15 Lymph # (Auto) 2.7 10^3/uL (0.8-4.8) 04/26/22 20:15 [place] # (Auto) 0.6 10^3/uL (0.2-0.9) 04/26/22 20:15 Eos # (Auto) 0.2 10^3/uL (0.0-0.8) 04/26/22 20:15 Baso # (Auto) 0.0 10^3/uL (0.0-0.1) 04/26/22 20:15 Nucleated RBC % (auto) 0 % 04/26/22 20:15 Nucleated RBCs # 0.0 /100WBC 04/26/22 20:15 PT 13.60 SECONDS (12.1-14.9) 04/26/22 20:15 INR 1.01 (0.8-1.2) 04/26/22 20:15 APTT 32.1 SECONDS (23.9-36.7) 04/26/22 20:15 D-Dimer 1.03 ug/mIFEU (0-0.59) H 04/26/22 20:15 Sodium 140 mmol/L (136-145) 04/26/22 20:15 Potassium 4.3 mmol/L (3.5-5.1) 04/26/22 20:15 Chloride 102 mmol/L (98-107) 04/26/22 20:15 Carbon Dioxide 27 mmol/L (22-29) 04/26/22 20:15 Anion Gap 15.3 (5-19) 04/26/22 20:15 BUN 22 mg/dL (8-23) 04/26/22 20:15 Creatinine 0.8 mg/dL (0.7-1.2) 04/26/22 20:15 GFR Calculation Not Reportable 04/26/22 20:15 Glucose 91 mg/dL (65-115) 04/26/22 20:15 Calculated Osmolality 293 mOsm/kg (285-295) 04/26/22 20:15 Calcium 9.1 mg/dL (8.5-10.5) 04/26/22 20:15 Total Bilirubin 0.4 mg/dL (0.15-1.2) 04/26/22 20:15 AST 34 U/L (0-40) 04/26/22 20:15 ALT 41 U/L (0-41) 04/26/22 20:15 Alkaline Phosphatase 103 U/L (40-130) 04/26/22 20:15 Creatine Kinase 61 U/L (39-308) 04/26/22 20:15 Troponin T Baseline 14 ng/L (0-15) 04/26/22 20:15 Troponin T 120 Minute 14.08 ng/L (0-15) 04/26/22 21:53 Delta Troponin T 0.08 ABS# (0-10) 04/26/22 21:53 NT-Pro-B Natriuret Pep 1270 pg/mL (0-450) H 04/26/22 20:15 Total Protein 7.0 g/dL (6.6-8.7) 04/26/22 20:15 Albumin 4.0 g/dL (3.5-5.2) 04/26/22 20:15 Globulin 3.0 g/dL (1.3-4.6) 04/26/22 20:15 Lipase 39 U/L (13-60) 04/26/22 20:15 Urine Color Yellow (Yellow) 04/26/22 21:45 Urine Appearance Clear (CLEAR) 04/26/22 21:45 Urine pH 5 (5-7) 04/26/22 21:45 Ur Specific [place] 1.025 (1.005-1.030) 04/26/22 21:45 Urine Protein Neg (Negative) 04/26/22 21:45 Urine Glucose (UA) Norm (Normal) 04/26/22 21:45 Urine Ketones 1+ (Negative) H 04/26/22 21:45 Urine Blood Neg (Negative) 04/26/22 21:45 Urine Nitrate Negative (Negative) 04/26/22 21:45 Urine Bilirubin Neg (Negative) 04/26/22 21:45 Urine Urobilinogen 4 mg/dL (Negative) H 04/26/22 21:45 Ur Leukocyte Esterase Negative (Negative) 04/26/22 21:45 Discharge Plan Discharge Patient Disposition: Admitted As Inpatient Admit Provider: Nilsa Nolan Clinical Impression: Chest pain Condition: Stable Coding Level of Care Code ED Admissions Advisor for Chg Fwd Exam Comprehensive
[2022-04-27] MEDS: orphenadrine 30 mg/mL Inj 2 mL 60 MG IVP (00:35)
--- NOTE | 2022-04-27 02:03 | ECG_ITS ---
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 Measurements Intervals [place] Rate: 49 P: 245 NM: 178 QRS: -60 QRSD: 118 T: -63 QT: 463 QTc: 418 Interpretive Statements SINUS BRADYCARDIA PATTERN CONSISTENT WITH PULMONARY DISEASE RIGHT BUNDLE BRANCH BLOCK [120+ ms QRS DURATION, UPRIGHT V1, 40+ ms S IN I/aVL/V4/V5/V6] LEFT ANTERIOR FASCICULAR BLOCK [QRS AXIS <= -45, QR IN I, RS IN II] VOLTAGE CRITERIA FOR LVH [MEETS CRITERIA IN ONE OF: R(aVL), S(V1), R(V5), R(V5/V6)+S(V1)] ST DEPRESSION, CONSIDER SUBENDOCARDIAL INJURY [0.1+ mV ST DEPRESSION] Compared to ECG 04/26/2022 21:50:56 Left anterior fascicular block now present Left-axis deviation no longer present ST (T wave) deviation still present Electronically Signed On 04-27-2022 18:28:45 CDT by aMlik Alvarez M.D. [id number]
[2022-04-27 02:05] LABS: D Dimer 1.03 ug/mIFEU (0-0.59)
--- NOTE | 2022-04-27 02:27 | USCV_ITS ---
Jeremiah Lance Age: 77 Gender: M : 1945 Exam Date: 04/27/2022 03:20 Ordering Phys: Nilsa Nolan MD Technologist: Gunnar Robles [place]am Location[place] [facility] [place]: pericarditis BP: 134 / 76 HR: 45 Rhythm: Sinus Technical Quality: Adequate MEASUREMENTS (Male / Female) Normal Values 2D ECHO LV Diastolic Diameter PLAX 5.2 cm 4.2 - 5.9 / 3.9 - 5.3 cm LV Systolic Diameter PLAX 3.6 cm IVS Diastolic Thickness 1.0 cm 0.6 - 1.0 / 0.6 - 0.9 cm IVS Systolic Thickness 1.4 cm LVPW Diastolic Thickness 1.3 cm 0.6 - 1.0 / 0.6 - 0.9 cm LVPW Systolic Thickness 1.4 cm LVOT Diameter 2.0 cm LV Ejection Fraction 2D Teich 58.8 % LV Ejection Fraction MOD 2C 50.6 % LV Ejection Fraction 2C AL 49.7 % LA Diameter 3.8 cm IVC Diameter 2.1 cm M-MODE Aortic Annulus Diameter 3.2 cm LA Ao Ratio MM 1.3 MV E Point Septal Separation 1.4 cm DOPPLER AV Peak Velocity 119.0 cm/s LVOT Peak Velocity 108.0 cm/s AV Area Cont Eq vti 4.0 cm squared AV Area Cont Eq pk 2.9 cm squared MV Area PHT 5.0 cm squared Mitral E to A Ratio 1.5 MV E' Velocity 52.5 cm/s Mitral E to MV E' Ratio 12.8 Mitral E to LV E' Lateral Ratio 11.6 Mitral E to LV E' Septal Ratio 14.3 TR Peak Velocity 244.0 cm/s TR Peak Gradient 23.8 mmHg Right Atrial Pressure 8.0 mmHg Pulmonary Artery Systolic Pressu 31.8 mmHg RV Acceleration Time 0.1 s FINDINGS Left Ventricle Normal LV size with borderline low ejection fraction of 50%. Diffuse hypokinesia of the inferior wall segments.Grade III/IV diastolic dysfunction (restrictive filling pattern), severely elevated filling pressures. Right Ventricle The right ventricle is normal in size and function. Right Atrium The right atrium is normal in size. Left Atrium Mildly increased left atrial size. Mitral Valve Thickened mitral valve. Mild mitral valve regurgitation. Aortic Valve Thickened aortic valve. [id number] aortic valve regurgitation. Tricuspid Valve Trace to mild tricuspid valve regurgitation. Estimated pulmonary artery peak systolic pressure of 32 mmHg Pulmonic Valve Pulmonic valve not well visualized. Pericardium Normal pericardium without effusion. Aorta Normal ascending aorta dimension. IVC Normal IVC dimension with <50% respiratory change of the inferior vena cava. CONCLUSIONS Normal LV size with borderline low ejection fraction of 50%. Diffuse hypokinesia of the inferior wall segments.Grade III/IV diastolic dysfunction (restrictive filling pattern), severely elevated filling pressures. The right ventricle is normal in size and function. Thickened aortic valve. [id number] aortic valve regurgitation. Trace to mild tricuspid valve regurgitation. Estimated pulmonary artery peak systolic pressure of 32 mmHg. There is no pericardial effusion. There are no intracardiac masses. Compared to the study from 09/20/2021, there is some improvement of the LV ejection fraction Dr Malik Alvarez MD [facility] (Electronically Signed) Final Date: 27 April 2022 10:16 S
--- NOTE | 2022-04-27 02:37 | P.HP_ITS ---
Providers/Chief Complaint Admitting Physician: Nilsa Nolan MD Primary Care Provider: Yolanda Yi MD Chief Complaint: CP History of Present Illness Jeremiah Lance Jr is a 77 year old male with coronary artery disease, status post CABG September 2021 in his usual state of health until 2 weeks ago when he started experiencing some chest discomfort. States that the pain is located in lower part of the chest around the xiphisternum. 10 out of 10 at its peak, nonradiating. Feels like intermittent sharp stabbing pain. Made worse with deep breathing, attempting to flex his legs at the hip and attempting to turn sides. Patient states that he feels like he has pleurisy . Denies any cough palpitations syncope or dyspnea.no h/o recent URI symptoms, cough. He is in the process of moving and has been moving furniture around. No apparent relieivng symptoms. Morphine and nitro did not help the pain. It is down to 4/10 after receiving toradol and Norflex. CT abdomen/pelvis did not show acute abnormality. EKG with sinus bradycardia, no acute st- t wave changes , troponin series without significant delta. Review of Systems General: Reports: 10 or more systems reviewed and unremarkable except in HPI and below Const: Denies: fever(s), chills or body aches Eyes: Denies: change in vision, blurry vision or photophobia ENMT: Reports: hoarseness; Denies: throat pain, enlarged tonsils, odynophagia or nasal congestion Card: Denies: chest pain, palpitations, irregular heart rhythm, edema, swelling of feet/ankles, lightheadedness, pre-syncope, dyspnea on exertion or orthopnea Resp: Denies: dyspnea, productive cough, non-productive cough, wheezing, stridor, pain on inspiration, change in phlegm color, hemoptysis or chest congestion GI: Denies: abdominal pain, nausea, vomiting, hematemesis, coffee ground emesis, dysphagia, heartburn, diarrhea, constipation, GI cramping, change in stool character, hematochezia or melena : Denies: flank pain, dysuria, urinary frequency, urinary urgency, urinary hesitancy or hematuria Musc: Denies: neck pain, back pain, extremity pain, joint swelling, joint warmth or deformity Neuro: Denies: headache(s), numbness in extremities, weakness in extremities, sensory changes, difficulty walking, frequent falls, dizziness, vertigo, behavioral changes, Slurred speech present or seizure-like activity Psych: Denies: anxiety, depression, suicidal ideation or homicidal ideation Endo: Denies: polyuria, polydipsia, tired all the time, cold intolerance or hot flashes Ken/Lymph: Denies: easy bruising or easy bleeding Medications/Allergies Home Medications Medication Instructions Recorded Confirmed Last Taken Type cholecalciferol (vitamin D3) 2 cap PO BID 05/14/20 12/05/21 12/18/20 08:00 History metformin 1,000 mg tablet 1,000 mg PO BID 05/14/20 12/05/21 12/18/20 08:00 History omega-3 fatty acids 1,000 mg 2,000 mg PO BID 05/14/20 12/05/21 12/18/20 08:00 History capsule (Fish Oil Concentrate) ascorbic acid (vitamin C) 500 mg 500 mg PO BID 09/19/21 12/05/21 Unknown History tablet (Vitamin C) aspirin 81 mg tablet,delayed 81 mg PO DAILY #60 tabs 09/30/21 12/05/21 Unknown Rx release (Bridget Low Dose Aspirin) atorvastatin 40 mg tablet 80 mg PO BEDTIME #60 tabs 09/30/21 12/05/21 Unknown Rx lisinopril 20 mg tablet 10 mg PO DAILY 10/10/21 12/05/21 Unknown History citalopram 20 mg tablet 20 mg PO DAILY 10/17/21 12/05/21 Unknown History finasteride 5 mg tablet 5 mg PO DAILY 10/17/21 12/05/21 Unknown History metoprolol tartrate 25 mg tablet 12.5 mg PO BID 10/17/21 12/05/21 Unknown History Allergies Allergy/AdvReac Type Severity Reaction Status Date / Time procaine [From Novocain] Allergy Unknown Verified 04/27/22 03:00 PFSH Acute PFSH: Medical History Acute respiratory failure with hypoxemia Bifascicular block Borderline hyperlipidemia COVID-19 Diabetes mellitus Hyperlipidemia Lactic acidosis Left main coronary artery disease NSTEMI (non-ST elevated myocardial infarction) PEA (Pulseless electrical activity) Recurrent syncope Sinus pause Third degree atrioventricular block Surgical History H/O circumcision H/O colonoscopy History of appendectomy Hx of CABG Hx of cataract extraction Status post aorto-coronary artery bypass graft Status post colonoscopy with polypectomy (06/19/20) Family History Mother CAD (coronary artery disease) [place] 89 Stroke Brother CAD (coronary artery disease), Onset Age: 60 Cancer Diabetes Lung disease Sister Diabetes Other Hyperlipidemia Hypertension Denies family history of Clotting disorder Dementia Chronic kidney disease (CKD) Suicide Anesthesia complication Bleeding disorder Social History Smoking and tobacco status: former smoker Alcohol intake: never Lives independently: Yes Marital status: / Current occupational status: retired History of recent travel: No Vitals/I&O/Wt Last Vital Signs Temp 98.1 F 04/26/22 19:50 Pulse 47 L 04/27/22 02:35 Resp 11 L 04/27/22 02:35 BP 139/70 04/27/22 02:35 Pulse Ox 98 04/27/22 02:35 O2 Del Method 04/26/22 19:50 Weight last 48 hrs Weight 78.018 kg Physical Exam Narrative: General: No acute distress, AO x3 HEENT: PERRLA, pupils bilaterally equal and reactive, pallors not present Chest: Normal vesicular breath sounds, no added sounds, equal good air entry bilaterally CVS: S1-S2 regular, no murmurs, no tachycardia, no gallops, no rubs Abdomen: Soft, nontender, no organomegaly, bowel sounds present Neuro: No focal deficits, no facial deformity, AO x3, power 5/5 in all limbs Data : 04/26/22 20:15 04/26/22 20:15 A&P Assessment and plan (1) Chest pain: Atypical chest pain EKG with sinus bradycardia, no acute st-t wave changes, trop series without significant delta , less likely ACS Ct abdomen/pelvis with normal gall bladder and biliary system Chest is clear to auscultation . CXR with b/l non specific infiltrates stable since 10/08. Diffentials include musculoskeletal pain given patient has been moving, lifting furniture over last 2 weeks, made worse with positional changes, improving with NSAIDs. However his pain is also noted to come in mid conversation without movement which is odd for musculoskeletal pain. Low suspicion for PE given no hypoxia, no dyspnea, will screen with D dimer May be pericarditis though unclear precipitant. Check CRP and echocardiogram Trial of NSAIDs ibuprofen 600mg TID while undergoing evaluation Attestations Medical Necessity Statement*: anticipate less than 2 midnight stay for above evaluation Coding Level of Care Code Acute Supervisor Shuttle Veneering for Velma Villegas Diagnoses Chest pain R07.9
[2022-04-27 02:40] LABS: Troponin 5 6HR 19.13 ng/L (0-15)
[2022-04-27 03:00] LABS: Troponin 5 6HR Delta 5.13 ng/L (0-12)
--- NOTE | 2022-04-27 04:01 | PC.NURSE ---
Dr. Nolan notified of d-dimer of 1.03. Patient rates chest pain 10/27.
--- NOTE | 2022-04-27 04:32 | PC.NURSE ---
Patient states that he does not have any pain at this time.
--- NOTE | 2022-04-27 08:02 | USR_ITS ---
PROCEDURE INFORMATION: Exam: US Duplex Lower Extremity Veins, Bilateral Exam date and time: 04/27/2022 8:13 AM Age: 77 years old Clinical indication: Pain; Leg, lower; Bilateral; Additional info: Dvt TECHNIQUE: Imaging protocol: Real-time Duplex ultrasound of the bilateral extremities with 2-D hay scale, color Doppler flow and spectral waveform analysis with image documentation. Complete exam focused on the bilateral lower extremity veins. COMPARISON: CT abdomen pelvis w con* [id number] 04/26/2022 9:08 PM FINDINGS: Right deep veins: Unremarkable. The common femoral, femoral, proximal profunda femoral and popliteal veins are patent without thrombus. Normal Doppler waveforms. Normal compressibility and/or augmentation response. Right superficial veins: Saphenofemoral junction is patent without thrombus. Left deep veins: Unremarkable. The common femoral, femoral, proximal profunda femoral and popliteal veins are patent without thrombus. Normal Doppler waveforms. Normal compressibility and/or augmentation response. Left superficial veins: Saphenofemoral junction is patent without thrombus. Soft tissues: Unremarkable. US/CV venous duplex [facility] [id number] IMPRESSION: No evidence of deep vein thrombosis.
[2022-04-27 08:08] LABS: C Reactive Protein 3.2 mg/L (0.0-4.9)
[2022-04-27 08:50] LABS: Erythrocyte Sedimentation Rate 7 mm/hr (0-10)
[2022-04-27 09:17] LABS: ABG PH Result 7.39 (7.35-7.45); Arterial Blood Gas Hematocrit 34.8 % (42-52); Blood Gas Allen Test Pos; Blood Gas Sample Site Radial, left; Blood Gas Sample Type Arterial; HCO3 ABG 28.7 mmol/L (22-26); Oxygen Device NC
[2022-04-27] MEDS: aspirin 81 mg EC Tablet PO (09:37)
[2022-04-27] MEDS: lisinopril 10 mg Tablet PO (09:37)
[2022-04-27] MEDS: finasteride 5 mg Tablet PO (09:37)
[2022-04-27] MEDS: citalopram 20 mg Tablet PO (09:37)
[2022-04-27] MEDS: pantoprazole DR 40 mg Tablet PO (09:37)
[2022-04-27] MEDS: ibuprofen 200 mg Tablet 400 MG PO ×2 (09:37→16:37)
--- NOTE | 2022-04-27 10:45 | CTR_ITS ---
PROCEDURE INFORMATION: Exam: CTA Chest With Contrast Exam date and time: 04/27/2022 11:22 AM Age: 77 years old Clinical indication: Shortness of breath; Prior surgery; Surgery type: Open heart; Additional info: SOB TECHNIQUE: Imaging protocol: Computed tomographic angiography of the chest with contrast. 3D rendering (Not supervised by radiologist): MIP and/or 3D reconstructed images were created by the technologist. Radiation optimization: All CT scans at this facility use at least one of these dose optimization techniques: automated exposure control; mA and/or kV adjustment per patient size (includes targeted exams where dose is matched to clinical indication); or iterative reconstruction. Contrast material: OMNI 350; Contrast volume: 80 ml; Contrast route: INTRAVENOUS (IV); COMPARISON: CT chest abd pel w con* 09/20/2021 4:54 AM RADIATION DOSE METRICS: Total DLP (mGy-cm): 422.34 FINDINGS: Pulmonary arteries: Normal. No pulmonary emboli. Aorta: Mild calcification of the aorta. No thoracic aortic aneurysm. Lungs: Dense benign calcifications are present in the right lung. Bibasilar atelectasis. Pleural spaces: Small bilateral pleural effusions. Heart: Heart is not significantly enlarged. The patient has undergone coronary bypass surgery. There is calcification of the kenaitze coronary arteries. Lymph nodes: There are benign calcified lymph nodes in the mediastinum and pulmonary ren. Spleen: Small benign calcified granulomas in the spleen. Kidneys and ureters: Left nephrolithiasis. Bones/joints: Chronic degenerative changes are present in the spine. No acute bony abnormality. Soft tissues: Unremarkable. CT/CT angio chest PE protcl [id number] IMPRESSION: 1. No evidence of pulmonary embolus. 2. Bilateral pleural effusions with bibasilar atelectasis. 3. Benign calcified granulomatous disease.
[2022-04-27] MEDS: iohexol 350 mg/mL 100 mL Btl IV (11:32)
--- NOTE | 2022-04-27 14:59 | ECG_ITS ---
[facility] Test Date: 2022-04-28 Pat Name: Jeremiah Lance Department: Room: 251 Gender: Male Mixer Whipped Topping: : 1945 Requested By: Montrell Bautista Order Number: [id number] Vania MD: Malik Alvarez M.D. Interpretive Statements NAME OF STUDY: LEXISCAN SESTAMIBI STRESS TEST INDICATION: Chest Pain, PROCEDURE: At the baseline, the EKG revealed sinus bradycardia with diffuse nonspecific ST-T changes. Nonspecific IVCD. Features of LVH. Left axis deviation.. The baseline heart was 51 bpm with a blood pressue of 145/66 mm of Hg Lexiscan was infused over a period of 20 seconds. A total of 0.4 milligrams of Lexiscan was infused. The stress phase was continued for a total of 5 minutes. Heart rate at the end of the stress phase was 68 bpm with a blood pressure 138/72 mm of Hg. The EKG at the peak infusion revealed no significant changes. Sestamibi was injected 20 seconds after the Lexiscan infusion. Heart rate at the end of the recovery phase was 62 bpm with a blood pressure of 165/70 mm of Hg. CONCLUSION: 1. No significant EKG changes with the LexiScan infusion 2. No LexiScan induced chest pain or cardiac arrhythmia 3. Normal blood pressure and heart rate response 4. Sestamibi/sestamibi perfusion scan pending; see separate report. Electronically Signed On 05-02-2022 15:59:25 CDT by Malik Alvarez M.D. [id number]
--- NOTE | 2022-04-27 15:00 | P.PN_ITS ---
Subjective Subjective: Patient was seen this morning he continues to have pain in her right side of his chest, I will along the sternum and along the xiphoid, no lightheadedness, dizziness, no diaphoresis Vitals/I&O/Wt Last Vital Signs Temp 97.5 F L 04/27/22 11:55 Pulse 50 L 04/27/22 11:55 Resp 16 04/27/22 11:55 BP 127/59 04/27/22 11:55 Pulse Ox 98 04/27/22 11:55 O2 Del Method 04/27/22 02:58 O2 Flow Rate 1 04/27/22 02:58 04/27/22 04/27/22 04/27/22 06:59 14:59 22:59 Intake Total 360 / 360 Balance 360 / 360 Weight last 48 hrs Weight 78.018 kg Physical Exam Const: COMMON NORMALS: no acute distress and patient oriented x3 Resp: COMMON NORMALS: normal respiratory effort, No retractions, No use of accessory muscles and clear to auscultation bilaterally AUSCULTATION: clear to auscultation bilaterally Cardio: COMMON NORMALS: regular rate, regular rhythm, S1 normal heart sound present and S2 normal heart sound present RATE: regular rate RHYTHM: regular rhythm HEART SOUNDS: S1 normal heart sound present and S2 normal heart sound present GI: COMMON NORMALS: Normal to inspection, nondistended, normoactive bowel sounds present and non-tender Extremity: COMMON NORMALS: no pedal edema Neuro: COMMON NORMALS: patient oriented x3 Psych: COMMON NORMALS: mental status grossly normal Data : 04/26/22 20:15 04/26/22 20:15 A&P Assessment and plan (1) Chest pain: Atypical chest pain EKG with sinus bradycardia, no acute st-t wave changes, trop series without significant delta , less likely ACS Ct abdomen/pelvis with normal gall bladder and biliary system CT angiogram of the chest ordered due to elevated D-dimer, bilateral pleural effusions, no pulmonary emboli, venous ultrasound negative for DVT We will do a trial of Lasix Echocardiogram EF has improved to 50%, but does have diffuse hypokinesis of inferior wall Given history of CABG recently, will order cardiac stress test, n.p.o. midnight However Diffentials include musculoskeletal pain given patient has been moving, lifting furniture over last 2 weeks, made worse with positional changes, improving with NSAIDs. However his pain is also noted to come in mid conversation without movement which is odd for musculoskeletal pain. 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
[2022-04-27] MEDS: FUROsemide 10 mg/mL SDV 4mL 40 MG IVP (15:39)
[2022-04-27 17:02] LABS: Glucose Point of Care 116 mg/dL (70-110)
[2022-04-27] MEDS: atorvastatin 40 mg Tablet 80 MG PO (20:14)
[2022-04-27 20:45] LABS: Glucose Point of Care 134 mg/dL (70-110)
[2022-04-28] VITALS (10 sets, daily range): BP systolic 135–165; BP diastolic 54–77; PULSE 46–62; RESP 16–18; TEMP 36.4–36.7; O2SAT 93–98
[2022-04-28 03:29] LABS: Basophils % 0.3 %; Eosinophils # 0.2 10^3/uL (0.0-0.8); Eosinophils % 3.6 %; Hematocrit 32.8 % (42.0-52.0); Hemoglobin 10.6 g/dL (11.7-16.6); Lymphocytes # 2.3 10^3/uL (0.8-4.8); Lymphocytes % 37.5 %; Mean Corpuscular HGB Conc 32.3 g/dL (30.0-36.0); Mean Corpuscular Hemoglobin 33.8 pg (28.0-34.0); Mean Corpuscular Volume 104.5 fl (80-94); Mean Platelet Volume 10.3 fL (7.4-10.4); Monocytes # 0.5 10^3/uL (0.2-0.9); Monocytes % 8.3 %; Neutrophils # 3.02 10^3/uL (1.8-7.7); Nucleated Red Blood Cells % 0 %; Platelet Count 144 10^3/cmm (130-400); Red Blood Count 3.14 10^6/uL (4.1-5.3); White Blood Count 6.1 10^3/uL (4.0-10.0)
[2022-04-28 03:54] LABS: Anion Gap 11.9 (5-19); Blood Urea Nitrogen 25 mg/dL (8-23); Calcium 9.1 mg/dL (8.5-10.5); Carbon Dioxide 32 mmol/L (22-29); Chloride 102 mmol/L (98-107); Creatinine Clr Calc Pharmacy 83.3413; Glucose 73 mg/dL (65-115); Osmolality Calculated 297 mOsm/kg (285-295); Potassium 3.9 mmol/L (3.5-5.1); Sodium 142 mmol/L (136-145)
[2022-04-28] MEDS: acetaminophen 325 mg Tablet 650 MG PO (05:16)
[2022-04-28 06:40] LABS: Glucose Point of Care 88 mg/dL (70-110)
[2022-04-28] MEDS: aspirin 81 mg EC Tablet PO (09:40)
[2022-04-28] MEDS: finasteride 5 mg Tablet PO (09:40)
[2022-04-28] MEDS: lisinopril 10 mg Tablet PO (09:40)
[2022-04-28] MEDS: pantoprazole DR 40 mg Tablet PO (09:40)
[2022-04-28] MEDS: citalopram 20 mg Tablet PO (09:41)
[2022-04-28 12:12] LABS: Glucose Point of Care 96 mg/dL (70-110)
[2022-04-28] MEDS: regadenoson 0.4 Mg/5 ml Syringe IVP (12:39)
--- NOTE | 2022-04-28 13:35 | PC.CHAP ---
Pastoral Care Encounter/Spiritual Assessment Type of Contact [] Declined cord tire builder visit [] Patient/Family/Request visit [] Outpatient visit [] Follow-up visit [] Physician referral [] Code/Alert [] Routine visit [] Staff referral [] Actively dying [] Patient sleeping [] Family support [] [] Out of room [] Palliative care [] [] Receiving care in room [] Pre-surgical visit [] Trauma [] Long length of stay [] ICU visit [] Other: Relational/Emotional Strength [] Patient feels connected with others/family/visitors/staff [] Distress [] Loneliness/isolation [] Abandonment Spirituality of Patient [] Person of Vera [] Attends Religious of their Vera [] Believes in Prayer [] Reads Bible or Cheondoism materials [] There are Spiritual issues to be addressed Human Resources Services Specialist Interventions [] Prayer [] Active listening [] Non-anxious presence [] Spiritual/emotional support [] Crisis/trauma care [] Spiritual counseling [] Bereavement support [] Provided bereavement packet [] Provided Bible/devotional materials [] Provided toy/stuffed animal, coloring book to patient or family member [] Provided Communion [] Anointing/[place] [] Salvation [] Completed spiritual assessment [] Other: Impact on Illness or Injury [] Angry [] Fearful [] Anxious [] Often cries [] Exhaustion [] Unable to work [] Unable to attend bahai [] Unable to walk/stand [] Unable to read [] Unable to drive [] Unable to eat/drink [] Unable to sleep [] Unable to be with family [] Patient intubated [] Other: Summary Time spent with patient Pastoral Care Encounter/Spiritual Assessment Type of Contact [] Declined cord tire builder visit [] Patient/Family/Request visit [] Outpatient visit [] Follow-up visit [] Physician referral [] Code/Alert x[] Routine visit [] Staff referral [] Actively dying [] Patient sleeping [] Family support [] [] Out of room [] Palliative care [] [] Receiving care in room [] Pre-surgical visit [] Trauma [] Long length of stay [] ICU visit [] Other: Relational/Emotional Strength [x] Patient feels connected with others/family/visitors/staff [] Distress [] Loneliness/isolation [] Abandonment Spirituality of Patient [x] Person of Vera x] Attends Religious of their Vera [x] Believes in Prayer [] Reads Bible or Cheondoism materials [] There are Spiritual issues to be addressed Human Resources Services Specialist Interventions [x] Prayer [x] Active listening [x] Non-anxious presence [x] Spiritual/emotional support [] Crisis/trauma care [] Spiritual counseling [] Bereavement support [] Provided bereavement packet [] Provided Bible/devotional materials [] Provided toy/stuffed animal, coloring book to patient or family member [] Provided Communion [] Anointing/[place] [] Salvation [x] Completed spiritual assessment [] Other: Impact on Illness or Injury [] Angry [] Fearful [] Anxious [] Often cries [] Exhaustion [] Unable to work [] Unable to attend bahai [] Unable to walk/stand [] Unable to read [] Unable to drive [] Unable to eat/drink [] Unable to sleep [] Unable to be with family [] Patient intubated [] Other: Summary Time spent with patient 10 min
--- NOTE | 2022-04-28 14:15 | PM.PN ---
Subjective Subjective: Seen this morning. Patient is chest pain-free this morning however did have an episode where he felt the pain came back on around the right side of his chest. Pretty nonspecific however. He stated initially he thought it was pleurisy but he also had pain coming on without any triggers. He is going to go for stress test today. Vitals/I&O/Wt Last Vital Signs Temp 97.6 F 04/28/22 12:00 Pulse 62 04/28/22 12:41 Resp 17 04/28/22 12:00 BP 165/70 04/28/22 12:41 Pulse Ox 98 04/28/22 12:00 O2 Del Method 04/27/22 02:58 O2 Flow Rate 1 04/27/22 02:58 04/27/22 04/28/22 04/28/22 22:59 06:59 14:59 Intake Total 720 / 1080 Balance 720 / 1080 Weight last 48 hrs Weight 78.018 kg Physical Exam Const: COMMON NORMALS: no acute distress and patient oriented x3 Resp: COMMON NORMALS: normal respiratory effort, No retractions, No use of accessory muscles and clear to auscultation bilaterally AUSCULTATION: clear to auscultation bilaterally Cardio: COMMON NORMALS: regular rate, regular rhythm, S1 normal heart sound present and S2 normal heart sound present RATE: regular rate RHYTHM: regular rhythm HEART SOUNDS: S1 normal heart sound present and S2 normal heart sound present GI: COMMON NORMALS: Normal to inspection, nondistended, normoactive bowel sounds present and non-tender Extremity: COMMON NORMALS: no pedal edema Neuro: COMMON NORMALS: patient oriented x3 Psych: COMMON NORMALS: mental status grossly normal Data : 04/28/22 03:08 04/28/22 03:08 A&P Assessment and plan (1) Chest pain: (2) Benign hypertension: (3) Recurrent syncope: (4) Left main coronary artery disease: (5) Hyperlipidemia: Qualifiers: Hyperlipidemia type: mixed hyperlipidemia Qualified Code(s): E78.2 - Mixed hyperlipidemia (6) Diabetes mellitus: Qualifiers: Diabetes mellitus type: type 2 Diabetes mellitus 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 renewal inspector insulin use: without residential use Diabetes mellitus complication status: without complication Qualified Code(s): E11.9 - Type 2 diabetes mellitus without complications (7) Borderline hyperlipidemia: (8) Status post aorto-coronary artery bypass graft: (9) Dyspnea on exertion: Plan #Atypical chest pain #History of CABG, NSTEMI requiring Impella September 2021 #History of bifascicular block, hyperlipidemia, LAD, PE, sinus pause, third-degree AV block - EKG with sinus bradycardia, no acute st-t wave changes, trop series without significant delta , less likely ACS -Ct abdomen/pelvis with normal gall bladder and biliary system -CT angiogram of the chest ordered due to elevated D-dimer, bilateral pleural effusions, no pulmonary emboli, venous ultrasound negative for DVT -Echocardiogram EF has improved to 50%, but does have diffuse hypokinesis of inferior wall -Stress test today. Further management to be dictated after results. ? Continue ibuprofen 600 3 times daily for now. Full code DVT prophylaxis: Heparin. Attestations Medical Necessity Statement*: Admitted with chest pain. Awaiting results of stress test. Continue to monitor in the hospital. Coding Level of Care Code Acute Practice Clinician for Chg Fwd Diagnoses Chest pain R07.9 Benign hypertension I10 Recurrent syncope R55 Left main coronary artery disease I25.10 Hyperlipidemia E78.2 Hyperlipidemia type: mixed hyperlipidemia Diabetes mellitus E11.9 Diabetes mellitus type: type 2 Diabetes mellitus termite renewal inspector insulin use: without termite renewal inspector use Diabetes mellitus complication status: without complication Borderline hyperlipidemia E78.5 Status post aorto-coronary artery bypass graft Z95.1 Dyspnea on exertion R06.00
--- NOTE | 2022-04-28 14:59 | NMCV_ITS ---
NM pascual perf SPECT r/s* [id number] Jeremiah Lance Age: 77 Gender: M : 1945 Exam Date: 04/28/2022 14:59 Ordering Phys: Montrell Bautista MD Technologist: MARI Shea Exam Location: [facility] Indications: Chest pain STRESS TEST [facility] IMAGE PROTOCOL Rest/Stress 1 Exercise Day Radiopharmaceutical Dose (mCi) Administration Site Administered by Rest: Tc-99m 10.7 IV MARI Shea Sestamibi Stress:Tc-99m 31.1 IV MARI Shea Sestamibi Rest: 28-Apr-2022 30 Discovery 630 Stress: 28-Apr-2022 60 Discovery 630 0.4mg Lexiscan. Images obtained in supine and prone position. SPECT RESULTS Technical Quality: Excellent Raw Data Analysis: Adequate, Normal Image Corrections: No attenuation or motion correction applied Summed Stress Score: 3 Summed Rest Score: 5 Summed Difference Score: 0 PERFUSION FINDINGS Small area of moderately decreased tracer uptake was noted in the apical lateral and apical anterior regions. No significant reversibility was noted in these regions. FUNCTIONAL RESULTS (calculated via Gated SPECT) Stress Image LV EF (%): 50 Stress EDV (mL):175 TID: 1.19 Stress ESV (mL):87 FUNCTIONAL FINDINGS: Segmental wall motion analysis reveals diffuse hypokinesia of the septum. LV ejection fraction was 50%. The transient ischemic dilatation ratio was 1.19 IMPRESSIONS 1. Myocardial perfusion imaging revealing small area of persistent decreased tracer uptake in the apical anterior and apical lateral regions suggesting myocardial scarring versus attenuation artifact. 2. Normal LV ejection fraction of 50% 3. Segmental wall motion analysis revealing diffuse hypokinesia of the septum. 4. Mildly dilated LV cavity with an end-systolic volume of 87 mL. 5. Slightly elevated transischemic dilatation ratio of 1.19, may suggest endocardial ischemia. However the positive predictive value of this finding is limited. No similar previous studies are available for comparison Dr Malik Alvarez MD [facility] (Electronically Signed) Final Date: 28 April 2022 18:13 S
[2022-04-28] MEDS: atorvastatin 40 mg Tablet 80 MG PO (20:22)
[2022-04-28 21:37] LABS: Glucose Point of Care 113 mg/dL (70-110)
[2022-04-29 04:00] VITALS: BP 100/62; PULSE 68; RESP 17; TEMP 36.7; O2SAT 97
[2022-04-29 05:16] LABS: Basophils % 0.3 %; Eosinophils # 0.2 10^3/uL (0.0-0.8); Eosinophils % 2.5 %; Hematocrit 34.9 % (42.0-52.0); Hemoglobin 11.5 g/dL (11.7-16.6); Lymphocytes # 2.2 10^3/uL (0.8-4.8); Lymphocytes % 29.9 %; Mean Corpuscular Hemoglobin 33.5 pg (28.0-34.0); Mean Corpuscular Volume 101.7 fl (80-94); Mean Platelet Volume 10.6 fL (7.4-10.4); Monocytes # 0.6 10^3/uL (0.2-0.9); Monocytes % 7.8 %; Neutrophils # 4.41 10^3/uL (1.8-7.7); Nucleated Red Blood Cells % 0 %; Platelet Count 158 10^3/cmm (130-400); Red Blood Count 3.43 10^6/uL (4.1-5.3); Red Cell Distribution Width 15.6 % (12.1-15.1); White Blood Count 7.5 10^3/uL (4.0-10.0)
[2022-04-29 05:39] LABS: Anion Gap 14.6 (5-19); Blood Urea Nitrogen 18 mg/dL (8-23); Carbon Dioxide 28 mmol/L (22-29); Chloride 101 mmol/L (98-107); Creatinine Clr Calc Pharmacy 83.3413; Glucose 83 mg/dL (65-115); Osmolality Calculated 291 mOsm/kg (285-295); Potassium 3.6 mmol/L (3.5-5.1); Sodium 140 mmol/L (136-145)
[2022-04-29 06:00] VITALS: PULSE 55
[2022-04-29 06:51] LABS: Glucose Point of Care 86 mg/dL (70-110)
[2022-04-29 08:00] VITALS: BP 148/77; PULSE 55; RESP 15; TEMP 36.6; O2SAT 92
[2022-04-29] MEDS: aspirin 81 mg EC Tablet PO (10:05)
[2022-04-29] MEDS: pantoprazole DR 40 mg Tablet PO (10:05)
[2022-04-29] MEDS: citalopram 20 mg Tablet PO (10:06)
[2022-04-29] MEDS: finasteride 5 mg Tablet PO (10:06)
[2022-04-29] MEDS: lisinopril 10 mg Tablet PO (10:06)
[2022-04-29 11:22] LABS: Glucose Point of Care 117 mg/dL (70-110)
[2022-04-29 11:58] VITALS: BP 152/68; PULSE 58; RESP 15; TEMP 36.4; O2SAT 95
--- NOTE | 2022-04-29 14:32 | P.DS_ITS ---
Discharge Providers Date of Admission: 04/27/22 01:54 Date of Discharge: April 29, 2022 Attending Provider at Admission: Nilsa Nolan MD Attending Provider at Discharge: Ely Borden MD Primary Care Provider: Yolanda Yi MD Diagnoses at Discharge Discharge Diagnosis (1) Chest pain: Status: Acute (2) Benign hypertension: Status: Acute (3) Recurrent syncope: Status: Acute (4) Left main coronary artery disease: Status: Acute (5) Hyperlipidemia: Status: Acute Qualifiers: Hyperlipidemia type: mixed hyperlipidemia Qualified Code(s): E78.2 - Mixed hyperlipidemia (6) Diabetes mellitus: Status: Acute Qualifiers: Diabetes mellitus complication status: without complication Diabetes mellitus shelter insulin use: without termite inspector use Diabetes mellitus type: type 2 Qualified Code(s): E11.9 - Type 2 diabetes mellitus without complications (7) Borderline hyperlipidemia: Status: Acute (8) Status post aorto-coronary artery bypass graft: Status: Acute (9) Dyspnea on exertion: Status: Acute Reason for Visit Reason for Visit: CP Brief History: As per Dr. Nolan Jeremiah Lance Jr is a 77 year old male with coronary artery disease, status post CABG September 2021 in his usual state of health until 2 weeks ago when he started experiencing some chest discomfort.? States that the pain is located in lower part of the chest around the xiphisternum.? 10 out of 10 at its peak, nonradiating.? Feels like intermittent sharp stabbing pain.? Made worse with deep breathing, attempting to flex his legs at the hip and attempting to turn sides.? Patient states that he feels like he has pleurisy .? Denies any cough palpitations syncope or dyspnea.no h/o recent URI symptoms, cough. He is in the process of moving and has been moving furniture around. No apparent relieivng symptoms. Morphine and nitro did not? help the pain. It is down to 4/10 after receiving toradol and Norflex. CT abdomen/pelvis did not show acute abnormality. EKG with sinus bradycardia, no acute st- t wave changes , troponin series without significant delta. Hospital Course Hospital Course Patient was admitted for chest pain. Echocardiogram was done which showed diffuse hypokinesia of inferior wall segments and grade 3 x 4 diastolic dysfunction. Patient also had a stress test done with results as follows: 1.? Myocardial perfusion imaging revealing small area of persistent decreased ?tracer uptake in the apical anterior and apical lateral regions suggesting ?myocardial scarring versus attenuation artifact. ?2.? Normal LV ejection fraction of 50% ?3.? Segmental wall motion analysis revealing diffuse hypokinesia of the septum. ?4.? Mildly dilated LV cavity with an end-systolic volume of 87 mL. ?5.? Slightly elevated? transischemic dilatation ratio of 1.19, may suggest ?endocardial ischemia.? However the positive predictive value of this finding is ?limited. ?No similar previous studies are available for comparison CTA chest was also done which showed no evidence of pulmonary embolism and bilat eral small pleural effusions. Venous Doppler ruled out DVT. Patient's chest pain was atypical. He said he was a lot of furniture before coming to the hospital and that could have been the cause. Cardiac mccollum there was no evidence of ischemia on the stress test. I discussed his results personally with Dr. Alvarez with his outpatient senior treasury consultant as well. Dr. Alvarez advised that patient can be seen as an outpatient for further management and work-up. Patient will be scheduled with cardiology within a week of discharge. Patient demonstrated understanding. Since has been in the hospital he states he has not had any more chest pain. He feels well. Denies any shortness of breath. Patient will be discharged home in stable condition today. Him and his both demonstrate understanding that if he were to have any more chest pain or shortness of breath he is to return to the ER. Physical Exam Const: COMMON NORMALS: no acute distress and patient oriented x3 Resp: COMMON NORMALS: normal respiratory effort, No retractions, No use of accessory muscles and clear to auscultation bilaterally AUSCULTATION: clear to auscultation bilaterally Cardio: COMMON NORMALS: regular rate, regular rhythm, S1 normal heart sound present and S2 normal heart sound present RATE: regular rate RHYTHM: regular rhythm HEART SOUNDS: S1 normal heart sound present and S2 normal heart sound present GI: COMMON NORMALS: Normal to inspection, nondistended, normoactive bowel sounds present and non-tender Extremity: COMMON NORMALS: no pedal edema Neuro: COMMON NORMALS: patient oriented x3 Psych: COMMON NORMALS: mental status grossly normal Discharge Data Studies Completed and Pending Completed Studies During Hospitalization Category Date Time Status CT abdomen pelvis w con* [id number] Stat Cat Scan 04/26/22 20:[address] angio chest PE protcl [id number] Stat Cat Scan 04/27/22 10:45 Completed Sestamibi Stress Test Request Routine Exams 04/27/22 14:59 Draft XR chest 1V portable [id number] Stat Exams 04/26/22 20:03 Completed NM pascual perf SPECT r/s* [id number] Routine Nuc Med 04/28/22 14:59 [place] [id number] Stat Ultrasound 04/27/22 08:02 Completed CV. echo complete* [id number] Routine Ultrasound 04/27/22 02:27 Completed Pending at discharge Category Date Time Status Basic Metabolic Panel AM LABS Lab 04/30/22 04:00 Ordered Complete Blood Count w/Auto AM LABS Lab 04/30/22 04:00 Ordered Radiology Impressions Chest X-Ray 04/26/22 20:03 IMPRESSION: Unchanged mild nonspecific bilateral lower lung opacity since 09/28/2021. Possible mild persistent or recurrent interstitial edema. Atypical infection is not excluded. Abdomen/Pelvis CT 04/26/22 20:17 IMPRESSION: 1. No acute intra-abdominal findings. 2. Small bilateral pleural effusions. 3. Incidental findings above. Venous Duplex 04/27/22 08:02 IMPRESSION: No evidence of deep vein thrombosis. Chest CTA 04/27/22 10:45 IMPRESSION: 1. No evidence of pulmonary embolus. 2. Bilateral pleural effusions with bibasilar atelectasis. 3. Benign calcified granulomatous disease. Laboratory Results WBC 7.5 10^3/uL (4.0-10.0) 04/29/22 04:16 RBC 3.43 10^6/uL (4.1-5.3) L 04/29/22 04:16 Hgb 11.5 g/dL (11.7-16.6) L 04/29/22 04:16 Hct 34.9 % (42.0-52.0) L 04/29/22 04:16 MCV 101.7 fl (80-94) H 04/29/22 04:16 MCH 33.5 pg (28.0-34.0) 04/29/22 04:16 MCHC 33.0 g/dL (30.0-36.0) 04/29/22 04:16 RDW 15.6 % (12.1-15.1) H 04/29/22 04:16 Plt Count 158 10^3/cmm (130-400) 04/29/22 04:16 MPV 10.6 fL (7.4-10.4) H 04/29/22 04:16 Neut % (Auto) 59.0 % 04/29/22 04:16 Lymph % (Auto) 29.9 % 04/29/22 04:16 [place] % (Auto) 7.8 % 04/29/22 04:16 Eos % (Auto) 2.5 % 04/29/22 04:16 Baso % (Auto) 0.3 % 04/29/22 04:16 Neut # (Auto) 4.41 10^3/uL (1.8-7.7) 04/29/22 04:16 Lymph # (Auto) 2.2 10^3/uL (0.8-4.8) 04/29/22 04:16 [place] # (Auto) 0.6 10^3/uL (0.2-0.9) 04/29/22 04:16 Eos # (Auto) 0.2 10^3/uL (0.0-0.8) 04/29/22 04:16 Baso # (Auto) 0.0 10^3/uL (0.0-0.1) 04/29/22 04:16 Nucleated RBC % (auto) 0 % 04/29/22 04:16 Nucleated RBCs # 0.0 /100WBC 04/29/22 04:16 ESR 7 mm/hr (0-10) 04/26/22 20:15 PT 13.60 SECONDS (12.1-14.9) 04/26/22 20:15 INR 1.01 (0.8-1.2) 04/26/22 20:15 APTT 32.1 SECONDS (23.9-36.7) 04/26/22 20:15 D-Dimer 1.03 ug/mIFEU (0-0.59) H 04/26/22 20:15 Specimen Type Arterial 04/27/22 09:07 Sample Site Radial, left 04/27/22 09:07 ABG pH 7.39 (7.35-7.45) 04/27/22 09:07 ABG pCO2 48.0 mmHg (35-45) H 04/27/22 09:07 ABG pO2 109.0 mmHg (80.0-100.0) H 04/27/22 09:07 ABG HCO3 28.7 mmol/L (22-26) H 04/27/22 09:07 ABG Base Excess 3.0 mmol/L (-2.0-2.0) H 04/27/22 09:07 Sacha Test Pos 04/27/22 09:07 Hematocrit 34.8 % (42-52) L 04/27/22 09:07 O2 Delivery Device Nc 04/27/22 09:07 O2 Liters/Min 2.0 % 04/27/22 09:07 Asset Administrator ID Stefan 04/27/22 09:07 Sodium 140 mmol/L (136-145) 04/29/22 04:16 Potassium 3.6 mmol/L (3.5-5.1) 04/29/22 04:16 Chloride 101 mmol/L (98-107) 04/29/22 04:16 Carbon Dioxide 28 mmol/L (22-29) 04/29/22 04:16 Anion Gap 14.6 (5-19) 04/29/22 04:16 BUN 18 mg/dL (8-23) 04/29/22 04:16 Creatinine 0.7 mg/dL (0.7-1.2) 04/29/22 04:16 GFR Calculation Not Reportable 04/29/22 04:16 Glucose 83 mg/dL (65-115) 04/29/22 04:16 POC Glucose 117 mg/dL (70-110) H 04/29/22 11:03 Calculated Osmolality 291 mOsm/kg (285-295) 04/29/22 04:16 Calcium 9.0 mg/dL (8.5-10.5) 04/29/22 04:16 Total Bilirubin 0.4 mg/dL (0.15-1.2) 04/26/22 20:15 AST 34 U/L (0-40) 04/26/22 20:15 ALT 41 U/L (0-41) 04/26/22 20:15 Alkaline Phosphatase 103 U/L (40-130) 04/26/22 20:15 Creatine Kinase 61 U/L (39-308) 04/26/22 20:15 Troponin T Baseline 14 ng/L (0-15) 04/26/22 20:15 Troponin T 120 Minute 14.08 ng/L (0-15) 04/26/22 21:53 Delta Troponin T 0.08 ABS# (0-10) 04/26/22 21:53 Troponin T Hi Sens 6Hr 19.13 ng/L (0-15) H 04/27/22 02:12 Troponin T Hi Sens 6Hr Delta 5.13 ng/L (0-12) 04/27/22 02:12 C-Reactive Protein 3.2 mg/L (0.0-4.9) 04/27/22 02:12 NT-Pro-B Natriuret Pep 1270 pg/mL (0-450) H 04/26/22 20:15 Total Protein 7.0 g/dL (6.6-8.7) 04/26/22 20:15 Albumin 4.0 g/dL (3.5-5.2) 04/26/22 20:15 Globulin 3.0 g/dL (1.3-4.6) 04/26/22 20:15 Lipase 39 U/L (13-60) 04/26/22 20:15 Urine Color Yellow (Yellow) 04/26/22 21:45 Urine Appearance Clear (CLEAR) 04/26/22 21:45 Urine pH 5 (5-7) 04/26/22 21:45 Ur Specific [place] 1.025 (1.005-1.030) 04/26/22 21:45 Urine Protein Neg (Negative) 04/26/22 21:45 Urine Glucose (UA) Norm (Normal) 04/26/22 21:45 Urine Ketones 1+ (Negative) H 04/26/22 21:45 Urine Blood Neg (Negative) 04/26/22 21:45 Urine Nitrate Negative (Negative) 04/26/22 21:45 Urine Bilirubin Neg (Negative) 04/26/22 21:45 Urine Urobilinogen 4 mg/dL (Negative) H 04/26/22 21:45 Ur Leukocyte Esterase Negative (Negative) 04/26/22 21:45 Vitals Last Vital Signs Temp 97.6 F 04/29/22 11:58 Pulse 58 L 04/29/22 11:58 Resp 15 04/29/22 11:58 BP 152/68 04/29/22 11:58 Pulse Ox 95 04/29/22 11:58 O2 Del Method 04/29/22 11:58 O2 Flow Rate 1 04/27/22 02:58 Discharge Plan Discharge Patient Disposition: Home Condition: Stable Prescriptions: Continued metformin 1,000 mg tablet 1,000 mg PO BID omega-3 fatty acids [Fish Oil Concentrate] 1,000 mg capsule 2,000 mg PO BID cholecalciferol (vitamin D3) 2 cap PO BID lisinopril 20 mg tablet 10 mg PO DAILY metoprolol tartrate 25 mg tablet 12.5 mg PO BID Rx Instructions: 1/2 TAB TWICE DAILY finasteride 5 mg tablet 5 mg PO DAILY citalopram 20 mg tablet 20 mg PO DAILY ascorbic acid (vitamin C) [Vitamin C] 500 mg Tablet 500 mg PO BID atorvastatin 40 mg Tablet 80 mg PO BEDTIME Qty: 60 4RF aspirin [Bridget Low Dose Aspirin] 81 mg tablet,delayed release (DR/EC) 81 mg PO DAILY Qty: 60 3RF Discharge Orders: Discharge Order (Routine); Ordered 04/29/22 Ordered By: Ely Borden Referrals: Lindsay Field FNP [Nurse Practitioner] - 05/06/22 1:45 pm Discharge Diet: Cardiac Discharge Activity: Resume usual activity Patient Instructions: Chest Pain (GEN), Opioid Safety Activity Restrictions/Additional Instructions: Please return to ER if you have symptoms or worsening symptoms such has chest pain, shortness of breath, back pain or any other. Discharge Attestations Time Spent in Discharge Care*: greater than 30 min Quality Metrics Clinical Quality Measures [ No reported AMI, CVA or VTE this stay] Coding Level of Care Code Acute Chg FW DC note Diagnoses Chest pain R07.9 Benign hypertension I10 Recurrent syncope R55 Left main coronary artery disease I25.10 Hyperlipidemia E78.2 Hyperlipidemia type: mixed hyperlipidemia Diabetes mellitus E11.9 Diabetes mellitus complication status: without complication Diabetes mellitus termite inspector insulin use: without termite inspector use Diabetes mellitus type: type 2 Borderline hyperlipidemia E78.5 Status post aorto-coronary artery bypass graft Z95.1 Dyspnea on exertion R06.00
[2022-04-29 14:51] VITALS: BP 152/68; PULSE 58; RESP 15; TEMP 36.4; O2SAT 95
== END 2022-04-29 15:16 | disposition home or self-care (01) ==
LOC: ER 04-27 02:13 → MEDSURG 04-27 02:24
PROVIDERS: Family Medicine; Admitting Provider Student in an Organized Health Care Education/Training Program; Emergency Provider Emergency Medicine; PCP Family Medicine; Visit Provider Internal Medicine
DX: R07.89 Other chest pain (principal); I45.10 Unspecified right bundle-branch block; I10 Essential (primary) hypertension; R55 Syncope and collapse; I25.10 Atherosclerotic heart disease of native coronary artery without angina pectoris; E78.2 Mixed hyperlipidemia; E11.9 Type 2 diabetes mellitus without complications; E78.5 Hyperlipidemia, unspecified; Z95.1 Presence of aortocoronary bypass graft; R06.00 Dyspnea, unspecified; I44.2 Atrioventricular block, complete; M79.605 Pain in left leg; M79.604 Pain in right leg; Z79.84 Long term (current) use of oral hypoglycemic drugs; Z86.16 Personal history of COVID-19; I25.2 Old myocardial infarction; Z87.891 Personal history of nicotine dependence
CPT/HCPCS: 36415; 36416; 36600; 71045; 71275; 74177; 78452; 80048; 80053; 81003; 82550; 82803; 82962; 83690; 83880; 84484; 85025; 85378; 85610; 85651; 85730; 86140; 93005; 93017; 93306; 93970; 96374; 96375; 99285; A9500; G0378; J1885; J1940; J2270; J2360; J2405; J2785; Q9967

== ENCOUNTER → 2022-05-06 13:46 | Outpatient (BNVA) | payer OTHER, SELFPAY | PROVIDERS: PCP Family Medicine; Visit Provider Nurse Practitioner Family | DX: I10 Essential (primary) hypertension (principal); I25.10 Atherosclerotic heart disease of native coronary artery without angina pectoris; Z87.891 Personal history of nicotine dependence; Z95.1 Presence of aortocoronary bypass graft | CPT/HCPCS: 99213; 99214 ==

== ENCOUNTER → 2022-07-16 09:41 | Outpatient (BNVA) | payer OTHER, SELFPAY | PROVIDERS: PCP Family Medicine; Visit Provider Internal Medicine Cardiovascular Disease | DX: I25.10 Atherosclerotic heart disease of native coronary artery without angina pectoris (principal); I10 Essential (primary) hypertension; E78.2 Mixed hyperlipidemia; E11.9 Type 2 diabetes mellitus without complications; Z87.891 Personal history of nicotine dependence | CPT/HCPCS: 99214 ==

== ENCOUNTER → 2022-10-21 09:51 | Outpatient (BNVA) | payer OTHER, SELFPAY | PROVIDERS: PCP Family Medicine; Visit Provider Internal Medicine Cardiovascular Disease | DX: I25.10 Atherosclerotic heart disease of native coronary artery without angina pectoris (principal); I10 Essential (primary) hypertension; E78.2 Mixed hyperlipidemia; E11.9 Type 2 diabetes mellitus without complications; Z79.84 Long term (current) use of oral hypoglycemic drugs; Z87.891 Personal history of nicotine dependence; Z95.1 Presence of aortocoronary bypass graft; Z79.82 Long term (current) use of aspirin | CPT/HCPCS: 99214 ==

== ENCOUNTER 2022-11-14 22:33 | Emergency (ER) | payer OTHER, SELFPAY ==
[2022-11-14 22:46] VITALS: BP 152/83; PULSE 60; RESP 16; TEMP 36.7; O2SAT 97; BMI 26.5
--- NOTE | 2022-11-14 22:52 | USR_ITS ---
PROCEDURE INFORMATION: Exam: US Abdomen, Limited; Right Upper Quadrant Exam date and time: 11/14/2022 11:04 PM Age: 77 years old Clinical indication: Abdominal pain; Acute; Additional info: Ruq pain TECHNIQUE: Imaging protocol: Real time ultrasound of the abdomen with image documentation. Limited exam focused on the right upper quadrant. COMPARISON: CT abdomen pelvis w con* [id number] 04/26/2022 9:08 PM FINDINGS: Liver: Normal. No masses. Gallbladder: Normal. No gallstones. There is no gallbladder wall thickening. Biliary ducts: Normal. No stones. No dilation. Pancreas: Visualized pancreas is unremarkable. Right kidney: Normal. No mass. No hydronephrosis. US/US gall bladder [id number] IMPRESSION: No acute findings.
--- NOTE | 2022-11-14 22:58 | ED_ITS ---
HPI - Abdominal Pain General: Chief Complaint: Abdominal Pain Stated Complaint: RUQ abd pain Time Seen by Provider: 11/14/22 22:53 Source: patient Mode of arrival: ambulatory Limitations: no limitations History of Present Illness: Patient presents to the emergency department today accompanied by family for evaluation treatment of intermittent right upper quadrant pain for the last 4 days. Patient denies nausea, vomiting, or diarrhea. He has not noticed any change in the color of his stools. He has not been running any fever but states when he has pain he will often feel clammy and sweaty. Patient denies any radiating of his pain into his back or around his side. Patient denies any history of smoking or drinking alcohol. He does drink quite a bit of soda. Family states they feel he has been belching more the last few days. He has not noticed pain worsening when he eats. He still has his gallbladder. Review of Systems General: Reports: 10 or more systems reviewed and unremarkable except in HPI and below PFSH ED PFSH: Medical History Acute respiratory failure with hypoxemia Bifascicular block Borderline hyperlipidemia COVID-19 Diabetes mellitus Hyperlipidemia Lactic acidosis Left main coronary artery disease NSTEMI (non-ST elevated myocardial infarction) PEA (Pulseless electrical activity) Recurrent syncope Sinus pause Third degree atrioventricular block Surgical History H/O circumcision H/O colonoscopy History of appendectomy Hx of CABG Hx of cataract extraction Status post aorto-coronary artery bypass graft Status post colonoscopy with polypectomy (06/19/20) Family History Mother CAD (coronary artery disease) [place] 89 Stroke Brother CAD (coronary artery disease), Onset Age: 60 Cancer Diabetes Lung disease Sister Diabetes Other Hyperlipidemia Hypertension Denies family history of Clotting disorder Dementia Chronic kidney disease (CKD) Suicide Anesthesia complication Bleeding disorder Social History Smoking and tobacco status: former smoker (50+ years ago) Alcohol intake: never Substance/Drug Use: never Lives independently: Yes Marital status: / Current occupational status: retired Physical Exam Const: COMMON NORMALS: no acute distress, patient oriented x3 and alert HENMT: COMMON NORMALS: normocephalic, atraumatic, hearing grossly normal bilaterally and moist oral mucous membranes HEAD & SCALP: normocephalic and atraumatic Eye: COMMON NORMALS: Equal, round and reactive pupils present, EOMs intact bilaterally and conjunctivae normal CONJUNCTIVA: Yes conjunctivae normal PUPIL: Yes Equal, round and reactive pupils present Neck/C-Spine: COMMON NORMALS: full ROM and no JVD Lymph: LYMPHATIC: no lymphadenopathy noted Resp: COMMON NORMALS: normal respiratory effort, No retractions, No use of accessory muscles and clear to auscultation bilaterally AUSCULTATION: clear to auscultation bilaterally Cardio: COMMON NORMALS: no JVD, regular rate and regular rhythm RATE: regular rate RHYTHM: regular rhythm GI: OTHER: Tender in RUQ- more so towards the epigastric region rather than the flank. Abdomen is not rigid. Abdomen is round but is still soft. : COMMON NORMALS: Yes no CVA tenderness BLADDER/KIDNEY EXAM: Yes no CVA tenderness Back/Pelvis: COMMON NORMALS: no CVA tenderness, no thoracic nor lumbar tenderness and thoraco-lumbar ROM normal Extremity: COMMON NORMALS: normal to inspection, full ROM and capillary refill normal Neuro: COMMON NORMALS: patient oriented x3 SENSORIUM/ORIENTATION: Yes alert Psych: COMMON NORMALS: mental status grossly normal, Normal thought process present, cooperative, normal affect and activity/motor behavior normal THOUGHT PROCESS: Normal thought process present Skin: COMMON NORMALS: no rashes or lesions noted and no wounds GENERAL SKIN EXAM: no rashes or lesions noted Course Vital Signs: Vital signs: Vital Signs Temperature 98.1 F 11/14/22 22:46 Pulse Rate 60 11/14/22 22:46 Respiratory Rate 16 11/14/22 22:46 Blood Pressure 152/83 11/14/22 22:46 Pulse Oximetry 97 11/14/22 22:46 Oxygen Delivery Me thod Room Air 11/14/22 22:46 MDM - Abdominal Pain Medical Decision Making Patient presented to the emergency department today accompanied by his family for evaluation treatment of complaints of right upper quadrant pain. He reports that his pain is episodic and has not had vomiting, diarrhea, difficulty with p.o. intake, or fevers. Patient's lab work is generally unremarkable. He has no signs of elevated white blood cell count, no elevated liver function test, no elevated lipase. Patient's ultrasound reveals no signs of any gallstones, gall sludge, or gallbladder wall thickening concerning for an acute cholecystitis. However, we did speak about gallbladder dysfunction but, would recommend a follow-up with GI to discuss the possibility of needing a HIDA scan. Patient remained relatively pain-free while he was here in the emergency department. Vital signs remained stable. Referral to GI was requested for his follow-up but , strict return precautions to the weekend were given including any signs of fever, vomiting, change or worsening of abdominal pain, or inability to tolerate p.o. intake. Differential Diagnosis Likely constipation, gastroenteritis, pancreatitis (Gallstones, cholecystitis) and small bowel obstruction Lab Data 11/14/22 23:25 11/14/22 23: Labs/Radiology: Radiology Impressions Gallbladder Ultrasound 11/14/22 22:52 IMPRESSION: No acute findings. Laboratory Results WBC 6.2 10^3/uL (4.0-10.0) 11/14/22: RBC 3.65 10^6/uL (4.1-5.3) L 11/14/22: Hgb 12.3 g/dL (11.7-16.6) 11/14/22: Hct 37.4 % (42.0-52.0) L 11/14/22: MCV 102.5 fl (80-94) H 11/14/22: MCH 33.7 pg (28.0-34.0) 11/14/22: MCHC 32.9 g/dL (30.0-36.0) 11/14/22: RDW 14.4 % (12.1-15.1) 11/14/22: Plt Count 181 10^3/cmm (130-400) 11/14/22: MPV 9.7 fL (7.4-10.4) 11/14/22: Neut % (Auto) 42.8 % 11/14/22: Lymph % (Auto) 44.7 % 11/14/22: [place] % (Auto) 9.4 % 11/14/22: Eos % (Auto) 2.6 % 04/28/23 23:25 Baso % (Auto) 0.3 % 11/14/22 23:25 Neut # (Auto) 2.64 10^3/uL (1.8-7.7) 11/14/22 23:25 Lymph # (Auto) 2.8 10^3/uL (0.8-4.8) 11/14/22 23:25 [place] # (Auto) 0.6 10^3/uL (0.2-0.9) 11/14/22 23:25 Eos # (Auto) 0.2 10^3/uL (0.0-0.8) 11/14/22 23:25 Baso # (Auto) 0.0 10^3/uL (0.0-0.1) 11/14/22 23:25 Nucleated RBC % (auto) 0 % 11/14/22 23: Nucleated RBCs # 0.0 /100WBC 11/14/22 23:25 Sodium 142 mmol/L (136-145) 11/14/22 23:25 Potassium 4.0 mmol/L (3.5-5.1) 11/14/22 23:25 Chloride 107 mmol/L (98-107) 11/14/22 23:25 Carbon Dioxide 25 mmol/L (22-29) 11/14/22 23:25 Anion Gap 14.0 (5-19) 11/14/22 23:25 BUN 19 mg/dL (8-23) 11/14/22 23:25 Creatinine 1.0 mg/dL (0.7-1.2) 11/14/22 23:25 GFR Calculation Not Reportable 11/14/22 23:25 Glucose 92 mg/dL (65-115) 11/14/22 23:25 Calculated Osmolality 296 mOsm/kg (285-295) H 11/14/22 23:25 Calcium 8.7 mg/dL (8.5-10.5) 11/14/22 23:25 Total Bilirubin 0.2 mg/dL (0.15-1.2) 11/14/22 23:25 AST 21 U/L (0-40) 11/14/22 23:25 ALT 24 U/L (0-41) 11/14/22 23:25 Alkaline Phosphatase 107 U/L (40-130) 11/14/22 23:25 Total Protein 6.6 g/dL (6.6-8.7) 11/14/22 23:25 Albumin 3.9 g/dL (3.5-5.2) 11/14/22 23:25 Globulin 2.7 g/dL (1.3-4.6) 11/14/22 23:25 Lipase 39 U/L (13-60) 11/14/22 23:25 Discharge Plan Discharge Patient Disposition: Home Clinical Impression: Abdominal pain, acute, right upper quadrant Condition: Stable Prescriptions: No Action metformin 1,000 mg tablet 1,000 mg PO BID omega-3 fatty acids [Fish Oil Concentrate] 1,000 mg capsule 2,000 mg PO BID cholecalciferol (vitamin D3) 2 cap PO BID metoprolol tartrate 25 mg tablet 12.5 mg PO BID Rx Instructions: 1/2 TAB TWICE DAILY finasteride 5 mg tablet 5 mg PO DAILY citalopram 20 mg tablet 20 mg PO DAILY amlodipine 5 mg tablet 5 mg PO DAILY Qty: 30 5RF Jardiance 10 mg tablet 10 mg PO DAILY 30 Days Qty: 30 5RF lisinopril 20 mg tablet 40 mg PO DAILY Qty: 180 3RF ascorbic acid (vitamin C) [Vitamin C] 500 mg Tablet 500 mg PO BID atorvastatin 40 mg Tablet 80 mg PO BEDTIME Qty: 60 4RF aspirin [Bridget Low Dose Aspirin] 81 mg tablet,delayed release (DR/EC) 81 mg PO DAILY Qty: 60 3RF Discharge Orders: Discharge ED (Routine); Ordered 11/15/22 Ordered By: Meli Wolf Referrals: Yolanda Yi MD [Primary Care Provider] - Discharge Diet: As Directed Patient Instructions: Low Fat Diet (ED), HIDA Scan (DC), Abdominal Pain (ED) Activity Restrictions/Additional Instructions: Lab work today showed no signs of any significantly abnormal findings. You had no issues with your pancreatic enzymes and your liver function tests were normal. Ultrasound of your right upper quadrant revealed no signs of any gallstones, gall sludge, or gallbladder thickening/inflammation. However, as we discussed, it could be a functional problem with your gallbladder causing your pain and would need to be evaluated through an outpatient HIDA scan. I have requested a follow-up appointment with our GI doctors to discuss your right upper quadrant pain and to discuss the possibility to have further testing performed as needed to further evaluate your right upper quadrant discomfort. However, if you develop fever, vomiting, change or worsening of your abdominal pain you need to return back here to the emergency department for recheck. Coding Level of Care Code ED Relationship Executive for Velma Villegas
[2022-11-14 23:37] LABS: Basophils % 0.3 %; Eosinophils # 0.2 10^3/uL (0.0-0.8); Eosinophils % 2.6 %; Hematocrit 37.4 % (42.0-52.0); Hemoglobin 12.3 g/dL (11.7-16.6); Lymphocytes # 2.8 10^3/uL (0.8-4.8); Lymphocytes % 44.7 %; Mean Corpuscular HGB Conc 32.9 g/dL (30.0-36.0); Mean Corpuscular Hemoglobin 33.7 pg (28.0-34.0); Mean Corpuscular Volume 102.5 fl (80-94); Mean Platelet Volume 9.7 fL (7.4-10.4); Monocytes # 0.6 10^3/uL (0.2-0.9); Monocytes % 9.4 %; Neutrophils # 2.64 10^3/uL (1.8-7.7); Neutrophils % 42.8 %; Nucleated Red Blood Cells % 0 %; Platelet Count 181 10^3/cmm (130-400); Red Blood Count 3.65 10^6/uL (4.1-5.3); Red Cell Distribution Width 14.4 % (12.1-15.1); White Blood Count 6.2 10^3/uL (4.0-10.0)
[2022-11-15 00:33] LABS: Alanine Aminotransferase 24 U/L (0-41); Albumin Level 3.9 g/dL (3.5-5.2); Alkaline Phosphatase 107 U/L (40-130); Aspartate Amino Transferase 21 U/L (0-40); Blood Urea Nitrogen 19 mg/dL (8-23); Calcium 8.7 mg/dL (8.5-10.5); Carbon Dioxide 25 mmol/L (22-29); Chloride 107 mmol/L (98-107); Globulin 2.7 g/dL (1.3-4.6); Glucose 92 mg/dL (65-115); Lipase 39 U/L (13-60); Osmolality Calculated 296 mOsm/kg (285-295); Sodium 142 mmol/L (136-145); Total Bilirubin 0.2 mg/dL (0.15-1.2); Total Protein 6.6 g/dL (6.6-8.7)
[2022-11-15 01:00] VITALS: BP 154/75; PULSE 57; O2SAT 97
--- NOTE | 2022-11-17 15:03 | DCPLANNER ---
Addendum entered by Haydee Car 11/20/22 08:15: manager retail sales received the following message from the general surgery clinic regarding follow up appointment: Spoke with PT - due to Dr. Moreno not being able to accept [facility], Pt will get with PCP and get referral to another provider. Original Note: manager retail sales had message to schedule a follow up appointment for patient with general surgery. manager retail sales sent patients information to the front office staff at general surgery. Patients information will be printed and reviewed. Clinic will call patient with appointment information.
== END 2022-11-15 01:18 | disposition home or self-care (01) ==
PROVIDERS: Emergency Medicine; Emergency Provider Physician Assistant; PCP Family Medicine
DX: R10.11 Right upper quadrant pain (principal); Z79.82 Long term (current) use of aspirin; Z79.84 Long term (current) use of oral hypoglycemic drugs; Z87.891 Personal history of nicotine dependence; Z95.1 Presence of aortocoronary bypass graft; E78.5 Hyperlipidemia, unspecified; E11.9 Type 2 diabetes mellitus without complications; I25.2 Old myocardial infarction
CPT/HCPCS: 76705; 80053; 83690; 85025; 99284

== ENCOUNTER 2022-11-28 14:51 | Emergency (ER) | payer OTHER, SELFPAY ==
[2022-11-28 15:04] VITALS: BP 139/71; PULSE 65; RESP 17; O2SAT 97; BMI 26.6
[2022-11-28 15:54] LABS: Basophils % 0.3 %; Eosinophils # 0.1 10^3/uL (0.0-0.8); Eosinophils % 1.9 %; Hematocrit 39.6 % (42.0-52.0); Hemoglobin 13.3 g/dL (11.7-16.6); Lymphocytes # 2.2 10^3/uL (0.8-4.8); Mean Corpuscular HGB Conc 33.6 g/dL (30.0-36.0); Mean Corpuscular Hemoglobin 34.8 pg (28.0-34.0); Mean Corpuscular Volume 103.7 fl (80-94); Mean Platelet Volume 9.6 fL (7.4-10.4); Monocytes # 0.6 10^3/uL (0.2-0.9); Monocytes % 8.6 %; Neutrophils # 3.43 10^3/uL (1.8-7.7); Neutrophils % 53.9 %; Nucleated Red Blood Cells % 0 %; Platelet Count 172 10^3/cmm (130-400); Red Blood Count 3.82 10^6/uL (4.1-5.3); Red Cell Distribution Width 13.7 % (12.1-15.1); White Blood Count 6.4 10^3/uL (4.0-10.0)
[2022-11-28 16:11] VITALS: BP 151/70; O2SAT 99
[2022-11-28 16:14] LABS: Alanine Aminotransferase 20 U/L (0-41); Albumin Level 4.1 g/dL (3.5-5.2); Alkaline Phosphatase 127 U/L (40-130); Anion Gap 15.1 (5-19); Aspartate Amino Transferase 22 U/L (0-40); Blood Urea Nitrogen 19 mg/dL (8-23); Calcium 8.9 mg/dL (8.5-10.5); Carbon Dioxide 24 mmol/L (22-29); Chloride 106 mmol/L (98-107); Glucose 99 mg/dL (65-115); Lipase 37 U/L (13-60); Osmolality Calculated 294 mOsm/kg (285-295); Potassium 4.1 mmol/L (3.5-5.1); Sodium 141 mmol/L (136-145); Total Bilirubin 0.2 mg/dL (0.15-1.2); Total Protein 7.1 g/dL (6.6-8.7)
--- NOTE | 2022-11-28 16:22 | PC.PHAR ---
FAXED [facility] FOR [facility] L[facility] AT 4:25 PM 11/28/22
[2022-11-28 16:28] LABS: Add Urine Microscopic? NO; Charge for UA Resulting for Rev
--- NOTE | 2022-11-28 16:34 | ED_ITS ---
HPI - Abdominal Pain General: Chief Complaint: Abdominal Pain Stated Complaint: Lower back and abd pain Time Seen by Provider: 11/28/22 16:00 Source: patient Mode of arrival: ambulatory History of Present Illness: 77-year-old male presents emergency room complaining of what he describes as kidney pain he refers to the left flank is been going on for about 3 weeks it is worse with movement and with palpation has not had any dysuria urgency or frequency no fever sweats chills no hematuria. No diarrhea. Has difficulty even sitting up on the gurney because of the discomfort along the oblique muscles. No previous history of kidney stone or pyelonephritis MD elicited complaint: flank pain Onset (ago): week(s) (3) Pain Consistency: constant Location: L flank Severity: mild Quality: sharp Exacerbating factors: nothing Relieving factors: nothing Associated Symptoms: Denies anorexia, belching, bloating, change in bowel habits, change in stool character, chills, coffee ground emesis, constipation, GI cramping, diarrhea, dyspepsia, dysuria, excessive flatus, fever(s), heartburn, hematochezia, hematuria, hematemesis, fecal incontinence, loose stools, melena, nausea, poor appetite, syncope and vomiting Review of Systems Const: Denies: fever(s) or chills ENMT: Denies: throat pain, ear or mastoid pain, nasal discharge or nasal congestion Card: Denies: chest pain, palpitations, irregular heart rhythm, edema, swelling of feet/ankles or syncope Resp: Denies: dyspnea, productive cough or non-productive cough GI: Denies: abdominal pain, nausea, vomiting, hematemesis, coffee ground emesis, heartburn, diarrhea, constipation, bloating, GI cramping, belching, excessive flatus, fecal incontinence, change in bowel habits, change in stool character, hematochezia or melena : Reports: flank pain; Denies: dysuria, urinary frequency, urinary urgency or hematuria Skin/Breast: Denies: rash or pruritus PFSH ED PFSH: Medical History Acute respiratory failure with hypoxemia Bifascicular block Borderline hyperlipidemia COVID-19 Diabetes mellitus Hyperlipidemia Lactic acidosis Left main coronary artery disease NSTEMI (non-ST elevated myocardial infarction) PEA (Pulseless electrical activity) Recurrent syncope Sinus pause Third degree atrioventricular block Surgical History H/O circumcision H/O colonoscopy History of appendectomy Hx of CABG Hx of cataract extraction Status post aorto-coronary artery bypass graft Status post colonoscopy with polypectomy (06/19/20) Family History Mother CAD (coronary artery disease) CT 89 Stroke Brother CAD (coronary artery disease), Onset Age: 60 Cancer Diabetes Lung disease Sister Diabetes Other Hyperlipidemia Hypertension Denies family history of Clotting disorder Dementia Chronic kidney disease (CKD) Suicide Anesthesia complication Bleeding disorder Social History Smoking and tobacco status: former smoker (50+ years ago) Alcohol intake: never Substance/Drug Use: never Lives independently: Yes Marital status: / Current occupational status: retired Physical Exam Const: GENERAL APPEARANCE: cooperative and comfortable ORIENTATION/CONSCIOUSNESS: Yes awake, Yes oriented to person, Yes oriented to place and Yes oriented to time HENMT: COMMON NORMALS: normocephalic, atraumatic and hearing grossly normal bilaterally HEAD & SCALP: normocephalic and atraumatic Resp: COMMON NORMALS: normal respiratory effort, No retractions, No use of accessory muscles and clear to auscultation bilaterally AUSCULTATION: clear to auscultation bilaterally Cardio: COMMON NORMALS: regular rate, regular rhythm and No murmurs present (Cardio) RATE: regular rate RHYTHM: regular rhythm GI: COMMON NORMALS: Soft to palpation and No hepatosplenomegaly present AUSCULTATION: Yes normoactive bowel sounds PALPATION: Yes Soft to palpation, No Tenderness to palpation present (GI), No Guarding due to palpation present (GI) and Yes No hepatosplenomegaly present Extremity: COMMON NORMALS: normal to inspection, capillary refill normal, no clubbing, cyanosis or edema, no calf tenderness and no pedal edema Neuro: SENSORIUM/ORIENTATION: Yes oriented to person, Yes oriented to place and Yes oriented to time Skin: COMMON NORMALS: no rashes or lesions noted GENERAL SKIN EXAM: no rashes or lesions noted Course Vital Signs: Vital signs: Vital Signs Pulse Rate 59 L 11/28/22 17:05 Respiratory Rate 17 11/28/22 15:04 Blood Pressure 142/74 11/28/22 17:05 Pulse Oximetry 98 11/28/22 17:05 Oxygen Delivery Me thod Room Air 11/28/22 15:04 MDM - Abdominal Pain Medical Decision Making Labs and imaging reviewed. Patient has exquisite pain to light touch across the left flank. UA is negative white count normal liver functions normal. More musculoskeletal in nature. We will discharge patient home with diclofenac ice or heat as needed follow-up as needed Medical Records I reviewed the patient's medical records. Lab Data I reviewed the patient's lab results. 11/28/22 15:47 11/28/22 15:47 Labs/Radiology: Laboratory Results WBC 6.4 10^3/uL (4.0-10.0) 11/28/22 15:47 RBC 3.82 10^6/uL (4.1-5.3) L 11/28/22 15:47 Hgb 13.3 g/dL (11.7-16.6) 11/28/22 15:47 Hct 39.6 % (42.0-52.0) L 11/28/22 15:47 MCV 103.7 fl (80-94) H 11/28/22 15:47 MCH 34.8 pg (28.0-34.0) H 11/28/22 15:47 MCHC 33.6 g/dL (30.0-36.0) 11/28/22 15:47 RDW 13.7 % (12.1-15.1) 11/28/22 15:47 Plt Count 172 10^3/cmm (130-400) 11/28/22 15:47 MPV 9.6 fL (7.4-10.4) 11/28/22 15:47 Neut % (Auto) 53.9 % 11/28/22 15:47 Lymph % (Auto) 35.0 % 11/28/22 15:47 [place] % (Auto) 8.6 % 11/28/22 15:47 Eos % (Auto) 1.9 % 11/28/22 15:47 Baso % (Auto) 0.3 % 11/28/22 15:47 Neut # (Auto) 3.43 10^3/uL (1.8-7.7) 11/28/22 15:47 Lymph # (Auto) 2.2 10^3/uL (0.8-4.8) 11/28/22 15:47 [place] # (Auto) 0.6 10^3/uL (0.2-0.9) 11/28/22 15:47 Eos # (Auto) 0.1 10^3/uL (0.0-0.8) 11/28/22 15:47 Baso # (Auto) 0.0 10^3/uL (0.0-0.1) 11/28/22 15:47 Nucleated RBC % (auto) 0 % 11/28/22 15:47 Nucleated RBCs # 0.0 /100WBC 11/28/22 15:47 Sodium 141 mmol/L (136-145) 11/28/22 15:47 Potassium 4.1 mmol/L (3.5-5.1) 11/28/22 15:47 Chloride 106 mmol/L (98-107) 11/28/22 15:47 Carbon Dioxide 24 mmol/L (22-29) 11/28/22 15:47 Anion Gap 15.1 (5-19) 11/28/22 15:47 BUN 19 mg/dL (8-23) 11/28/22 15:47 Creatinine 1.1 mg/dL (0.7-1.2) 11/28/22 15:47 GFR Calculation Not Reportable 11/28/22 15:47 Glucose 99 mg/dL (65-115) 11/28/22 15:47 Calculated Osmolality 294 mOsm/kg (285-295) 11/28/22 15:47 Calcium 8.9 mg/dL (8.5-10.5) 11/28/22 15:47 Total Bilirubin 0.2 mg/dL (0.15-1.2) 11/28/22 15:47 AST 22 U/L (0-40) 11/28/22 15:47 ALT 20 U/L (0-41) 11/28/22 15:47 Alkaline Phosphatase 127 U/L (40-130) 11/28/22 15:47 Total Protein 7.1 g/dL (6.6-8.7) 11/28/22 15:47 Albumin 4.1 g/dL (3.5-5.2) 11/28/22 15:47 Globulin 3.0 g/dL (1.3-4.6) 11/28/22 15:47 Lipase 37 U/L (13-60) 11/28/22 15:47 Urine Color Yellow (Yellow) 11/28/22 16:18 Urine Appearance Clear (CLEAR) 11/28/22 16:18 Urine pH 7 (5-7) 11/28/22 16:18 Ur Specific [place] 1.015 (1.005-1.030) 11/28/22 16:18 Urine Protein Neg (Negative) 11/28/22 16:18 Urine Glucose (UA) Norm (Normal) 11/28/22 16:18 Urine Ketones Negative (Negative) 11/28/22 16:18 Urine Blood Neg (Negative) 11/28/22 16:18 Urine Nitrate Negative (Negative) 11/28/22 16:18 Urine Bilirubin Neg (Negative) 11/28/22 16:18 Urine Urobilinogen Norm mg/dL (Negative) 11/28/22 16:18 Ur Leukocyte Esterase Negative (Negative) 11/28/22 16:18 Discharge Plan Discharge Patient Disposition: Home Clinical Impression: Abdominal wall pain in left flank Condition: Stable Prescriptions: New diclofenac sodium 75 mg tablet,delayed release (DR/EC) 75 mg PO Q12H PRN (Reason: pain) Qty: 20 0RF No Action metformin 1,000 mg tablet 1,000 mg PO BID omega-3 fatty acids [Fish Oil Concentrate] 1,000 mg capsule 2,000 mg PO BID cholecalciferol (vitamin D3) 2 cap PO BID metoprolol tartrate 25 mg tablet 12.5 mg PO BID Rx Instructions: 1/2 TAB TWICE DAILY finasteride 5 mg tablet 5 mg PO DAILY citalopram 20 mg tablet 20 mg PO DAILY amlodipine 5 mg tablet 5 mg PO DAILY Qty: 30 5RF Jardiance 10 mg tablet 10 mg PO DAILY 30 Days Qty: 30 5RF lisinopril 20 mg tablet 40 mg PO DAILY Qty: 180 3RF ascorbic acid (vitamin C) [Vitamin C] 500 mg Tablet 500 mg PO BID atorvastatin 40 mg Tablet 80 mg PO BEDTIME Qty: 60 4RF aspirin [Bridget Low Dose Aspirin] 81 mg tablet,delayed release (DR/EC) 81 mg PO DAILY Qty: 60 3RF Discharge Orders: Discharge ED (Routine); Ordered 11/28/22 Ordered By: Adrian Nicole Referrals: Yolanda Yi MD [Primary Care Provider] - Discharge Diet: Usual diet Discharge Activity: Increase activity as tolerated Patient Instructions: Opioid Safety, Pain Management Activity Restrictions/Additional Instructions: You were seen today for abdominal wall pain. Recommend ice or heat as needed for comfort you can also use diclofenac. Follow-up with your primary care doctor as needed Coding Level of Care Code ED C Application Developer for Velma Villegas
[2022-11-28 16:38] LABS: Bilirubin Urine Neg (Negative); Blood Urine Neg (Negative); Glucose Urine UA Norm (Normal); Ketones Urine Negative (Negative); Leukocyte Esterase Urine Negative (Negative); Nitrate Urine Negative (Negative); Protein Urine Neg (Negative); Specific Gravity, Urine 1.015 (1.005-1.030); Urine Appearance Clear (CLEAR); Urine Color Yellow (Yellow); Urobilinogen Urine Norm (Negative); pH Urine 7 (5-7)
[2022-11-28] MEDS: ketorolac 30 mg/mL INJ 15 MG IVP (16:51)
[2022-11-28] MEDS: HYDROcodone-acetaminophen 5-325 mg Tablet 1 TAB PO (16:51)
[2022-11-28 17:05] VITALS: BP 142/74; PULSE 59; O2SAT 98
== END 2022-11-28 17:06 | disposition home or self-care (01) ==
PROVIDERS: Nurse Practitioner Family; Emergency Provider Family Medicine; PCP Family Medicine
DX: R10.9 Unspecified abdominal pain (principal); Z79.82 Long term (current) use of aspirin; Z79.84 Long term (current) use of oral hypoglycemic drugs; Z87.891 Personal history of nicotine dependence; E11.9 Type 2 diabetes mellitus without complications; E78.5 Hyperlipidemia, unspecified; I25.2 Old myocardial infarction; Z95.1 Presence of aortocoronary bypass graft
CPT/HCPCS: 36415; 80053; 81003; 83690; 85025; 96374; 99284; J1885

== ENCOUNTER 2022-12-17 11:07 | Emergency (ER) | payer OTHER, SELFPAY ==
[2022-12-17 11:17] VITALS: BP 168/69; PULSE 67; RESP 16; TEMP 36.8; O2SAT 100; BMI 26.6
[2022-12-17 11:20] VITALS: BP 168/69; PULSE 64; O2SAT 100
--- NOTE | 2022-12-17 11:29 | XR_ITS ---
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 Soft tissue laceration seen along the dorsum of the hand in the reg ion of the distal fourth and fifth metacarpals. No soft tissue foreign bodies are visualized. XR/XR hand LT min 3V* [id number] IMPRESSION: 1. No bony injury. 2. Soft tissue laceration seen along the medial dorsum of the hand.
--- NOTE | 2022-12-17 11:32 | XR_ITS ---
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 No ot her fractures are seen. There is soft tissue injury of the distal fifth and fourth fingers. XR/XR hand RT min 3V* [id number] IMPRESSION: 1. Fracture of the distal tuft of the fifth finger with slight displacement. No other acute fractures. 2. Soft tissue injury of the fourth and fifth distal fingers.
--- NOTE | 2022-12-17 11:32 | W.ED.EXTPRO ---
HPI - Extremity Problem General: Chief complaint: Extremity Injury, Upper Stated complaint: left hand trauma Time Seen by Provider: 12/17/22 11:24 History of Present Illness: Patient was using a handheld card grinder when the card grinder disc exploded. Patient has trauma to the dorsum of his left hand with a large skin flap and tendon is exposed as well as trauma to his right fourth and fifth digits. This happened approximately 30 minutes ago. Patient does not know when his last tetanus shot was. Patient still has good sensation in motor movement in all digits. Review of Systems General: Reports: 10 or more systems reviewed and unremarkable except in HPI and below PFSH ED PFSH: Medical History Acute respiratory failure with hypoxemia Bifascicular block Borderline hyperlipidemia COVID-19 Diabetes mellitus Hyperlipidemia Lactic acidosis Left main coronary artery disease NSTEMI (non-ST elevated myocardial infarction) PEA (Pulseless electrical activity) Recurrent syncope Sinus pause Third degree atrioventricular block Surgical History H/O circumcision H/O colonoscopy History of appendectomy Hx of CABG Hx of cataract extraction Status post aorto-coronary artery bypass graft Status post colonoscopy with polypectomy (06/19/20) Family History Mother CAD (coronary artery disease) [place] 89 Stroke Brother CAD (coronary artery disease), Onset Age: 60 Cancer Diabetes Lung disease Sister Diabetes Other Hyperlipidemia Hypertension Denies family history of Clotting disorder Dementia Chronic kidney disease (CKD) Suicide Anesthesia complication Bleeding disorder Social History Smoking and tobacco status: former smoker (50+ years ago) Alcohol intake: never Substance/Drug Use: never Lives independently: Yes Marital status: / Current occupational status: retired Physical Exam Const: COMMON NORMALS: no acute distress, average body habitus, patient oriented x3, no limitations, healthy appearing, alert and well nourished HENMT: COMMON NORMALS: normocephalic, atraumatic, hearing grossly normal bilaterally, external ears normal and moist oral mucous membranes HEAD & SCALP: normocephalic and atraumatic EXTERNAL EAR: Yes external ears normal Eye: COMMON NORMALS: Equal, round and reactive pupils present, EOMs intact bilaterally, conjunctivae normal and no scleral icterus CONJUNCTIVA: Yes conjunctivae normal PUPIL: Yes Equal, round and reactive pupils present Neck/C-Spine: COMMON NORMALS: full ROM, no lymphadenopathy, supple, no meningeal signs, no JVD and Thyroid normal THYROID: Thyroid normal Lymph: LYMPHATIC: no lymphadenopathy noted Chest: COMMONS NORMALS: normal inspection of the chest and normal palpation of entire chest wall Resp: COMMON NORMALS: normal respiratory effort, No retractions, No use of accessory muscles and clear to auscultation bilaterally AUSCULTATION: clear to auscultation bilaterally Cardio: COMMON NORMALS: no JVD, regular rate, regular rhythm, S1 normal heart sound present, S2 normal heart sound present, No gallops present (Cardio), No clicks present (Cardio), No murmurs present (Cardio) and No rub (Cardio) RATE: regular rate RHYTHM: regular rhythm HEART SOUNDS: S1 normal heart sound present and S2 normal heart sound present GI: COMMON NORMALS: Normal to inspection, nondistended, normoactive bowel sounds present, Soft to palpation, non-tender, No hepatosplenomegaly present and no masses PALPATION: Yes Soft to palpation and Yes No hepatosplenomegaly present Extremity: NARRATIVE EXTREMITY EXAM: Patient has a large approximate 4 cm flap-like laceration to the left dorsum of his hand. There are exposed tendons however they do not appear to be lacerated and patient still has good flexion and extension of all extremities as well as sensation. Patient has lacerations to the right fourth and fifth digits distally through the nailbed. Bleeding is controlled throughout Neuro: COMMON NORMALS: patient oriented x3 SENSORIUM/ORIENTATION: Yes alert MENINGEAL SIGNS: Yes no meningeal signs Procedures Laceration Laceration 1: Site: hand (Dorsum of left hand) Size (cm): 4 Description: flap and irregular Depth: simple, single layer (Flap-like down to the muscle and tendon but not involving the muscle and tendon) Local Anesthetic: lidocaine 1% Amount of anesthesia used (mL): 10 Pre-repair: wound explored, irrigated extensively, deep structures intact and wound margins revised Skin layer closed with: nylon Size (cm): 4-0 Number of sutures: 15 Technique: simple, interrupted Laceration 2: Site: hand (Right distal fifth digit of the hand) Size (cm): 1 Description: other (1/2 cm laceration on each side of the nailbed.) Depth: simple, single layer Local Anesthetic: lidocaine 1% Amount of anesthesia used (mL): 3 Pre-repair: wound explored, irrigated extensively and deep structures intact Skin layer closed with: nylon Size (cm): 4-0 Number of sutures: 2 Technique: simple, interrupted Course Vital Signs: Vital signs: Vital Signs Temperature 98.3 F 12/17/22 11:17 Pulse Rate 67 12/17/22 11:17 Respiratory Rate 16 12/17/22 11:17 Blood Pressure 168/69 12/17/22 11:17 Pulse Oximetry 100 12/17/22 11:17 Oxygen Delivery Me thod Room Air 12/17/22 11:17 MDM - Extremity (Nontraumatic) Medical Decision Making Patient presents to the ER with trauma to bilateral hands after grinding wheel exploded. These wounds were explored and washed out with normal saline and Betadine. Areas were anesthetized thoroughly explored and sutured closed. Patient was given 1 g of Ancef and a Tdap immunization. Wounds were cleaned and dressed and patient was discharged on antibiotics. Patient is to follow-up with his family doctor in 7 to 10 days for reevaluation and possible suture removal. Differential Diagnosis Unlikely herpes zoster, gout, cellulitis, superficial thrombophlebitis, deep venous thrombosis of upper extremity, lower extremity edema or deep vein thrombosis of lower extremity Medical Records I reviewed the patient's medical records. Lab Data I reviewed the patient's lab results. 12/17/22 12:12 12/17/22 12:12 Radiology Impressions Hand X-Ray 12/17/22 11:32 IMPRESSION: 1. Fracture of the distal tuft of the fifth finger with slight displacement. No other acute fractures. 2. Soft tissue injury of the fourth and fifth distal fingers. Laboratory Results WBC 8.3 10^3/uL (4.0-10.0) 12/17/22 12:12 RBC 3.73 10^6/uL (4.1-5.3) L 12/17/22 12:12 Hgb 12.7 g/dL (11.7-16.6) 12/17/22 12:12 Hct 38.2 % (42.0-52.0) L 12/17/22 12:12 MCV 102.4 fl (80-94) H 12/17/22 12:12 MCH 34.0 pg (28.0-34.0) 12/17/22 12:12 MCHC 33.2 g/dL (30.0-36.0) 12/17/22 12:12 RDW 13.7 % (12.1-15.1) 12/17/22 12:12 Plt Count 162 10^3/cmm (130-400) 12/17/22 12:12 MPV 10.1 fL (7.4-10.4) 12/17/22 12:12 Neut % (Auto) 43.4 % 12/17/22 12:12 Lymph % (Auto) 47.6 % 12/17/22 12:12 [place] % (Auto) 7.6 % 12/17/22 12:12 Eos % (Auto) 1.0 % 12/17/22 12:12 Baso % (Auto) 0.2 % 12/17/22 12:12 Neut # (Auto) 3.59 10^3/uL (1.8-7.7) 12/17/22 12:12 Lymph # (Auto) 3.9 10^3/uL (0.8-4.8) 12/17/22 12:12 [place] # (Auto) 0.6 10^3/uL (0.2-0.9) 12/17/22 12:12 Eos # (Auto) 0.1 10^3/uL (0.0-0.8) 12/17/22 12:12 Baso # (Auto) 0.0 10^3/uL (0.0-0.1) 12/17/22 12:12 Nucleated RBC % (auto) 0 % 12/17/22 12:12 Nucleated RBCs # 0.0 /100WBC 12/17/22 12:12 Sodium 144 mmol/L (136-145) 12/17/22 12:12 Potassium 4.3 mmol/L (3.5-5.1) 12/17/22 12:12 Chloride 112 mmol/L (98-107) H 12/17/22 12:12 Carbon Dioxide 24 mmol/L (22-29) 12/17/22 12:12 Anion Gap 12.3 (5-19) 12/17/22 12:12 BUN 22 mg/dL (8-23) 12/17/22 12:12 Creatinine 1.1 mg/dL (0.7-1.2) 12/17/22 12:12 GFR Calculation Not Reportable 12/17/22 12:12 Glucose 106 mg/dL (65-115) 12/17/22 12:12 Calculated Osmolality 302 mOsm/kg (285-295) H 12/17/22 12:12 Calcium 8.8 mg/dL (8.5-10.5) 12/17/22 12:12 Total Bilirubin 0.3 mg/dL (0.15-1.2) 12/17/22 12:12 AST 30 U/L (0-40) 12/17/22 12:12 ALT 40 U/L (0-41) 12/17/22 12:12 Alkaline Phosphatase 126 U/L (40-130) 12/17/22 12:12 Total Protein 7.1 g/dL (6.6-8.7) 12/17/22 12:12 Albumin 4.1 g/dL (3.5-5.2) 12/17/22 12:12 Globulin 3.0 g/dL (1.3-4.6) 12/17/22 12:12 Discharge Plan Discharge Patient Disposition: Home Clinical Impression: Laceration of left hand Qualifiers: Encounter type: initial encounter Foreign body presence: without foreign body Qualified Code(s): S61.412A - Laceration without foreign body of left hand, initial encounter Laceration of finger of right hand Qualifiers: Encounter type: initial encounter Finger: little finger Damage to nail status: with damage Foreign body presence: without foreign body Qualified Code(s): S61.316A - Laceration without foreign body of right little finger with damage to nail, initial encounter Finger fracture, right Qualifiers: Encounter type: initial encounter Finger: little finger Fracture type: open Phalanx: distal Fracture alignment: nondisplaced Qualified Code(s): S62.666B - Nondisplaced fracture of distal phalanx of right little finger, initial encounter for open fracture Condition: Stable Prescriptions: New cephalexin 500 mg capsule 500 mg PO Q6H 7 Days Qty: 28 0RF No Action metformin 1,000 mg tablet 1,000 mg PO BID omega-3 fatty acids [Fish Oil Concentrate] 1,000 mg capsule 2,000 mg PO BID cholecalciferol (vitamin D3) 2 cap PO BID metoprolol tartrate 25 mg tablet 12.5 mg PO BID Rx Instructions: 1/2 TAB TWICE DAILY finasteride 5 mg tablet 5 mg PO DAILY citalopram 20 mg tablet 20 mg PO DAILY amlodipine 5 mg tablet 5 mg PO DAILY Qty: 30 5RF Jardiance 10 mg tablet 10 mg PO DAILY 30 Days Qty: 30 5RF lisinopril 20 mg tablet 40 mg PO DAILY Qty: 180 3RF ascorbic acid (vitamin C) [Vitamin C] 500 mg Tablet 500 mg PO BID atorvastatin 40 mg Tablet 80 mg PO BEDTIME Qty: 60 4RF aspirin [Bridget Low Dose Aspirin] 81 mg tablet,delayed release (DR/EC) 81 mg PO DAILY Qty: 60 3RF diclofenac sodium 75 mg tablet,delayed release (DR/EC) 75 mg PO Q12H PRN (Reason: pain) Qty: 20 0RF Discharge Orders: Discharge ED (Routine); Ordered 12/17/22 Ordered By: Sulaiman Caballero Referrals: Yolanda Yi MD [Primary Care Provider] - Patient Instructions: Laceration (ED), Finger Fracture (ED) Activity Restrictions/Additional Instructions: Please keep the wound clean dry change dressing as needed. Please finish all your antibiotics please follow-up with your family doctor in 7 to 10 days for reevaluation and possible suture removal. Coding Level of Care Code ED [employer] for Velma Villegas
[2022-12-17 12:20] VITALS: BP 163/75; PULSE 59; O2SAT 98
[2022-12-17] MEDS: tetanus-dipt-pertussis 0.5 mL SDV IM (12:20)
[2022-12-17] MEDS: ceFAZolin 1,000 mg SDV 1000 MG IVP (12:21)
[2022-12-17 12:44] LABS: Basophils % 0.2 %; Eosinophils # 0.1 10^3/uL (0.0-0.8); Hematocrit 38.2 % (42.0-52.0); Hemoglobin 12.7 g/dL (11.7-16.6); Lymphocytes # 3.9 10^3/uL (0.8-4.8); Lymphocytes % 47.6 %; Mean Corpuscular HGB Conc 33.2 g/dL (30.0-36.0); Mean Corpuscular Volume 102.4 fl (80-94); Mean Platelet Volume 10.1 fL (7.4-10.4); Monocytes # 0.6 10^3/uL (0.2-0.9); Monocytes % 7.6 %; Neutrophils # 3.59 10^3/uL (1.8-7.7); Neutrophils % 43.4 %; Nucleated Red Blood Cells % 0 %; Platelet Count 162 10^3/cmm (130-400); Red Blood Count 3.73 10^6/uL (4.1-5.3); Red Cell Distribution Width 13.7 % (12.1-15.1); White Blood Count 8.3 10^3/uL (4.0-10.0)
[2022-12-17 13:00] VITALS: BP 167/75; PULSE 61; O2SAT 99
[2022-12-17 13:05] LABS: Alanine Aminotransferase 40 U/L (0-41); Albumin Level 4.1 g/dL (3.5-5.2); Alkaline Phosphatase 126 U/L (40-130); Anion Gap 12.3 (5-19); Aspartate Amino Transferase 30 U/L (0-40); Blood Urea Nitrogen 22 mg/dL (8-23); Calcium 8.8 mg/dL (8.5-10.5); Carbon Dioxide 24 mmol/L (22-29); Chloride 112 mmol/L (98-107); Glucose 106 mg/dL (65-115); Osmolality Calculated 302 mOsm/kg (285-295); Potassium 4.3 mmol/L (3.5-5.1); Sodium 144 mmol/L (136-145); Total Bilirubin 0.3 mg/dL (0.15-1.2); Total Protein 7.1 g/dL (6.6-8.7)
[2022-12-17] MEDS: lidocaine 1% INJ 10 mL (per mL) INJECTION (13:25)
[2022-12-17 14:00] VITALS: BP 156/80; PULSE 60; O2SAT 100
== END 2022-12-17 14:30 | disposition home or self-care (01) ==
PROVIDERS: Emergency Provider Emergency Medicine; PCP Family Medicine
DX: S61.412A Laceration without foreign body of left hand, initial encounter (principal); S62.666B Nondisplaced fracture of distal phalanx of right little finger, initial encounter for open fracture; Z79.82 Long term (current) use of aspirin; Z79.84 Long term (current) use of oral hypoglycemic drugs; Z87.891 Personal history of nicotine dependence; Z95.1 Presence of aortocoronary bypass graft; E11.9 Type 2 diabetes mellitus without complications; E78.5 Hyperlipidemia, unspecified; I25.2 Old myocardial infarction; W31.89XA Contact with other specified machinery, initial encounter; Z23 Encounter for immunization
CPT/HCPCS: 12002; 36415; 73130; 80053; 85025; 90471; 90715; 96374; 99284; 99291; J0690

== ENCOUNTER 2022-12-29 08:21 | Outpatient (CLI) | payer OTHER, MEDICARE, SELFPAY ==
--- NOTE | 2022-12-29 08:33 | CT_ITS ---
WS: [id number] CT ABDOMEN AND PELVIS WITH CONTRAST HISTORY: CONTINUING ABDOMINAL PAIN, right-sided abdominal pain for 1.5 weeks. TECHNIQUE: Imaging performed of the abdomen and pelvis with IV contrast. Single phase imaging of the abdomen. Coronal and sagittal reformats are submitted. All CT scans at [facility] use at [address] one of these dose optimization techniques: automated exposure control; mA and/or kV adjustment per patient size (includes targeted exams where dose is matched to clinical indication); or iterative re construction. IV CONTRAST: Omnipaque 350; 100 mL IV. Oral contrast: Yes. DLP: 464.47 mGy.cm COMPARISON: 04/26/2022 Lower thorax: Prior CABG. Small layering bilateral pleural effusions, RIGHT greater than LEFT. Soft t issue area of enhancement in the RIGHT lower lobe inseparable from the pleural fluid. Soft tissue mas s doesn't enhance measuring 4.8 x 2.8 cm. This may be an area of atelectasis which has progressed sin ce 04/26/2022. This most need to be further evaluated. Heart is normal size. Small hiatal hernia. Liver/biliary system: Mildly enlarged liver. There is mild heterogeneity without the liver but no dis crete mass identified. Portal vein is not very well visualized due to contrast injection but no abnor mality seen. No bile duct dilatation. Gallbladder: Normal. No gallstones or wall thickening. No pericholecystic fluid. Pancreas: Normal size pancreas and pancreatic duct. No adjacent inflammation. Spleen: Normal size with granulomata. Adrenal glands: Normal. Right kidney: Normal. Left kidney: Normal. Aorta: Mild atherosclerosis with no aneurysm. Lymphadenopathy: None. Free fluid: None. GI tract: Minimally distended stomach. No small bowel obstruction. Prior appendectomy. No colon obstr uction. Mild distal diverticular burden. Moderate constipation. No evidence for acute diverticulitis. Abdominal wall: Unremarkable abdominal wall. No hernia. Pelvis: No free fluid or adenopathy within the pelvis. Bones: Unremarkable. CT/CT abdomen pelvis w con* [id number] IMPRESSION: 1. Small bilateral pleural effusions have slightly increased since 04/26/2022. 2. LEFT lower lobe consolidation abutting the effusion. Increased in size sinc e 04/26/2022. Favor this is probably an area of rounded atelectasis but will nee d follow-up. Recommend [address] follow-up. 3. Prior appendectomy. 4. No acute abdominal or pelvic abnormalities are identified. 5. Diverticulosis and constipation. No evidence for acute diverticulitis.
[2022-12-29] MEDS: iohexol 350 mg/mL 500 mL Btl (per mL) PO (10:22)
[2022-12-29] MEDS: iohexol 350 mg/mL 500 mL Btl (per mL) IV (10:23)
== END 2022-12-29 08:22 | disposition home or self-care (01) ==
LOC: RAD 08:22
PROVIDERS: PCP Family Medicine; Visit Provider Family Medicine
DX: J90 Pleural effusion, not elsewhere classified (principal); K59.00 Constipation, unspecified; K57.30 Diverticulosis of large intestine without perforation or abscess without bleeding; Z95.1 Presence of aortocoronary bypass graft
CPT/HCPCS: 74177; Q9967

== ENCOUNTER 2023-01-06 07:48 | Outpatient (CLI) | payer OTHER, SELFPAY ==
--- NOTE | 2023-01-06 | NM_ITS ---
WS: [id number] NUCLEAR MEDICINE HIDA SCAN CLINICAL INFORMATION: FOLLOW UP FOR RUQ PAIN TECHNIQUE: Following intravenous administration of 7.7 mCi of technetium 99m mebrofenin, images of th e abdomen were obtained over the course of 60 minutes. Next, gallbladder ejection fraction was determ ined by obtaining preprandial and one-hour postprandial images of the gallbladder following oral carmencita stion of Ensure. COMPARISON: Ultrasound November 14, [address] December 29, 2022 FINDINGS: Normal hepatic uptake at 5 minutes. Normal hepatic excretion. Gallbladder is visualized by 15 minutes . No evidence of acute cholecystitis. Normal common bile duct and small bowel activity. Gallbladder ejection fraction 77% within normal limits. No evidence of chronic cholecystitis. NM/NM hepatobiliary w phar* [id number] IMPRESSION: 1. No evidence of acute or chronic cholecystitis. 2. Gallbladder ejection fraction 77% within normal limits.
== END 2023-01-06 07:49 | disposition home or self-care (01) ==
LOC: RAD 07:49
PROVIDERS: PCP Family Medicine; Visit Provider Family Medicine
DX: R10.11 Right upper quadrant pain (principal)
CPT/HCPCS: 78227; A9537

== ENCOUNTER 2023-03-31 09:18 | Outpatient (CLI) | payer OTHER, SELFPAY ==
--- NOTE | 2023-03-31 09:24 | CT_ITS ---
WS: [id number] CT chest w con* [id number] HISTORY: FOLLOW UP CT TECHNIQUE: Axial imaging performed through the thorax. Coronal and sagittal reformats are submitted. All CT scans at [facility] use at least one of these dose optimization techniques: automated exposure control; mA and/or kV adjustment per patient size (includes targeted exams where dose is mat ched to clinical indication); or iterative reconstruction. CONTRAST: Omnipaque 350; 100 mL IV. DLP: 394.82 mGy.cm COMPARISON: 12/29/2022, 04/27/2022 Lungs and central airway: Enhancing soft tissue at the RIGHT lung base measures 4.5 x 2.6 cm. This is very similar to the most recent examination of 12/29/2022 and the differential does include atelectat ic lung. The adjacent small RIGHT pleural effusion slightly improved since the most recent exam. Ther e are benign calcifications in the central RIGHT lung. No LEFT pulmonary nodule or mass. Pleura: Small RIGHT pleural effusion. Slightly improved. Heart and pericardium: Mild LEFT heart enlargement. Prior CABG. Mediastinum and ren: 10 mm RIGHT hilar lymph node. Similar to the prior study from 04/27/2022. Vessels: Mild atherosclerosis aorta. Normal sized pulmonary artery. Chest wall and lower neck: No soft tissue masses. Upper abdomen: Normal. Osseous structures: No destructive process. IMPRESSION: 1. Enhancing soft tissue mass at the RIGHT lung base measures 4.5 x 2.6 cm. Similar in appearance to the prior examination of 12/29/2022. Favor this is probably rounded atelectasis. This has been present on prior studies but continues to slowly increase in size. Bronchoscopy may be necessary for further evaluation and confirm atelectasis. 2. Small RIGHT pleural effusion adjacent to the RIGHT lower lobe consolidation. This effusion is slig htly improved since the most recent exam.
[2023-03-31] MEDS: iohexol 350 mg/mL 500 mL Btl (per mL) IV (09:54)
== END 2023-03-31 09:19 | disposition home or self-care (01) ==
PROVIDERS: PCP Family Medicine; Visit Provider Family Medicine
DX: Z01.89 Encounter for other specified special examinations (principal); R91.8 Other nonspecific abnormal finding of lung field; J90 Pleural effusion, not elsewhere classified
CPT/HCPCS: 71260; Q9967

== ENCOUNTER → 2023-05-08 07:37 | Outpatient (BNVA) | payer OTHER, SELFPAY | PROVIDERS: PCP Family Medicine; Visit Provider Internal Medicine Pulmonary Disease | DX: R91.1 Solitary pulmonary nodule (principal); J43.9 Emphysema, unspecified; Z87.891 Personal history of nicotine dependence | CPT/HCPCS: 99204 ==

== ENCOUNTER → 2023-05-14 11:08 | Outpatient (BNVA) | payer OTHER, SELFPAY | PROVIDERS: PCP Family Medicine; Visit Provider Nurse Practitioner Family | DX: I25.10 Atherosclerotic heart disease of native coronary artery without angina pectoris (principal); I10 Essential (primary) hypertension; Z87.891 Personal history of nicotine dependence | CPT/HCPCS: 99214 ==

== ENCOUNTER 2023-06-02 13:53 | Outpatient (CLI) | payer OTHER, SELFPAY ==
--- NOTE | 2023-06-03 09:29 | PETR_ITS ---
PROCEDURE INFORMATION: Exam: PET/CT Skull Base to Mid-thigh Exam date and time: 06/02/2023 9:28 AM Age: 78 years old Clinical indication: Abnormal findings; Pulmonary nodule LABS AND CLINICAL REPORTS: Glucose: 101 mg/dl Treatment strategy for malignancy (PET staging): Initial Staging (PI) TECHNIQUE: Imaging protocol: Following at least four-hour fasting and following the injection of radiopharmaceutical, low dose CT images were obtained. Then, PET images were obtained. Attenuation corrected images were constructed using the CT scan. Fused images of PET and CT were reviewed. The standardized uptake values (SUV) reported below are maximum values within a region of interest, expressed in gm/ml. Exam includes orbital meatal line to mid-thigh. Radiopharmaceutical: 14.77 mCi F-18 FDG (Fluorodeoxyglucose), IV. Time of imaging post radiopharmaceutical administration: 1 hour Injection site: Right AC COMPARISON: CT chest w con* [id number] 03/31/2023 9:52 AM FINDINGS: Brain: Visualized brain has normal physiologic uptake. Pharynx: Small focus of mildly increased nodular uptake maximum SUV 2.8 of the right vallecula series 3, image 32 with possible slight asymmetric nodularity on correlating CT. Larynx: No abnormal uptake. Lungs, pleura and trachea: Dominant right masslike density does not demonstrate increased radiotracer uptake (series 3, image 121). Adjacent bronchovascular distortion suggestive of enlarging focus of rounded atelectasis. Similar trace rabzs-hifssna-fgmk-left pleural effusions. Heart: Normal physiologic uptake. Mediastinal space: No abnormal uptake. Liver: No abnormal uptake. Gallbladder and bile ducts: No abnormal uptake. Pancreas: No abnormal uptake. Spleen: No abnormal uptake. Adrenal glands: No abnormal uptake. Kidneys and ureters: Normal physiologic uptake. Stomach and bowel: No abnormal uptake. Vasculature: No abnormal uptake. Lymph nodes: No abnormal uptake. No lymphadenopathy in the head, neck, chest, abdomen, pelvis, and extremities. Bones/joints: No abnormal uptake in the visualized axial and appendicular skeleton. Soft tissues: No abnormal uptake in the visualized head, neck, chest, abdomen, pelvis, and extremities. PET/PET skulltothigh INITIAL [id number] IMPRESSION: No increased uptake associated with the right lower lobe masslike density, favoring rounded atelectasis but ultimately indeterminate. Continued CT surveillance recommended. Nodular focus of increased uptake of the right pharynx of the level of the epiglottis, direct visualization should be considered if there is further clinical concern.
== END 2023-06-02 13:54 | disposition home or self-care (01) ==
LOC: RAD 13:53
PROVIDERS: PCP Family Medicine; Visit Provider Internal Medicine Pulmonary Disease
DX: R91.1 Solitary pulmonary nodule (principal)
CPT/HCPCS: 78815; A9552

== ENCOUNTER 2023-06-30 10:07 | Emergency (ER) | payer OTHER, SELFPAY ==
[2023-06-30 10:18] VITALS: BP 139/79; PULSE 54; RESP 18; TEMP 36.3; O2SAT 96; BMI 26.4
--- NOTE | 2023-06-30 10:28 | XR_ITS ---
WS: [id number] Exam: XR chest 1V portable [id number] Date/Time of Exam: 06/30/2023 10:39 AM Reason For Exam: dyspnea/cough Comparison 04/26/2022. The lungs are hyperinflated and clear. No pleural effusions. Cardiomediastinal silhouette is unremark able. Signs of previous CABG surgery. Bony structures are intact. Degenerative changes of both should ers. IMPRESSION: 1. Pulmonary hyperinflation. No acute cardiopulmonary finding.
--- NOTE | 2023-06-30 10:32 | ED_ITS ---
HPI - Weakness 2 General: Chief complaint: Weakness Stated complaint: feels faint Time Seen by Provider: 06/30/23 10:26 History of Present Illness: 78-year-old male presents emergency room states for last 3 weeks he is intermittently had episodes or if he feels like he is going to pass out. It is very difficult to drill down to when it happens he generally states it is happening when he stands but does not really associated with anything when I asked him specifically if it happened obese in [address] for long period of time or right after he stood up he is now just when I stand. I was able to get him to correlate at times to when he is standing and working on something particularly if he bends over a little bit. It will self-correct if he sits or lays down takes varying lengths of time the longest that ever took was an hour sometimes it passes within a few seconds or just a few minutes. He does not have any associated chest pain or shortness of breath with it no discomfort into his neck arm or back no associated difficulty with speech or swallowing or gait. He has a history of coronary artery disease previously had bypass. He has no history of stroke he is not on anticoagulants. Onset (ago): week(s) (3) Duration: intermittent Relieving factors: none Exacerbating factors: other (Standing) Associated symptoms: Denies chest pain, chills, confusion, melena, decreased appetite, diaphoresis, dysuria, easy bruising, fever(s), headache(s), myalgias, nausea, rash, short of breath, syncope or vomiting Review of Systems 2 Const: Denies: fever(s), chills or diaphoresis Card: Denies: chest pain or syncope Resp: Denies: dyspnea GI: Denies: abdominal pain, nausea, vomiting or melena : Denies: dysuria, urinary frequency or urinary urgency Musc: Denies: neck pain or back pain Skin/Breast: Denies: rash Neuro: Denies: headache(s) or confusion Ken/Lymph: Denies: easy bruising PFSH ED 2 PFSH: Medical History Left main coronary artery disease Third degree atrioventricular block Sinus pause NSTEMI (non-ST elevated myocardial infarction) PEA (Pulseless electrical activity) Lactic acidosis COVID-19 Acute respiratory failure with hypoxemia Recurrent syncope Bifascicular block Hyperlipidemia Borderline hyperlipidemia Diabetes mellitus Surgical History Hx of CABG Hx of cataract extraction Status post aorto-coronary artery bypass graft Status post colonoscopy with polypectomy (06/19/20) H/O circumcision History of appendectomy H/O colonoscopy Family History Mother CAD (coronary artery disease) [place] 89 Stroke Brother CAD (coronary artery disease), Onset Age: 60 Cancer Diabetes Lung disease Sister Diabetes Other Hyperlipidemia Hypertension Denies family history of Clotting disorder Dementia Chronic kidney disease (CKD) Suicide Anesthesia complication Bleeding disorder Social History Smoking and tobacco/nicotine status: former use of tobacco/nicotine (50+ years ago) Quit status (tobacco/nicotine): has quit using Year quit tobacco: 1964 Former quit date comment: 1ppd X 2 years Alcohol intake: never Substance/Drug Use: never Lives independently: Yes Marital status: / Current occupational status: retired Physical Exam 2 Const: COMMON NORMALS: no acute distress GENERAL APPEARANCE: cooperative and comfortable ORIENTATION/CONSCIOUSNESS: Yes awake, Yes oriented to person, Yes oriented to place and Yes oriented to time HENMT: COMMON NORMALS: normocephalic, atraumatic and hearing grossly normal bilaterally HEAD & SCALP: normocephalic and atraumatic Resp: COMMON NORMALS: normal respiratory effort, No retractions, No use of accessory muscles and clear to auscultation bilaterally AUSCULTATION: clear to auscultation bilaterally Cardio: COMMON NORMALS: regular rate, regular rhythm and No murmurs present (Cardio) RATE: regular rate RHYTHM: regular rhythm GI: COMMON NORMALS: Soft to palpation and No hepatosplenomegaly present A USCULTATION: Yes normoactive bowel sounds PALPATION: Yes Soft to palpation, No Tenderness to palpation present (GI), No Guarding due to palpation present (GI) and Yes No hepatosplenomegaly present Extremity: COMMON NORMALS: normal to inspection, capillary refill normal, no clubbing, cyanosis or edema, no calf tenderness and no pedal edema Neuro: SENSORIUM/ORIENTATION: Yes oriented to person, Yes oriented to place and Yes oriented to time Skin: COMMON NORMALS: no rashes or lesions noted GENERAL SKIN EXAM: no rashes or lesions noted Course 2 Vital Signs: Vital signs: Vital Signs Temperature 97.4 F L 06/30/23 10:18 Pulse Rate 57 L 06/30/23 12:07 Respiratory Rate 21 H 06/30/23 12:07 Blood Pressure 106/61 06/30/23 12:07 Pulse Oximetry 95 06/30/23 12:07 Oxygen Delivery Me thod Room Air 06/30/23 12:07 MDM - Weakness Medical Decision Making Labs and imaging reviewed cardiac enzymes EKG unremarkable. Suspect his symptoms are due to side effects of the metoprolol he is bradycardic he is not particularly orthostatic but think at times he has not been able to participate in activities of weight legs because of his bradycardia is also probably causing symptoms. Will change him from the metoprolol to tartrate to succinate, suspect changing to the long-acting version may decrease his side effects. Recommend he follow-up with his doctor within the next 10 to 14 days and reevaluate. Medical Records I reviewed the patient's medical records. Lab Data I reviewed the patient's lab results. 06/30/23 10:35 06/30/23 10:35 Laboratory Results WBC 7.63 10^3/uL (3.29-11.43) 06/30/23 10:35 RBC 4.54 10^6/uL (3.85-5.65) 06/30/23 10:35 Hgb 15.40 g/dL (11.27-16.99) 06/30/23 10:35 Hct 45.7 % (37-53) 06/30/23 10:35 MCV 100.7 fl (82-101) 06/30/23 10:35 MCH 33.9 pg (27-33) H 06/30/23 10:35 MCHC 33.7 g/dL (30-55) 06/30/23 10:35 RDW 12.8 % (12.1-15.1) 06/30/23 10:35 Plt Count 176 10^3/cmm (157-399) 06/30/23 10:35 MPV 9.5 fL (7.4-10.4) 06/30/23 10:35 Neut % (Auto) 50.1 % 06/30/23 10:35 Lymph % (Auto) 39.7 % 06/30/23 10:35 [place] % (Auto) 7.3 % 06/30/23 10:35 Eos % (Auto) 2.0 % 06/30/23 10:35 Baso % (Auto) 0.4 % 06/30/23 10:35 Neut # (Auto) 3.82 10^3/uL (1.8-7.7) 06/30/23 10:35 Lymph # (Auto) 3.0 10^3/uL (0.8-4.8) 06/30/23 10:35 [place] # (Auto) 0.6 10^3/uL (0.2-0.9) 06/30/23 10:35 Eos # (Auto) 0.2 10^3/uL (0.0-0.8) 06/30/23 10:35 Baso # (Auto) 0.0 10^3/uL (0.0-0.1) 06/30/23 10:35 Nucleated RBC % (auto) 0 % 06/30/23 10:35 Nucleated RBCs # 0.0 /100WBC 06/30/23 10:35 Sodium 136 mmol/L (136-145) 06/30/23 10:35 Potassium 4.5 mmol/L (3.5-5.1) 06/30/23 10:35 Chloride 101 mmol/L (98-107) 06/30/23 10:35 Carbon Dioxide 23 mmol/L (22-29) 06/30/23 10:35 Anion Gap 16.5 (5-19) 06/30/23 10:35 BUN 18 mg/dL (8-23) 06/30/23 10:35 Creatinine 1.1 mg/dL (0.7-1.2) 06/30/23 10:35 GFR Calculation Not Reportable 06/30/23 10:35 Glucose 172 mg/dL (65-115) H 06/30/23 10:35 Calculated Osmolality 288 mOsm/kg (285-295) 06/30/23 10:35 Calcium 9.5 mg/dL (8.5-10.5) 06/30/23 10:35 Total Bilirubin 0.3 mg/dL (0.15-1.2) 06/30/23 10:35 AST 18 U/L (0-40) 06/30/23 10:35 ALT 18 U/L (0-41) 06/30/23 10:35 Alkaline Phosphatase 105 U/L (40-130) 06/30/23 10:35 Troponin T Baseline 18 ng/L (0-15) H 06/30/23 10:35 Troponin T 120 Minute 17.68 ng/L (0-15) H 06/30/23 12:22 Delta Troponin T -0.32 ABS# (0-10) L 06/30/23 12: Total Protein 7.4 g/dL (6.6-8.7) 06/30/23 10:35 Albumin 4.2 g/dL (3.5-5.2) 06/30/23 10:35 Globulin 3.2 g/dL (1.3-4.6) 06/30/23 10:35 Urine Color Yellow (Yellow) 06/30/23 11:05 Urine Appearance Clear (CLEAR) 06/30/23 11:05 Urine pH 6 (5-7) 06/30/23 11:05 Ur Specific [place] 1.010 (1.005-1.030) 06/30/23 11:05 Urine Protein Neg (Negative) 06/30/23 11:05 Urine Glucose (UA) 4+ (Normal) H 06/30/23 11:05 Urine Ketones Negative (Negative) 06/30/23 11:05 Urine Blood Neg (Negative) 06/30/23 11:05 Urine Nitrate Negative (Negative) 06/30/23 11:05 Urine Bilirubin Neg (Negative) 06/30/23 11:05 Urine Urobilinogen Norm mg/dL (Negative) 06/30/23 11:05 Ur Leukocyte Esterase Negative (Negative) 06/30/23 11:05 All radiology interpretation(s) finalized by discharge Discharge Plan Discharge Patient Disposition: Home Clinical Impression: Near syncope, Medication side effects Condition: Stable Prescriptions: New metoprolol succinate 25 mg tablet extended release 24 hr 12.5 mg PO DAILY Qty: 15 0RF Discontinued metoprolol tartrate 25 mg tablet 12.5 mg PO BID Rx Instructions: 1/2 TAB TWICE DAILY No Action omega-3 fatty acids [Fish Oil Concentrate] 1,000 mg capsule 2,000 mg PO BID cholecalciferol (vitamin D3) 2 cap PO BID finasteride 5 mg tablet 5 mg PO DAILY citalopram 20 mg tablet 20 mg PO DAILY amlodipine 5 mg tablet 5 mg PO DAILY Qty: 30 5RF Jardiance 10 mg tablet 10 mg PO DAILY Qty: 90 3RF lisinopril 20 mg tablet 40 mg PO DAILY Qty: 180 3RF ascorbic acid (vitamin C) [Vitamin C] 500 mg Tablet 500 mg PO BID atorvastatin 40 mg Tablet 80 mg PO BEDTIME Qty: 60 4RF aspirin [Bridget Low Dose Aspirin] 81 mg tablet,delayed release (DR/EC) 81 mg PO DAILY Qty: 60 3RF diclofenac sodium 75 mg tablet,delayed release (DR/EC) 75 mg PO Q12H PRN (Reason: pain) Qty: 20 0RF Discharge Orders: Discharge ED (Routine); Ordered 06/30/23 Ordered By: Adrian Nicole Referrals: Yolanda Yi MD [Primary Care Provider] - Discharge Diet: Usual diet Discharge Activity: Increase activity as tolerated Patient Instructions: Opioid Safety, Pain Management Activity Restrictions/Additional Instructions: Thank you for choosing [facility] for your healthcare needs today. Please realize this is an emergency room and that we are providing you with a medical screening exam and this may not be complete and all inclusive of all the testing and or work up that you may need to determine your ailment or severity of your illness. It is very important that you follow up as instructed or that you return to the Emergency Department should you have concerns or if your condition changes or worsens in any way. Suspect your symptoms are a side effect of the metoprolol that you have been taking. Recommend you change her metoprolol from tartrate twice daily to metoprolol succinate to half a tablet once daily. Follow-up with your primary care doctor within the week. The metoprolol succinate is a sustained release and may give fewer side effects than the short acting version Coding Level of Care Code ED Medical Records Coordinator for Velma Villegas
--- NOTE | 2023-06-30 10:37 | ECG_ITS ---
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 Measurements Intervals [place] Rate: 55 P: 52 WY: 246 QRS: -59 QRSD: 156 T: 133 QT: 474 QTc: 456 Interpretive Statements SINUS BRADYCARDIA WITH FIRST DEGREE AV BLOCK INTRAVENTRICULAR CONDUCTION DELAY [130+ ms QRS DURATION] LEFT VENTRICULAR HYPERTROPHY AND ST-T CHANGE [VOLTAGE CRITERIA PLUS ST/T ABNORMALITY] POSSIBLE SEPTAL MYOCARDIAL INFARCTION , OF INDETERMINATE AGE [30 ms Q WAVE IN V1/V2] PROBABLE LATERAL MYOCARDIAL INFARCTION , OF INDETERMINATE AGE [35 ms Q WAVE IN I/aVL/V5/V6] Compared to ECG 04/27/2022 02:18:09 First degree AV block now present Intraventricular conduction delay now present Myocardial infarct finding now present Right bundle-branch block no longer present Left anterior fascicular block no longer present ST (T wave) deviation still present Electronically Signed On 06-30-2023 11:43:03 CORONER/MEDICAL EXAMINER by Jerome Sheikh M.D. [id number]
[2023-06-30 10:42] VITALS: BP 139/79; PULSE 55; RESP 16; O2SAT 97
[2023-06-30 10:44] LABS: Basophils % 0.4 %; Eosinophils # 0.2 10^3/uL (0.0-0.8); Hematocrit 45.7 % (37-53); Lymphocytes % 39.7 %; Mean Corpuscular HGB Conc 33.7 g/dL (30-55); Mean Corpuscular Hemoglobin 33.9 pg (27-33); Mean Corpuscular Volume 100.7 fl (82-101); Mean Platelet Volume 9.5 fL (7.4-10.4); Monocytes # 0.6 10^3/uL (0.2-0.9); Monocytes % 7.3 %; Neutrophils # 3.82 10^3/uL (1.8-7.7); Neutrophils % 50.1 %; Nucleated Red Blood Cells % 0 %; Platelet Count 176 10^3/cmm (157-399); Red Blood Count 4.54 10^6/uL (3.85-5.65); Red Cell Distribution Width 12.8 % (12.1-15.1); White Blood Count 7.63 10^3/uL (3.29-11.43)
[2023-06-30 10:51] VITALS: BP 126/58; BP 129/68; BP 131/73; PULSE 55; PULSE 57; PULSE 58
[2023-06-30 11:06] VITALS: BP 147/67; PULSE 55; RESP 17; O2SAT 96
[2023-06-30 11:14] LABS: Troponin(5th) Baseline 18 ng/L (0-15)
[2023-06-30 11:15] LABS: Alanine Aminotransferase 18 U/L (0-41); Albumin Level 4.2 g/dL (3.5-5.2); Alkaline Phosphatase 105 U/L (40-130); Anion Gap 16.5 (5-19); Aspartate Amino Transferase 18 U/L (0-40); Blood Urea Nitrogen 18 mg/dL (8-23); Calcium 9.5 mg/dL (8.5-10.5); Carbon Dioxide 23 mmol/L (22-29); Chloride 101 mmol/L (98-107); Globulin 3.2 g/dL (1.3-4.6); Glucose 172 mg/dL (65-115); Osmolality Calculated 288 mOsm/kg (285-295); Potassium 4.5 mmol/L (3.5-5.1); Sodium 136 mmol/L (136-145); Total Bilirubin 0.3 mg/dL (0.15-1.2); Total Protein 7.4 g/dL (6.6-8.7)
[2023-06-30 11:18] LABS: Add Urine Microscopic? NO; Charge for UA Resulting for Rev
[2023-06-30 11:25] LABS: Bilirubin Urine Neg (Negative); Blood Urine Neg (Negative); Glucose Urine UA 4+ (Normal); Ketones Urine Negative (Negative); Leukocyte Esterase Urine Negative (Negative); Nitrate Urine Negative (Negative); Protein Urine Neg (Negative); Urine Appearance Clear (CLEAR); Urine Color Yellow (Yellow); Urobilinogen Urine Norm (Negative); pH Urine 6 (5-7)
[2023-06-30 12:07] VITALS: BP 106/61; PULSE 57; RESP 21; O2SAT 95
--- NOTE | 2023-06-30 12:29 | ECG_ITS ---
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 Measurements Intervals [place] Rate: 61 P: -72 NC: 62 QRS: -63 QRSD: 126 T: -74 QT: 427 QTc: 431 Interpretive Statements SINUS RHYTHM LEFT AXIS DEVIATION [QRS AXIS < -30] POSSIBLE RIGHT VENTRICULAR CONDUCTION DELAY [RSR (QR) IN V1/V2] LEFT VENTRICULAR HYPERTROPHY AND ST-T CHANGE [VOLTAGE CRITERIA PLUS ST/T ABNORMALITY] Compared to ECG 06/30/2023 10:37:25 Left-axis deviation now present Sinus bradycardia no longer present First degree AV block no longer present Intraventricular conduction delay no longer present Myocardial infarct finding no longer present ST (T wave) deviation still present Electronically Signed On 06-30-2023 13:54:17 GULLET SLITTER by Jerome Sheikh M.D. [id number]
[2023-06-30 12:51] LABS: Troponin 5 2HR 17.68 ng/L (0-15)
[2023-06-30 13:01] LABS: Troponin 5 2HR Delta -0.32 ABS# (0-10)
[2023-06-30 13:15] VITALS: BP 131/69; PULSE 61; O2SAT 95
== END 2023-06-30 13:16 | disposition home or self-care (01) ==
PROVIDERS: Emergency Provider Family Medicine; PCP Family Medicine
DX: R55 Syncope and collapse (principal); T44.7X5A Adverse effect of beta-adrenoreceptor antagonists, initial encounter; Z79.82 Long term (current) use of aspirin; Z87.891 Personal history of nicotine dependence; Z95.1 Presence of aortocoronary bypass graft; I25.10 Atherosclerotic heart disease of native coronary artery without angina pectoris; I25.2 Old myocardial infarction; E78.5 Hyperlipidemia, unspecified; E11.9 Type 2 diabetes mellitus without complications
CPT/HCPCS: 36415; 71045; 80053; 81003; 84484; 85025; 93005; 99285

== ENCOUNTER 2023-07-11 12:38 | Emergency (ER) | payer OTHER, SELFPAY ==
[2023-07-11 12:45] VITALS: BP 121/64; PULSE 53; RESP 18; TEMP 36.4; O2SAT 96; BMI 27.8
--- NOTE | 2023-07-11 12:56 | XRR_ITS ---
PROCEDURE INFORMATION: Exam: XR Chest Exam date and time: 07/11/2023 1:13 PM Age: 78 years old Clinical indication: Other: Syncope.No history of trauma or recent surgery is provided. TECHNIQUE: Imaging protocol: Radiologic exam of the chest. 1image(s) are provided. Views: 1 view. COMPARISON: 1. CR XR chest 1V portable [id number] 06/30/2023 10:[address] chest w con* [id number] 03/31/2023 9:52 AM 3. PT PET skulltothigh INITIAL [id number] 06/02/2023 9:28 AM FINDINGS: Tubes, catheters and devices: The sternal wires are aligned. Lungs: There is some subsegmental atelectasis versus post inflammatory scarring demonstrated.No lobar consolidation is appreciated.There is improved lung volume and aeration. There are chronic granulomatous changes present similar overall. The previously described area of scarring is less conspicuous on plain film. Pleural spaces: No pneumothorax or significant pleural effusion is appreciated. Heart/Mediastinum: The cardiomediastinal silhouette is upper normal in size.This can be seen with central averaging as well as rika enlargement.No cardiac decompensation is appreciated. Diaphragm: The hemidiaphragms are symmetric. Bones/joints: Osseous alignment is maintained.No interval displaced fracture or dislocation is appreciated.There is slightly decreased bone mineralization overall. There are chronic appearing degenerative changes of the shoulders suggestive of chronic rotator cuff disease. Soft tissues: No radiopaque foreign body or subcutaneous emphysema is appreciated. Other findings: No other significant interval changes are appreciated. XR/XR chest 1V portable [id number] IMPRESSION: There is interval improved aeration and lung volume appearance with no lobar type consolidation or cardiac decompensation appreciated. No acute interval changes are appreciated.
--- NOTE | 2023-07-11 12:56 | ECG_ITS ---
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 Measurements Intervals [place] Rate: 50 P: 166 CO: 152 QRS: -51 QRSD: 153 T: 147 QT: 473 QTc: 432 Interpretive Statements SINUS BRADYCARDIA LEFT AXIS DEVIATION [QRS AXIS < -30] RIGHT BUNDLE BRANCH BLOCK [120+ ms QRS DURATION, UPRIGHT V1, 40+ ms S IN I/aVL/V4/V5/V6] POSSIBLE LEFT VENTRICULAR HYPERTROPHY [VOLTAGE CRITERIA PLUS LAE OR QRS WIDENING] POSSIBLE SEPTAL MYOCARDIAL INFARCTION , OF INDETERMINATE AGE [30 ms Q WAVE IN V1/V2] ST DEVIATION AND MODERATE T-WAVE ABNORMALITY, CONSIDER LATERAL ISCHEMIA [-0.1+ mV T-WAVE IN I/aVL/V5/V6] Compared to ECG 06/30/2023 12:51:12 Bradycardia, nonsinus now present Right bundle-branch block now present Myocardial infarct finding now present T-wave abnormality now present ST (T wave) deviation no longer present Electronically Signed On 07-12-2023 9:59:47 ROLLER EMBOSSER by Jerome Sheikh M.D. [id number]
--- NOTE | 2023-07-11 12:56 | CTR_ITS ---
PROCEDURE INFORMATION: Exam: CT Head Without Contrast Exam date and time: 07/11/2023 1:27 PM Age: 78 years old Clinical indication: Syncope and collapse; Additional info: Syncope with head injury TECHNIQUE: Imaging protocol: Computed tomography of the head without contrast. 291image(s) are provided. Radiation optimization: All CT scans at this facility use at least one of these dose optimization techniques: automated exposure control; mA and/or kV adjustment per patient size (includes targeted exams where dose is matched to clinical indication); or iterative reconstruction. Other technique: Axial images are available with sagittal and coronal reconstruction views. Automated dose exposure control is utilized. The DLP is 1037.98. REPORTING DATA: Count of CT and Cardiac NM exams in prior 12 months: This patient has received 3 known CTs and 0 known cardiac nuclear medicine studies in the 12 months prior to the current study. COMPARISON: 1. CT head wo/w con [id number] 08/07/2021 10:23 AM 2. PT PET skulltothi INITIAL [id number] 06/02/2023 9:28 AM RADIATION DOSE METRICS: Total DLP (mGy-cm): 1037.98 FINDINGS: Brain: There are moderate cerebral atrophic changes overall.There are chronic periventricular white matter changes present.There are central lacunar changes demonstrated.Partially empty sella variant is demonstrated.No mass effect or layering hemorrhage is appreciated. [place], white matter differentiation appears maintained. Cerebral ventricles: No hydrocephalus is appreciated. Paranasal sinuses: The paranasal sinuses appear well-aerated overall. Mastoid air cells: The mastoid air cells appear well-aerated overall. Orbital cavities: Symmetric appearance of the orbital soft tissues is demonstrated. Bones/joints: Osseous alignment is maintained.No interval displaced fracture or dislocation is appreciated. Soft tissues: No radiopaque foreign body or subcutaneous emphysema is appreciated. Vasculature: Atherosclerotic vascular changes are demonstrated. Other findings: There is some motion artifact present. No other significant interval changes are appreciated. CT/CT head wo con* [id number] IMPRESSION: No interval mass effect, layering hemorrhage or hydrocephalus is demonstrated. No significant interval intracranial changes are appreciated.
[2023-07-11 13:30] LABS: Basophils % 0.3 %; Eosinophils # 0.1 10^3/uL (0.0-0.8); Eosinophils % 1.6 %; Hematocrit 38.9 % (37-53); Lymphocytes # 2.5 10^3/uL (0.8-4.8); Lymphocytes % 35.5 %; Mean Corpuscular HGB Conc 33.9 g/dL (30-55); Mean Corpuscular Hemoglobin 34.2 pg (27-33); Mean Corpuscular Volume 100.8 fl (82-101); Mean Platelet Volume 9.5 fL (7.4-10.4); Monocytes # 0.5 10^3/uL (0.2-0.9); Monocytes % 7.2 %; Neutrophils # 3.79 10^3/uL (1.8-7.7); Nucleated Red Blood Cells % 0 %; Platelet Count 128 10^3/cmm (157-399); Red Blood Count 3.86 10^6/uL (3.85-5.65); Red Cell Distribution Width 12.8 % (12.1-15.1)
--- NOTE | 2023-07-11 13:41 | ED_ITS ---
HPI - Syncope 2 General: Chief Complaint: Syncope Stated Complaint: passed out, hit head, back pain Time Seen by Provider: 07/11/23 13:16 History of Present Illness: Patient presents to the ER by EMS with complaints of passing out at [employer] falling down and hitting his head. Patient said he got lightheaded right before he passed out but did not have time to sit down. Patient has passed out multiple times in the past he says. Patient is alert oriented and can recall all events prior and post fall. Patient is not complaining of any pain at this time other than mild head pain. Review of Systems 2 General: Reports: 10 or more systems reviewed and unremarkable except in HPI and below PFSH ED 2 PFSH: Medical History Left main coronary artery disease Third degree atrioventricular block Sinus pause NSTEMI (non-ST elevated myocardial infarction) PEA (Pulseless electrical activity) Lactic acidosis COVID-19 Acute respiratory failure with hypoxemia Recurrent syncope Bifascicular block Hyperlipidemia Borderline hyperlipidemia Diabetes mellitus Surgical History Hx of CABG Hx of cataract extraction Status post aorto-coronary artery bypass graft Status post colonoscopy with polypectomy (06/19/20) H/O circumcision History of appendectomy H/O colonoscopy Family History Mother CAD (coronary artery disease) [place] 89 Stroke Brother CAD (coronary artery disease), Onset Age: 60 Cancer Diabetes Lung disease Sister Diabetes Other Hyperlipidemia Hypertension Denies family history of Clotting disorder Dementia Chronic kidney disease (CKD) Suicide Anesthesia complication Bleeding disorder Social History Smoking and tobacco/nicotine status: former use of tobacco/nicotine (50+ years ago) Quit status (tobacco/nicotine): has quit using Year quit tobacco: 1964 Former quit date comment: 1ppd X 2 years Alcohol intake: never Substance/Drug Use: never Lives independently: Yes Marital status: / Current occupational status: retired Physical Exam 2 Const: COMMON NORMALS: no acute distress, average body habitus, patient oriented x3, no limitations, healthy appearing, alert and well nourished HENMT: COMMON NORMALS: normocephalic, atraumatic, hearing grossly normal bilaterally, external ears normal, Normal external nose present, moist oral mucous membranes and oropharynx normal HEAD & SCALP: normocephalic and atraumatic NOSE: Normal external nose present EXTERNAL EAR: Yes external ears normal Eye: COMMON NORMALS: Equal, round and reactive pupils present, EOMs intact bilaterally, conjunctivae normal and no scleral icterus CONJUNCTIVA: Yes conjunctivae normal PUPIL: Yes Equal, round and reactive pupils present Neck/C-Spine: COMMON NORMALS: full ROM, no lymphadenopathy, supple, no meningeal signs, no JVD and Thyroid normal THYROID: Thyroid normal Chest: COMMONS NORMALS: normal inspection of the chest and normal palpation of entire chest wall Resp: COMMON NORMALS: normal respiratory effort, No retractions and No use of accessory muscles Cardio: COMMON NORMALS: no JVD, regular rate, regular rhythm, S1 normal heart sound present, S2 normal heart sound present, No gallops present (Cardio), No clicks present (Cardio), No murmurs present (Cardio) and No rub (Cardio) R ATE: regular rate RHYTHM: regular rhythm HEART SOUNDS: S1 normal heart sound present and S2 normal heart sound present GI: COMMON NORMALS: Normal to inspection, nondistended, normoactive bowel sounds present, Soft to palpation, non-tender, No hepatosplenomegaly present and no masses PALPATION: Yes Soft to palpation and Yes No hepatosplenomegaly present Neuro: COMMON NORMALS: patient oriented x3 SENSORIUM/ORIENTATION: Yes alert MENINGEAL SIGNS: Yes no meningeal signs Course 2 Vital Signs: Vital signs: Vital Signs Temperature 97.6 F 07/11/23 12:45 Pulse Rate 52 L 07/11/23 15:08 Respiratory Rate 18 07/11/23 12:45 Blood Pressure 118/96 07/11/23 15:08 Pulse Oximetry 93 07/11/23 15:08 Oxygen Delivery Me thod Room Air 07/11/23 15:08 MDM - Syncope Medical Decision Making Patient passed out always. Patient presents to the ER by EMS. Patient is chest x-ray, head CT, lab work and EKG, all of which was essentially benign. Patient will be diagnosed with syncope and discharged home to follow-up with his PCP for further evaluation and treatment. Family member was consistent and persistent that we get an MRI on patient. It was informed to her that this is impossible through the ER but we may be able to schedule on an outpatient basis through case management. MRI of the brain with and without contrast for recurrent syncope will be ordered. They are aware that this may have to be preauthorized and/or other steps taken and it may not be possible to arrange to the ER. Differential Diagnosis Unlikely syncope due to orthostatic hypotension, vasovagal syncope, complete atrioventricular block, subarachnoid hemorrhage, pulmonary embolism or dehydration Medical Records I reviewed the patient's medical records. Lab Data I reviewed the patient's lab results. 07/11/23 13:21 07/11/23 13:21 Radiology Impressions Chest X-Ray 07/11/23 12:56 IMPRESSION: There is interval improved aeration and lung volume appearance with no lobar type consolidation or cardiac decompensation appreciated. No acute interval changes are appreciated. Head CT 07/11/23 12:56 IMPRESSION: No interval mass effect, layering hemorrhage or hydrocephalus is demonstrated. No significant interval intracranial changes are appreciated. Laboratory Results WBC 6.90 10^3/uL (3.29-11.43) 07/11/23 13:21 RBC 3.86 10^6/uL (3.85-5.65) 07/11/23 13:21 Hgb 13.20 g/dL (11.27-16.99) 07/11/23 13:21 Hct 38.9 % (37-53) 07/11/23 13:21 MCV 100.8 fl (82-101) 07/11/23 13:21 MCH 34.2 pg (27-33) H 07/11/23 13:21 MCHC 33.9 g/dL (30-55) 07/11/23 13:21 RDW 12.8 % (12.1-15.1) 07/11/23 13:21 Plt Count 128 10^3/cmm (157-399) L 07/11/23 13:21 MPV 9.5 fL (7.4-10.4) 07/11/23 13:21 Neut % (Auto) 55.0 % 07/11/23 13:21 Lymph % (Auto) 35.5 % 07/11/23 13:21 Bullock % (Auto) 7.2 % 07/11/23 13:21 Eos % (Auto) 1.6 % 07/11/23 13:21 Baso % (Auto) 0.3 % 07/11/23 13:21 Neut # (Auto) 3.79 10^3/uL (1.8-7.7) 07/11/23 13:21 Lymph # (Auto) 2.5 10^3/uL (0.8-4.8) 07/11/23 13:21 Bullock # (Auto) 0.5 10^3/uL (0.2-0.9) 07/11/23 13:21 Eos # (Auto) 0.1 10^3/uL (0.0-0.8) 07/11/23 13:21 Baso # (Auto) 0.0 10^3/uL (0.0-0.1) 07/11/23 13:21 Nucleated RBC % (auto) 0 % 07/11/23 13:21 Nucleated RBCs # 0.0 /100WBC 07/11/23 13:21 Sodium 137 mmol/L (136-145) 07/11/23 13:21 Potassium 4.2 mmol/L (3.5-5.1) 07/11/23 13:21 Chloride 106 mmol/L (98-107) 07/11/23 13:21 Carbon Dioxide 22 mmol/L (22-29) 07/11/23 13:21 Anion Gap 13.2 (5-19) 07/11/23 13:21 BUN 19 mg/dL (8-23) 07/11/23 13:21 Creatinine 1.0 mg/dL (0.7-1.2) 07/11/23 13:21 GFR Calculation Not Reportable 07/11/23 13:21 Glucose 205 mg/dL (65-115) H 07/11/23 13:21 Calculated Osmolality 292 mOsm/kg (285-295) 07/11/23 13:21 Calcium 9.0 mg/dL (8.5-10.5) 07/11/23 13:21 Total Bilirubin 0.2 mg/dL (0.15-1.2) 07/11/23 13:21 AST 15 U/L (0-40) 07/11/23 13:21 ALT 17 U/L (0-41) 07/11/23 13:21 Alkaline Phosphatase 99 U/L (40-130) 07/11/23 13:21 Total Protein 6.9 g/dL (6.6-8.7) 07/11/23 13:21 Albumin 3.9 g/dL (3.5-5.2) 07/11/23 13:21 Globulin 3.0 g/dL (1.3-4.6) 07/11/23 13:21 All radiology interpretation(s) finalized by discharge EKG Data EKG 1: I personally reviewed and interpreted this EKG as follows: EKG interpretation date: 07/11/23 EKG interpretation time: 15:24 Prior EKG tracings: not available for review Interpretation: EKG showed ventricular rate 50 bpm, OH interval 152, QRS duration 153, QTc of 445, Discharge Plan Discharge Patient Disposition: Home Clinical Impression: Syncope Qualifiers: Syncope type: unspecified Qualified Code(s): R55 - Syncope and collapse Condition: Stable Prescriptions: No Action finasteride 5 mg tablet 5 mg PO DAILY citalopram 20 mg tablet 20 mg PO DAILY amlodipine 5 mg tablet 5 mg PO DAILY Qty: 30 5RF Jardiance 10 mg tablet 10 mg PO DAILY Qty: 90 3RF lisinopril 20 mg tablet 40 mg PO DAILY Qty: 180 3RF ascorbic acid (vitamin C) [Vitamin C] 500 mg Tablet 500 mg PO BID aspirin [Bridget Low Dose Aspirin] 81 mg tablet,delayed release (DR/EC) 81 mg PO DAILY Qty: 60 3RF metoprolol succinate 25 mg tablet extended release 24 hr 12.5 mg PO DAILY Qty: 15 0RF Vitamin D3 25 mcg (1,000 unit) Tablet 25 mcg PO BID Fish Oil 1,000 mg (120 mg-180 mg) Capsule 1 cap PO BID atorvastatin 40 mg tablet 40 mg PO DAILY Discharge Orders: Discharge ED (Routine); Ordered 07/11/23 Ordered By: Sulaiman Caballero Referrals: Yolanda Yi MD [Primary Care Provider] - 1 week Patient Instructions: Syncope in Older Adults (ED) Activity Restrictions/Additional Instructions: Your workup in ER was essentially negative. Please follow-up with your family practice physician within the next 7 to 10 days for further evaluation and treatment as needed. 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
[2023-07-11 13:54] LABS: Alanine Aminotransferase 17 U/L (0-41); Albumin Level 3.9 g/dL (3.5-5.2); Alkaline Phosphatase 99 U/L (40-130); Anion Gap 13.2 (5-19); Aspartate Amino Transferase 15 U/L (0-40); Blood Urea Nitrogen 19 mg/dL (8-23); Carbon Dioxide 22 mmol/L (22-29); Chloride 106 mmol/L (98-107); Glucose 205 mg/dL (65-115); Osmolality Calculated 292 mOsm/kg (285-295); Potassium 4.2 mmol/L (3.5-5.1); Sodium 137 mmol/L (136-145); Total Bilirubin 0.2 mg/dL (0.15-1.2); Total Protein 6.9 g/dL (6.6-8.7)
[2023-07-11 15:08] VITALS: BP 118/96; PULSE 52; O2SAT 93
== END 2023-07-11 17:33 | disposition home or self-care (01) ==
PROVIDERS: Emergency Medicine; Emergency Provider Emergency Medicine; PCP Family Medicine
DX: R55 Syncope and collapse (principal); Z79.82 Long term (current) use of aspirin; Z87.891 Personal history of nicotine dependence; I25.2 Old myocardial infarction; E78.5 Hyperlipidemia, unspecified; E11.9 Type 2 diabetes mellitus without complications; Z95.1 Presence of aortocoronary bypass graft
CPT/HCPCS: 36415; 70450; 71045; 80053; 85025; 93005; 99285

== ENCOUNTER 2023-08-21 11:43 | Outpatient (CLI) | payer OTHER, SELFPAY ==
--- NOTE | 2023-08-21 11:51 | MR_ITS ---
WS: [id number] MRI HEAD WITH CONTRAST TECHNIQUE: Sagittal T1, T2 axial, T2 axial FLAIR, axial susceptibility weighted imaging, axial diffus ion weighted images, and coronal T2 images were obtained. Pre and post-T1 axial and post T1 coronal i mages. ADC and FSPGR images. CLINICAL INFORMATION: SYNCOPE COMPARISON: CT head 07/11/2023 FINDINGS: No evidence of restricted diffusion to suggest acute ischemia. Ventricular system and basal cisterns are patent. Mild small vessel changes. Moderate parenchymal volume loss worse in the parietal lobes. Normal posterior fossa. Normal vascular flow voids at the skull base. No extra-axial fluid collection s. No evidence of mass or mass effect. Mild mucosal thickening in the ethmoid air cells. Mastoid air cells are well aerated. Tiny punctate focus of hemosiderin in the RIGHT cerebellum. Normal optic chiasm and pituitary infundi bulum. Mild symmetric atrophy temporal lobes and hippocampal formations. No abnormal gadolinium enhan cement. Normal dural venous sinuses. IMPRESSION: 1. No evidence of restricted diffusion to suggest acute ischemia. 2. Mild small vessel changes with moderate parenchymal volume loss worse in the parietal lobes bilat erally. 3. No abnormal gadolinium enhancement. 4. Tiny punctate focus of hemosiderin in the RIGHT cerebellum. 5. No other suspicious findings.
--- NOTE | 2023-08-21 11:53 | MR_ITS ---
WS: [id number] MRI CERVICAL SPINE NONCONTRAST TECHNIQUE: Sagittal T1, T2 and STIR imaging. Axial T2, gradient, and fiesta imaging. CLINICAL INFORMATION: FALL AND PAIN COMPARISON: None. FINDINGS: Straightening of the normal cervical lordosis. Moderate spondylitic changes. Disc osteophyte protrusi ons C3-C6. C2-C3: Tiny central protrusion. Moderate facet arthropathy. Mild bilateral bony foraminal narrowing. C3-C4: Disc osteophyte protrusion. Mild central canal stenosis with slight indentation on the cervica l cord. Moderate facet arthropathy. Moderate LEFT and mild RIGHT bony foraminal narrowing. C4-C5: Disc osteophyte protrusion with slight indentation on the cervical cord. Mild central canal st enosis. Moderate bilateral bony foraminal narrowing. C5-C6: Disc osteophyte complex with endplate ridging. Mild central canal stenosis. Moderate bilateral bony foraminal narrowing. Moderate facet arthropathy. C6-C7: Disc osteophyte complex with endplate ridging. Slight contact of the cervical cord with mild c entral canal stenosis. Moderate bilateral bony foraminal narrowing LEFT greater than RIGHT. C7-T1: Disc osteophytic ridging. Mild bilateral bony foraminal narrowing. Spinal canal is patent. Visualized brain stem structures: Normal. Prevertebral soft tissues: Normal. IMPRESSION: Some images degraded by motion. 1. Straightening of the normal cervical lordosis. Moderate spondylitic changes. Cord signal is ellen l. 2. Disc osteophyte protrusions C3-C6 with slight indentation and contact of the cervical cord with m ild central canal stenosis worse at C4-C5 and C5-C6. 3. Multilevel moderate bony foraminal narrowing worse at LEFT C3-C4, bilateral C4-5, bilateral C5-C6 and bilateral C6-7.
[2023-08-21] MEDS: gadobenate dimeglumine 20 mL vial IV (13:21)
== END 2023-08-21 11:44 | disposition home or self-care (01) ==
LOC: RAD 11:43
PROVIDERS: PCP Family Medicine; Visit Provider Family Medicine
DX: R55 Syncope and collapse (principal); W19.XXXA Unspecified fall, initial encounter; I99.9 Unspecified disorder of circulatory system; M47.812 Spondylosis without myelopathy or radiculopathy, cervical region; M25.78 Osteophyte, vertebrae; M48.02 Spinal stenosis, cervical region
CPT/HCPCS: 70553; 72141; A9577

== ENCOUNTER 2023-09-17 12:09 | Outpatient (CLI) | payer OTHER, SELFPAY ==
--- NOTE | 2023-09-17 12:16 | CT_ITS ---
WS: [id number] CT NECK WITH CONTRAST HISTORY: Follow-up PET/CT positive nodule RIGHT pharynx. TECHNIQUE: Contiguous 2 mm axial images are performed through the neck with intravenous contrast. Sag ittal and coronal reformats are also submitted. All CT scans at [facility] use at least one o f these dose optimization techniques: automated exposure control; mA and/or kV adjustment per patient size (includes targeted exams where dose is matched to clinical indication); or iterative reconstruc tion. CONTRAST: CONTRAST: Omnipaque 350; 100 mL IV. DLP: 219.16 mGy.cm COMPARISON: PET/CT 06/02/2023 Identified is a very subtle soft tissue mass with slight enhancement in the RIGHT Grafton tonsil ext ending to the RIGHT tongue base. There are several associated calcifications which may be tonsillolit hs. Mass measures 1.5 x 1.5 x 1.5 cm. This should be further evaluated by direct visualization and bi opsy by ENT. Torus tubarius and fossa of Rosenmuller and parapharyngeal fat are normal. No significant lymphadenopathy is identified. Thyroid gland and salivary glands are normally enhancing with no masses. Moderate degenerative spondylitic changes. No destructive bone lesions. Component of cervical and for aminal stenosis throughout the cervical spine. Visualized portions of the skull base demonstrate no abnormalities. Orbits and globes are within norm al limits. No soft tissue masses. Visualized paranasal sinuses and mastoid air cells are normal. 5 mm nodule is stable at the RIGHT apex. IMPRESSION: Soft tissue mass in the RIGHT G[place]on tonsillar bed with a few adjacent tonsilloliths. Mass measures 1.5 x 1.5 x 1.5 cm and corresponds to the positive PET/CT. Recommend direct visualization and biopsy to exclude neoplasm. No cervical chain lymphadenopathy.
[2023-09-17 12:55] LABS: Blood Urea Nitrogen 17 mg/dL (8-23)
[2023-09-17] MEDS: iohexol 350 mg/mL 500 mL Btl (per mL) IV (13:00)
== END 2023-09-17 12:10 | disposition home or self-care (01) ==
LOC: RAD 12:09
PROVIDERS: PCP Family Medicine; Visit Provider Family Medicine
DX: Z01.89 Encounter for other specified special examinations (principal); R91.1 Solitary pulmonary nodule; J35.8 Other chronic diseases of tonsils and adenoids
CPT/HCPCS: 70491; 82565; 84520; Q9967

== ENCOUNTER → 2023-11-25 09:59 | Outpatient (BNVA) | payer OTHER, SELFPAY | PROVIDERS: PCP Family Medicine; Visit Provider Nurse Practitioner Family | DX: I25.10 Atherosclerotic heart disease of native coronary artery without angina pectoris (principal); I10 Essential (primary) hypertension; Z87.891 Personal history of nicotine dependence; Z95.1 Presence of aortocoronary bypass graft | CPT/HCPCS: 99214 ==

== ENCOUNTER 2023-11-30 07:56 | Outpatient (CLI) | payer OTHER, SELFPAY ==
[2023-11-30 08:45] VITALS: BMI 30.8
--- NOTE | 2023-11-30 08:49 | NMCV_ITS ---
NM pascual perf SPECT r/s* [id number] Jeremiah Lance Age: 78 Gender: M : 1945 Exam Date: 11/30/2023 08:49 Ordering Phys: Lindsay Field Technologist: MARI Alvarado Exam Location: [facility] Indications: ATHEROSCLEROTIC HEART DISEASE STRESS TEST [facility] IMAGE PROTOCOL Rest/Stress 1 Exercise Day Radiopharmaceutical Dose (mCi) Administration Site Administered by Rest: Tc-99m 10.7 IV MARI Shea Sestamibi Stress:Tc-99m 32.8 IV MARI Shea Sestamibi Rest: 30-Nov-2023 60 Discovery 630 Stress: 30-Nov-2023 15 Discovery 630 Radiopharmaceutical was injected at 86 % maximum heart rate. Supine position only as patient was unable to lay prone. SPECT RESULTS Technical Quality: Excellent Raw Data Analysis: Normal Image Corrections: No attenuation or motion correction applied Summed Stress Score: 9 Summed Rest Score: 4 Summed Difference Score: 6 PERFUSION FINDINGS There is medium sized area of reversible perfusion defect noted in the apical, apical anterior and apical septal marroquin. This is consistent with medium sized area of ischemia seen in the LAD territory. Small to medium sized areas of mostly fixed perfusion defects are seen in the inferior and inferolateral marroquin. This is consistent with small area of prior infarct with minimal robert- infarct ischemia seen in the RCA and left circumflex artery territory. FUNCTIONAL RESULTS (calculated via Gated SPECT) Stress Image LV EF (%): 48 Stress EDV (mL):167 TID: 1.05 Stress ESV (mL):87 FUNCTIONAL FINDINGS: LV systolic function is mildly reduced with EF of 48%. Mild global hypokinesis is seen IMPRESSIONS 1. Abnormal myocardial perfusion imaging with medium sized area of ischemia seen in LAD territory. 2. Small area of prior infarct with minimal robert-infarct ischemia seen in left circumflex artery and RCA territories. Prone imaging not performed. Can not rule out attenuation artifact. 3. LV systolic function is mildly reduced with EF of 48%. Mild global hypokinesis seen. Jerome Sheikh MD (Electronically Signed) Final Date: 02 Dec 2023 12:10 S
--- NOTE | 2023-11-30 08:49 | ECG_ITS ---
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 Interpretive Statements NAME OF STUDY: EXERCISE SESTAMIBI STRESS TEST INDICATION: [Exertional Syncope] EXERCISE DATA: The patient was exercised by Raul protocol. Baseline heart rate was 63 beats per minute. Baseline blood pressure was 156/69 millimeters of mercury. Maximal predicted heart rate was 143 beats per minute. Maximum heart rate achieved was 146, which was 102% of the maximum predicted heart rate. Total exercise time was 3 minutes and 51 seconds. Maximum METs achieved was 7 . The reason for ending the test was completion of protocol. The patient complained of shortness of breath during the stress test, which then resolved at the end of the test. ELECTROCARDIOGRAM: BASELINE: Showed sinus rhythm, normal axis, interventricular conduction delay, no significant ST-T changes at the baseline noted. [] EXERCISE: At the peak exercise level, [] No significant ST-T changes suggestive of ischemia noted. [] RECOVERY: During the recovery period, heart rate dropped appropriately. No significant ST-T changes in the recovery suggestive of ischemia noted. [] CONCLUSION: 1. Exercise capacity is fair 2. Heart rate response was appropriate 3. Blood pressure response was appropriate 4. Symptoms not suggestive of ischemia. 5. Electrocardiogram portion of the stress test was not suggestive of ischemia. 6. Nuclear scan will be documented separately. Electronically Signed On 12-08-2023 10:36:33 CDT by Jerome Sheikh M.D. [id number]
[2023-11-30 10:26] VITALS: BP 145/67; PULSE 94
== END 2023-11-30 07:57 | disposition home or self-care (01) ==
LOC: CDL 07:57
PROVIDERS: PCP Family Medicine; Visit Provider Nurse Practitioner Family
DX: I25.10 Atherosclerotic heart disease of native coronary artery without angina pectoris (principal); I25.9 Chronic ischemic heart disease, unspecified; R94.39 Abnormal result of other cardiovascular function study; I25.2 Old myocardial infarction
CPT/HCPCS: 36415; 78452; 93017; A9500

== ENCOUNTER 2023-12-18 10:50 | Outpatient (CLI) | payer OTHER, SELFPAY ==
[2023-12-18] VITALS (43 sets, daily range): BP systolic 105–181; BP diastolic 49–92; PULSE 50–67; RESP 16–36; TEMP 36.5–36.7; O2SAT 91–99; BMI 30.8; BMI 31.5
--- NOTE | 2023-12-18 08:30 | XACV_ITS ---
Exam Room: 2 Ht: 178 cm Wt: 98 kg BSA: 2.22 m2 Gender: Male : 1945 Any Known Allergies: Other Exam Priority: Routine Procedure(s): Procedure Description: Diagnostic procedure Procedure Description: Left Heart Catheterization Procedure Description: Left ventriculography Procedure Description: Coronary Angiography Antonio REARDON; Diagnostic Cath Status: Elective Diagnostic Findings * The left main is a medium caliber vessel which was found to have high-grade ostial lesion of around 80%. * The left anterior descending artery is a medium caliber vessel which was found to have moderate diffuse disease proximally. The distal artery appears to wrap around the LV apex minimally. The first 2 diagonal branches found to be almost of same caliber as of the LAD and was found to have mild diffuse disease in the proximal and mid segment. The first septal kiln burner helper was found to have around 60% ostial stenosis. * The left circumflex artery appeared to be medium caliber vessel which gives of a high obtuse marginal branch. There was a 60 to 70% stenosis right after this. The second OM branch was found to have proximal around 70 to 80% stenosis. The AV groove branch of the artery is a very slender and rudimentary. * The right coronary artery is a medium caliber dominant vessel which was found to have mild to moderate diffuse disease in the proximal segment. Right after the RV branch, there was a 40% segmental narrowing. The PDA and the PLV branches are found mild diffuse intimal irregularities. * No disease noted in the Left Main, Left Anterior Descending, Right, or Circumflex coronary arteries. * Coronary angiography shows right dominance. Conclusions 1. This is a 78-year-old white male with a history of hypertension, type 2 diabetes, dyslipidemia and a two-vessel coronary artery bypass surgery in 2021, presents with complaints of recurrent episodes of chest pain/dizziness/near syncopal episodes. He had a myocardial perfusion imaging which revealed moderate area of ischemia in the distribution of the left anterior descending artery. Small areas of fixed defects defects with very very small areas of reversible defects noted in the distribution of the right coronary artery/circumflex artery. Because of the ongoing symptoms, in order to further evaluate his coronary status as well as the graft status, a cardiac catheterization was recommended. Patient underwent left heart catheterization with a left and right coronary angiogram, graft angiogram and LV angiogram today. The findings are as follows.. 2. 1. High-grade ostial stenosis of the left main of around 85%.2. Moderate diffuse disease in the proximal to mid LAD. Moderate calcification also was noted in this region. The first diagonal branch was found to have mild diffuse disease in the proximal and mid segment. First septal kiln burner helper was found to have around 50% ostial narrowing. The left circumflex artery was found to have around 60% stenosis after the high OM branch. The second obtuse marginal artery was found to have 70 to 80% proximal stenosis. Competitive flow was noted in the distal artery. The AV groove branch was very slender and rudimentary. The right coronary artery was found to be a moderate to large dominant vessel with mild to moderate diffuse disease proximally. Just before the first RV branch, there was a segmental narrowing of around 50%. Mild diffuse disease was noted in the distal segment of the artery. The PDA and the PLV branches also were found to have mild diffuse disease. The LAZCANO appears to be atretic with a sluggish flow. The venous graft to the obtuse marginal artery was found to be patent with no lesions. LV ejection fraction around 45%. LVEDP of 19 mmHg.. 3. I reviewed and discussed the cardiac catheterization data with the Dr. Balderrama. In view of the patient's symptoms and the abnormal objective findings, it might be appropriate to intervene the left main lesion. A redo surgery versus percutaneous interventions are the options. The percutaneous intervention should be done in a facility with a surgical backup. This was discussed with the patient and his . They are agreeable for this.. 4. I contacted Dr. Rivers at the [facility]. He accepted the patient's transfer for further management. We have made arrangements for the patient to be transferred to [facility]. Recommendations * Continue current medical management and risk factor modification. Diagnostic RX Recommendation: other cardiac therapy w/o CABG/PCI LV EDP: 19 mmHg Ventriculography Ejection Fraction: 45.0 % Left Ventriculography Findings: * LV gram was performed in the BROCK projection. The study was of suboptimal quality. There is mild diffuse hypokinesia of the anteroapical region. Overall ejection fraction was around 45%. The LVEDP was 19 mmHg. No filling defects were noted. Pressures Phase:Rest AO : 151 / 64 ( 96 ) @ 1:29:00 PM 139 / 85 ( 111 ) @ 1:42:00 PM 180 / 71 ( 114 ) @ 1:47:00 PM 179 / 72 ( 114 ) @ 1:47:00 PM LV : 181 / -1 / 19 @ 1:46:00 PM 178 / 0 / 20 @ 1:47:00 PM 175 / 0 / 19 @ 1:47:00 PM Valves Phase:DefaultPhase AV : 0.0 @ 1:06:21 PM 0.0 @ 1:06:21 PM AV Mean Gradient: 0.0 @ 1:06:21 PM Clinical Evaluation EBL: 5mL-10mL Procedural Details Procedure Consent Obtained. Pre-Procedure Time Out. Identified patient by full name and date of as verbalized by the patient/guarantor. Does the consent match the physician's order: Yes. Accurate & Complete Informed Consent: Yes. Inpatient/Outpatient History & Physical on Chart: Yes. If H&P is completed, is and addenduem needed: No. Visualize and Verify Site with Patient/Guarantor: N/A. Relevant Radiology Images available: Yes. The risks, benefits, and alternatives of sedation and/or procedure were discussed by physician. The patient agrees to continue. Procedure started. [facility] Clinical Fraility Score: 3: Managing Well. Chisel Trimmer Indications: Stable Known CAD/abnormal stress test. Chest Pain Symptom Assessment: Typical Angina Symptoms. Cardiovascular Instability: No. Correct patient, site and procedure confirmed by cath team. PERRLA. Strong, equal hand onion topper bilaterally. Lungs clear x 5 lobes. IV Site on Arrival: 20 gauge in the right anticubital. IV Fluids: 0.9% NaCl at KVO. 0 mL infused prior to public works laborer. Pre Procedural Pulses: bilateral dorsalis pedis was 3+. Pre Procedural Pulses: bilateral posterior tibial was 3+. Pre Procedural Pulses: bilateral radial was 3+. Oxygen started at 2liters/min via nasal canula. bilateral groins was prepped with chloroprep then draped in the usual sterile fashion. Physician notified. Baseline sample Acquired. HR: 67 BPM. Patient's family in CPRU room 4. Dr. Alvarez will update at the completion of the procedure. Equipment: 6F - Femoral. Cardiac Cath Pack. ACIST Manifold Kit Model BT 2000. Heparinized Saline (2 units/mL), 1000 mL bag. Kit, Micropuncture. Physician arrived. Physician scrubbed in. Immediate Pre-Procedure Time Out. Correct Patient: Yes; Correct Procedure: Yes; Correct Site: Yes; Correct Patient Position: Yes; Correct Supplies: Yes; Dried Flammable Prep: Yes; Blood Products Available: N/A;. Lidocaine 1% infiltrated to the right groin. Arterial access obtained with micropuncture set. unable to pass wire. Wire and needle out. Dr. Alvarez holding manual pressure. Arterial access obtained with micropuncture set. unable to pass wire. Wire and needle out. Dr. Alvarez holding manual pressure. Arterial access obtained with micropuncture set. A 5 stateless JL4 catheter in over the standard J wire. Multiple views taken of left coronary artery. Catheter removed over the standard J wire. A 5 stateless JR4 catheter in over the standard J wire. Multiple views taken of right coronary artery. Catheter redirected to the SVG-->OM. SVG's to OM visualized and patent. Catheter removed over the standard J wire. A 5 stateless IM catheter in over the standard J wire. LAZCANO to LAD visualized. Dr. Balderrama called to view cineography. Catheter removed over the standard J wire. A 5 stateless Angled Pig catheter in over the standard J wire. EDP Sample taken: LV 181/-2,19; HR: 64 BPM; SpO2: 96%. LV gram performed in BROCK @ 10 mL/second for a total of 30 mL. EDP Sample taken: LV 178/-1,20; HR: 62 BPM; SpO2: 96%. Pullback taken: LV 175/-1,19; AO 180/71(114); Mean: 0mmHg, Peak to Peak: 0mmHg, SEP: 7sec/min; HR: 63 BPM; SpO2: 96%. Catheter removed over the standard J wire. Dr. Alvarez scrubbed out. Dr. Balderrama here to review films. A Suture was successful obtaining hemostatsis at the Right Femoral artery insertion site. Sheath(s) sutured into position with 2-0 silk and sterile 4x4's and Op-site applied over the site. No oozing or signs and symptoms of hematoma noted. Arterial sheath flushed and connected to tranducer and pressure bag with heparinized saline. Post Procedure: Pulses reassessed and unchanged. PERRLA. Strong, equal hand onion topper bilaterally. No VTE prophylaxis required. Medication's Wasted: Lidocaine 1% = 10 mL. Medication's Wasted: Heparin = 2500 units. Medication's Wasted: Other = Fentanyl 25mcg. Total IV fluids: 65 mL. Complications: None. Post-op diagnosis: Occluded LAZCANO graft, High grade left main stenosis, Patent SVG to OM graft. Estimated blood loss: 5mL-10mL. Responsiveness - Normal response to verbal stimuli; alert and oriented, PERRLA. Airway - Unaffected, no intervention required; spontaneous ventilation. Circulation: W/N/L, pulses unchanged. Nausea/Vomiting: No. Procedure completed. Patient transferred by bed to 1st floor. Vital chart was stopped. Access Site Site: Right Femoral artery Sheath Size: 6 Fr Hemostasis Method: Suture Hemostasis Success: Successful Procedure Medications Start: 12:09 PM Stop: 12:09 PM Medication: Versed Amount: 1 mg Route: I.V. Start: 12:23 PM Stop: 12:23 PM Medication: Versed Amount: 1 mg Route: I.V. Start: 12:23 PM Stop: 12:23 PM Medication: Fentanyl Amount: 50 mcg Route: I.V. Start: 12:29 PM Stop: 12:29 PM Medication: Heparin Amount: 1500 units Route: I.V. I, the attending physician, have reviewed and verified all procedure medications. Yes, all medications given per verbal order History/Risk Factors Hypertension: Yes Dyslipidemia: Yes Peripheral Arterial Disease (PAD): No Myocardial Infarction (NC): Yes Obesity: No Renal Disease: No Tobacco Use: Former Prior Interventions PCI: No CABG: Yes Valve Surgery: No Report Signatures Finalized by Dr Malik Alvarez MD [facility] on 12/18/2023 01:55 PM
[2023-12-18 11:25] LABS: Basophils % 0.4 %; Eosinophils # 0.3 10^3/uL (0.0-0.8); Eosinophils % 3.9 %; Hematocrit 43.2 % (37-53); Lymphocytes # 2.9 10^3/uL (0.8-4.8); Lymphocytes % 40.5 %; Mean Corpuscular HGB Conc 34.7 g/dL (30-55); Mean Corpuscular Hemoglobin 34.6 pg (27-33); Mean Corpuscular Volume 99.5 fl (82-101); Mean Platelet Volume 9.8 fL (7.4-10.4); Monocytes # 0.7 10^3/uL (0.2-0.9); Monocytes % 9.5 %; Neutrophils # 3.22 10^3/uL (1.8-7.7); Neutrophils % 45.1 %; Nucleated Red Blood Cells % 0 %; Platelet Count 174 10^3/cmm (157-399); Red Blood Count 4.34 10^6/uL (3.85-5.65); Red Cell Distribution Width 13.1 % (12.1-15.1); White Blood Count 7.14 10^3/uL (3.29-11.43)
[2023-12-18] MEDS: aspirin 325 mg Tablet PO (11:36)
[2023-12-18 11:48] LABS: Blood Urea Nitrogen 15 mg/dL (8-23); Calcium 9.2 mg/dL (8.5-10.5); Carbon Dioxide 25 mmol/L (22-29); Chloride 100 mmol/L (98-107); Creatinine Clr Calc Pharmacy 72.4577; Glucose 154 mg/dL (65-115); Osmolality Calculated 286 mOsm/kg (285-295); Sodium 136 mmol/L (136-145)
--- NOTE | 2023-12-18 11:59 | W.PM.OPSUD ---
Surgery/Procedure H&P Update DATE OF PROCEDURE: December 18, 2023 DATE H&P PERFORMED: 11/25/23 H&P UPDATE INFORMATION: I have reviewed H&P completed within last 30 days, I have examined patient prior to procedure and No changes to prior documentation PREOP DIAGNOSIS: ASHD PRIMARY INDICATION FOR PROCEDURE: Syncope/near syncope/status post CABG/abnormal myocardial perfusion imaging PLANNED PROCEDURE: Operation Date: 12/18/23 12:00 Proposed Procedures p Cardiac Catheterization 11255, Z95.1, I25.10, R94.39(Left) - Malik Alvarez MD PATIENT REASSESSED PRIOR TO SEDATION, WITH NO CHANGE NOTED: Yes PHYSICAL EXAM: alert, oriented x 3, clear to auscultation bilaterally and regular rate & rhythm AIRWAY EVAL/ANESTHESIA PLAN: normal airway, see other exam findings, ASA III, Monitored Anesthesia, Local Anesthesia, Risks, benefits & alternatives of sedation and/or procedure discussed and Patient agrees to continue as planned
[2023-12-18] MEDS: metoprolol tartrate 25 mg Tablet 12.5 MG PO (13:53)
[2023-12-18] MEDS: amlodipine 5 mg Tablet PO (13:54)
[2023-12-18] MEDS: lisinopril 20 mg Tablet 40 MG PO (13:54)
--- NOTE | 2023-12-18 14:37 | PC.NURSE ---
received from cardiac lab director via bed at 1320.report received.pt is alert and oriented x 4.reji pain.sr on monitor.right femoral sheath intact to pressurized system.no hemtoma noted.right leg is warm to touch and with brisk capillary refill.palpable dp pulse noted.femoral sheath pulled at 1340.pressure held x 20.vss through-out procedure.site dressed with 2x2 gauze and secured with biocclusive drsg.no hematoma noted.pt instructed in activity restrictions s/p femoral artery sheath removal...and instructed to notify staff for any bleeding,pain,sob,numbness.or for any concerns at all.pt verb understanding of instructions.
--- NOTE | 2023-12-18 16:15 | PM.TDS ---
Transfer Summary Providers Date of Admission: 12/18/23 13:30 Date of Discharge/Transfer: 12/18/23 Attending Provider at Admission: MALENA Alvarez MD Attending Provider at Transfer: Malik Alvarez MD Consults: None Primary Care Provider: Yolanda Yi MD Transfer Plans: Anticipated date of transfer: 12/18/23. Reason for Visit Reason for Visit Z95.1, I25.10, R94.39 Brief History: This is a 78-year-old white female with history of hypertension, type 2 diabetes, dyslipidemia and atherosclerotic heart disease, had a two-vessel coronary bypass surgery on 09/22/2021. He had a LAZCANO to the LAD and a venous graft to the obtuse marginal artery. He presented with complaints of Exertional dyspnea, syncopal and near syncopal episodes. He has been having dizziness, sweating, shortness of breath and the near syncopal episodes almost every day for a month or so. The symptoms been getting worse. He had a Myocardial perfusion imaging which revealed a moderate area of ischemia in the distribution of the left anterior descending artery. In view of his ongoing symptoms, in order to further evaluate his coronary status as well as the graft status, a cardiac catheterization was recommended. Patient underwent left heart catheterization with left and right coronary angiogram, graft angiogram and LV angiogram today. Further details of the angiogram please refer to the separate report. His LAZCANO to the LAD was found to be nonfunctional. He has very sluggish flow through this graft. He has a high-grade ostial left main disease. The saphenous venous graft to the circumflex artery is patent. He has mild to moderate disease in the right coronary artery. Based on the angiogram findings, it was thought to be appropriate to consider percutaneous intervention of the ostial left main with surgical backup. Since did not have the facility to do this at this point, I recommended for him to be transferred to a facility where it is available. Patient and the family is agreeable for this. I contacted Dr. Rivers at the [facility]. Dr. Rivers accepted transfer for further management. Hospital Course Hospital Course The patient remained stable throughout the hospital course. He did not have any hematoma or bleeding at the arterial puncture site. His vital signs remained stable. Physical Exam Narrative: GENERAL: The patient is alert and oriented times three. Not in any acute distress. HEENT: No significant pallor, icterus or lymphadenopathy.Oral cavity: There are no mucous membrane lesions. NECK: Trachea appears to be central. No masses noted. No JVD or thyromegaly appreciated. RESPIRATORY: Chest is symmetrical. No intercostals muscle retraction or any accessory muscle activation. There is no chest wall tenderness. Breath sounds are heard bilaterally. No rales or rhonchi heard. No evidence of any consolidation. BREASTS: Deferred. HEART: The heart sounds are normal. No S3 or S4. No significant murmurs. No pericardial rub ABDOMEN: No vessel pulsations or distention. No tenderness. No organomegaly appreciated. Bowel sounds are normally heard. : Deferred. RECTAL: Deferred. LYMPHATIC: No lymphadenopathy noted in the neck. EXTREMITIES: No edema or cyanosis. No clubbing. MUSCULOSKELETAL: No acute joint deformities or swelling SKIN: There are no significant rashes or ecchymosis NEUROPSYCHIATRIC: The patient is alert and oriented x3. Appears to be in a good mood. No tremors or rigidity noted. TS Data Studies Completed and Pending Completed Studies During Hospitalization Category Date Time Status HOME BASED ASSISTANT request for service Routine Exams 12/18/23 08:30 Completed Laboratory Last Values WBC 7.14 10^3/uL (3.29-11.43) 12/18/23 11:15 RBC 4.34 10^6/uL (3.85-5.65) 12/18/23 11:15 Hgb 15.00 g/dL (11.27-16.99) 12/18/23 11:15 Hct 43.2 % (37-53) 12/18/23 11:15 MCV 99.5 fl (82-101) 12/18/23 11:15 MCH 34.6 pg (27-33) H 12/18/23 11:15 MCHC 34.7 g/dL (30-55) 12/18/23 11:15 RDW 13.1 % (12.1-15.1) 12/18/23 11:15 Plt Count 174 10^3/cmm (157-399) 12/18/23 11:15 MPV 9.8 fL (7.4-10.4) 12/18/23 11:15 Neut % (Auto) 45.1 % 12/18/23 11:15 Lymph % (Auto) 40.5 % 12/18/23 11:15 Caswell % (Auto) 9.5 % 12/18/23 11:15 Eos % (Auto) 3.9 % 12/18/23 11:15 Baso % (Auto) 0.4 % 12/18/23 11:15 Neut # (Auto) 3.22 10^3/uL (1.8-7.7) 12/18/23 11:15 Lymph # (Auto) 2.9 10^3/uL (0.8-4.8) 12/18/23 11:15 Caswell # (Auto) 0.7 10^3/uL (0.2-0.9) 12/18/23 11:15 Eos # (Auto) 0.3 10^3/uL (0.0-0.8) 12/18/23 11:15 Baso # (Auto) 0.0 10^3/uL (0.0-0.1) 12/18/23 11:15 Nucleated RBC % (auto) 0 % 12/18/23 11:15 Nucleated RBCs # 0.0 /100WBC 12/18/23 11:15 Sodium 136 mmol/L (136-145) 12/18/23 11:15 Potassium 4.0 mmol/L (3.5-5.1) 12/18/23 11:15 Chloride 100 mmol/L (98-107) 12/18/23 11:15 Carbon Dioxide 25 mmol/L (22-29) 12/18/23 11:15 Anion Gap 15.0 (5-19) 12/18/23 11:15 BUN 15 mg/dL (8-23) 12/18/23 11:15 Creatinine 1.0 mg/dL (0.7-1.2) 12/18/23 11:15 GFR Calculation Not Reportable 12/18/23 11:15 Glucose 154 mg/dL (65-115) H 12/18/23 11:15 Calculated Osmolality 286 mOsm/kg (285-295) 12/18/23 11:15 Calcium 9.2 mg/dL (8.5-10.5) 12/18/23 11:15 Recent Clincial Data Last Vital Signs Temp 97.7 F 12/18/23 16:12 Pulse 56 L 12/18/23 16:12 Resp 27 H 12/18/23 16:12 BP 133/60 12/18/23 16:12 Pulse Ox 95 12/18/23 16:12 O2 Del Method Room Air 12/18/23 16:12 Vital Signs Temp Pulse Resp BP Pulse Ox O2 Del Method 12/18/23 16:12 97.7 F 56 L 27 H 133/60 95 Room Air 12/18/23 14:00 Room Air 12/18/23 13:29 97.8 F 62 20 H 177/80 98 Room Air 12/18/23 11:31 98.0 F 64 16 181/83 12/18/23 11:31 Room Air Intake & Output/Weight 12/16/23 12/17/23 12/18/23 12/19/23 06:59 06:59 06:59 06:59 Weight 226 lb 3 oz Vitals Last Vital Signs Temp 97.7 F 12/18/23 16:12 Pulse 56 L 12/18/23 16:12 Resp 27 H 12/18/23 16:12 BP 133/60 12/18/23 16:12 Pulse Ox 95 12/18/23 16:12 O2 Del Method Room Air 12/18/23 16:12 TS Medications Medications Acetaminophen (Acetaminophen 325 Mg Tablet) 650 mg PO Q6H PRN PRN Reason: MILD PAIN Al Hydrox/Mg Hydrox/Simethicone (Xdoz-Xif-Feblnarrb-Ifeoma 30 Ml Udc) 30 ml PO Q15M PRN PRN Reason: INDIGESTION Alprazolam (Alprazolam 0.5 Mg Tablet) 0.25 mg PO TID PRN PRN Reason: ANXIETY Amlodipine Besylate (Amlodipine 5 Mg Tablet) 5 mg PO DAILY [facility] Ascorbic Acid (Ascorbic Acid 500 Mg Tablet) 500 mg PO BID [facility] Aspirin (Aspirin 81 Mg Ec Tablet) 81 mg PO DAILY [facility] Atorvastatin Calcium (Atorvastatin 40 Mg Tablet) 40 mg PO DAILY [facility] Atropine Sulfate (Atropine 1 Mg/Ml Sdv 1 Ml) 0.5 mg IVP PRN PRN PRN Reason: Symptomatic bradycardia Citalopram Hydrobromide (Citalopram 20 Mg Tablet) 20 mg PO DAILY [facility] Finasteride (Finasteride 5 Mg Tablet) 5 mg PO DAILY [facility] Sodium Chloride (Sodium Chloride 0.9%) 1,000 mls @ 50 mls/hr IV .Q20H ONE Stop: 12/19/23 03:29 Last Admin: 12/18/23 11:38 Dose: Not Given Lisinopril (Lisinopril 20 Mg Tablet) 40 mg PO DAILY [facility] Metoprolol Succinate (Metoprolol Succinate Er (24 Hr) 25 Mg Tablet) 12.5 mg PO DAILY [facility] Nitroglycerin (Nitroglycerin 0.4 Mg Sublingual Tablet) 0.4 mg SUBLINGUAL Q5M PRN PRN Reason: CHEST PAIN Non-Formulary Medication (Empagliflozin [Jardiance]) 10 mg PO DAILY [facility] [id number] Ethyl Esters (Bozman-3 Fatty Acids 1,000 Mg Capsule) 1,000 mg PO BID [facility] Temazepam (Temazepam 15 Mg Capsule) 15 mg PO BEDTIME PRN PRN Reason: INSOMNIA Vitamin D (Cholecalciferol (Vitamin D3) 1,000 Unit Tablet) 1,000 unit PO BID [facility] Discontinued Medications Amlodipine Besylate (Amlodipine 5 Mg Tablet) 5 mg PO ONCE ONE Stop: 12/18/23 13:46 Last Admin: 12/18/23 13:54 Dose: 5 mg Aspirin (Aspirin 325 Mg Tablet) 325 mg PO ONCE ONE Stop: 12/18/23 07:31 Last Admin: 12/18/23 11:07 Dose: Not Given Aspirin (Aspirin 325 Mg Tablet) 325 mg PO ONCE ONE Stop: 12/18/23 11:31 Last Admin: 12/18/23 11:36 Dose: 325 mg Fentanyl (Fentanyl 50 Mcg/Ml Inj 2ml) Confirm Administered Dose 100 mcg .ROUTE .STK-[facility] ONE Stop: 12/18/23 11:48 Heparin Sodium (Porcine) (Heparin 5,000 Unit/Ml Inj 1 Ml) Confirm Administered Dose 10,000 unit .ROUTE .STK-MED ONE Stop: 12/18/23 10:59 Lidocaine HCl (Xylocaine) Confirm Administered Dose 20 mls @ as directed .ROUTE .STK-MED ONE Stop: 12/18/23 10:59 Sodium Chloride (Sodium Chloride 0.9%) Confirm Administered Dose 1,000 mls @ as directed .ROUTE .ST-[facility] ONE Stop: 12/18/23 10:59 Lisinopril (Lisinopril 20 Mg Tablet) 40 mg PO ONCE ONE Stop: 12/18/23 13:47 Last Admin: 12/18/23 13:54 Dose: 40 mg Metoprolol Tartrate (Metoprolol Tartrate 25 Mg Tablet) 12.5 mg PO ONCE ONE Stop: 12/18/23 13:47 Last Admin: 12/18/23 13:53 Dose: 12.5 mg Midazolam HCl (Midazolam 1 Mg/Ml Inj 2 Ml) Confirm Administered Dose 2 mg .ROUTE .STK-MED ONE Stop: 12/18/23 11:48 Allergies procaine [From Novocain] Allergy (Verified 12/17/23 10:34) Unknown Home Medications ascorbic acid (vitamin C) 500 mg tablet (Vitamin C) 500 mg PO BID 09/19/21 [History Confirmed 12/17/23] aspirin 81 mg tablet,delayed release (Bridget Low Dose Aspirin) 81 mg PO DAILY #60 tabs 09/30/21 [Rx Confirmed 12/17/23] citalopram 20 mg tablet 20 mg PO DAILY 10/17/21 [History Confirmed 12/17/23] finasteride 5 mg tablet 5 mg PO DAILY 10/17/21 [History Confirmed 12/17/23] amlodipine 5 mg tablet 5 mg PO DAILY #30 tabs 07/16/22 [Rx Confirmed 12/17/23] lisinopril 20 mg tablet 40 mg (2 x 20 mg) PO DAILY #180 tabs 08/27/22 [Rx Confirmed 12/17/23] empagliflozin 10 mg tablet (Jardiance) 10 mg PO DAILY #90 tabs 05/14/23 [Rx Confirmed 12/17/23] metoprolol succinate 25 mg tablet,extended release 24 hr 12.5 mg (1/2 x 25 mg) PO DAILY #15 tabs 06/30/23 [Rx Confirmed 12/17/23] atorvastatin 40 mg tablet 40 mg PO DAILY 07/11/23 [History Confirmed 12/17/23] cholecalciferol (vitamin D3) 25 mcg (1,000 unit) tablet (Vitamin D3) 25 mcg PO BID 07/11/23 [History Confirmed 12/17/23] omega 2-bxr-dbn-fish oil 1,000 mg (120 mg-180 mg) capsule (Fish Oil) 1 cap PO BID 07/11/23 [History Confirmed 12/17/23] Discharge Plan Discharge Patient Disposition: Home Condition: Stable Prescriptions: No Action finasteride 5 mg tablet 5 mg PO DAILY citalopram 20 mg tablet 20 mg PO DAILY amlodipine 5 mg tablet 5 mg PO DAILY Qty: 30 5RF Jardiance 10 mg tablet 10 mg PO DAILY Qty: 90 3RF lisinopril 20 mg tablet 40 mg PO DAILY Qty: 180 3RF ascorbic acid (vitamin C) [Vitamin C] 500 mg Tablet 500 mg PO BID aspirin [Bridget Low Dose Aspirin] 81 mg tablet,delayed release (DR/EC) 81 mg PO DAILY Qty: 60 3RF metoprolol succinate 25 mg tablet extended release 24 hr 12.5 mg PO DAILY Qty: 15 0RF cholecalciferol (vitamin D3) [Vitamin D3] 25 mcg (1,000 unit) Tablet 25 mcg PO BID omega 3-esf-rkv-fish oil [Fish Oil] 1,000 mg (120 mg-180 mg) Capsule 1 cap PO BID atorvastatin 40 mg tablet 40 mg PO DAILY Discharge Orders: Discharge Order (Routine); Ordered 12/18/23 Ordered By: Malik Alvarez Referrals: Lindsay Field FNP [Nurse Practitioner] - Patient Instructions: Coronary Angioplasty (DC), Opioid Safety, Post Angiogram Home Care Instructions Activity Restrictions/Additional Instructions: Further management decisions will be as per Dr. Rivers at the [facility]. Patient may be transferred via ground ambulance. Transfer Attestations Time Spent in Transfer Care: greater than 30 min Quality Metrics Clinical Quality Measures [ No reported AMI, CVA or VTE this stay] Coding Level of Care Code Critical Care >/= 30 minutes Time Spent (min) 40
[2023-12-18] MEDS: cholecalciferol (vitamin D3) 1,000 unit Tablet 1000 UNIT PO (17:21)
[2023-12-18] MEDS: omega-3 fatty acids 1,000 mg Capsule 1000 MG PO (17:22)
[2023-12-18] MEDS: ascorbic acid 500 mg Tablet PO (17:22)
--- NOTE | 2023-12-18 17:40 | PC.NURSE ---
[facility]report phoned to olivier encinas...unit 4b...room 6905-3.
--- NOTE | 2023-12-18 18:39 | PC.NURSE ---
report given to [facility].transport to [facility] at this time
== END 2023-12-18 18:41 | disposition short-term general hospital (02) ==
LOC: CCL 10:50 → CSU 13:40
PROVIDERS: PCP Family Medicine; Visit Provider Internal Medicine Cardiovascular Disease
DX: I25.10 Atherosclerotic heart disease of native coronary artery without angina pectoris (principal); Z95.1 Presence of aortocoronary bypass graft; I10 Essential (primary) hypertension; E11.9 Type 2 diabetes mellitus without complications; E78.5 Hyperlipidemia, unspecified; Z79.82 Long term (current) use of aspirin; I25.2 Old myocardial infarction; Z87.891 Personal history of nicotine dependence
CPT/HCPCS: 36415; 80048; 85025; 93459; 96365; 96374; 96375; 99152; 99153; C1769; C1887; C1894; J1644; J2250; J3010; J7030; Q9967

== ENCOUNTER → 2024-01-04 09:51 | Outpatient (BNVA) | payer OTHER, SELFPAY | PROVIDERS: PCP Family Medicine; Visit Provider Internal Medicine Cardiovascular Disease | DX: R55 Syncope and collapse (principal); I25.10 Atherosclerotic heart disease of native coronary artery without angina pectoris; E78.2 Mixed hyperlipidemia; I10 Essential (primary) hypertension; E11.9 Type 2 diabetes mellitus without complications; Z87.891 Personal history of nicotine dependence; Z79.84 Long term (current) use of oral hypoglycemic drugs | CPT/HCPCS: 99214 ==

== ENCOUNTER → 2024-05-24 10:08 | Outpatient (BNVA) | payer OTHER, SELFPAY | PROVIDERS: PCP Family Medicine; Visit Provider Internal Medicine Cardiovascular Disease | DX: I25.10 Atherosclerotic heart disease of native coronary artery without angina pectoris (principal); Z95.1 Presence of aortocoronary bypass graft; E78.2 Mixed hyperlipidemia; I10 Essential (primary) hypertension; E11.9 Type 2 diabetes mellitus without complications; R55 Syncope and collapse; I65.21 Occlusion and stenosis of right carotid artery; Z87.891 Personal history of nicotine dependence; Z79.84 Long term (current) use of oral hypoglycemic drugs | CPT/HCPCS: 99214 ==

== ENCOUNTER → 2024-06-30 09:56 | Outpatient (BNVA) | payer OTHER, SELFPAY | PROVIDERS: PCP Family Medicine; Referring Provider Family Medicine; Visit Provider Psychiatry & Neurology Neurology | DX: R55 Syncope and collapse (principal); I25.10 Atherosclerotic heart disease of native coronary artery without angina pectoris; E11.9 Type 2 diabetes mellitus without complications; I65.29 Occlusion and stenosis of unspecified carotid artery | CPT/HCPCS: 99203 ==

== ENCOUNTER → 2024-07-07 09:54 | Outpatient (BNVA) | payer OTHER, SELFPAY | PROVIDERS: PCP Family Medicine; Visit Provider Psychiatry & Neurology Neurology | DX: R55 Syncope and collapse (principal); R56.9 Unspecified convulsions | CPT/HCPCS: 95813 ==

== ENCOUNTER 2024-07-14 07:48 | Outpatient (CLI) | payer OTHER, SELFPAY ==
--- NOTE | 2024-07-14 08:00 | CT_ITS ---
WS: [id number] CT ANGIOGRAM CEREBRAL AND CAROTID ARTERIES HISTORY: R55 - Syncope and collapse TECHNIQUE: CT angiogram is performed of the carotid and cerebral arteries. During arterial injection imaging is obtained from the skull vertex to the aortic arch in 1.25 mm imaging. Coronal and sagittal reformats are submitted. Additional multi planar reformats of the carotid and cerebral arteries are submitted, MIP imaging also reviewed. NASCET criteria utilized. [facility] at least one of these dose optimization techniques: automated exposure control; mA and/or kV adjust ment per patient size (includes targeted exams where dose is matched to clinical indication); or iter ative reconstruction. CONTRAST: Omnipaque 350; 100 mL IV. DLP: 1002.10 mGy.cm COMPARISON: None available. Noncontrast CT head: Moderate symmetric volume loss and mild small vessel ischemic disease. No prior large infarct. No hemorrhage or edema. Carotid Angiogram: Right carotid: Common carotid artery: Arises normally from the innominate artery. No significant plaque or stenosis. Internal carotid artery: Focal plaque at the bifurcation. Plaque extends into the proximal cervical I CA with stenosis near 50%. External carotid artery: Patent. Left carotid: Common carotid artery: Arises normally from the aorta. No significant plaque or stenosis. Internal carotid artery: Focal plaque at the bifurcation. No significant stenosis. External carotid artery: Patent. Right vertebral artery: Unremarkable. Left vertebral artery: Mild narrowing of the origin LEFT vertebral artery. Otherwise intact. Subclavian arteries: No stenosis or significant abnormality. Upper thorax: Normal. Thyroid gland: Normal. Osseous structures: Advanced cervical spondylosis. Osteophyte encroachment upon the cervical cord at C4-5, C5-6 and C6-7. CEREBRAL ANGIOGRAM: Intracranial vertebral arteries: Symmetric vertebral arteries are patent. Basilar artery: No significant stenosis or occlusion. No aneurysm. Intracranial Internal carotid arteries: Demonstrates no significant stenosis or plaque. Middle cerebral arteries: Patent. RIGHT middle cerebral artery slightly greater in size than the LEFT . No aneurysms or occlusions. Anterior cerebral arteries and ACOM: Normal. Posterior cerebral arteries and PCOM's: Normal. Dural venous sinuses are normally enhancing. Mastoid air cells: Normal. Paranasal sinuses: Normal. Calvarium: Normal. CT/CT angio headneck* [id number] IMPRESSION: 1. Bilateral cervical carotid artery stenosis, less than 50%. 2. No carotid artery occlusions. 3. No aneurysm in the [place] or high-grade stenosis. 4. Mild cerebral atrophy and small vessel disease.
[2024-07-14 08:47] LABS: Blood Urea Nitrogen 19 mg/dL (8-23)
[2024-07-14] MEDS: iohexol 350 mg/mL 500 mL Btl (per mL) IV (09:15)
== END 2024-07-14 07:49 | disposition home or self-care (01) ==
LOC: RAD 07:49
PROVIDERS: PCP Family Medicine; Visit Provider Psychiatry & Neurology Neurology
DX: G31.9 Degenerative disease of nervous system, unspecified (principal); M47.812 Spondylosis without myelopathy or radiculopathy, cervical region; M25.78 Osteophyte, vertebrae; R55 Syncope and collapse
CPT/HCPCS: 70496; 70498; 82565; 84520

== ENCOUNTER → 2024-11-21 14:19 | Outpatient (BNVA) | payer OTHER, SELFPAY | PROVIDERS: PCP Family Medicine; Visit Provider Nurse Practitioner Family | DX: I25.10 Atherosclerotic heart disease of native coronary artery without angina pectoris (principal); I10 Essential (primary) hypertension; E78.2 Mixed hyperlipidemia; Z79.82 Long term (current) use of aspirin; Z98.61 Coronary angioplasty status; Z87.891 Personal history of nicotine dependence; I25.2 Old myocardial infarction | CPT/HCPCS: 99214 ==

== ENCOUNTER 2025-04-06 18:35 | Emergency (ER) | payer OTHER, SELFPAY ==
[2025-04-06 18:40] VITALS: BP 148/82; PULSE 63; TEMP 36.4; O2SAT 97
--- OUTSIDE RECORDS SUMMARY | 2025-04-06 18:44 | XMS_ITS | Encounter Summary ---
Author Organization [facility] Address [address] [place] [address] Care Team Providers Care Oss Architect Name Role Phone Yolanda Yi MD Primary Care Provider + [phone] Reason for Visit * Reason Onset Date Comments referral 08/04/2023 Encounter Details Date Type Department Care Team (Late st Contact Info) Description 08/04/2023 Telephone [facility] [address] [place] [address] Provider, Abstract NO ADDRESS ON FILE referral Social History Tobacco Use Types Packs/Day Years Used Date Smoking Tobacco: Never Sex and Gender Information Value Date Recorded Sex Assigned at Not on file 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 Gender Identity Not on file Sexual Orientation Not on file documented as of this encounter Miscellaneous Notes * Telephone Encounter - Denita Figueroa - 08/04/2023 10:03 AM CST Provider: Referral Person Calling: Ksenia Rahman/ RASHEED Phone #: [phone], ext [phone] Relationship to patient: Checking status of referral, faxed to [phone], advised of correct fax # -Denita Figueroa N PROFESSOR documented in this encounter Plan of Treatment Not on file documented as of this encounter Visit Diagnoses Not on filedocumented in this encounter Care Teams Oss Architect Relationship Specialty Start Date End Date Yolanda Yi MD [address] [place] [address] PCP - General Family Practice 12/19/23 documented as of this encounter
--- OUTSIDE RECORDS SUMMARY | 2025-04-06 18:44 | XMS_ITS | Clinical Summary ---
Author Organization [facility] Address [facility] [place] [address] Care Team Providers Care Noodle Maker Name Role Phone Yolanda Yi MD Primary Care Provider Allergies No known active allergies Medications CHOLECALCIFEROL , VITAMIN D3, ORAL Take by mouth 2 times daily. TWO TABLETS TWICE DAILY Active lisinopriL (PRINIVIL) 40 mg tablet Take 40 mg by mouth 2 times daily. Active glipiZIDE (GLUCOTROL) 10 mg tablet Take 10 mg by mouth daily with breakfast. Active OMEGA-3 FATTY ACIDS-FISH OIL ORAL Take by mouth. Active citalopram (CeleXA) 40 mg tablet Take 40 mg by mouth daily. Active atorvastatin (LIPITOR) 40 mg tablet Take 40 mg by mouth daily. Active amLODIPine (NORVASC) 10 mg tablet Take 10 mg by mouth daily. Active finasteride (PROSCAR) 5 mg tablet Take 5 mg by mouth daily. Active tamsulosin (FLOMAX) 0.4 mg capsule Take 0.4 mg by mouth daily. Active aspirin (ECOTRIN EC) 81 mg Tablet, Delayed Release (E.C.) Take 1 Tablet (81 mg) by mouth daily. 90 Tablet 3 12/22/2023 10:40 AM CDT 12/23/2023 Active nitroglycerin (NITROSTAT) 0.4 mg Tablet, Sublingual Place 1 Tablet (0.4 mg) under tongue every 5 minutes as needed for Chest Pain. 25 Tablet 3 12/22/2023 10:40 AM CDT 12/22/2023 Active ticagrelor (BRILINTA) 90 mg Tablet Take 1 Tablet (90 mg) by mouth 2 times daily. 60 Tablet 3 12/22/2023 10:40 AM CDT 12/22/2023 Active metFORMIN (GLUCOPHAGE) 1,000 mg tablet Take 1 Tablet (1,000 mg) by mouth 2 times daily. 60 Tablet 12/23/2023 Active Active Problems Problem Noted Date Diagnosed Date History of coronary artery bypass graft 12/18/19 Chest pain 12/18/2023 Atherosclerotic heart diseas e of [place] coronary artery without angina pectoris 12/18/2023 Benign prostatic hyperplasia with urinary obstru ction 12/18/2023 Type 2 diabetes mellitus without complications 0 12/18/2023 Recurrent syncope 08/14/2023 Nonsustained ventricular tachycardia 08/14/2023 Mixed hyperlipidemia 08/14/2023 Essential hypertension 08/14/2023 Syncope 08/09/2021 Bifascicular block 08/09/2021 Social History Tobacco Use Types Packs/Day Years Used Date Smoking Tobacco: Never Feeling Safe Answer Date Recorded Are you in a relationship wi th someone who hurts you emotionally and/or physically? 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 Gender Identity Not on file Sexual Orientation Not on file Last Filed Vital Signs Vital Sign Reading Time Taken Comments Blood Pressure 123/72 12/22/2023 6:56 AM CDT Pulse 76 12/22/2023 6:56 AM CDT Temperature 36.4 C (97.5 F) 12/22/2023 6:56 AM CDT Respiratory Rate 18 12/22/2023 6:56 AM CDT Oxygen Saturation 95% 12/22/2023 6:56 AM CDT Inhaled Oxygen Concentration - - Weight 99.9 kg (220 lb 3.2 oz) 12/22/2023 4:12 A M CDT Height 180.3 cm (5' 11 ) 12/18/2023 8:38 PM CDT Body Mass Index 30.71 12/18/2023 8:38 PM CDT Plan of Treatment Health Maintenance Due Date Last Done Comments DIABETES ANNUAL FOOT EXAM 1964 DIABETES ANNUAL RETINAL EXAM 1964 DIABETES MICROALBUMIN ANNUAL SCREEN 1964 RSV VACCINE (60+ or ) (1 - 1-dose 75+ series) 2021 PNEUMOCOCCAL VACCINE 50+ YEA RS (2 of 2 - PCV) 10/14/2022 10/14/2021 DIABETES HBA1C Q 6 MONTHS 06/19/2024 12/19/2023 LDL CHOLESTEROL ANNUAL 12/18/2024 12/19/2023, 2023 INFLUENZA VACCINE (#1) 2025 DTAP/TDAP/TD VACCINES (3 - T d or Tdap) 12/17/2032 12/17/2022, 07/03/2015, 07/20/2002 ZOSTER VACCINE Completed 12/25/2022, 10/14/2021 Medical Devices Implanted Type Area Business Banker Device Identifier Shelf Expiration Date Model / Serial / Lot Dev Closure Angioseal 6fr Vip [id number] - [id number] Implanted:Qty: 1 on 12/21/2023 by Jeremiah Boss MD at [facility] Closure Device N/A: Groin [employer] [id number] 07/27/2024 [id number] / / [id number] 40 Stent [employer] [place] 2.5x35mm [facility] Drug Eluting [id number] - [id number] Implanted:Qty: 1 on 12/21/2023 by Jeremiah Boss MD at [facility] Stent N/A: Heart [employer] [id number] 09/08/2025 [id number] / / [id number] Procedures Procedure Name Priority Date/Time Associated Diagnosis Comments LIPID RFLX Routine 12/19/2023 4:16 AM CDT HEMOGLOBIN A1C Routine 12/19/2023 4:16 AM CDT from Last 3 Months or Most Recently Relevant to Health Maintenance Results * (ABNORMAL) LIPID RFLX (12/19/2023 4:16 AM CDT) CHOLESTEROL 221(H) <200 mg/dL 12/19/2023 5:32 AM CDT [facility] TRIGLYCERIDE 620(H) <150 mg/dL 12/19/2023 5:32 AM T [facility] HDL 25(L) 40 - 59 mg/dL 12/19/2023 5:32 AM T [facility] LDL CALCULATED 12/19/2023 5:32 AM T [facility] Comment:Calculated LDL is no t accurate when the Triglyceride value exceeds 400. NON-HDL CHOLESTEROL 196(H) <130 mg/dL 12/19/2023 5:32 AM T [facility] Blood Venipuncture / Unknown 12/19/2023 4:16 AM CDT 12/19/2023 4:25 AM CDT Narrative [facility] - 12/19/2023 5:32 AM CDT TOTAL CHOLESTEROL mg/dL Desirable <200 Borderline high 200-239 High >=240 TRIGLYCERIDES mg/dL Normal <150 Borderline high 150-199 High 200-499 Very high >=500 HDL CHOLESTEROL mg/dL Low <40 Normal 40-59 Desirable >=60 NON HDL CHOLESTEROL mg/dL Optimal <130 Near Optimal 130-159 Borderline High 160-189 Very High >=190 CALCULATED LDL mg/dL LDL <70, OPTIMAL if have Atherosclerotic cardiovascular disease (ASCVD) or intermediate or higher (>7.5%) 10 year risk of ASCVD including most adults with diabetes. LDL <100, Optimal in adult patients with low (<7.5%) 10 year ASCVD risk LDL 100-160, Suboptimal LDL >160, High LDL >190, Very high ATPIII Guidelines Reference Ranges for Lipid Panels (NCEP/AMA) . us Alan Landry DO CHEMISTRY ORDERABLES Final R esult [facility] CLIA # [id number] [address] [address] [place] [address] * (ABNORMAL) HEMOGLOBIN A1C (12/19/2023 4:16 AM CDT) HEMOGLOBIN A1C 7.3(H) <=5.6 % 12/21/2023 9:13 AM CDT [facility] EST. AVG GLUCOSE, A1C 163 mg/dL 12/21/2023 9:13 AM CDT [facility] Blood Venipuncture / Unknown 12/19/2023 4:16 AM CDT 12/19/2023 4:25 AM CDT Narrative [facility] - 12/21/2023 9:13 AM CDT HGB A1C INTERPRETATION NORMAL: <5.7% PRE-DIABETES: 5.7 - 6.4% DIABETES: 6.5% OR GREATER us Alan Landry DO CHEMISTRY ORDERABLES Final R esult [facility] CLIA # [id number] [address] [place], [place] [id number] from Last 3 Months or Most Recently Relevant to Health Maintenance Insurance MEDICARE PART A AND B RX [employer] [facility] [employer] Advance Directives For more information, please contact: [phone] * Full Code (Latest Code Status on File) Date Activated Date Inactivated Comments 12/19/2023 6:37 AM 12/22/2023 12:59 PM Care Teams Noodle Maker Relationship Specialty Start Date End Date Yolanda Yi MD [address] [place] [id number] PCP - General Family Practice 12/19/23
--- NOTE | 2025-04-06 18:48 | ECG_ITS ---
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 Measurements Intervals [place] Rate: 59 P: 64 AR: 252 QRS: -58 QRSD: 172 T: -17 QT: 439 QTc: 437 Interpretive Statements SINUS BRADYCARDIA WITH FIRST DEGREE AV BLOCK RIGHT BUNDLE BRANCH BLOCK [120+ ms QRS DURATION, UPRIGHT V1, 40+ ms S IN I/aVL/V4/V5/V6] LEFT ANTERIOR FASCICULAR BLOCK [QRS AXIS <= -45, QR IN I, RS IN II] POSSIBLE LEFT VENTRICULAR HYPERTROPHY [VOLTAGE CRITERIA PLUS LAE OR QRS WIDENING] POSSIBLE SEPTAL MYOCARDIAL INFARCTION , PROBABLY OLD [30 ms Q WAVE IN V1/V2] Compared to ECG 07/11/2023 15:24:07 First degree AV block now present Possible ischemia no longer present Myocardial infarct finding still present Electronically Signed On 04-08-2025 13:10:08 CDT by Jerome Sheikh M.D. [email or web address]
[2025-04-06 19:50] VITALS: BP 157/73; PULSE 79; RESP 18; O2SAT 97
--- NOTE | 2025-04-06 20:05 | CTR_ITS ---
PROCEDURE INFORMATION: Exam: CT Cervical Spine Without Contrast Exam date and time: 04/06/2025 8:13 PM Age: 79 years old Clinical indication: Injury or trauma; Fall; Blunt trauma; Additional info: Syncope, collapse, neck pain TECHNIQUE: Imaging protocol: Computed tomography of the cervical spine without contrast. Radiation optimization: All CT scans at this facility use at least one of these dose optimization techniques: automated exposure control; mA and/or kV adjustment per patient size (includes targeted exams where dose is matched to clinical indication); or iterative reconstruction. COMPARISON: MR cervical spin wo con* [id number] 08/21/2023 12:12 PM RADIATION DOSE METRICS: Total DLP (mGy-cm): 294.4 FINDINGS: Bones: Leftward curvature of the cervical spine. Mild degenerative anterior subluxation of C3 on C4. Disc space narrowing with anterior and posterior endplate and uncovertebral spurring at C4-C5 through C7-T1. Estimated moderate spinal canal stenosis at C3-C4 through C6-C7. Multilevel bilateral bony neural foraminal narrowing, right greater than left. Degenerative changes in the atlanto-odontoid joint. Hypertrophic degenerative facets. No acute fracture. Lungs: Lung apices are normal. Pleural spaces: Posterior right calcified pleural plaque. Vasculature: Calcified plaque in the bilateral carotid bulbs. Soft tissues: Unremarkable. CT/CT cervical spin wo con* [id number] IMPRESSION: No acute cervical spine fracture.
--- NOTE | 2025-04-06 20:05 | CTR_ITS ---
PROCEDURE INFORMATION: Exam: CT Head Without Contrast Exam date and time: 04/06/2025 8:13 PM Age: 79 years old Clinical indication: Syncope and collapse; Additional info: Syncope, head contusion TECHNIQUE: Imaging protocol: Computed tomography of the head without contrast. Radiation optimization: All CT scans at this facility use at least one of these dose optimization techniques: automated exposure control; mA and/or kV adjustment per patient size (includes targeted exams where dose is matched to clinical indication); or iterative reconstruction. COMPARISON: CT angio headneck* [id number] 07/14/2024 9:01 AM RADIATION DOSE METRICS: Total DLP (mGy-cm): 1369.6 FINDINGS: Brain: Mild-moderate cortical volume loss. Mild hypodensities in supratentorial periventricular and subcortical white matter, consistent with microangiopathy. No intracranial hemorrhage. Cerebral ventricles: No ventriculomegaly. Paranasal sinuses: Visualized sinuses are unremarkable. No fluid levels. Mastoid air cells: Visualized mastoid air cells are well aerated. Orbital cavities: Prior cataract surgery. Bones: Unremarkable. No acute fracture. Soft tissues: Superior midline parietal scalp hematoma. Vasculature: No hyperdense artery. CT/CT head wo con* [id number] IMPRESSION: 1. No acute intracranial abnormality. 2. Parietal scalp hematoma.
[2025-04-06 20:39] LABS: Hematocrit 44.7 % (37-53); Hemoglobin 15.20 g/dL (11.27-16.99); Mean Corpuscular HGB Conc 34.0 g/dL (30-55); Mean Corpuscular Hemoglobin 34.9 pg (27-33); Mean Corpuscular Volume 102.5 fl (82-101); Nucleated Red Blood Cells % 0 %; Platelet Count 156 10^3/cmm (157-399); Red Blood Count 4.36 10^6/uL (3.85-5.65); White Blood Count 6.48 10^3/uL (3.29-11.43)
[2025-04-06 20:40] LABS: Glucose Urine UA 1+ (Normal); Nitrate Urine Negative (Negative)
[2025-04-06 20:42] LABS: Add Urine Microscopic? YES
[2025-04-06] MEDS: tetanus-dipt-pertussis 0.5 mL SDV IM (20:49)
[2025-04-06] MEDS: acetaminophen 1,000 MG/100 ML PIGGYBACK 400 MG IV (20:49)
[2025-04-06 20:54] VITALS: BP 147/74; PULSE 64; RESP 16; O2SAT 97
[2025-04-06 20:57] LABS: Specific Gravity, Urine 1.037 (1.005-1.030)
[2025-04-06 21:02] LABS: Alanine Aminotransferase 74 U/L (0-41); Albumin Level 4.6 g/dL (3.5-5.2); Alkaline Phosphatase 115 U/L (40-130); Aspartate Amino Transferase 60 U/L (0-40); Blood Urea Nitrogen 23 mg/dL (8-23); Calcium 9.6 mg/dL (8.5-10.5); Carbon Dioxide 23 mmol/L (22-29); Chloride 102 mmol/L (98-107); Creatinine Clr Calc Pharmacy 81.4190; Globulin 3.5 g/dL (1.3-4.6); Glucose 236 mg/dL (65-115); Osmolality Calculated 301 mOsm/kg (285-295); Sodium 140 mmol/L (136-145); Total Protein 8.1 g/dL (6.6-8.7)
[2025-04-06 21:12] LABS: Anion Gap 19.7 (5-19); Potassium 4.7 mmol/L (3.5-5.1)
[2025-04-06 21:20] VITALS: BP 149/75; BP 154/69; BP 154/75; PULSE 62; PULSE 63; PULSE 64
[2025-04-06 21:48] LABS: Respiratory Syncytial Virus Ce NEGATIVE (Negative)
[2025-04-06 22:22] LABS: SARS-CoV-2 PCR Positive (Negative)
--- NOTE | 2025-04-06 22:34 | W.ED.SYNCOPE ---
HPI - Syncope General: Chief Complaint: Syncope Stated Complaint: passed out hit head. been confused Covid + Time Seen by Provider: 04/06/25 19:54 History of Present Illness: 79 yo M with prior episodes of syncope (last ?a couple of years? ago) presented after standing up, feeling woozy, then fainting and striking the back of the head on a shower corner. Reports head and neck pain and a small right elbow abrasion. Pt notes lightheadedness particularly when urinating. Denies being on ?blood thinners,? though chart lists aspirin and ticagrelor. He reports cough; possible recent illness and concern for COVID were discussed. No known CHF per pt. Denies significant elbow dysfunction; moving well. GCS 15 on arrival, alert and oriented. ROS notable for cough; no respiratory distress observed during encounter. Related Data Home Medications ?Medication ?Instructions ?Recorded ?Confirmed ascorbic acid (vitamin C) 500 mg 500 mg PO BID 09/19/21 11/21/24 tablet (Vitamin C) citalopram 20 mg tablet 20 mg PO DAILY 10/17/21 11/21/24 finasteride 5 mg tablet 5 mg PO DAILY 10/17/21 11/21/24 atorvastatin 40 mg tablet 40 mg PO DAILY 07/11/23 11/21/24 cholecalciferol (vitamin D3) 25 25 mcg PO BID 07/11/23 11/21/24 mcg (1,000 unit) tablet (Vitamin D3) omega 5-klc-fud-fish oil 1,000 mg 1 cap PO BID 07/11/23 11/21/24 (120 mg-180 mg) capsule (Fish Oil) magnesium 200 mg tablet 200 mg PO DAILY 06/30/24 11/21/24 Previous Rx's ?Medication ?Instructions ?Recorded aspirin 81 mg tablet,delayed 81 mg PO DAILY #60 tabs 09/30/21 release (Bridget Low Dose Aspirin) amlodipine 5 mg tablet 5 mg PO DAILY #30 tabs 07/16/22 lisinopril 20 mg tablet 40 mg (2 x 20 mg) PO DAILY #180 08/27/22 tabs empagliflozin 10 mg tablet 10 mg PO DAILY #90 tabs 05/14/23 (Jardiance) metoprolol succinate 25 mg 12.5 mg (1/2 x 25 mg) PO DAILY #15 06/30/23 tablet,extended release 24 hr tabs ticagrelor 60 mg tablet (Brilinta) 60 mg PO BID #60 tabs 02/29/24 Allergies Allergy/AdvReac Type Severity Reaction Status Date / Time procaine (From Novocain) Allergy Unknown Verified 11/21/24 14:45 [facility] PFSH: Medical History (Updated 04/06/25 @ 22:30 by Franky Yates MD) Recurrent syncope Left main coronary artery disease Third degree atrioventricular block Sinus pause NSTEMI (non-ST elevated myocardial infarction) PEA (Pulseless electrical activity) Lactic acidosis COVID-19 Acute respiratory failure with hypoxemia Bifascicular block Hyperlipidemia Borderline hyperlipidemia Diabetes mellitus Surgical History Hx of CABG Hx of cataract extraction Status post aorto-coronary artery bypass graft Status post colonoscopy with polypectomy (06/19/20) H/O circumcision History of appendectomy H/O colonoscopy Family History Mother CAD (coronary artery disease) ID [id number] Stroke Brother CAD (coronary artery disease), Onset Age: 60 Cancer Diabetes Lung disease Sister Diabetes Other Hyperlipidemia Hypertension Denies family history of Clotting disorder Dementia Chronic kidney disease (CKD) Suicide Anesthesia complication Bleeding disorder Social History Smoking and tobacco/nicotine status: never used tobacco/nicotine Quit status (tobacco/nicotine): has quit using Year quit tobacco: 1964 Former quit date comment: 1ppd X 2 years Alcohol intake: never Substance/Drug Use: never Lives independently: Yes Marital status: / Current occupational status: retired Physical Exam Const: COMMON NORMALS: no acute distress, patient oriented x3 and alert HENMT: COMMON NORMALS: normocephalic HEAD & SCALP: normocephalic OTHER: Scalp apex with area of redness; minor abrasion; no broken skin; no scalp deformity. Eye: COMMON NORMALS: Equal, round and reactive pupils present, EOMs intact bilaterally and no scleral icterus PUPIL: Yes Equal, round and reactive pupils present Resp: COMMON NORMALS: normal respiratory effort and No retractions Cardio: COMMON NORMALS: regular rate, regular rhythm and No murmurs present (Cardio) RATE: regular rate RHYTHM: regular rhythm GI: COMMON NORMALS: Normal to inspection, nondistended, normoactive bowel sounds present, Soft to palpation and non-tender PALPATION: Yes Soft to palpation Extremity: NARRATIVE EXTREMITY EXAM: Right elbow with 1.5 cm linear abrasion overlying olecranon; no active bleeding; no skin tear; moves elbow well; no LE edema. Neuro: COMMON NORMALS: patient oriented x3 SENSORIUM/ORIENTATION: Yes alert Skin: COMMON NORMALS: no rashes or lesions noted GENERAL SKIN EXAM: no rashes or lesions noted Course Vital Signs: Vital signs: Vital Signs Temperature 97.6 F 04/06/25 18:40 Pulse Rate 64 04/06/25 21:20 Respiratory Rate 16 04/06/25 20:54 Blood Pressure 149/75 04/06/25 21:20 Pulse Oximetry 97 04/06/25 20:54 Oxygen Delivery Me thod Room Air 04/06/25 20:54 MDM - Syncope Medical Decision Making 79 yo M with recurrent syncope, this episode after standing with noted association to urination, fell and hit head. Reports head/neck pain and cough. Denies known CHF. Chart lists aspirin and ticagrelor though pt denies being on blood thinners. Vitals stable. PE: GCS 15, scalp erythema/minor abrasion without deformity, right olecranon 1.5 cm linear abrasion without active bleeding, lungs clear with infrequent cough, RRR, no LE edema, no respiratory distress. DDx discussed: vasovagal/micturition syncope and orthostatic syncope; dehydration/illness (possible COVID) as contributors. Cardiac cause to be evaluated; no focal deficits on exam. Planned: CT head and neck, EKG, labs (CBC, CMP), COVID test, 1 L IV fluids, Td booster. If stable, discharge with precautions to rise slowly and watch for vasovagal/orthostatic symptoms. EKG: Time?1852?sinus bradycardia, rate of 59, mild LVH with no Sgarbossa criteria, QTc = 437. As suspected, COVID-19 test was positive. Vital signs remained stable. He would like to go home and I think this is reasonable. We discussed return precautions and that he needs to get up very slowly from seated to standing position to avoid syncope in the future. He shows good understanding and agrees with plan Lab Data 04/06/25 19:57 04/06/25 19:57 Radiology Impressions Cervical Spine CT 04/06/25 20:05 IMPRESSION: No acute cervical spine fracture. Head CT 04/06/25 20:05 IMPRESSION: 1. No acute intracranial abnormality. 2. Parietal scalp hematoma. Laboratory Results WBC 6.48 10^3/uL (3.29-11.43) 04/06/25 19:57 RBC 4.36 10^6/uL (3.85-5.65) 04/06/25 19:57 Hgb 15.20 g/dL (11.27-16.99) 04/06/25 19:57 Hct 44.7 % (37-53) 04/06/25 19:57 MCV 102.5 fl (82-101) H 04/06/25 19:57 MCH 34.9 pg (27-33) H 04/06/25 19:57 MCHC 34.0 g/dL (30-55) 04/06/25 19:57 RDW 13.1 % (12.1-15.1) 04/06/25 19:57 Plt Count 156 10^3/cmm (157-399) L 04/06/25 19:57 MPV 10.2 fL (7.4-10.4) 04/06/25 19:57 Neut % (Auto) 60.3 % 04/06/25 19:57 Lymph % (Auto) 26.5 % 04/06/25 19:57 Blount % (Auto) 9.3 % 04/06/25 19:57 Eos % (Auto) 2.8 % 04/06/25 19:57 Baso % (Auto) 0.3 % 04/06/25 19:57 Neut # (Auto) 3.91 10^3/uL (1.8-7.7) 04/06/25 19:57 Lymph # (Auto) 1.7 10^3/uL (0.8-4.8) 04/06/25 19:57 Blount # (Auto) 0.6 10^3/uL (0.2-0.9) 04/06/25 19:57 Eos # (Auto) 0.2 10^3/uL (0.0-0.8) 04/06/25 19:57 Baso # (Auto) 0.0 10^3/uL (0.0-0.1) 04/06/25 19:57 Nucleated RBC % (auto) 0 % 04/06/25 19:57 Nucleated RBCs # 0.0 /100WBC 04/06/25 19:57 Sodium 140 mmol/L (136-145) 04/06/25 19:57 Potassium 4.7 mmol/L (3.5-5.1) 04/06/25 19:57 Chloride 102 mmol/L (98-107) 04/06/25 19:57 Carbon Dioxide 23 mmol/L (22-29) 04/06/25 19:57 Anion Gap 19.7 (5-19) H 04/06/25 19:57 BUN 23 mg/dL (8-23) 04/06/25 19:57 Creatinine 0.9 mg/dL (0.7-1.2) 04/06/25 19:57 GFR Calculation Not Reportable 04/06/25 19:57 Glucose 236 mg/dL (65-115) H 04/06/25 19:57 Calculated Osmolality 301 mOsm/kg (285-295) H 04/06/25 19:57 Calcium 9.6 mg/dL (8.5-10.5) 04/06/25 19:57 Total Bilirubin 0.3 mg/dL (0.15-1.2) 04/06/25 19:57 AST 60 U/L (0-40) H 04/06/25 19:57 ALT 74 U/L (0-41) H 04/06/25 19:57 Alkaline Phosphatase 115 U/L (40-130) 04/06/25 19:57 Total Protein 8.1 g/dL (6.6-8.7) 04/06/25 19:57 Albumin 4.6 g/dL (3.5-5.2) 04/06/25 19:57 Globulin 3.5 g/dL (1.3-4.6) 04/06/25 19:57 Urine Color Yellow (Yellow) 04/06/25 20:00 Urine Appearance Clear (CLEAR) 04/06/25 20:00 Urine pH 5.0 (5-7) 04/06/25 20:00 Ur Specific [place] 1.037 (1.005-1.030) H 04/06/25 20:00 Urine Protein Negative (Negative) 04/06/25 20:00 Urine Glucose (UA) 1+ (Normal) H 04/06/25 20:00 Urine Ketones Trace (Negative) 04/06/25 20:00 Urine Blood Negative (Negative) 04/06/25 20:00 Urine Nitrate Negative (Negative) 04/06/25 20:00 Urine Bilirubin Negative (Negative) 04/06/25 20:00 Urine Urobilinogen 1.0 mg/dL (Negative) 04/06/25 20:00 Ur Leukocyte Esterase Negative (Negative) 04/06/25 20:00 Urine RBC 0-2 /hpf (0-2) 04/06/25 20:00 Urine WBC 0-5 /hpf (0-5) 04/06/25 20:00 Ur Squamous Epith Cells 0-5 /hpf (0-5) 04/06/25 20:00 Amorphous Sediment Not Reportable 04/06/25 20:00 Urine Bacteria None seen /hpf (NONE) 04/06/25 20:00 Hyaline Casts 0.40 /lpf 04/06/25 20:00 Influenza A (PCR) Negative (Negative) 04/06/25 20:54 Influenza Type B (PCR) Negative (Negative) 04/06/25 20:54 RSV (PCR) Negative (Negative) 04/06/25 20:54 SARS-CoV-2 (PCR) Positive (Negative) A 04/06/25 20:54 All radiology interpretation(s) finalized by discharge Discharge Plan Discharge Patient Disposition: Home Clinical Impression: Syncope and collapse, COVID-19 Condition: Stable Prescriptions: No Action finasteride 5 mg tablet 5 mg PO DAILY citalopram 20 mg tablet 20 mg PO DAILY amlodipine 5 mg tablet 5 mg PO DAILY Qty: 30 5RF Jardiance 10 mg tablet 10 mg PO DAILY Qty: 90 3RF magnesium 200 mg tablet 200 mg PO DAILY lisinopril 20 mg tablet 40 mg PO DAILY Qty: 180 3RF Brilinta 60 mg tablet 60 mg PO BID Qty: 60 0RF ascorbic acid (vitamin C) [Vitamin C] 500 mg Tablet 500 mg PO BID aspirin [Bridget Low Dose Aspirin] 81 mg tablet,delayed release (DR/EC) 81 mg PO DAILY Qty: 60 3RF metoprolol succinate 25 mg tablet extended release 24 hr 12.5 mg PO DAILY Qty: 15 0RF cholecalciferol (vitamin D3) [Vitamin D3] 25 mcg (1,000 unit) Tablet 25 mcg PO BID omega 7-mwc-woe-fish oil [Fish Oil] 1,000 mg (120 mg-180 mg) Capsule 1 cap PO BID atorvastatin 40 mg tablet 40 mg PO DAILY Discharge Orders: Discharge ED (Routine); Ordered 04/06/25 Ordered By: Franky Yates Referrals: Yolanda Yi MD [Primary Care Provider, Family Practice] Discharge Diet: Usual diet Discharge Activity: Increase activity as tolerated Patient Instructions: Syncope (ED), Patient Portal & Terence Instructions Activity Restrictions/Additional Instructions: Make sure to stand up slowly and do not get in a morrissey to get anywhere for the next few days. Drink plenty of fluid. You do have COVID-19, and this can cause blood pressure to be lower than usual which precipitates passing out. Your oxygen levels and other tests are all reassuring. Print Language: Lithuanian Coding Level of Care Code ED Chairman Ceo for Velma Villegas
[2025-04-06 23:03] VITALS: BP 138/59; PULSE 73; RESP 18; O2SAT 98
== END 2025-04-06 23:05 | disposition home or self-care (01) ==
PROVIDERS: Student in an Organized Health Care Education/Training Program; Emergency Provider Student in an Organized Health Care Education/Training Program; PCP Family Medicine
DX: R55 Syncope and collapse (principal); U07.1 COVID-19; S50.311A Abrasion of right elbow, initial encounter; Z79.82 Long term (current) use of aspirin; Z11.52 Encounter for screening for COVID-19; Z87.891 Personal history of nicotine dependence; Z95.1 Presence of aortocoronary bypass graft; E78.5 Hyperlipidemia, unspecified; E11.9 Type 2 diabetes mellitus without complications; W19.XXXA Unspecified fall, initial encounter
CPT/HCPCS: 36415; 70450; 72125; 80053; 81001; 85025; 87637; 90471; 90715; 93005; 96361; 96374; 99285; J0131; J7030

== ENCOUNTER → 2025-04-11 14:23 | Outpatient (BNVA) | payer OTHER, SELFPAY | PROVIDERS: PCP Family Medicine; Visit Provider Nurse Practitioner Family | DX: L21.8 Other seborrheic dermatitis (principal); R23.3 Spontaneous ecchymoses; L82.1 Other seborrheic keratosis; D48.5 Neoplasm of uncertain behavior of skin; L57.0 Actinic keratosis | CPT/HCPCS: 11102; 17000; 99204 ==